=== PATIENT | female | born 1950 | race Caucasian/White ===

== ENCOUNTER 2017-07-26 11:47 | Emergency (ER) | payer MEDICARE ==
[2017-07-26 11:47] VITALS: BMI 21.5
[2017-07-26 12:04] VITALS: BP 161/77; PULSE 87; RESP 18; TEMP 97.9; O2SAT 99
--- NOTE | 2017-07-26 12:18 | ED PDOC ---
Upper Extremity Pain/Injury Time Seen by Provider: 07/26/17 12:09 Chief Complaint (Nursing): Upper Extremity Problem/Injury Chief Complaint (Provider): Right upper arm pain History Per: Patient History/Exam Limitations: no limitations Onset/Duration Of Symptoms: Mins Current Symptoms Are (Timing): Still Present Quality: "Pain" Exacerbating Factor(s): Strenuous Use Of Affected Area Additional History Per: Family Additional Complaint(s): The patient is a 67yo female, past medical history of hypertension, hypercholesterolemia, DM, hyperthyroid, presents to the ED for evaluation of right upper extremity pain s/p sustaining a mechanical fall prior to arrival. Patient reports while attempting to break her fall, she landed on her right arm sustaining the injury. She denies any numbness or tingling of her arm. Patient states she has not taken any medication for pain and at present, offers no additional medical complaints. PCP: Dr. Benson Franco Past Medical History Reviewed: Historical Data, Nursing Documentation, Vital Signs Vital Signs: Last Vital Signs Temp 97.9 F 07/26/17 12:00 Pulse 87 07/26/17 12:00 Resp 18 07/26/17 12:00 BP 161/77 H 07/26/17 12:00 Pulse Ox 99 07/26/17 12:00 - Medical History PMH: Diabetes, HTN, Hypercholesterolemia, Hyperthyroidism, Hypothyroidism - Surgical History Surgical History: No Surg Hx - Family History Family History: States: Unknown Family Hx - Home Medications Home Medications: Ambulatory Orders Medication Instructions Recorded Cholecalciferol (Vitamin D3) 5,000 iu PO DAILY 08/10/14 [Vitamin D3] Fish Oil/[place]-3/Vit C/Vit E 2,000 mg PO DAILY 08/10/14 [Coromega [place]-3] Gabapentin [Gabapentin] 200 mg PO TID 08/10/14 Glimepiride [Glimepiride] 2 mg PO BID 08/10/14 Lisinopril [Lisinopril] 10 mg PO DAILY 08/10/14 Metformin Hydrochloride [Metformin] 1,000 mg PO BID 08/10/14 Simvastatin [Simvastatin] 20 mg PO DAILY 08/10/14 Amoxicillin/Potassium Clav 1 each PO BID #20 tablet 05/27/16 [Augmentin 875-125 Tablet] - Allergies Allergies/Adverse Reactions: Allergies Allergy/AdvReac Type Severity Reaction Status Date / Time ciprofloxacin [From Cipro] Allergy RASH Verified 05/27/16 11:59 ciprofloxacin HCl Allergy RASH Verified 05/27/16 11:59 [From Cipro] clindamycin Allergy RASH Verified 05/27/16 12:00 Review of Systems ROS Statement: Except As Marked, All Systems Reviewed And Found Negative Musculoskeletal: Positive for: Arm Pain (right upper arm) Neurological: Negative for: Weakness, Numbness Physical Exam - Reviewed Nursing Documentation Reviewed: Yes Vital Signs Reviewed: Yes - Physical Exam Appears: Positive for: Well Head Exam: Positive for: ATRAUMATIC, NORMAL INSPECTION, NORMOCEPHALIC Skin: Positive for: Normal Color Eye Exam: Positive for: Normal appearance Neck: Positive for: Normal Cardiovascular/Chest: Positive for: Regular Rate, Rhythm Respiratory: Negative for: Respiratory Distress Pulses-Radial (R): 2+ Extremity: Positive for: Tenderness (diffuse tenderness to right proximal humerus). Negative for: Normal ROM (decreased ROM at right shoulder due to pain ), Deformity, Swelling - ECG O2 Sat by Pulse Oximetry: 99 (RA) Pulse Ox Interpretation: Normal Medical Decision Making Medical Decision Making: Time: 1220 Impression: Right arm pain s/p fall Plan: -- XR Right shoulder -- Tramadol 50mg PO -- Tylenol 650 mg PO Reassess Time: 1252 XR as read by provider indicates irregular impacted fracture of right surgical neck. Call placed to orthopedist litigation counsel. Discussed with Dr Vicente. States to f/u with orthopedics. No surgery needed at this time. Pt with sling. Scribe Attestation: Documented by Mary Ann Brice acting as a scribe for MAGALIE Burks Provider Attestation: All medical record entries made by the Scribe were at my direction and personally dictated by me. I have reviewed the chart and agree that the record accurately reflects my personal performance of the history, physical exam, medical decision making, and the department course for this patient. I have also personally directed, reviewed, and agree with the discharge instructions and disposition. Disposition - Clinical Impression Clinical Impression: Arm pain - Patient ED Disposition Is Patient to be Admitted: No - Disposition Referrals: [facility] [Outside] formerly [facility] [Outside] Disposition: Routine/Home Disposition Time: 14:34 Condition: GOOD Additional Instructions: Please follow-up with orthopedics. Instructions: Arm Fracture in Adults (ED) Forms: [facility] (Hebrew)
--- NOTE | 2017-07-26 13:58 | RAD ---
PROCEDURE: Radiographs of the Right Shoulder HISTORY: fall, right shoulder pain COMPARISON: No prior. FINDINGS: BONES: Comminuted fracture right humeral head and neck. No evidence of dislocation. JOINTS: Degenerative changes right acromioclavicular joint. SOFT TISSUES: Normal. OTHER FINDINGS: None. IMPRESSION: Comminuted fracture right humeral head and neck. No evidence of dislocation. Degenerative changes right acromioclavicular joint
== END 2017-07-26 14:45 | disposition home or self-care (01) ==
LOC: H.ER 11:47
DX: M79.601 Pain in right arm (principal); E03.9 Hypothyroidism, unspecified; E05.90 Thyrotoxicosis, unspecified without thyrotoxic crisis or storm; E11.9 Type 2 diabetes mellitus without complications; I10 Essential (primary) hypertension; Z79.84 Long term (current) use of oral hypoglycemic drugs

== ENCOUNTER 2017-11-08 12:22 | Inpatient (IN) | payer MEDICARE ==
[2017-11-08 12:22] VITALS: BMI 21.5
--- NOTE | 2017-11-08 13:02 | ED PDOC ---
Lower Extremity Pain/Injury Time Seen by Provider: 11/08/17 12:39 Chief Complaint (Nursing): Lower Extremity Problem/Injury Chief Complaint (Provider): Lower Extremity Problem/Injury History Per: Patient History/Exam Limitations: no limitations Current Symptoms Are (Timing): Still Present Additional Complaint(s): 67 y/o female with a past medical history of diabetes who presents to the emergency department with a complaint of redness and swelling to the second digit of the left foot for 5 days. Patient is able to feel sensation to all toes , has been cleaning with betadine, and thinks this is caused by bad circulation to the area. States her glucose was 125 this morning. 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 Denies fever, chill, or body aches. PMD: Dr. Jeri Byrne MD Past Medical History Reviewed: Historical Data, Nursing Documentation, Vital Signs Vital Signs: Last Vital Signs Temp 96.0 F L 11/08/17 12:35 Pulse 100 H 11/08/17 12:35 Resp 17 11/08/17 12:35 BP 136/62 11/08/17 12:35 Pulse Ox 99 11/08/17 12:35 - Medical History PMH: Diabetes, HTN, Hypercholesterolemia, Hyperthyroidism, Hypothyroidism - Family History Family History: States: Unknown Family Hx - Home Medications Home Medications: Ambulatory Orders Medication Instructions Recorded Cholecalciferol (Vitamin D3) 5,000 iu PO DAILY 08/10/14 [Vitamin D3] Fish Oil/[place]-3/Vit C/Vit E 2,000 mg PO DAILY 08/10/14 [Coromega [place]-3] Gabapentin [Gabapentin] 200 mg PO TID 08/10/14 Glimepiride [Glimepiride] 2 mg PO BID 08/10/14 Lisinopril [Lisinopril] 10 mg PO DAILY 08/10/14 Metformin Hydrochloride [Metformin] 1,000 mg PO BID 08/10/14 Simvastatin [Simvastatin] 20 mg PO DAILY 08/10/14 Amoxicillin/Potassium Clav 1 each PO BID #20 tablet 05/27/16 [Augmentin 875-125 Tablet] - Allergies Allergies/Adverse Reactions: Allergies Allergy/AdvReac Type Severity Reaction Status Date / Time ciprofloxacin [From Cipro] Allergy RASH Verified 05/27/16 11:59 ciprofloxacin HCl Allergy RASH Verified 05/27/16 11:59 [From Cipro] clindamycin Allergy RASH Verified 05/27/16 12:00 Review of Systems ROS Statement: Except As Marked, All Systems Reviewed And Found Negative (As per HPI, otherwise negative) Constitutional: Negative for: Fever, Chills, Other (Body aches) Musculoskeletal: Positive for: Foot Pain (Redness and swelling to the second toe of the left foot. Able to feel sensation to toes. ) Physical Exam - Reviewed Nursing Documentation Reviewed: Yes Vital Signs Reviewed: Yes - Physical Exam Appears: Positive for: Non-toxic, No Acute Distress Head Exam: Positive for: ATRAUMATIC, NORMAL INSPECTION, NORMOCEPHALIC Skin: Positive for: Normal Color, Warm, Dry Extremity: Positive for: Normal ROM (Able to range the toes on the left foot. ) , Capillary Refill (Good pulses noted on the left foot. ), Swelling (Left second DIP with skin breakdown and necrosis noted. Swelling, erythema, warmth, and avulsion of the skin noted with nail injury and foul smell. ). Negative for : Other (No active bleeding or drainage noted. ) Neurologic/Psych: Positive for: Alert, Oriented (x3) - Laboratory Results Result Diagrams: 11/08/17 13:32 11/08/17 13:32 - ECG O2 Sat by Pulse Oximetry: 99 (RA) Pulse Ox Interpretation: Normal Medical Decision Making Medical Decision Making: Time: 1246 Initial impression: Cellulitis of the toe Initial plan: --CMP --CBC w/ diff --Erythrocyte Sedimentation Rate --Blood Culture --Foot Left 3 Views --Podiatry consult --Reevaluation Podiatry: pages @1149 Time: 1332 Labs indicate 12.2 (High) range of white blood cells. Time: 1407 --Foot x-ray FINDINGS: BONES: Erosion of the tip of the tuft of the 2nd digit suggest osteomyelitis. There is a probable early chronic fracture of the base of 5th metatarsal bone, potential nonunion. This was not seen in the prior left foot radiograph series 26356 however. Further clinical correlation is advised with the patient. JOINTS: Degenerative changes are seen throughout the joints of the right foot diffusely , seen worst at the inner phalangeal joints, the 1st metatarsophalangeal joint, and the tarsal tarsal tarsal metatarsal articulations. SOFT TISSUES: Deformity of distal soft tissues of the great toe or reflect prior ulceration most likely. Emphysematous changes at the distal soft tissue of the 2nd digit likely reflects ulceration. OTHER FINDINGS: Diffuse osteopenia suggests osteoporosis. IMPRESSION: 1. Likely osteomyelitis of the tip of the tuft of the 2nd digit were soft tissue emphysema is also appreciated reflecting probable ulceration. Clinically correlate further. 2. Likely early chronic fracture base 5th metatarsal bone, potential nonunion here. Time: 1425 --Patient has osteomyelitis. Spoke to podiatry who will be coming soon to evaluate patient. --Will start dose of Vancomycin 1 GM IVPB Time: 1600 --Podiatry evaluated patient. --Patient will be admitted - to Ronny Cotto osteomyelitis. will get Vancomycin and Zoysn IV. Scribe Attestation: Documented by Gely Fernandez, acting as a scribe for Emi Lopez PA-C Provider Scribe Attestation: All medical record entries made by the Scribe were at my direction and personally dictated by me. I have reviewed the chart and agree that the record accurately reflects my personal performance of the history, physical exam, medical decision making, and the department course for this patient. I have also personally directed, reviewed, and agree with the discharge instructions and disposition. Disposition - Clinical Impression Clinical Impression: Osteomyelitis - Patient ED Disposition Is Patient to be Admitted: Yes - Disposition Disposition Time: 16:22 Condition: FAIR - Pt Status Changed To: Hospital Disposition Of: Inpatient - Admit Certification Admit to Inpatient:: After my assessment, the patient will require hospitalization for at least two midnights. This is because of the severity of symptoms shown, intensity of services needed, and/or the medical risk in this patient being treated as an outpatient. - POA Present On Arrival: None
[2017-11-08 13:37] LABS: BASO # 0.1 K/uL (0.0-0.2); BASO % 0.6 % (0.0-2.0); EOS # 0.2 K/uL (0.0-0.7); EOS % 1.7 % (0.0-4.0); HEMATOCRIT 35.7 % (34.0-47.0); LYMPH # 3.3 K/uL (1.0-4.3); LYMPH % 26.9 % (20.0-40.0); MEAN CELL VOLUME 89.8 fl (81.0-99.0); MEAN CORPUSCULAR HEMOGLOBIN 29.9 pg (27.0-31.0); MEAN CORPUSCULAR HGB CONC 33.3 g/dL (33.0-37.0); MEAN PLATELET VOLUME 8.9 fl (7.2-11.7); MONO % 8.3 % (0.0-10.0); NEUT # 7.6 K/uL (1.8-7.0); NEUT % 62.5 % (50.0-75.0); RED CELL DISTRIBUTION WIDTH 13.4 % (11.5-14.5); WHITE BLOOD COUNT 12.2 K/uL (4.8-10.8)
[2017-11-08 13:47] LABS: BILIRUBIN,TOTAL 0.6 mg/dl (0.2-1.3); CALCIUM 9.5 mg/dL (8.4-10.2); POTASSIUM 5.1 MMOL/L (3.6-5.0); TOTAL PROTEIN 8.8 G/DL (6.3-8.2)
[2017-11-08 13:49] LABS: ALB/GLOB RATIO 0.9 (1.0-2.1)
--- NOTE | 2017-11-08 14:09 | RAD ---
PROCEDURE: Left Foot Radiographs. HISTORY: foot pain 2nd toe COMPARISON: None. FINDINGS: BONES: Erosion of the tip of the tuft of the 2nd digit suggest osteomyelitis. There is a probable early chronic fracture of the base of 5th metatarsal bone, potential nonunion. This was not seen in the prior left foot radiograph series 69082 however. Further clinical correlation is advised with the patient. JOINTS: Degenerative changes are seen throughout the joints of the right foot diffusely, seen worst at the inner phalangeal joints, the 1st metatarsophalangeal joint, and the tarsal tarsal tarsal metatarsal articulations. SOFT TISSUES: Deformity of distal soft tissues of the great toe or reflect prior ulceration most likely. Emphysematous changes at the distal soft tissue of the 2nd digit likely reflects ulceration. OTHER FINDINGS: Diffuse osteopenia suggests osteoporosis. IMPRESSION: 1. Likely osteomyelitis of the tip of the tuft of the 2nd digit were soft tissue emphysema is also appreciated reflecting probable ulceration. Clinically correlate further. 2. Likely early chronic fracture base 5th metatarsal bone, potential nonunion here.
--- NOTE | 2017-11-08 15:12 | CP.PCM.CON ---
History of Present Illness - History of Present Illness History of Present Illness: Podiatry Consult Note- Dr. Galvan 67 y.o female with PMH of DM, HTN, hypercholesteremia presents to the ED for left 2nd digit ulceration. Patient reports noticing the toe getting more red and odorous for the past 5 days. She reports that there was no ulceration 5 days prior. She reports she has limited sensation to the LE; denies of any pain. She ambulates today in sneakers and accompanied by her significant other. She denies nausea/vomiting/shortness of breath/chest pain/chills/fever. 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 SH: denies smoking, drinking, ilicit drug use MEDS: see medication list FH: father-none, mother-stomach cancer, sister-breast cancer ALL: cipro and clinda -rash Past Patient History - Infectious Disease Hx of Infectious Diseases: None - Past Social History Smoking Status: Never Smoked - CARDIAC Hx Hypercholesterolemia: Yes Hx Hypertension: Yes - NEUROLOGICAL Other/Comment: neuropathy - HEENT Other/Comment: poor eyesight - ENDOCRINE/METABOLIC Hx Hyperthyroidism: Yes Hx Hypothyroidism: Yes - PSYCHIATRIC Hx Substance Use: No - SURGICAL HISTORY Other/Comment: 3 right foot surgeries- toe amputation - ANESTHESIA Hx Anesthesia: Yes Hx Anesthesia Reactions: No Meds Allergies/Adverse Reactions: Allergies Allergy/AdvReac Type Severity Reaction Status Date / Time ciprofloxacin [From Cipro] Allergy RASH Verified 05/27/16 11:59 ciprofloxacin HCl Allergy RASH Verified 05/27/16 11:59 [From Cipro] clindamycin Allergy RASH Verified 05/27/16 12:00 - Medications Medications: Current Medications Vancomycin HCl 1 gm/ Sodium (Chloride) 250 mls @ 166.667 mls/hr IVPB ONCE ONE PRN Reason: Protocol Stop: 11/08/17 16:29 Physical Exam - Constitutional Appears: Well, Non-toxic, No Acute Distress - Extremities Exam Additional comments: Vasc: DP and PT 1/4 bilaterally, CFT < 3 seconds x 9 digits, temperature gradient WNL, edema noted to the 2nd L digit Ortho: no pain with palpation to the 2nd L digit Neuro: protective and gross sensation diminished Derm: ulceration at the distal tip of L 2nd digit measuring approximately 1.5 x 2 x .4, wound base is mainly fibrotic with some necrotic tissue noted to wound base. Hyperkeratoic rim surrounding ulceration. Malodorous. No active drainage noted from ulceration. Probes to bone. Erythematous to the entire digit. No tunneling. R 2nd hammertoe contracture with redness discoloration noted to distal tip as well as dorsum PIPJ secondary to pressure - Neurological Exam Neurological exam: Alert, Oriented x3 - Psychiatric Exam Psychiatric exam: Normal Affect, Normal Mood Results - Vital Signs Recent Vital Signs: Last Vital Signs Temp 96.0 F L 11/08/17 12:35 Pulse 100 H 11/08/17 12:35 Resp 17 11/08/17 12:35 BP 136/62 11/08/17 12:35 Pulse Ox 99 11/08/17 14:27 - Labs Result Diagrams: 11/08/17 13:32 11/08/17 13:32 Labs: Laboratory Results - last 24 hr 11/08/17 11/08/17 13:32 13:32 WBC 12.2 H RBC 3.98 Hgb 11.9 L Hct 35.7 MCV 89.8 MCH 29.9 MCHC 33.3 RDW 13.4 Plt Count 234 MPV 8.9 Neut % (Auto) 62.5 Lymph % (Auto) 26.9 [place] % (Auto) 8.3 Eos % (Auto) 1.7 Baso % (Auto) 0.6 Neut # 7.6 H Lymph # 3.3 [place] # 1.0 H Eos # 0.2 Baso # 0.1 ESR 99 H Sodium 139 Potassium 5.1 H Chloride 101 Carbon Dioxide 29 Anion Gap 14 BUN 18 H Creatinine 1.3 H Est GFR ( Amer) 49 Est GFR (Non-Af Amer) 41 Random Glucose 183 H Calcium 9.5 Total Bilirubin 0.6 AST 39 H ALT 36 Alkaline Phosphatase 97 Total Protein 8.8 H Albumin 4.2 Globulin 4.6 H Albumin/Globulin Ratio 0.9 L Assessment & Plan - Assessment and Plan (Free Text) Assessment: 67 y.o female with PMH of DM, HTN, hypercholesteremia with left 2nd digit infected ulceration with OM. Plan: Patient seen and examined in the ED Charts, labs, vitals reviewed (afebrile, WBC=12.2) Discussed the plan in detail with attending Dr. Galvan X-ray- Impression: 1. Likely osteomyelitis of the tip of the tuft of the 2nd digit were soft tissue emphysema is also appreciated reflecting probable ulceration. Clinically correlate further. 2. Likely early chronic fracture base 5th metatarsal bone, potential nonunion here. Ulceration excisionally debrided using a 15# blade and a pickup of nonviable, necrotic tissue until fresh bleeding is noted down to the level of subcutaneous tissue. Patient tolerate procedure well. Ulceration is cleansed and dressed with betadine w2d, dsd, and cling. Will monitor right 2nd digit Pt may WB in surgical shoe bilaterally Wound culture taken- pending results Ordered Sunshine and Jayne to start ID consulted- recommendations appreciated Podiatry will continue to follow while in house Thank you for the consult
[2017-11-08] MEDS ORDERED: Piperacillin/Tazobact 3.375 GM in Sodium Chloride 0.9% 100 ML IVPB STA (16:20)
[2017-11-08 21:39] LABS: RBC URINE 5 /hpf (0-3); URINE BILIRUBIN NEGATIVE (NEGATIVE); URINE BLOOD NEGATIVE (NEGATIVE); URINE COLOR STRAW (YELLOW); URINE GLUCOSE (UA) 50 mg/dL (Normal); URINE KETONE NEGATIVE (NEGATIVE); URINE LEUKOCYTE ESTERASE LARGE Leu/uL (Negative); URINE PROTEIN NEGATIVE (NEGATIVE); URINE UROBILINOGEN 0.2-1.0 mg/dL (0.2-1.0); WBC URINE 139 /hpf (0-5)
[2017-11-09 06:22] LABS: HEMATOCRIT 35.5 % (34.0-47.0); MEAN CELL VOLUME 88.9 fl (81.0-99.0); MEAN CORPUSCULAR HEMOGLOBIN 29.5 pg (27.0-31.0); MEAN CORPUSCULAR HGB CONC 33.1 g/dL (33.0-37.0); RED CELL DISTRIBUTION WIDTH 13.5 % (11.5-14.5); WHITE BLOOD COUNT 12.2 K/uL (4.8-10.8)
--- NOTE | 2017-11-09 06:26 | CP.PCM.PN ---
Subjective - Date & Time of Evaluation Date of Evaluation: 11/09/17 Time of Evaluation: 06:26 - Subjective Subjective: Podiatry Progress Note - Dr. Galvan 67 year old female patient PMHx DM, HTN, hypercholesterolemia seen and evaluated at bedside for left 2nd digit ulceration. Patient hemodynamically stable and NAD. Partner present at bedside. Denies any acute events overnight. Denies any pain to left 2nd digit; no pedal complaints this visit. Denies N/V/F/ D/C/SOB/calf pain. Objective - Vital Signs/Intake and Output Vital Signs (last 24 hours): Temp Pulse Resp BP Pulse Ox 98.7 F 98 H 17 145/66 98 11/08/17 20:50 11/08/17 20:50 11/08/17 23:03 11/08/17 20:50 11/08/17 23:03 - Medications Medications: Current Medications Enoxaparin Sodium (Lovenox) 40 mg SC DAILY [facility] PRN Reason: Protocol Home Med (Glimepiride [Glimepiride]) 4 mg PO BID [facility] Piperacillin Sod/Tazobactam (Sod 2.25 gm/ Sodium Chloride) 100 mls @ 100 mls/ hr IVPB Q8 [facility] PRN Reason: Protocol Last Admin: 11/09/17 01:10 Dose: 100 mls/hr Vancomycin HCl 1 gm/ Sodium (Chloride) 250 mls @ 166.667 mls/hr IVPB Q12@0300, 1500 [facility] PRN Reason: Protocol Last Admin: 11/09/17 02:43 Dose: 166.667 mls/hr Insulin Detemir (Levemir) 40 units SC HS [facility] Insulin Human Lispro (Humalog) 0 units SC ACHS [facility] PRN Reason: Protocol Insulin Lispro Protam/Lispro Human (Humalog Mix 75/25) 50 units SC QAM [facility] Insulin Lispro Protam/Lispro Human (Humalog Mix 75/25) 40 units SC QPM [facility] Levothyroxine Sodium (Synthroid) 25 mcg PO DAILY@0630 [facility] Lisinopril (Zestril) 10 mg PO DAILY [facility] Pravastatin Sodium (Pravachol) 40 mg PO DAILY [facility] Sitagliptin Phosphate (Januvia) 100 mg PO DAILY [facility] - Labs Labs: 11/09/17 05:40 12/17/17 13:32 - Constitutional Appears: Well, Non-toxic, No Acute Distress - Extremities Exam Additional comments: VASC: DP pulses palpable 2/4 b/l. PT pulses weakly palpable 1/4 b/l. CFT <3 seconds to all digits. Temperature gradient WNL. Non-pitting edema noted to left 2nd digit. NEURO: Gross sensation absent bilaterally. DERM: Full-thickness ulceration noted to distal tuft of left 2nd digit measuring approximately 1.5 x 2 x 0.4cm - ulcer noted to have a mixed fibronecrotic base with sloughing and hyperkeratotic rim; serosanguinous drainage and malodor present; (+)probe to bone. Erythema and darkened discoloration noted to entire left 2nd digit. Right 2nd digit with discoloration noted to distal tuft and dorsum of PIPJ. ORTHO: No pain on palpation left 2nd digit. Rigid claw toe contracture left 2nd digit. Right 1st ray partial amputation. Right 2nd digit rigid hammertoe contracture. - Neurological Exam Neurological Exam: Alert, Awake, Oriented x3 - Psychiatric Exam Psychiatric exam: Normal Affect, Normal Mood Assessment and Plan - Assessment and Plan (Free Text) Assessment: 67 year old female PMHx of DM, HTN, hypercholesteremia with left 2nd digit infected ulceration + osteomyelitis Plan: Patient seen and evaluated at bedside with attending, Dr. Galvan afebrile, leukocytosis 12.2 L foot XR reviewed: 1. Likely osteomyelitis of the tip of the tuft of the 2nd digit were soft tissue emphysema is also appreciated reflecting probable ulceration. Clinically correlate further. 2. Likely early chronic fracture base 5th metatarsal bone, potential nonunion here. 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 surgical intervention; explained risks, complications, and alternatives to surgical procedure - patient agrees to proceed with surgical intervention To OR Thursday 7:45AM with Dr. Galvan for left 2nd digit amputation Podiatry will continue to follow patient while in house
[2017-11-09 06:31] LABS: ALB/GLOB RATIO 0.9 (1.0-2.1); BILIRUBIN,TOTAL 0.7 mg/dl (0.2-1.3); CALCIUM 9.2 mg/dL (8.4-10.2); POTASSIUM 4.4 MMOL/L (3.6-5.0); TOTAL PROTEIN 8.4 G/DL (6.3-8.2)
[2017-11-09] MEDS: Insulin Lispro (humaLOG) 100 Units/ml Inj SC SCH ×4 (07:30→21:17)
[2017-11-09] MEDS: Levothyroxine 25 MCG TAB PO SCH (08:22)
[2017-11-09] MEDS ORDERED: Insulin Lispro Mix 75/25 100 units/ml (HumaLog) 10ml SC SCH ×3 (09:00→18:00)
[2017-11-09] MEDS ORDERED: GlipiZIDE 10 mg SR Tab PO SCH (09:00)
[2017-11-09] MEDS: Pravastatin Sodium 40 MG TAB PO SCH (09:15)
[2017-11-09] MEDS: Enoxaparin 40 mg Syringe SC SCH (09:15)
--- NOTE | 2017-11-09 11:29 | CP.PCM.CON ---
History of Present Illness - History of Present Illness History of Present Illness: 67 y.o female with PMH of DM, HTN, hypercholesteremia presents to the ED for left 2nd digit ulceration. Patient reports noticing the toe getting more red and odorous for the past 5 days. She reports that there was no ulceration 5 days prior. She reports she has limited sensation to the LE; denies of any pain. She ambulates today in sneakers and accompanied by her significant other. She denies nausea/vomiting/shortness of breath/chest pain/chills/fever. 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 SH: denies smoking, drinking, ilicit drug use MEDS: see medication list FH: father-none, mother-stomach cancer, sister-breast cancer ALL: cipro and clinda -rash Review of Systems - Constitutional Constitutional: As Per HPI - EENT Eyes: absent: As Per HPI, Blind Spots, Blurred Vision, Change in Vision, Decreased Night Vision, Diplopia, Discharge, Dry Eye, Exophthalmos, Floaters, Irritation, Itchy Eyes, Loss of Peripheral Vision, Pain, Photophobia, Requires Corrective Lenses, Sees Flashes, Spots in Vision, Tunnel Vision, Other Visual Disturbances, Loss of Vision, Other Ears: absent: As Per HPI, Decreased Hearing, Ear Discharge, Ear Pain, Tinnitus, Abnormal Hearing, Disequilibrium, Dizziness, Other Nose/Mouth/Throat: absent: As Per HPI, Epistaxis, Nasal Congestion, Nasal Discharge, Nasal Obstruction, Nasal Trauma, Nose Pain, Post Nasal Drip, Sinus Pain, Sinus Pressure, Bleeding Gums, Change in Voice, Dental Pain, Dry Mouth, Dysphagia, Halitosis, Hoarsness, Lip Swelling, Mouth Lesions, Mouth Pain, Odynophagia, Sore Throat, Throat Swelling, Tongue Swelling, Facial Pain, Neck Pain, Neck Mass, Other - Breasts Breasts: absent: As Per HPI, Change in Shape, Mass, Pain, Nipple Discharge, Nipple Inversion, Skin Changes, Swelling, Other - Cardiovascular Cardiovascular: absent: As Per HPI, Acrocyanosis, Chest Pain, Chest Pain at Rest , Chest Pain with Activity, Claudication, Diaphoresis, Dyspnea, Dyspnea on Exertion, Edema, Irregular Heart Rhythm, Pain Radiating to Arm/Neck/Jaw, Leg Edema, Leg Ulcers, Lightheadedness, Orthopnea, Palpitations, Paroxysmal Nocturnal Dyspnea, Pedal Edema, Radiating Pain, Rapid Heart Rate, Slow Heart Rate, Syncope, Other - Respiratory Respiratory: absent: As Per HPI, Cough, Dyspnea, Hemoptysis, Dyspnea on Exertion , Wheezing, Snoring, Stridor, Pain on Inspiration, Chest Congestion, Excessive Mucous Production, Change in Mucous Color, Pain with Coughing, Other - Gastrointestinal Gastrointestinal: absent: As Per HPI, Abdominal Pain, Belching, Bloating, Change in Bowel Habits, Change in Stool Character, Coffee Ground Emesis, Constipation, Cramping, Diarrhea, Dyspepsia, Dysphagia, Early Satiety, Excessive Flatus, Fecal Incontinence, Heartburn, Hematemesis, Hematochezia, Loose Stools, Melena, Nausea, Odynophagia, Temesmus, Vomiting, Other - Genitourinary Genitourinary: absent: As Per HPI, Change in Urinary Stream, Difficulty Urinating, Dysuria, Flank Pain, Hematuria, Pyuria, Nocturia, Urinary Incontinence, Urinary Frequency, Urinary Hesitance, Urinary Urgency, Voiding Freq/Small Amts, Freq UTI, Hx Renal/Bladder Calculi, Hx /Renal Surgery, Bladder Distension, Other - Reproductive: Female Reproductive:Female: absent: As Per HPI, Amenorrhea, Amenorrhea/ Control, Currently Menstual, Cycle <21 Days, Cycle >35 Days, Cycle Variable, Menses 1-7 Days, Menses >/= 8 Days, Menses Variable, Cycle > 4 Weeks Between, No Menses for 6 Months, Heavy Menses, Light Menses, Normal Menses, Spotting Between Cycles , S/P Hysterectomy, Menopausal, Post Menopausal, Premenarche, Abnormal Vaginal Bleeding, Dysmenorrhea, Dyspareunia, Genital Lesions, Genital Pruritis, Pelvic Pain, Prolapse Symptoms, Sexual Dysfunction, Vaginal Discharge, Vaginal Dryness , Vaginal Odor, Vaginal Pruritis, Other - Menstruation Menstruation: absent: As Per HPI, Amenorrhea, Amenorrhea/ Control, Currently Menstual, Cycle <21 Days, Cycle >35 Days, Cycle Variable, Menses 1-7 Days, Menses >/= 8 Days, Menses Variable, Cycle > 4 Weeks Between, No Menses for 6 Months, Heavy Menses, Light Menses, Normal Menses, Spotting Between Cycles , S/P Hysterectomy, Menopausal, Post Menopausal, Premenarche, Abnormal Vaginal Bleeding, Dysmenorrhea, Other - Musculoskeletal Musculoskeletal: As Per HPI - Integumentary Integumentary: As Per HPI - Neurological Neurological: As Per HPI - Psychiatric Psychiatric: absent: As Per HPI, Abnormal Sleep Pattern, Anhedonia, Anxiety, Auditory Hallucinations, Behavioral Changes, Change in Appetite, Change in Libido, Confusion, Depression, Difficulty Concentrating, Hallucinations, Homicidal Ideation, Hopelessness, Irritability, Memory Loss, Mood Swings, Panic Attacks, Paranoia, Suicidal Ideation, Visual Hallucinations, Tactile Hallucinations, Other - Endocrine Endocrine: absent: As Per HPI, Change in Body Appearance, Change in Libido, Cold Intolorance, Deepening of Voice, Excessive Sweating, Fatigue, Flushing, Heat Intolorance, Increase in Ring/Shoe/Hat Size, Palpitations, Polydipsia, Polyphagia, Polyuria, Other - Hematologic/Lymphatic Hematologic: absent: As Per HPI, Easy Bleeding, Easy Bruising, Lymphadenopathy, Other Past Patient History - Infectious Disease Hx of Infectious Diseases: None - Past Medical History & Family History Past Medical History?: Yes - Past Social History Smoking Status: Never Smoked - CARDIAC Hx Cardiac Disorders: Yes Hx Hypercholesterolemia: Yes Hx Hypertension: Yes - PULMONARY Hx Respiratory Disorders: No - NEUROLOGICAL Hx Neurological Disorder: Yes Other/Comment: neuropathy - HEENT Hx HEENT Problems: Yes Other/Comment: poor eyesight - RENAL Hx Chronic Kidney Disease: No - ENDOCRINE/METABOLIC Hx Endocrine Disorders: Yes Hx Diabetes Mellitus Type 2: Yes Hx Hypothyroidism: Yes - HEMATOLOGICAL/ONCOLOGICAL Hx Blood Disorders: No - INTEGUMENTARY Hx Dermatological Problems: No - MUSCULOSKELETAL/RHEUMATOLOGICAL Hx Musculoskeletal Disorders: No Hx Falls: No - GASTROINTESTINAL Hx Gastrointestinal Disorders: No - GENITOURINARY/GYNECOLOGICAL Hx Genitourinary Disorders: No - PSYCHIATRIC Hx Psychophysiologic Disorder: No Hx Substance Use: No - SURGICAL HISTORY Hx Surgeries: Yes Other/Comment: 3 right foot surgeries- toe amputation - ANESTHESIA Hx Anesthesia: Yes Hx Anesthesia Reactions: No Hx Malignant Hyperthermia: No Has any member of the family had a problem w/ anesthesia?: No Meds Allergies/Adverse Reactions: Allergies Allergy/AdvReac Type Severity Reaction Status Date / Time ciprofloxacin [From Cipro] Allergy RASH Verified 05/27/16 11:59 ciprofloxacin HCl Allergy RASH Verified 05/27/16 11:59 [From Cipro] clindamycin Allergy RASH Verified 05/27/16 12:00 - Medications Medications: Current Medications Enoxaparin Sodium (Lovenox) 40 mg SC DAILY [facility] PRN Reason: Protocol Last Admin: 11/09/17 09:15 Dose: 40 mg Glipizide (Glucotrol Xl) 10 mg PO BID [facility] Last Admin: 11/09/17 10:28 Dose: 10 mg Home Med (Glimepiride [Glimepiride]) 4 mg PO BID [facility] Piperacillin Sod/Tazobactam (Sod 2.25 gm/ Sodium Chloride) 100 mls @ 100 mls/ hr IVPB Q8 [facility] PRN Reason: Protocol Last Admin: 11/09/17 10:52 Dose: 100 mls/hr Vancomycin HCl 1 gm/ Sodium (Chloride) 250 mls @ 166.667 mls/hr IVPB Q12@0300, 1500 [facility] PRN Reason: Protocol Last Admin: 11/09/17 02:43 Dose: 166.667 mls/hr Insulin Detemir (Levemir) 40 units SC HS [facility] Insulin Human Lispro (Humalog) 0 units SC ACHS [facility] PRN Reason: Protocol Last Admin: 11/09/17 07:30 Dose: Not Given Insulin Lispro Protam/Lispro Human (Humalog Mix 75/25) 50 units SC QAM [facility] Last Admin: 11/09/17 09:24 Dose: 50 units Insulin Lispro Protam/Lispro Human (Humalog Mix 75/25) 40 units SC QPM [facility] Levothyroxine Sodium (Synthroid) 25 mcg PO DAILY@0630 [facility] Last Admin: 11/09/17 08:22 Dose: 25 mcg Lisinopril (Zestril) 10 mg PO DAILY [facility] Last Admin: 11/09/17 09:14 Dose: 10 mg Pravastatin Sodium (Pravachol) 40 mg PO DAILY [facility] Last Admin: 11/09/17 09:15 Dose: 40 mg Sitagliptin Phosphate (Januvia) 100 mg PO DAILY [facility] Last Admin: 11/09/17 09:32 Dose: Not Given Physical Exam - Constitutional Appears: Non-toxic, Chronically Ill - Head Exam Head Exam: NORMOCEPHALIC - Eye Exam Eye Exam: PERRL. absent: Scleral icterus - ENT Exam ENT Exam: Mucous Membranes Dry, Normal External Ear Exam - Neck Exam Neck exam: Negative for: Lymphadenopathy - Respiratory Exam Respiratory Exam: Decreased Breath Sounds - Cardiovascular Exam Cardiovascular Exam: REGULAR RHYTHM, +S1, +S2 - GI/Abdominal Exam GI & Abdominal Exam: Diminished Bowel Sounds, Soft. absent: Tenderness - Rectal Exam Rectal Exam: Deferred - Exam Exam: NORMAL INSPECTION - Extremities Exam Extremities exam: Positive for: pedal edema, tenderness. Negative for: calf tenderness, pedal pulses present - Back Exam Back exam: absent: CVA tenderness (L), CVA tenderness (R) - Neurological Exam Neurological exam: Alert, CN II-XII Intact, Oriented x3, Reflexes Normal - Psychiatric Exam Psychiatric exam: Normal Mood - Skin Skin Exam: Dry Results - Vital Signs Recent Vital Signs: Last Vital Signs Temp 97.9 F 11/09/17 07:42 Pulse 87 11/09/17 09:14 Resp 20 11/09/17 07:42 BP 132/73 11/09/17 09:14 Pulse Ox 98 11/09/17 07:42 - Labs Result Diagrams: 11/15/17 05:30 11/15/17 05:30 Labs: Laboratory Results - last 24 hr 11/08/17 11/08/17 11/08/17 13:32 13:32 18:13 WBC 12.2 H RBC 3.98 Hgb 11.9 L Hct 35.7 MCV 89.8 MCH 29.9 MCHC 33.3 RDW 13.4 Plt Count 234 MPV 8.9 Neut % (Auto) 62.5 Lymph % (Auto) 26.9 Morgan % (Auto) 8.3 Eos % (Auto) 1.7 Baso % (Auto) 0.6 Neut # 7.6 H Lymph # 3.3 Morgan # 1.0 H Eos # 0.2 Baso # 0.1 ESR 99 H Sodium 139 Potassium 5.1 H Chloride 101 Carbon Dioxide 29 Anion Gap 14 BUN 18 H Creatinine 1.3 H Est GFR ( Amer) 49 Est GFR (Non-Af Amer) 41 POC Glucose (mg/dL) Random Glucose 183 H Calcium 9.5 Total Bilirubin 0.6 AST 39 H ALT 36 Alkaline Phosphatase 97 Total Protein 8.8 H Albumin 4.2 Globulin 4.6 H Albumin/Globulin Ratio 0.9 L Triglycerides Cholesterol LDL Cholesterol Direct HDL Cholesterol Vitamin B12 Total T3 TSH 3rd Generation Urine Color Straw Urine Clarity Slighty-cloudy Urine pH 7.0 Ur Specific [place] 1.010 Urine Protein Negative Urine Glucose (UA) 50 Urine Ketones Negative Urine Blood Negative Urine Nitrate Negative Urine Bilirubin Negative Urine Urobilinogen 0.2-1.0 Ur Leukocyte Esterase Large Urine RBC (Auto) 5 H Urine Microscopic WBC 139 H Ur Squamous Epith Cells 1 Urine Yeast (Budding) Few H 11/08/17 11/08/17 11/09/17 20:41 22:32 05:40 WBC 12.2 H RBC 4.00 Hgb 11.8 L Hct 35.5 MCV 88.9 MCH 29.5 MCHC 33.1 RDW 13.5 Plt Count 239 MPV Neut % (Auto) Lymph % (Auto) [place] % (Auto) Eos % (Auto) Baso % (Auto) Neut # Lymph # Morgan # Eos # Baso # ESR Sodium Potassium Chloride Carbon Dioxide Anion Gap BUN Creatinine Est GFR ( Amer) Est GFR (Non-Af Amer) POC Glucose (mg/dL) 149 H 157 H Random Glucose Calcium Total Bilirubin AST ALT Alkaline Phosphatase Total Protein Albumin Globulin Albumin/Globulin Ratio Triglycerides Cholesterol LDL Cholesterol Direct HDL Cholesterol Vitamin B12 Total T3 TSH 3rd Generation Urine Color Urine Clarity Urine pH Ur Specific [place] Urine Protein Urine Glucose (UA) Urine Ketones Urine Blood Urine Nitrate Urine Bilirubin Urine Urobilinogen Ur Leukocyte Esterase Urine RBC (Auto) Urine Microscopic WBC Ur Squamous Epith Cells Urine Yeast (Budding) 11/09/17 11/09/17 11/09/17 05:40 06:31 07:50 WBC RBC Hgb Hct MCV MCH MCHC RDW Plt Count MPV Neut % (Auto) Lymph % (Auto) [place] % (Auto) Eos % (Auto) Baso % (Auto) Neut # Lymph # Morgan # Eos # Baso # ESR Sodium 140 Potassium 4.4 Chloride 102 Carbon Dioxide 31 H Anion Gap 11 BUN 14 Creatinine 1.2 Est GFR ( Amer) 54 Est GFR (Non-Af Amer) 45 POC Glucose (mg/dL) 74 Random Glucose 76 Calcium 9.2 Total Bilirubin 0.7 AST 35 ALT 44 Alkaline Phosphatase 86 Total Protein 8.4 H Albumin 4.0 Globulin 4.4 H Albumin/Globulin Ratio 0.9 L Triglycerides 157 H Cholesterol 136 LDL Cholesterol Direct 73 HDL Cholesterol 26 L Vitamin B12 675 Total T3 0.929 L TSH 3rd Generation 1.67 Urine Color Urine Clarity Urine pH Ur Specific [place] Urine Protein Urine Glucose (UA) Urine Ketones Urine Blood Urine Nitrate Urine Bilirubin Urine Urobilinogen Ur Leukocyte Esterase Urine RBC (Auto) Urine Microscopic WBC Ur Squamous Epith Cells Urine Yeast (Budding) 11/09/17 11/09/17 09:23 11:03 WBC RBC Hgb Hct MCV MCH MCHC RDW Plt Count MPV Neut % (Auto) Lymph % (Auto) Morgan % (Auto) Eos % (Auto) Baso % (Auto) Neut # Lymph # Morgan # Eos # Baso # ESR Sodium Potassium Chloride Carbon Dioxide Anion Gap BUN Creatinine Est GFR ( Amer) Est GFR (Non-Af Amer) POC Glucose (mg/dL) 197 H 192 H Random Glucose Calcium Total Bilirubin AST ALT Alkaline Phosphatase Total Protein Albumin Globulin Albumin/Globulin Ratio Triglycerides Cholesterol LDL Cholesterol Direct HDL Cholesterol Vitamin B12 Total T3 TSH 3rd Generation Urine Color Urine Clarity Urine pH Ur Specific [place] Urine Protein Urine Glucose (UA) Urine Ketones Urine Blood Urine Nitrate Urine Bilirubin Urine Urobilinogen Ur Leukocyte Esterase Urine RBC (Auto) Urine Microscopic WBC Ur Squamous Epith Cells Urine Yeast (Budding) Assessment & Plan (1) Diabetes mellitus Status: Acute (2) Gangrene due to arterial insufficiency Status: Acute (3) Hypertension Status: Acute (4) Osteomyelitis Status: Acute (5) PVD (peripheral vascular disease) Status: Acute - Assessment and Plan (Free Text) Assessment: cont iv antibiotics and wound care
--- NOTE | 2017-11-09 14:04 | HP ---
CHIEF COMPLAINT: Discoloration and painful left toe. HISTORY OF PRESENT ILLNESS: This is a 67-year-old female, known case of diabetes, hypertension, elevated cholesterol, who was having problem with her left toe for the last few days, which got worsened, started changing color and was painful, so the patient was brought to the emergency room where the patient was found to have osteomyelitis and was admitted for further management. PAST MEDICAL HISTORY: Significant for hypertension, diabetes, elevated cholesterol, hypothyroidism. PAST SURGICAL HISTORY: Unremarkable. PERSONAL HISTORY: The patient is currently nonsmoker, nondrinker. No substance abuse. MEDICATIONS: The patient is on multiple medications including vitamin D3, omega-3 fatty acids, gabapentin, glimepiride, lisinopril, metformin, simvastatin. ALLERGIES: THE PATIENT IS ALLERGIC TO CIPRO AND CLINDAMYCIN. FAMILY HISTORY: Noncontributory. REVIEW OF SYSTEMS: Positive for toe pain. Review of systems otherwise is negative for headache, dizziness,syncope, loss of consciousness, chest pain, shortness of breath, nausea, vomiting, diarrhea, constipation, any other pain. Review of systems of all other organ system is unremarkable. PHYSICAL EXAMINATION: GENERAL: Well-built, well-nourished 67-year-old female, in no acute distress. VITAL SIGNS: Temperature 97.9, pulse 87, respirations 20, blood pressure 132/73, saturation 98%. HEENT: Pupils reacting to light. No JVD. No thyromegaly. No lymphadenopathy. No nystagmus. Normocephalic, atraumatic skull. HEART: S1 and S2. Normal and regular. No significant murmur, gallop or rub is heard. LUNGS: Shows good bilateral air exchange. No rales or rhonchi. ABDOMEN: Soft, nontender. No organomegaly. No fluid. Bowel sounds are present. EXTREMITIES: No edema, no calf swelling, no tenderness, no acute ischemia on the right side. Left third toe is painful, tender, red with black discoloration at the tip, consistent with cellulitis from exam. CENTRAL NERVOUS SYSTEM: Essentially unchanged and there is no sign of any acute gross focal motor or sensory neurological deficit. DIAGNOSTIC DATA: Available diagnostic data reviewed. WBC 12.2, hemoglobin 11.2, hematocrit 35, platelets 239. Sodium 140, potassium 4.4, chloride 102, bicarb 31, BUN 14, creatinine 1.2. SMA-12 is unremarkable. Accu-Cheks are acceptable. TSH level is 1.67. X-ray of the foot is consistent with osteomyelitis. EKG does not reveal acute ST-T changes. ADMITTING IMPRESSION: Osteomyelitis of left toe, diabetes type 2 with uncontrolled sugar, hypertension, elevated cholesterol. PLAN: As ordered. Case and plan discussed with the patient. Rudy Cotto MD
[2017-11-09] MEDS: GlipiZIDE 10 mg SR Tab PO SCH (16:47)
[2017-11-09] MEDS ORDERED: Insulin Detemir 100 Units/ml Inj SC SCH (22:00)
--- NOTE | 2017-11-09 22:57 | CON ---
ENDOCRINOLOGY FOLLOWUP NOTE HISTORY OF PRESENT ILLNESS: This is a 67-year-old female, very well-known to me from outpatient diabetic management, who presents here with a left second digit ulceration with underlying osteomyelitis and cellulitis of the left foot and is now being referred for diabetic evaluation and management. She has been evaluated to have osteomyelitis with ongoing IV antibiotics as ordered today. PAST MEDICAL HISTORY: History of type 2 insulin-requiring diabetes, on a combination of oral hypoglycemic therapy with Amaryl given as 4 mg b.i.d. before meals and Januvia at 100 mg once daily. She is also on a premixed insulin regimen using Humalog 75/25 given as 50 units before breakfast and 40 units before dinner with Lantus given as 40 units subcu at bedtime daily as ordered. She is also on Trulicity given as 1.5 mg subcu once a week as ordered. History of hypertensive cardiovascular disease and dyslipidemia, history of diabetic retinopathy and polyneuropathy as noted. History of early diabetic nephropathy with microalbuminuria, history of peripheral arterial disease and vasculopathy with a previous partial right ray amputation with underlying osteomyelitis about 6 years ago, history of hypertension and dyslipidemia as mentioned. History of hypothyroidism, on the low-dose levothyroxine replacement therapy, on levothyroxine given as 25 mcg once daily as ordered. FAMILY HISTORY: Her mother had succumbed from stomach cancer and also has positive hypertension and heart disease in the family. SOCIAL HISTORY: The patient lives alone with very supportive family and all her sons are very supportive of her care. REVIEW OF SYSTEMS: As mentioned above. Admits to generalized body weakness with easy fatigability and tiredness and suboptimal energy level. Also admits to episodic dizziness and lightheadedness, worse on the day of admission. No chest pains or palpitations or PND. Her oral intake has been variable with nausea, dyspepsia and vague upper abdominal pain. Also admits to lower extremity paresthesias, especially nocturnally. PHYSICAL EXAMINATION: GENERAL: This is an average-built female, in no apparent distress. VITAL SIGNS: Blood pressure of 140/80; pulse of 70 beats per minute, regular; temperature 98; respirations 20; height is 5 feet 4 inches, weight is 188 pounds. HEENT: Head normocephalic. Eyes anicteric with pink conjunctivae. Funduscopy not possible at this time. Ears, nose, and throat otherwise normal. NECK: Supple. Thyroid gland is normal in size. No carotid bruits or cervical adenopathy. CARDIOPULMONARY: Some adynamic precordium. S1, S2 is rapid and regular. LUNGS: Clear to auscultation. ABDOMEN: Flat, soft with positive bowel sounds. EXTREMITIES: No peripheral edema. Pulses are +2 bilaterally. LABORATORY DATA: Her initial hematology showed WBC of 12.2, hemoglobin of 11.9, hematocrit of 36, MCV 89, platelets 234. Her chemistry shows a BUN of 18, sodium 139, potassium 5.1, chloride 101, CO2 of 29, glucose 183 and creatinine 1.3. Her TSH is 1.67. ASSESSMENT: This is a 67-year-old female with uncontrolled and decompensated type 2 insulin-requiring diabetes, presenting here with a left foot cellulitis and specifically a left second digit ulceration with underlying osteomyelitis and is now being referred for diabetic evaluation and management. She also has diabetic microvascular complications of retinopathy, polyneuropathy and early nephropathy with microalbuminuria. Moreover, she has diabetic macrovascular complications of peripheral arterial disease and vasculopathy with a previous partial ray amputation of the right foot as noted. PLAN: Plan of management as discussed with the patient and staff. So at this time, we will optimize metabolic control and start her on her premixed insulin regimen with Humalog 75/25 given as 50 units before breakfast and 40 units before dinner to start today. We will also add basal insulin with Levemir given as 30 units subcu at bedtime daily as ordered. We will titrate incrementally as indicated to optimize metabolic control. The hemoglobin A1c will be done to compare with prior glycemic control and baseline thyroid function studies will be ordered. We will obtain serial chemistry and supplement accordingly as needed. We will follow, Lizzette Potter MD MTDJacqueline
[2017-11-10] MEDS: Levothyroxine 25 MCG TAB PO SCH (05:34)
[2017-11-10 06:08] LABS: HEMATOCRIT 35.6 % (34.0-47.0); MEAN CELL VOLUME 90.4 fl (81.0-99.0); MEAN CORPUSCULAR HEMOGLOBIN 29.2 pg (27.0-31.0); MEAN CORPUSCULAR HGB CONC 32.3 g/dL (33.0-37.0); RED CELL DISTRIBUTION WIDTH 13.9 % (11.5-14.5); WHITE BLOOD COUNT 12.4 K/uL (4.8-10.8)
[2017-11-10 06:18] LABS: BILIRUBIN,TOTAL 0.7 mg/dl (0.2-1.3); CALCIUM 9.1 mg/dL (8.4-10.2); POTASSIUM 4.1 MMOL/L (3.6-5.0); TOTAL PROTEIN 8.3 G/DL (6.3-8.2)
[2017-11-10 06:24] LABS: ALB/GLOB RATIO 0.9 (1.0-2.1)
[2017-11-10 06:35] LABS: T4 10.2 ug/dl (5.5-11.0)
[2017-11-10 06:48] LABS: THYROID STIMULATING HORMONE 2.57 mIU/ML (0.46-4.68)
[2017-11-10] MEDS ORDERED: Insulin Lispro Mix 75/25 100 units/ml (HumaLog) 10ml SC SCH (07:30)
--- NOTE | 2017-11-10 07:40 | CP.PCM.PN ---
Subjective - Date & Time of Evaluation Date of Evaluation: 11/10/17 Time of Evaluation: 07:39 - Subjective Subjective: Podiatry Progress Note - Dr. Galvan 67 year old female patient PMHx DM, HTN, hypercholesterolemia seen and evaluated at bedside for left 2nd digit ulceration. Patient hemodynamically stable and NAD. No acute events overnight. No pedal complaints this visit. Denies N/V/F/D/C/SOB/calf pain. Objective - Vital Signs/Intake and Output Vital Signs (last 24 hours): Temp Pulse Resp BP Pulse Ox 98.3 F 98 H 19 137/64 98 11/10/17 01:23 11/10/17 01:23 11/10/17 01:23 11/10/17 01:23 11/10/17 01:23 - Medications Medications: Current Medications Enoxaparin Sodium (Lovenox) 40 mg SC DAILY [facility] Reason: Protocol Last Admin: 11/09/17 09:15 Dose: 40 mg Glipizide (Glucotrol Xl) 10 mg PO ACBD [facility] Last Admin: 11/09/17 16:47 Dose: 10 mg Home Med (Glimepiride [Glimepiride]) 4 mg PO BID [facility] Vancomycin HCl 1 gm/ Sodium (Chloride) 250 mls @ 166.667 mls/hr IVPB Q12@0400, 1600 [facility] Reason: Protocol Last Admin: 11/10/17 04:01 Dose: 166.667 mls/hr Piperacillin Sod/Tazobactam (Sod 2.25 gm/ Sodium Chloride) 50 mls @ 50 mls/hr IVPB Q8@0300,1100,1900 [facility] Reason: Protocol Insulin Detemir (Levemir) 40 units SC HS [facility] Last Admin: 11/09/17 21:17 Dose: 40 units Insulin Human Lispro (Humalog) 0 units SC ACHS [facility] Reason: Protocol Last Admin: 11/09/17 21:17 Dose: Not Given Insulin Lispro Protam/Lispro Human (Humalog Mix 75/25) 40 units SC ACD [facility] Last Admin: 11/09/17 17:03 Dose: 40 units Insulin Lispro Protam/Lispro Human (Humalog Mix 75/25) 50 units SC ACB [facility] Levothyroxine Sodium (Synthroid) 25 mcg PO DAILY@0630 [facility] Last Admin: 11/10/17 05:34 Dose: 25 mcg Lisinopril (Zestril) 10 mg PO DAILY [facility] Last Admin: 11/09/17 09:14 Dose: 10 mg Pravastatin Sodium (Pravachol) 40 mg PO DAILY [facility] Last Admin: 11/09/17 09:15 Dose: 40 mg Sitagliptin Phosphate (Januvia) 100 mg PO DAILY@2100 [facility] Last Admin: 11/09/17 21:16 Dose: 100 mg - Labs Labs: 11/10/17 05:45 11/10/17 05:45 - Constitutional Appears: Well, Non-toxic, No Acute Distress - Extremities Exam Additional comments: VASC: DP pulses palpable 2/4 b/l. PT pulses weakly palpable 1/4 b/l. CFT <3 seconds to all digits. Temperature gradient WNL. Non-pitting edema noted to left 2nd digit. NEURO: Gross sensation absent bilaterally. DERM: Full-thickness ulceration noted to distal tuft of left 2nd digit measuring approximately 1.5 x 2 x 0.4cm - ulcer noted to have a mixed fibronecrotic base with sloughing and hyperkeratotic rim; serosanguinous drainage and malodor present; (+)probe to bone. Erythema and darkened discoloration noted to entire left 2nd digit. Right 2nd digit with discoloration noted to distal tuft and dorsum of PIPJ. ORTHO: No pain on palpation left 2nd digit. Rigid claw toe contracture left 2nd digit. Right 1st ray partial amputation. Right 2nd digit rigid hammertoe contracture. - Neurological Exam Neurological Exam: Alert, Awake, Oriented x3 - Psychiatric Exam Psychiatric exam: Normal Affect, Normal Mood Assessment and Plan - Assessment and Plan (Free Text) Assessment: 67 year old female PMHx of DM, HTN, hypercholesteremia with left 2nd digit infected ulceration + osteomyelitis Plan: Patient seen and evaluated at bedside with attending, Dr. Galvan afebrile, WBC increasing 12.4 L foot XR reviewed: 1. Likely osteomyelitis of the tip of the tuft of the 2nd digit were soft tissue emphysema is also appreciated reflecting probable ulceration. Clinically correlate further. 2. Likely early chronic fracture base 5th metatarsal bone, potential nonunion here. L foot MRI reviewed: OM middle and distal phalanges of 2nd digit L 2nd digit cleansed with saline and dressed with betadine DSD -Patient may be WBAT surgical shoe b/l L 2nd digit wound culture report reveals growth of beta hemolytic strep group B Continue to monitor right 2nd digit f/u ID recommendations Discussed with patient options for treatment - [place] IV abx vs. surgical intervention; explained risks, complications, and alternatives to surgical procedure - patient agrees to proceed with surgical intervention To OR Thursday 7:45AM with Dr. Galvan for left 2nd digit amputation Podiatry will continue to follow patient while in house
[2017-11-10] MEDS: Pravastatin Sodium 40 MG TAB PO SCH (08:41)
[2017-11-10] MEDS: GlipiZIDE 10 mg SR Tab PO SCH ×2 (08:42→18:01)
[2017-11-10] MEDS: Insulin Lispro (humaLOG) 100 Units/ml Inj SC SCH ×4 (08:43→22:14)
[2017-11-10] MEDS: Enoxaparin 40 mg Syringe SC SCH (08:43)
--- NOTE | 2017-11-10 09:58 | MRI ---
MRI left forefoot History: Left foot 2nd digit infection. Evaluate for osteomyelitis. Comparison: None available. Technique: Multi-echo multiplanar sequences were performed through the left forefoot without the use of intravenous contrast. Findings: Signal abnormality noted within the mid and distal phalanges of the 2nd digit with associated soft tissue erosion consistent with ulceration and osteomyelitis. Signal abnormality seen at the tuft of the 1st distal phalanx with patchy decreased T1 signal and increased STIR signal which may be the sequelae of early acute infectious and or inflammatory changes such as acute osteomyelitis versus posttraumatic changes versus additional etiology. Clinical Correlation. Prominent signal abnormality seen throughout the 5th metatarsal shaft and base with probable ununited fracture deformity of the base of the 5th metatarsal bone. Clinical correlation. Mild fraying of the visualized Lisfranc ligament which may represent a low-grade sprain and or partial tearing. Degenerative changes noted at the talonavicular joint space. Impression: 1. Signal abnormality noted within the mid and distal phalanges of the 2nd digit with associated soft tissue erosion consistent with ulceration and osteomyelitis. 2. Signal abnormality seen at the tuft of the 1st distal phalanx with patchy decreased T1 signal and increased STIR signal which may be the sequelae of early acute infectious and or inflammatory changes such as acute osteomyelitis versus posttraumatic changes versus additional etiology. Clinical Correlation. 3. Prominent signal abnormality seen throughout the 5th metatarsal shaft and base with probable ununited fracture deformity of the base of the 5th metatarsal bone. Clinical correlation. Superimposed acute infectious and or inflammatory changes cannot entirely be excluded on the basis of these images. Clinical correlation. 4. Mild fraying of the visualized Lisfranc ligament which may represent a low-grade sprain and or partial tearing. 5. Degenerative changes noted at the talonavicular joint space. These findings were preliminarily reported at 8:34 p.m. on 11/09/[address] Jovanni Nicole from [facility].
--- NOTE | 2017-11-10 10:28 | CP.PCM.PN ---
<Ami Rosa - Last Filed: 11/10/17 17:09> Subjective - Date & Time of Evaluation Date of Evaluation: 11/10/17 Time of Evaluation: 08:10 - Subjective Subjective: Patient seen and examined with attending bedside. Reports feeling better and patient aware about surgery. Denies fever, foot pain, nausea, vomiting, abd pain. Day of surgery will be this Thursday Objective - Vital Signs/Intake and Output Vital Signs (last 24 hours): Temp Pulse Resp BP Pulse Ox 98.3 F 102 H 18 116/69 98 11/10/17 08:02 11/10/17 08:41 11/10/17 08:02 11/10/17 08:41 11/10/17 08:02 - Medications Medications: Current Medications Enoxaparin Sodium (Lovenox) 40 mg SC DAILY [facility] Reason: Protocol Last Admin: 11/10/17 08:43 Dose: 40 mg Glipizide (Glucotrol Xl) 10 mg PO ACBD [facility] Last Admin: 11/10/17 08:42 Dose: 10 mg Home Med (Glimepiride [Glimepiride]) 4 mg PO BID [facility] Vancomycin HCl 1 gm/ Sodium (Chloride) 250 mls @ 166.667 mls/hr IVPB Q12@0400, 1600 [facility] Reason: Protocol Last Admin: 11/10/17 04:01 Dose: 166.667 mls/hr Piperacillin Sod/Tazobactam (Sod 2.25 gm/ Sodium Chloride) 50 mls @ 50 mls/hr IVPB Q8@0300,1100,1900 [facility] Reason: Protocol Insulin Detemir (Levemir) 40 units SC HS [facility] Last Admin: 11/09/17 21:17 Dose: 40 units Insulin Human Lispro (Humalog) 0 units SC ACHS [facility] Reason: Protocol Last Admin: 11/10/17 08:43 Dose: Not Given Insulin Lispro Protam/Lispro Human (Humalog Mix 75/25) 40 units SC ACD [facility] Last Admin: 11/09/17 17:03 Dose: 40 units Insulin Lispro Protam/Lispro Human (Humalog Mix 75/25) 50 units SC ACB [facility] Last Admin: 11/10/17 09:11 Dose: 50 units Levothyroxine Sodium (Synthroid) 25 mcg PO DAILY@0630 [facility] Last Admin: 11/10/17 05:34 Dose: 25 mcg Lisinopril (Zestril) 10 mg PO DAILY [facility] Last Admin: 11/10/17 08:41 Dose: 10 mg Pravastatin Sodium (Pravachol) 40 mg PO DAILY [facility] Last Admin: 11/10/17 08:41 Dose: 40 mg Sitagliptin Phosphate (Januvia) 100 mg PO DAILY@2100 [facility] Last Admin: 11/09/17 21:16 Dose: 100 mg - Labs Labs: 11/10/17 05:45 11/10/17 05:45 - Constitutional Appears: Well, Non-toxic, No Acute Distress - Head Exam Head Exam: ATRAUMATIC, NORMOCEPHALIC - Eye Exam Eye Exam: Normal appearance - ENT Exam ENT Exam: Mucous Membranes Moist - Respiratory Exam Respiratory Exam: Clear to Ausculation Bilateral. absent: Rales, Rhonchi, Wheezes - Cardiovascular Exam Cardiovascular Exam: REGULAR RHYTHM, +S1, +S2 - GI/Abdominal Exam GI & Abdominal Exam: Soft, Normal Bowel Sounds - Extremities Exam Extremities Exam: Normal Inspection. absent: Calf Tenderness, Pedal Edema Additional comments: Left foot second digit ulceration covered with bandage, no limited ROM of ankle , muscle strength intact, sensation intact Assessment and Plan (1) Osteomyelitis Assessment & Plan: left foot second digit -For surgery on Thursday -Pt will need medical clearance Status: Acute (2) Hypertension Assessment & Plan: Continue medication Status: Acute (3) Diabetes mellitus Assessment & Plan: on levemir, januvia, SSI Status: Acute (4) DVT prophylaxis Assessment & Plan: lovenox 40 mg sc daily Status: Acute <Cotto,Rudy K - Last Filed: 11/20/17 12:15> Objective - Vital Signs/Intake and Output Vital Signs (last 24 hours): Temp Pulse Resp BP Pulse Ox 97.9 F 98 H 20 166/95 H 96 11/19/17 16:08 11/19/17 16:08 11/19/17 16:08 11/19/17 16:08 11/19/17 16:08 - Labs Labs: 11/19/17 16:12 11/19/17 16:12 PT 12.6 Seconds (9.8-13.1) 11/11/17 05:50 INR 1.1 (0.9-1.2) 11/11/17 05:50 APTT 32.9 Seconds (25.6-37.1) 11/11/17 05:50 Assessment and Plan - Assessment and Plan (Free Text) Assessment: Patient was personally seen and examined by me in rounds with residents. Available labs and diagnostic data reviewed. Case, patient's condition and management plan discussed with residents in rounds. Agree with resident's progress note. Plan: As ordered.
[2017-11-10] MEDS: Piperacillin/Tazobact 2.25 GM in Sodium Chloride 0.9% 50 ML IVPB SCH ×2 (10:35→18:02)
--- NOTE | 2017-11-10 16:03 | RAD ---
HISTORY: To clear before foot surgery COMPARISON: Chest radiograph 02/09/2017. TECHNIQUE: Chest PA and lateral FINDINGS: LUNGS: No active pulmonary disease. PLEURA: No significant pleural effusion identified. No pneumothorax apparent. CARDIOVASCULAR: Normal. OSSEOUS STRUCTURES: No significant abnormalities. VISUALIZED UPPER ABDOMEN: Normal. OTHER FINDINGS: None. IMPRESSION: No interval acute cardiopulmonary disease appreciated.
--- NOTE | 2017-11-10 17:34 | PN ---
DATE: ENDOCRINOLOGY FOLLOWUP NOTE LOCATION: Room 662. SUBJECTIVE: This is a 67-year-old female with recent uncontrolled type 2 insulin-requiring diabetes presenting here with left foot cellulitis and ulceration in the second digit of the left foot with underlying osteomyelitis, currently undergoing debridement and IV antibiotic management that is also being followed closely for metabolic management. Her oral intake is quite variable at this time with low normal glycemic profile today as noted. Her hemoglobin A1c is 9.0% which is quite elevated despite a very high dose of insulin therapy and oral hypoglycemic therapy given as outpatient. Her glucose values today have ranged from 100 to 114 and 207 mg/dL. It was 60 fruit stuffer today as noted. The latest chemistry showed a BUN of 15, sodium 142, potassium 4.1, chloride 103, CO2 of 29, glucose 95, and creatinine 1.3. Her thyroid studies showed a T4 of 10.2, with a TSH of 2.57. ASSESSMENT AND PLAN: So at this time, we will continue the same levothyroxine given at a very low dose of 25 mcg daily as ordered. We will also modify, however, her basal and premixed insulin regimen to obviate hypoglycemia, especially with the variability of her oral intake and lower the Levemir to 30 units subcu at bedtime daily to start tonight. We will also lower the premixed insulin with Humalog 75/25 given as 14 units a.c. breakfast and 30 units a.c. dinner to start today. We will continue the low-dose correction scale using Humalog insulin as given. We will obtain serial chemistries and supplement accordingly as needed. We will follow. Lizzette Potter MD
[2017-11-10] MEDS: Insulin Lispro Mix 75/25 100 units/ml (HumaLog) 10ml SC SCH (18:01)
[2017-11-10] MEDS ORDERED: Insulin Detemir 100 Units/ml Inj SC SCH (22:00)
[2017-11-11] MEDS: Piperacillin/Tazobact 2.25 GM in Sodium Chloride 0.9% 50 ML IVPB SCH ×3 (03:32→18:02)
[2017-11-11] MEDS: Levothyroxine 25 MCG TAB PO SCH (06:10)
[2017-11-11 06:40] LABS: PARTIAL THROMBOPLASTIN TIME 32.9 Seconds (25.6-37.1)
--- NOTE | 2017-11-11 07:04 | CP.PCM.PN ---
Subjective - Date & Time of Evaluation Date of Evaluation: 11/11/17 Time of Evaluation: 07:03 - Subjective Subjective: Podiatry Progress Note - Dr. Galvan 67 year old female patient PMHx DM, HTN, hypercholesterolemia seen and evaluated at bedside for left 2nd digit ulceration. Patient hemodynamically stable and NAD. No issues overnight. No pedal complaints this visit. Denies N/V/ F/D/C/SOB/calf pain. Objective - Vital Signs/Intake and Output Vital Signs (last 24 hours): Temp Pulse Resp BP Pulse Ox 98 F 79 19 124/64 97 11/11/17 00:00 11/11/17 00:00 11/11/17 00:00 11/11/17 00:00 11/11/17 00:00 - Medications Medications: Current Medications Enoxaparin Sodium (Lovenox) 40 mg SC DAILY [facility]N Reason: Protocol Last Admin: 11/10/17 08:43 Dose: 40 mg Glipizide (Glucotrol Xl) 10 mg PO ACBD [facility] Last Admin: 11/10/17 18:01 Dose: 10 mg Home Med (Glimepiride [Glimepiride]) 4 mg PO BID [facility] Vancomycin HCl 1 gm/ Sodium (Chloride) 250 mls @ 166.667 mls/hr IVPB Q12@0400, 1600 [facility]N Reason: Protocol Last Admin: 11/11/17 04:57 Dose: 166.667 mls/hr Piperacillin Sod/Tazobactam (Sod 2.25 gm/ Sodium Chloride) 50 mls @ 50 mls/hr IVPB Q8@0300,1100,1900 [facility]N Reason: Protocol Last Admin: 11/11/17 03:32 Dose: 50 mls/hr Insulin Detemir (Levemir) 30 units SC HS [facility] Last Admin: 11/10/17 22:16 Dose: 30 unit Insulin Human Lispro (Humalog) 0 units SC ACHS [facility]N Reason: Protocol Last Admin: 11/10/17 22:14 Dose: Not Given Insulin Lispro Protam/Lispro Human (Humalog Mix 75/25) 40 units SC ACB [facility] Insulin Lispro Protam/Lispro Human (Humalog Mix 75/25) 30 units SC ACD [facility] Last Admin: 11/10/17 18:01 Dose: 30 units Levothyroxine Sodium (Synthroid) 25 mcg PO DAILY@0630 [facility] Last Admin: 11/11/17 06:10 Dose: 25 mcg Lisinopril (Zestril) 10 mg PO DAILY [facility] Last Admin: 11/10/17 08:41 Dose: 10 mg Pravastatin Sodium (Pravachol) 40 mg PO DAILY [facility] Last Admin: 11/10/17 08:41 Dose: 40 mg Sitagliptin Phosphate (Januvia) 100 mg PO DAILY@2100 [facility] Last Admin: 11/10/17 22:15 Dose: 100 mg - Labs Labs: 11/10/17 05:45 11/10/17 05:45 PT 12.6 Seconds (9.8-13.1) 11/11/17 05:50 INR 1.1 (0.9-1.2) 11/11/17 05:50 APTT 32.9 Seconds (25.6-37.1) 11/11/17 05:50 - Constitutional Appears: Well, Non-toxic, No Acute Distress - Extremities Exam Additional comments: VASC: DP pulses palpable 2/4 b/l. PT pulses weakly palpable 1/4 b/l. CFT <3 seconds to all digits. Temperature gradient WNL. Non-pitting edema noted to left 2nd digit. NEURO: Gross sensation absent bilaterally. DERM: Full-thickness ulceration noted to distal tuft of left 2nd digit measuring approximately 1.5 x 2 x 0.4cm - ulcer noted to have a mixed fibronecrotic base with sloughing and hyperkeratotic rim; serosanguinous drainage and malodor present; (+)probe to bone. Erythema and darkened discoloration noted to entire left 2nd digit. Right 2nd digit with discoloration noted to distal tuft and dorsum of PIPJ. ORTHO: No pain on palpation left 2nd digit. Rigid claw toe contracture left 2nd digit. Right 1st ray partial amputation. Right 2nd digit rigid hammertoe contracture. - Neurological Exam Neurological Exam: Alert, Awake, Oriented x3 - Psychiatric Exam Psychiatric exam: Normal Affect, Normal Mood Assessment and Plan - Assessment and Plan (Free Text) Assessment: 67 year old female PMHx of DM, HTN, hypercholesteremia with left 2nd digit infected ulceration + osteomyelitis Plan: Patient seen and evaluated at bedside Discussed with attending, Dr. Galvan afebrile L foot XR reviewed: 1. Likely osteomyelitis of the tip of the tuft of the 2nd digit were soft tissue emphysema is also appreciated reflecting probable ulceration. Clinically correlate further. 2. Likely early chronic fracture base 5th metatarsal bone, potential nonunion here. 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 surgical intervention; explained risks, complications, and alternatives to surgical procedure - patient agrees to proceed with surgical intervention To OR Thursday 7:45AM with Dr. Galvan for left 2nd digit amputation -Patient medically stable per Dr. Cotto Podiatry will continue to follow patient while in house
[2017-11-11] MEDS: Insulin Lispro (humaLOG) 100 Units/ml Inj SC SCH ×4 (08:48→21:57)
[2017-11-11] MEDS: GlipiZIDE 10 mg SR Tab PO SCH ×2 (08:49→16:04)
[2017-11-11] MEDS: Enoxaparin 40 mg Syringe SC SCH (08:49)
[2017-11-11] MEDS: Pravastatin Sodium 40 MG TAB PO SCH (08:49)
[2017-11-11] MEDS: Insulin Lispro Mix 75/25 100 units/ml (HumaLog) 10ml SC SCH ×2 (08:50→18:02)
--- NOTE | 2017-11-11 09:22 | CP.PCM.PN ---
Objective - Vital Signs/Intake and Output Vital Signs (last 24 hours): Temp Pulse Resp BP Pulse Ox 97.9 F 76 18 116/67 98 11/11/17 08:11 11/11/17 08:54 11/11/17 08:11 11/11/17 08:54 11/11/17 08:11 - Medications Medications: Current Medications Enoxaparin Sodium (Lovenox) 40 mg SC DAILY [facility]N Reason: Protocol Last Admin: 11/11/17 08:49 Dose: 40 mg Glipizide (Glucotrol Xl) 10 mg PO ACBD [facility] Last Admin: 11/11/17 08:49 Dose: 10 mg Home Med (Glimepiride [Glimepiride]) 4 mg PO BID [facility] Vancomycin HCl 1 gm/ Sodium (Chloride) 250 mls @ 166.667 mls/hr IVPB Q12@0400, 1600 [facility]N Reason: Protocol Last Admin: 11/11/17 04:57 Dose: 166.667 mls/hr Piperacillin Sod/Tazobactam (Sod 2.25 gm/ Sodium Chloride) 50 mls @ 50 mls/hr IVPB Q8@0300,1100,1900 [facility] PRN Reason: Protocol Last Admin: 11/11/17 03:32 Dose: 50 mls/hr Insulin Detemir (Levemir) 30 units SC HS [facility] Last Admin: 11/10/17 22:16 Dose: 30 unit Insulin Human Lispro (Humalog) 0 units SC ACHS [facility]N Reason: Protocol Last Admin: 11/11/17 08:48 Dose: Not Given Insulin Lispro Protam/Lispro Human (Humalog Mix 75/25) 40 units SC ACB [facility] Last Admin: 11/11/17 08:50 Dose: 40 units Insulin Lispro Protam/Lispro Human (Humalog Mix 75/25) 30 units SC ACD [facility] Last Admin: 11/10/17 18:01 Dose: 30 units Levothyroxine Sodium (Synthroid) 25 mcg PO DAILY@0630 [facility] Last Admin: 11/11/17 06:10 Dose: 25 mcg Lisinopril (Zestril) 10 mg PO DAILY [facility] Last Admin: 11/11/17 08:54 Dose: 10 mg Pravastatin Sodium (Pravachol) 40 mg PO DAILY [facility] Last Admin: 11/11/17 08:49 Dose: 40 mg Sitagliptin Phosphate (Januvia) 100 mg PO DAILY@2100 [facility] Last Admin: 11/10/17 22:15 Dose: 100 mg - Labs Labs: 11/10/17 05:45 11/10/17 05:45 PT 12.6 Seconds (9.8-13.1) 11/11/17 05:50 INR 1.1 (0.9-1.2) 11/11/17 05:50 APTT 32.9 Seconds (25.6-37.1) 11/11/17 05:50 Assessment and Plan (1) Osteomyelitis Status: Acute (2) Hypertension Status: Acute (3) Diabetes mellitus Status: Acute (4) DVT prophylaxis Status: Acute
--- NOTE | 2017-11-11 10:22 | PN ---
DATE: 11/11/2017 SUBJECTIVE: Patient seen and examined. Interim events noted. Consults noted and appreciated. Podiatry followup and intervention noted and appreciated. The patient is tentatively scheduled for surgery on Thursday. Patient feels okay. Denies any specific pain. No chest pain. No shortness of breath. PHYSICAL EXAMINATION: GENERAL: Patient is in no acute distress. VITAL SIGNS: Stable. HEART: S1 and S2, normal and regular. LUNGS: Good bilateral air exchange. ABDOMEN: Soft and nontender. EXTREMITIES: No edema. No calf swelling. No tenderness. No acute ischemia. CENTRAL NERVOUS SYSTEM: Essentially unchanged. DIAGNOSTIC DATA: Available diagnostic data reviewed. ASSESSMENT AND PLAN: Overall, patient is medically stable. Patient's foot has osteomyelitis and he is tentatively scheduled for surgery. Plan as ordered. Case and plan discussed with patient. Rudy Cotto MD
--- NOTE | 2017-11-11 11:59 | CARD ---
APPROVED REPORT EKG Measurement Heart [id number] <Conclusion> Normal sinus rhythm Normal ECG
--- NOTE | 2017-11-11 17:33 | CP.PCM.CON ---
History of Present Illness - History of Present Illness History of Present Illness: PGY2 consult note for cardiology, Dr. Long 67 year old female with past medical history of uncontrolled DM, HTN, HLD presented to hospital for cellulitis of the left foot. Cardiology is consulted for medical clearance for left toe amputation. Patient stated that she noticed redness and a bad odor about 5 days prior to coming to the hospital. MRI of foot done during the hospital admission showed osteomyelitis. Patient currently can bear weight on foot. Denies having any previous caurdiac workup. Denies having any CP, SOB, abd pain, N/V/D/C, F/C. 12 point ROS are negative except for thr above mentioned. 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 SH: denies smoking, drinking, ilicit drug use MEDS: see medication list FH: father-none, mother-stomach cancer, sister-breast cancer ALL: cipro and clinda -rash Review of Systems - Constitutional Constitutional: As Per HPI - EENT Nose/Mouth/Throat: As Per HPI - Cardiovascular Cardiovascular: As Per HPI - Respiratory Respiratory: As Per HPI - Gastrointestinal Gastrointestinal: As Per HPI - Genitourinary Genitourinary: As Per HPI - Integumentary Integumentary: As Per HPI - Neurological Neurological: As Per HPI Past Patient History - Infectious Disease Hx of Infectious Diseases: None - Past Medical History & Family History Past Medical History?: Yes - Past Social History Smoking Status: Never Smoked - CARDIAC Hx Cardiac Disorders: Yes Hx Hypercholesterolemia: Yes Hx Hypertension: Yes - PULMONARY Hx Respiratory Disorders: No - NEUROLOGICAL Hx Neurological Disorder: Yes Other/Comment: neuropathy - HEENT Hx HEENT Problems: Yes Other/Comment: poor eyesight - RENAL Hx Chronic Kidney Disease: No - ENDOCRINE/METABOLIC Hx Endocrine Disorders: Yes Hx Diabetes Mellitus Type 2: Yes Hx Hypothyroidism: Yes - HEMATOLOGICAL/ONCOLOGICAL Hx Blood Disorders: No - INTEGUMENTARY Hx Dermatological Problems: No - MUSCULOSKELETAL/RHEUMATOLOGICAL Hx Musculoskeletal Disorders: No Hx Falls: No - GASTROINTESTINAL Hx Gastrointestinal Disorders: No - GENITOURINARY/GYNECOLOGICAL Hx Genitourinary Disorders: No - PSYCHIATRIC Hx Psychophysiologic Disorder: No Hx Substance Use: No - SURGICAL HISTORY Hx Surgeries: Yes Other/Comment: 3 right foot surgeries- toe amputation - ANESTHESIA Hx Anesthesia: Yes Hx Anesthesia Reactions: No Hx Malignant Hyperthermia: No Has any member of the family had a problem w/ anesthesia?: No Meds Allergies/Adverse Reactions: Allergies Allergy/AdvReac Type Severity Reaction Status Date / Time ciprofloxacin [From Cipro] Allergy RASH Verified 05/27/16 11:59 ciprofloxacin HCl Allergy RASH Verified 05/27/16 11:59 [From Cipro] clindamycin Allergy RASH Verified 05/27/16 12:00 - Medications Medications: Current Medications Enoxaparin Sodium (Lovenox) 40 mg SC DAILY [facility] PRN Reason: Protocol Last Admin: 11/11/17 08:49 Dose: 40 mg Glipizide (Glucotrol Xl) 10 mg PO ACBD [facility] Last Admin: 11/11/17 16:04 Dose: 10 mg Home Med (Glimepiride [Glimepiride]) 4 mg PO BID [facility] Vancomycin HCl 1 gm/ Sodium (Chloride) 250 mls @ 166.667 mls/hr IVPB Q12@0400, 1600 [facility] PRN Reason: Protocol Last Admin: 11/11/17 16:04 Dose: 166.667 mls/hr Piperacillin Sod/Tazobactam (Sod 2.25 gm/ Sodium Chloride) 50 mls @ 50 mls/hr IVPB Q8@0300,1100,1900 [facility] PRN Reason: Protocol Last Admin: 11/11/17 12:07 Dose: 50 mls/hr Insulin Detemir (Levemir) 30 units SC HS [facility] Last Admin: 11/10/17 22:16 Dose: 30 unit Insulin Human Lispro (Humalog) 0 units SC ACHS [facility] PRN Reason: Protocol Last Admin: 11/11/17 16:04 Dose: Not Given Insulin Lispro Protam/Lispro Human (Humalog Mix 75/25) 40 units SC ACB [facility] Last Admin: 11/11/17 08:50 Dose: 40 units Insulin Lispro Protam/Lispro Human (Humalog Mix 75/25) 30 units SC ACD [facility] Last Admin: 11/10/17 18:01 Dose: 30 units Levothyroxine Sodium (Synthroid) 25 mcg PO DAILY@0630 [facility] Last Admin: 11/11/17 06:10 Dose: 25 mcg Lisinopril (Zestril) 10 mg PO DAILY [facility] Last Admin: 11/11/17 08:54 Dose: 10 mg Pravastatin Sodium (Pravachol) 40 mg PO DAILY [facility] Last Admin: 11/11/17 08:49 Dose: 40 mg Sitagliptin Phosphate (Januvia) 100 mg PO DAILY@2100 [facility] Last Admin: 11/10/17 22:15 Dose: 100 mg Results - Vital Signs Recent Vital Signs: Last Vital Signs Temp 97.7 F 11/11/17 15:42 Pulse 80 11/11/17 15:42 Resp 17 11/11/17 15:42 BP 120/66 11/11/17 15:42 Pulse Ox 97 11/11/17 15:42 - Labs Result Diagrams: 11/10/17 05:45 11/10/17 05:45 Labs: Laboratory Results - last 24 hr 11/10/17 11/11/17 11/11/17 21:52 05:50 06:05 PT 12.6 INR 1.1 APTT 32.9 POC Glucose (mg/dL) 139 H 76 11/11/17 11/11/17 11/11/17 07:38 10:57 15:32 PT INR APTT POC Glucose (mg/dL) 109 200 H 146 H Assessment & Plan - Assessment and Plan (Free Text) Assessment: 67 year old female with past medical history of uncontrolled DM, HTN, HLD is being seen for medical clearance for left foot toe amputation. Pre-op cardiac clearance for non-cardiac procedure - Preliminary echo read showed normal EF, Grade 1 diastolic dysfunction - Patient has METs for 4 with good baseline functionality. Patient is low risk for adverse cardiac events for noncardiac intermediate risk procedure. Cleared for surgery Left foot osteomyelitis - Podiatry planning for OR for amputation - Continue Abx per ID recs DM - Hgb A1c noted to be 9.0 - Continue management per endo recs - Continue lisinopril and pravastatin HTN - Blood pressure currently stable. Continue to monitor all orders and recs per attending, Dr. Long - Date & Time Date: 11/11/17 Time: 17:34
[2017-11-11] MEDS ORDERED: Insulin Detemir 100 Units/ml Inj SC SCH (22:00)
--- NOTE | 2017-11-11 22:23 | PN ---
ENDOCRINOLOGY FOLLOWUP NOTE LOCATION: In the room 662. SUBJECTIVE: This is a 67-year-old female with recent uncontrolled type 2 insulin-requiring diabetes, presenting here with left foot neuropathic ulceration and underlying cellulitis specific to the left second digit and is now being followed closely for metabolic management. Her glycemic levels are fluctuating but much improved at this time and the latest glucose levels have ranged from 146 to 200 mg/dL. It was 109 pre-breakfast this morning as noted. The latest chemistries showed a BUN of 15, sodium 142, potassium 4.1, chloride of 103, CO2 of 29, glucose 95, and creatinine 1.3. Her A1c is 9.0%. Her thyroid studies showed a T4 of 10.2 with a TSH of 2.57. So, at this time, we will continue the low-dose levothyroxine replacement therapy at 25 mcg daily as ordered. We will also lower the basal insulin once again with Levemir to be given as 20 units subcu at bedtime daily to start tonight. We will titrate incrementally as indicated to optimize metabolic control. We will also continue the low-dose correction scale using Humalog insulin as given to obviate hypoglycemia. Moreover, we will continue the same premixed insulin regimen to allow for dose equilibration and keep her on the Humalog 75/25 given as 40 units a.c. breakfast and 30 units a.c. dinner as ordered. We will also continue the Januvia given as 100 mg at bedtime daily as ordered. We will titrate incrementally as indicated to optimize metabolic control. We will obtain serial chemistries and supplement accordingly as needed. We will follow this. Lizzette Potter MD
[2017-11-12] MEDS: Piperacillin/Tazobact 2.25 GM in Sodium Chloride 0.9% 50 ML IVPB SCH ×3 (03:40→18:08)
[2017-11-12] MEDS: Levothyroxine 25 MCG TAB PO SCH (06:04)
[2017-11-12 06:34] LABS: HEMATOCRIT 32.9 % (34.0-47.0); MEAN CELL VOLUME 89.7 fl (81.0-99.0); MEAN CORPUSCULAR HEMOGLOBIN 29.7 pg (27.0-31.0); MEAN CORPUSCULAR HGB CONC 33.1 g/dL (33.0-37.0); RED CELL DISTRIBUTION WIDTH 13.9 % (11.5-14.5); WHITE BLOOD COUNT 9.4 K/uL (4.8-10.8)
[2017-11-12 06:43] LABS: CALCIUM 9.3 mg/dL (8.4-10.2)
[2017-11-12 06:45] LABS: POTASSIUM 4.4 MMOL/L (3.6-5.0)
--- NOTE | 2017-11-12 07:50 | CP.PCM.PN ---
Subjective - Date & Time of Evaluation Date of Evaluation: 11/12/17 Time of Evaluation: 07:47 - Subjective Subjective: Podiatry Progress Note - Dr. Galvan 67 year old female patient PMHx DM, HTN, hypercholesterolemia seen and evaluated at bedside for left 2nd digit ulceration. Patient hemodynamically stable and NAD. No issues overnight. No pedal complaints this visit. Patient aware she is scheduled to go to the the OR tomorrow morning for left 2nd digit amputation. Denies N/V/F/D/C/SOB/calf pain. Objective - Vital Signs/Intake and Output Vital Signs (last 24 hours): Temp Pulse Resp BP Pulse Ox 98.6 F 85 19 133/65 96 11/12/17 00:43 11/12/17 00:43 11/12/17 00:43 11/12/17 00:43 11/12/17 00:43 - Medications Medications: Current Medications Enoxaparin Sodium (Lovenox) 40 mg SC DAILY [facility] PRN Reason: Protocol Last Admin: 11/11/17 08:49 Dose: 40 mg Glipizide (Glucotrol Xl) 10 mg PO ACBD [facility] Last Admin: 11/11/17 16:04 Dose: 10 mg Home Med (Glimepiride [Glimepiride]) 4 mg PO BID [facility] Vancomycin HCl 1 gm/ Sodium (Chloride) 250 mls @ 166.667 mls/hr IVPB Q12@0400, 1600 [facility] PRN Reason: Protocol Last Admin: 11/12/17 04:46 Dose: 166.667 mls/hr Piperacillin Sod/Tazobactam (Sod 2.25 gm/ Sodium Chloride) 50 mls @ 50 mls/hr IVPB Q8@0300,1100,1900 [facility] PRN Reason: Protocol Last Admin: 11/12/17 03:40 Dose: 50 mls/hr Insulin Detemir (Levemir) 20 units SC HS [facility] Last Admin: 11/11/17 21:59 Dose: 20 unit Insulin Human Lispro (Humalog) 0 units SC ACHS [facility] PRN Reason: Protocol Last Admin: 11/11/17 21:57 Dose: Not Given Insulin Lispro Protam/Lispro Human (Humalog Mix 75/25) 40 units SC ACB [facility] Last Admin: 11/11/17 08:50 Dose: 40 units Insulin Lispro Protam/Lispro Human (Humalog Mix 75/25) 30 units SC ACD [facility] Last Admin: 11/11/17 18:02 Dose: 30 units Levothyroxine Sodium (Synthroid) 25 mcg PO DAILY@0630 [facility] Last Admin: 11/12/17 06:04 Dose: 25 mcg Lisinopril (Zestril) 10 mg PO DAILY [facility] Last Admin: 11/11/17 08:54 Dose: 10 mg Pravastatin Sodium (Pravachol) 40 mg PO DAILY [facility] Last Admin: 11/11/17 08:49 Dose: 40 mg Sitagliptin Phosphate (Januvia) 100 mg PO DAILY@2100 [facility] Last Admin: 11/11/17 21:57 Dose: 100 mg - Labs Labs: 11/12/17 05:50 11/12/17 05:50 PT 12.6 Seconds (9.8-13.1) 11/11/17 05:50 INR 1.1 (0.9-1.2) 11/11/17 05:50 APTT 32.9 Seconds (25.6-37.1) 11/11/17 05:50 - Constitutional Appears: Well, Non-toxic, No Acute Distress - Extremities Exam Additional comments: VASC: DP pulses palpable 2/4 b/l. PT pulses weakly palpable 1/4 b/l. CFT <3 seconds to all digits. Temperature gradient WNL. Non-pitting edema noted to left 2nd digit. NEURO: Gross sensation absent bilaterally. DERM: Full-thickness ulceration noted to distal tuft of left 2nd digit measuring approximately 1.5 x 2 x 0.4cm - ulcer noted to have a mixed fibronecrotic base with sloughing and hyperkeratotic rim; serosanguinous drainage and malodor present; (+)probe to bone. Erythema and darkened discoloration noted to entire left 2nd digit. Right 2nd digit with discoloration noted to distal tuft and dorsum of PIPJ. ORTHO: No pain on palpation left 2nd digit. Rigid claw toe contracture left 2nd digit. Right 1st ray partial amputation. Right 2nd digit rigid hammertoe contracture. - Neurological Exam Neurological Exam: Alert, Awake, Oriented x3 - Psychiatric Exam Psychiatric exam: Normal Affect, Normal Mood Assessment and Plan - Assessment and Plan (Free Text) Assessment: 67 year old female PMHx of DM, HTN, hypercholesteremia with left 2nd digit infected ulceration + osteomyelitis Plan: Patient seen and evaluated at bedside Discussed with attending, Dr. Galvan afebrile, WBC 9.4, ESR 99 L foot XR reviewed: 1. Likely osteomyelitis of the tip of the tuft of the 2nd digit were soft tissue emphysema is also appreciated reflecting probable ulceration. Clinically correlate further. 2. Likely early chronic fracture base 5th metatarsal bone, potential nonunion here. L foot MRI reviewed: OM middle and distal phalanges of 2nd digit L 2nd digit cleansed with saline and dressed with betadine DSD -Patient may be WBAT surgical shoe b/l L 2nd digit wound culture report reveals growth of beta hemolytic strep group B Continue to monitor right 2nd digit Continue abx per ID - Vancomycin, Zosyn; ID recs appreciated Discussed with patient options for treatment - terminal operations manager IV abx vs. surgical intervention; explained risks, complications, and alternatives to surgical procedure - patient agrees to proceed with surgical intervention -Discussed in length postoperative course To OR tomorrow, Thursday 7:45AM with Dr. Galvan for left 2nd digit partial amputation -Patient medically stable per Dr. Cotto -Per cardiology, patient is low risk for adverse cardiac events for noncardiac intermediate risk procedure; cleared for surgery -Patient to be NPO past midnight for surgery tomorrow Podiatry will continue to follow patient while in house
[2017-11-12] MEDS: Insulin Lispro (humaLOG) 100 Units/ml Inj SC SCH ×4 (07:56→22:37)
[2017-11-12] MEDS: Insulin Lispro Mix 75/25 100 units/ml (HumaLog) 10ml SC SCH ×2 (08:50→18:08)
[2017-11-12] MEDS: GlipiZIDE 10 mg SR Tab PO SCH ×2 (08:50→18:08)
[2017-11-12] MEDS: Pravastatin Sodium 40 MG TAB PO SCH (08:51)
--- NOTE | 2017-11-12 09:43 | CP.PCM.PN ---
Subjective - Date & Time of Evaluation Date of Evaluation: 11/12/17 Time of Evaluation: 07:45 - Subjective Subjective: Patient seen and examined bedside with Dr Cotto. Patient waiting for surgery tomorrow. Patient cleared for catholic priest. Patient denies foot pain, fever, n,v ,abd pain. Objective - Vital Signs/Intake and Output Vital Signs (last 24 hours): Temp Pulse Resp BP Pulse Ox 97.1 F L 75 20 133/71 100 11/12/17 08:58 11/12/17 08:58 11/12/17 08:58 11/12/17 08:58 11/12/17 08:58 - Medications Medications: Current Medications Enoxaparin Sodium (Lovenox) 40 mg SC DAILY [facility] PRN Reason: Protocol Last Admin: 11/11/17 08:49 Dose: 40 mg Glipizide (Glucotrol Xl) 10 mg PO ACBD [facility] Last Admin: 11/12/17 08:50 Dose: 10 mg Home Med (Glimepiride [Glimepiride]) 4 mg PO BID [facility] Vancomycin HCl 1 gm/ Sodium (Chloride) 250 mls @ 166.667 mls/hr IVPB Q12@0400, 1600 [facility] PRN Reason: Protocol Last Admin: 11/12/17 04:46 Dose: 166.667 mls/hr Piperacillin Sod/Tazobactam (Sod 2.25 gm/ Sodium Chloride) 50 mls @ 50 mls/hr IVPB Q8@0300,1100,1900 [facility] PRN Reason: Protocol Last Admin: 11/12/17 03:40 Dose: 50 mls/hr Insulin Detemir (Levemir) 20 units SC HS [facility] Last Admin: 11/11/17 21:59 Dose: 20 unit Insulin Human Lispro (Humalog) 0 units SC ACHS [facility] PRN Reason: Protocol Last Admin: 11/12/17 07:56 Dose: Not Given Insulin Lispro Protam/Lispro Human (Humalog Mix 75/25) 40 units SC ACB [facility] Last Admin: 11/12/17 08:50 Dose: 40 units Insulin Lispro Protam/Lispro Human (Humalog Mix 75/25) 30 units SC ACD [facility] Last Admin: 11/11/17 18:02 Dose: 30 units Levothyroxine Sodium (Synthroid) 25 mcg PO DAILY@0630 [facility] Last Admin: 11/12/17 06:04 Dose: 25 mcg Lisinopril (Zestril) 10 mg PO DAILY [facility] Last Admin: 11/12/17 08:51 Dose: 10 mg Pravastatin Sodium (Pravachol) 40 mg PO DAILY [facility] Last Admin: 11/12/17 08:51 Dose: 40 mg Sitagliptin Phosphate (Januvia) 100 mg PO DAILY@2100 [facility] Last Admin: 11/11/17 21:57 Dose: 100 mg - Labs Labs: 11/12/17 05:50 11/12/17 05:50 PT 12.6 Seconds (9.8-13.1) 11/11/17 05:50 INR 1.1 (0.9-1.2) 11/11/17 05:50 APTT 32.9 Seconds (25.6-37.1) 11/11/17 05:50 - Constitutional Appears: Non-toxic, No Acute Distress - Head Exam Head Exam: ATRAUMATIC, NORMOCEPHALIC - Eye Exam Eye Exam: Normal appearance - ENT Exam ENT Exam: Normal Exam - Respiratory Exam Respiratory Exam: Clear to Ausculation Bilateral. absent: Rales, Rhonchi, Wheezes - Cardiovascular Exam Cardiovascular Exam: REGULAR RHYTHM, +S1, +S2 - GI/Abdominal Exam GI & Abdominal Exam: Soft, Normal Bowel Sounds. absent: Tenderness - Extremities Exam Extremities Exam: absent: Pedal Edema Additional comments: Left foot second digit ulceration covered with bandage, no limited ROM of ankle , muscle strength intact, sensation intact - Neurological Exam Neurological Exam: Alert, Awake, Normal Gait, Oriented x3 - Psychiatric Exam Psychiatric exam: Normal Affect, Normal Mood - Skin Skin Exam: Intact Assessment and Plan - Assessment and Plan (Free Text) Plan: Assessment and Plan (1) Osteomyelitis Assessment & Plan: left foot second digit -For surgery tomorrow -c/w zosyn and vanco -Pt cleared by catholic priest. Patient is low risk for adverse cardiac events for noncardiac intermediate risk procedure. Status: Acute (2) Hypertension Assessment & Plan: Continue medication Status: Acute (3) Diabetes mellitus Assessment & Plan: on levemir, januvia, SSI Status: Acute (4) DVT prophylaxis Assessment & Plan: lovenox hold for surgery tomorrow Status: Acute
--- NOTE | 2017-11-12 11:05 | CP.PCM.PN ---
<Amy Schroeder - Last Filed: 11/13/17 06:39> Subjective - Date & Time of Evaluation Date of Evaluation: 11/12/17 Time of Evaluation: 11:03 - Subjective Subjective: PGY 2 progress ntoe for cardiology, Dr. Long Pt is seen and examined at bedside. No acute events overnight. Patient denies having any CP, SOB, LE pain or swelling, abd pain, N/V/D. Patient is ambulating without difficulty. Plan for OR tomorrow for left toe amputation. Objective - Vital Signs/Intake and Output Vital Signs (last 24 hours): Temp Pulse Resp BP Pulse Ox 97.1 F L 75 20 133/71 100 11/12/17 08:58 11/12/17 08:58 11/12/17 08:58 11/12/17 08:58 11/12/17 08:58 - Medications Medications: Current Medications Enoxaparin Sodium (Lovenox) 40 mg SC DAILY [facility] PRN Reason: Protocol Last Admin: 11/11/17 08:49 Dose: 40 mg Glipizide (Glucotrol Xl) 10 mg PO ACBD [facility] Last Admin: 11/12/17 08:50 Dose: 10 mg Home Med (Glimepiride [Glimepiride]) 4 mg PO BID [facility] Vancomycin HCl 1 gm/ Sodium (Chloride) 250 mls @ 166.667 mls/hr IVPB Q12@0400, 1600 [facility] PRN Reason: Protocol Last Admin: 11/12/17 04:46 Dose: 166.667 mls/hr Piperacillin Sod/Tazobactam (Sod 2.25 gm/ Sodium Chloride) 50 mls @ 50 mls/hr IVPB Q8@0300,1100,1900 [facility] PRN Reason: Protocol Last Admin: 11/12/17 03:40 Dose: 50 mls/hr Insulin Detemir (Levemir) 20 units SC HS [facility] Last Admin: 11/11/17 21:59 Dose: 20 unit Insulin Human Lispro (Humalog) 0 units SC ACHS [facility] PRN Reason: Protocol Last Admin: 11/12/17 07:56 Dose: Not Given Insulin Lispro Protam/Lispro Human (Humalog Mix 75/25) 40 units SC ACB [facility] Last Admin: 11/12/17 08:50 Dose: 40 units Insulin Lispro Protam/Lispro Human (Humalog Mix 75/25) 30 units SC ACD [facility] Last Admin: 11/11/17 18:02 Dose: 30 units Levothyroxine Sodium (Synthroid) 25 mcg PO DAILY@0630 [facility] Last Admin: 11/12/17 06:04 Dose: 25 mcg Lisinopril (Zestril) 10 mg PO DAILY [facility] Last Admin: 11/12/17 08:51 Dose: 10 mg Pravastatin Sodium (Pravachol) 40 mg PO DAILY [facility] Last Admin: 11/12/17 08:51 Dose: 40 mg Sitagliptin Phosphate (Januvia) 100 mg PO DAILY@2100 [facility] Last Admin: 11/11/17 21:57 Dose: 100 mg - Labs Labs: 11/12/17 05:50 11/12/17 05:50 PT 12.6 Seconds (9.8-13.1) 11/11/17 05:50 INR 1.1 (0.9-1.2) 11/11/17 05:50 APTT 32.9 Seconds (25.6-37.1) 11/11/17 05:50 - Constitutional Appears: Non-toxic, No Acute Distress - Head Exam Head Exam: ATRAUMATIC - ENT Exam ENT Exam: Mucous Membranes Moist - Respiratory Exam Respiratory Exam: Clear to Ausculation Bilateral. absent: Accessory Muscle Use , Rales, Rhonchi, Wheezes, Respiratory Distress - Cardiovascular Exam Cardiovascular Exam: REGULAR RHYTHM, +S1, +S2. absent: Gallop, Rubs, Murmur - GI/Abdominal Exam GI & Abdominal Exam: Soft, Normal Bowel Sounds. absent: Distended, Firm, Guarding, Rigid, Tenderness, Organomegaly - Extremities Exam Extremities Exam: absent: Pedal Edema, Tenderness - Neurological Exam Neurological Exam: Alert, Awake, Oriented x3 - Psychiatric Exam Psychiatric exam: Normal Affect, Normal Mood - Skin Skin Exam: Dry, Intact, Normal Color, Warm Assessment and Plan - Assessment and Plan (Free Text) Assessment: 67 year old female with past medical history of uncontrolled DM, HTN, HLD is being seen for medical clearance for left foot toe amputation. Pre-op cardiac clearance for non-cardiac procedure - Patient is low risk for adverse cardiac events for noncardiac intermediate risk procedure. Cleared for surgery Left foot osteomyelitis - Plan for OR tomorrow - Continue Abx per ID recs DM - Management per endo HTN - Blood pressure currently stable. Continue to monitor all orders and recs per attending, Dr. Long <Benito Long - Last Filed: 11/15/17 07:04> Objective - Vital Signs/Intake and Output Vital Signs (last 24 hours): Temp Pulse Resp BP Pulse Ox 98.1 F 78 19 120/63 99 11/15/17 00:47 11/15/17 00:47 11/15/17 00:47 11/15/17 00:47 11/15/17 00:47 - Medications Medications: Current Medications Acetaminophen (Tylenol 325mg Tab) 650 mg PO Q6 PRN PRN Reason: Pain, Mild (1-3) Dextrose (Dextrose 50% Inj) 0 ml IV STAT PRN; Protocol PRN Reason: Hypoglycemia Protocol Dextrose (Glutose 15) 0 gm PO ONCE PRN; Protocol PRN Reason: Hypoglycemia Protocol Enoxaparin Sodium (Lovenox) 40 mg SC DAILY [facility] PRN Reason: Protocol Last Admin: 11/14/17 09:53 Dose: 40 mg Glipizide (Glucotrol Xl) 10 mg PO ACBD [facility] Last Admin: 11/14/17 17:14 Dose: 10 mg Glucagon (Glucagen Diagnostic Kit) 0 mg IM STAT PRN; Protocol PRN Reason: Hypoglycemia Protocol Home Med (Glimepiride [Glimepiride]) 4 mg PO BID [facility] Vancomycin HCl 1 gm/ Sodium (Chloride) 250 mls @ 166.667 mls/hr IVPB Q12@0400, 1600 [facility] PRN Reason: Protocol Last Admin: 11/15/17 03:38 Dose: 166.667 mls/hr Lactated Ringer's (Lactated Ringer's) 1,000 mls @ 100 mls/hr IV .Q10H [facility] Last Admin: 11/15/17 01:50 Dose: 100 mls/hr Piperacillin Sod/Tazobactam (Sod 2.25 gm/ Sodium Chloride) 100 mls @ 100 mls/ hr IVPB Q8@0300,1100,1900 [facility] PRN Reason: Protocol Last Admin: 11/15/17 03:34 Dose: 100 mls/hr Insulin Human Lispro (Humalog) 0 units SC ACHS [facility] PRN Reason: Protocol Last Admin: 11/14/17 22:42 Dose: Not Given Insulin Lispro Protam/Lispro Human (Humalog Mix 75/25) 30 units SC ACB [facility] Insulin Lispro Protam/Lispro Human (Humalog Mix 75/25) 20 units SC ACD [facility] Last Admin: 11/14/17 17:15 Dose: 20 units Levothyroxine Sodium (Synthroid) 25 mcg PO DAILY@0630 [facility] Last Admin: 11/15/17 06:40 Dose: 25 mcg Lisinopril (Zestril) 10 mg PO DAILY [facility] Last Admin: 11/14/17 08:42 Dose: 10 mg Oxycodone/Acetaminophen (Percocet 5/325 Mg Tab) 1 tab PO Q6 PRN PRN Reason: Pain, moderate (4-7) Stop: 11/16/17 08:52 Oxycodone/Acetaminophen (Percocet 5/325 Mg Tab) 2 tab PO Q6 PRN PRN Reason: Pain, severe (8-10) Stop: 11/16/17 08:52 Pravastatin Sodium (Pravachol) 40 mg PO DAILY [facility] Last Admin: 11/14/17 08:39 Dose: 40 mg Sitagliptin Phosphate (Januvia) 100 mg PO DAILY@2100 [facility] Last Admin: 11/14/17 22:00 Dose: Not Given - Labs Labs: 11/13/17 05:40 11/13/17 05:40 PT 12.6 Seconds (9.8-13.1) 11/11/17 05:50 INR 1.1 (0.9-1.2) 11/11/17 05:50 APTT 32.9 Seconds (25.6-37.1) 11/11/17 05:50 Attending/Attestation - Attestation I have personally seen and examined this patient.: Yes I have fully participated in the care of the patient.: Yes I have reviewed all pertinent clinical information, including history, physical exam and plan: Yes
--- NOTE | 2017-11-12 11:30 | CARD ---
APPROVED REPORT EXAM: Two-dimensional and M-mode echocardiogram with Doppler and color Doppler. Other Information Quality : GoodRhythm : NSR INDICATION Pre-Op 2D DIMENSIONS IVSd0.98 (0.7-1.1cm)LVDd4.41 (3.9-5.9cm) LVOT Diameter1.75 (1.8-2.4cm)PWd0.78 (0.7-1.1cm) IVSs0.93 (0.8-1.2cm)LVDs3.71 (2.5-4.0cm) FS (%) 15.7 %PWs0.89 (0.8-1.2cm) M-Mode DIMENSIONS Left Atrium (MM)4.35 (2.5-4.0cm)IVSd0.91 (0.7-1.1cm) Aortic Root2.76 (2.2-3.7cm)LVDd5.03 (4.0-5.6cm) Aortic Cusp Exc.1.62 (1.5-2.0cm)PWd0.91 (0.7-1.1cm) IVSs0.76 cmFS (%) 31 % LVDs3.47 (2.0-3.8cm)PWs1.21 cm Mitral Valve MV E Mgapgzxq44.8cm/sMV DECEL [id number] A Bbpyaxmd52.4cm/s MV [id number]/A ratio0.7MVA (PHT)5.02cm2 TDI Lateral E' Peak V6.19cm/sMedial E' Peak V12.06cm/sE/Lateral E'9.7 E/Medial E'5.0 Pulmonary Valve PV Peak Rdzoflvm25.9cm/s LEFT VENTRICLE The left ventricle is normal size. There is normal left ventricular wall thickness. The left ventricular function is normal. The left ventricular ejection fraction is 60% There is normal LV segmental wall motion. Transmitral Doppler flow pattern is Grade I-abnormal relaxation pattern. No left ventricle thrombus noted on this study. There is no ventricular septal defect visualized. There is no left ventricular aneurysm. There is no mass noted in the left ventricle. RIGHT VENTRICLE The right ventricle is normal size. There is normal right ventricular wall thickness. The right ventricular systolic function is normal. ATRIA The left atrium size is normal. The right atrium size is normal. The interatrial septum is intact with no evidence for an atrial septal defect. AORTIC VALVE The aortic valve is normal in structure. No aortic regurgitation is present. There is no aortic valvular stenosis. There is no aortic valvular vegetation. MITRAL VALVE The mitral valve is normal in structure. There is no evidence of mitral valve prolapse. There is no mitral valve stenosis. There is no mitral valve regurgitation noted. TRICUSPID VALVE The tricuspid valve is normal in structure. There is no tricuspid valve regurgitation noted. There is no tricuspid valve prolapse or vegetation. There is no tricuspid valve stenosis. PULMONIC VALVE The pulmonary valve is normal in structure. There is no pulmonic valvular regurgitation. There is no pulmonic valvular stenosis. GREAT VESSELS The aortic root is normal in size. The ascending aorta is normal in size. The IVC is normal in size and collapses >50% with inspiration. PERICARDIAL EFFUSION The pericardium appears normal. There is no pleural effusion. <Conclusion> Essentially Normal Echocardiogram
--- NOTE | 2017-11-12 16:29 | PN ---
ENDOCRINOLOGY FOLLOWUP NOTE LOCATION: Room 662. SUBJECTIVE: This is a 67-year-old female with recent uncontrolled type 2 insulin-requiring diabetes, now being followed closely for metabolic management. She once again had bottle capper hypoglycemia with the glucose levels down to 51 mg/dL and the repeat level of 137 at breakfast time. The latest glucose values today are 120 mg/dL. Her latest chemistry showed a BUN of 13, sodium 139, potassium 4.4, chloride 102, CO2 of 29, glucose 146 and creatinine 1.3. So at this time we will modify once again her basal insulin and lower the Levemir to 14 units subcu at bedtime daily to start tonight. We will titrate incrementally as indicated to optimize metabolic control. We will also lower the premixed insulin regimen with Humalog 75/25 to be given as 34 units before breakfast and 24 units before dinner to start today. We will continue the low-dose correction scale using Humalog insulin as given to obviate hypoglycemia as noted. We will obtain serial chemistries and supplement accordingly as needed. We will continue also the low-dose correction scale to obviate hypoglycemia and detailed orders have been given. We will follow and advise accordingly. We will continue also the oral hypoglycemic therapy with Januvia given as 100 mg once daily at bedtime as ordered. We will obtain serial chemistries and supplement accordingly as needed. We will follow. Lizzette Potter MD
[2017-11-12] MEDS ORDERED: Insulin Detemir 100 Units/ml Inj SC SCH (22:00)
[2017-11-12] MEDS ORDERED: Glucagon Recombinant 1 mg Inj IM PRN (22:49)
[2017-11-12] MEDS ORDERED: Dextrose 50% SYRINGE Inj (50 ml) IV PRN (22:49)
[2017-11-12] MEDS ORDERED: Sodium Chloride 0.45% 1,000 ML IV SCH (23:30)
[2017-11-13] MEDS: Piperacillin/Tazobact 2.25 GM in Sodium Chloride 0.9% 50 ML IVPB SCH ×3 (03:00→19:06)
[2017-11-13 05:52] LABS: HEMATOCRIT 33.5 % (34.0-47.0); MEAN CELL VOLUME 90.4 fl (81.0-99.0); MEAN CORPUSCULAR HEMOGLOBIN 29.7 pg (27.0-31.0); MEAN CORPUSCULAR HGB CONC 32.8 g/dL (33.0-37.0); RED CELL DISTRIBUTION WIDTH 13.4 % (11.5-14.5)
--- NOTE | 2017-11-13 06:18 | CP.PCM.PN ---
Subjective - Date & Time of Evaluation Date of Evaluation: 11/13/17 Time of Evaluation: 06:18 - Subjective Subjective: Podiatry Progress Note - Dr. Galvan 67 year old female patient PMHx DM, HTN, hypercholesterolemia seen and evaluated at bedside for pre-operative evaluation for left 2nd digit partial amputation by Dr. Galvan today. Patient anxious, hemodynamically stable and NAD. Denies any issues overnight. Patient has exhausted conservative treatment and now opts for surgical intervention. NPO status confirmed. Denies N/V/F/D/C/ SOB/calf pain. Objective - Vital Signs/Intake and Output Vital Signs (last 24 hours): Temp Pulse Resp BP Pulse Ox 97.9 F 84 19 135/67 96 11/13/17 00:11 11/13/17 00:11 11/13/17 00:11 11/13/17 00:11 11/13/17 00:11 - Medications Medications: Current Medications Dextrose (Dextrose 50% Inj) 0 ml IV STAT PRN; Protocol PRN Reason: Hypoglycemia Protocol Dextrose (Glutose 15) 0 gm PO ONCE PRN; Protocol PRN Reason: Hypoglycemia Protocol Enoxaparin Sodium (Lovenox) 40 mg SC DAILY [facility] PRN Reason: Protocol Last Admin: 11/11/17 08:49 Dose: 40 mg Glipizide (Glucotrol Xl) 10 mg PO ACBD [facility] Last Admin: 11/12/17 18:08 Dose: 10 mg Glucagon (Glucagen Diagnostic Kit) 0 mg IM STAT PRN; Protocol PRN Reason: Hypoglycemia Protocol Home Med (Glimepiride [Glimepiride]) 4 mg PO BID [facility] Vancomycin HCl 1 gm/ Sodium (Chloride) 250 mls @ 166.667 mls/hr IVPB Q12@0400, 1600 [facility] PRN Reason: Protocol Last Admin: 11/13/17 04:09 Dose: 166.667 mls/hr Piperacillin Sod/Tazobactam (Sod 2.25 gm/ Sodium Chloride) 50 mls @ 50 mls/hr IVPB Q8@0300,1100,1900 [facility] PRN Reason: Protocol Last Admin: 11/13/17 03:00 Dose: 50 mls/hr Sodium Chloride (Sodium Chloride 0.45%) 1,000 mls @ 40 mls/hr IV .Q24H [facility] Stop: 11/13/17 23:00 Last Admin: 11/13/17 00:14 Dose: 40 mls/hr Insulin Detemir (Levemir) 14 units SC HS [facility] Last Admin: 11/12/17 23:00 Dose: Not Given Insulin Human Lispro (Humalog) 0 units SC ACHS [facility] PRN Reason: Protocol Last Admin: 11/12/17 22:37 Dose: Not Given Insulin Lispro Protam/Lispro Human (Humalog Mix 75/25) 34 units SC ACB [facility] Insulin Lispro Protam/Lispro Human (Humalog Mix 75/25) 24 units SC ACD [facility] Last Admin: 11/12/17 18:08 Dose: 24 units Levothyroxine Sodium (Synthroid) 25 mcg PO DAILY@0630 [facility] Last Admin: 11/12/17 06:04 Dose: 25 mcg Lisinopril (Zestril) 10 mg PO DAILY [facility] Last Admin: 11/12/17 08:51 Dose: 10 mg Pravastatin Sodium (Pravachol) 40 mg PO DAILY [facility] Last Admin: 11/12/17 08:51 Dose: 40 mg Sitagliptin Phosphate (Januvia) 100 mg PO DAILY@2100 [facility] Last Admin: 11/12/17 22:58 Dose: Not Given - Labs Labs: 11/13/17 05:40 11/12/17 05:50 PT 12.6 Seconds (9.8-13.1) 11/11/17 05:50 INR 1.1 (0.9-1.2) 11/11/17 05:50 APTT 32.9 Seconds (25.6-37.1) 11/11/17 05:50 - Constitutional Appears: Well, Non-toxic, No Acute Distress - Extremities Exam Additional comments: Dressing to left foot appears clean/dry/intact with no strikethrough noted. - Neurological Exam Neurological Exam: Alert, Awake, Oriented x3 - Psychiatric Exam Psychiatric exam: Normal Affect, Normal Mood Assessment and Plan - Assessment and Plan (Free Text) Assessment: 67 year old female PMHx of DM, HTN, hypercholesteremia with left 2nd digit infected ulceration + osteomyelitis Plan: Pt was seen and examined at bedside Pt NPO status was confirmed All Pre-op testing and clearance was in the chart Pt has exhausted all conservative treatment at this time and is opting for surgical intervention Pt was explained procedure and post-operative course All pt's questions were answered to satisfaction No guarantees were made Pt understands all risks, benefits and complications of procedure Podiatry will continue to follow patient in house Pt will follow-up with Dr. Galvan in the podiatry clinic within 1 week of discharge
[2017-11-13] MEDS: Insulin Lispro (humaLOG) 100 Units/ml Inj SC SCH ×4 (06:41→21:24)
[2017-11-13] MEDS: Levothyroxine 25 MCG TAB PO SCH (06:42)
[2017-11-13] MEDS: GlipiZIDE 10 mg SR Tab PO SCH ×2 (06:42→16:23)
[2017-11-13 06:57] LABS: ALB/GLOB RATIO 0.8 (1.0-2.1); BILIRUBIN,TOTAL 0.3 mg/dl (0.2-1.3); POTASSIUM 4.1 MMOL/L (3.6-5.0); TOTAL PROTEIN 8.1 G/DL (6.3-8.2)
[2017-11-13] MEDS ORDERED: Bupivacaine 0.5% Inj(30mL) IJ ONE (07:05)
[2017-11-13] MEDS ORDERED: Bupivacaine 0.5% Inj(30mL) ONE (07:28)
[2017-11-13] MEDS ORDERED: ceFAZolin IV 1 gm in Dextrose 0 GM/0 ML BAG IVPB ONE (07:29)
[2017-11-13] MEDS: Insulin Lispro Mix 75/25 100 units/ml (HumaLog) 10ml SC SCH ×2 (07:30→16:24)
[2017-11-13] MEDS: Pravastatin Sodium 40 MG TAB PO SCH (07:30)
[2017-11-13] MEDS ORDERED: Propofol 10 mg/ml Inj (20 ML) ONE (07:37)
[2017-11-13] MEDS ORDERED: Lidocaine 1% 5ml Abboject IV ONE (07:40)
[2017-11-13] MEDS ORDERED: Midazolam 2 MG/2 ML VIAL ONE (07:40)
[2017-11-13 07:48] LABS: CALCIUM 9.2 mg/dL (8.4-10.2)
[2017-11-13] MEDS ORDERED: Lidocaine 2% Inj (20ml) ONE (08:09)
[2017-11-13] MEDS ORDERED: Lactated Ringer's 1,000 ML IV ONE (08:30)
--- NOTE | 2017-11-13 08:45 | PCM.SURG1 ---
Surgeon's Initial Post Op Note - Surgeon's Notes Surgeon: Dr. Galvan Photographic Laboratory Technician: Elver Pavon, PGY1 Type of Anesthesia: General Endo Anesthesia Administered By: Dr. Augustine Pre-Operative Diagnosis: Left foot 2nd digit infected ulceration and osteomyelitis Operative Findings: See operative report. Materials: 3-0 vicryl, 4-0 nylon. Injectables: 6cc 0.5% marcaine plain Post-Operative Diagnosis: Left foot 2nd digit infected ulceration and osteomyelitis Operation Performed: Left foot 2nd digit partial amputation Specimen/Specimens Removed: 1) Left foot 2nd digit distal phalanx 2) Left foot 2nd digit middle phalanx articular cartilage 3) Left foot 2nd digit wound culture Estimated Blood Loss: EBL {In ML}: 1 Blood Products Given: N/A Drains Used: No Drains Post-Op Condition: Good Date of Surgery/Procedure: 11/13/17 Time of Surgery/Procedure: 08:46
[2017-11-13] MEDS ORDERED: Oxycodone/Acetaminophen 5/325 mg Tab PO PRN ×2 (08:51)
--- NOTE | 2017-11-13 09:07 | CP.PCM.PN ---
<Ami Rosa - Last Filed: 11/13/17 16:52> Subjective - Date & Time of Evaluation Date of Evaluation: 11/13/17 Time of Evaluation: 07:40 - Subjective Subjective: Patient seen and examined bedside with attending DR Yadiel loza. Patient scheduled for surgery today. Patient denies fever, pain, dysuria. no overnight events Objective - Vital Signs/Intake and Output Vital Signs (last 24 hours): Temp Pulse Resp BP Pulse Ox 97.6 F 86 17 136/64 99 11/13/17 08:07 11/13/17 08:07 11/13/17 08:07 11/13/17 08:07 11/13/17 08:07 Intake and Output: 11/13/17 11/13/17 06:59 18:59 Intake Total 700 Balance 700 - Medications Medications: Current Medications Acetaminophen (Tylenol 325mg Tab) 650 mg PO Q6 PRN PRN Reason: Pain, Mild (1-3) Dextrose (Dextrose 50% Inj) 0 ml IV STAT PRN; Protocol PRN Reason: Hypoglycemia Protocol Dextrose (Glutose 15) 0 gm PO ONCE PRN; Protocol PRN Reason: Hypoglycemia Protocol Enoxaparin Sodium (Lovenox) 40 mg SC DAILY [facility] PRN Reason: Protocol Last Admin: 11/11/17 08:49 Dose: 40 mg Glipizide (Glucotrol Xl) 10 mg PO ACBD [facility] Last Admin: 11/13/17 06:42 Dose: Not Given Glucagon (Glucagen Diagnostic Kit) 0 mg IM STAT PRN; Protocol PRN Reason: Hypoglycemia Protocol Home Med (Glimepiride [Glimepiride]) 4 mg PO BID [facility] Vancomycin HCl 1 gm/ Sodium (Chloride) 250 mls @ 166.667 mls/hr IVPB Q12@0400, 1600 [facility] PRN Reason: Protocol Last Admin: 11/13/17 04:09 Dose: 166.667 mls/hr Piperacillin Sod/Tazobactam (Sod 2.25 gm/ Sodium Chloride) 50 mls @ 50 mls/hr IVPB Q8@0300,1100,1900 [facility] PRN Reason: Protocol Last Admin: 11/13/17 03:00 Dose: 50 mls/hr Sodium Chloride (Sodium Chloride 0.45%) 1,000 mls @ 40 mls/hr IV .Q24H [facility] Stop: 11/13/17 23:00 Last Admin: 11/13/17 00:14 Dose: 40 mls/hr Dextrose (Dextrose 5% In Water) 500 mls @ 0 mls/hr IV .Q0M [facility] PRN Reason: Per Protocol Stop: 11/14/17 07:05 Insulin Detemir (Levemir) 14 units SC HS [facility] Last Admin: 11/12/17 23:00 Dose: Not Given Insulin Human Lispro (Humalog) 0 units SC ACHS [facility] PRN Reason: Protocol Last Admin: 11/13/17 06:41 Dose: Not Given Insulin Lispro Protam/Lispro Human (Humalog Mix 75/25) 34 units SC ACB [facility] Insulin Lispro Protam/Lispro Human (Humalog Mix 75/25) 24 units SC ACD [facility] Last Admin: 11/12/17 18:08 Dose: 24 units Levothyroxine Sodium (Synthroid) 25 mcg PO DAILY@0630 [facility] Last Admin: 11/13/17 06:42 Dose: Not Given Lisinopril (Zestril) 10 mg PO DAILY [facility] Last Admin: 11/12/17 08:51 Dose: 10 mg Oxycodone/Acetaminophen (Percocet 5/325 Mg Tab) 1 tab PO Q6 PRN PRN Reason: Pain, moderate (4-7) Stop: 11/16/17 08:52 Oxycodone/Acetaminophen (Percocet 5/325 Mg Tab) 2 tab PO Q6 PRN PRN Reason: Pain, severe (8-10) Stop: 11/16/17 08:52 Pravastatin Sodium (Pravachol) 40 mg PO DAILY [facility] Last Admin: 11/12/17 08:51 Dose: 40 mg Sitagliptin Phosphate (Januvia) 100 mg PO DAILY@2100 [facility] Last Admin: 11/12/17 22:58 Dose: Not Given - Labs Labs: 11/13/17 05:40 11/13/17 05:40 PT 12.6 Seconds (9.8-13.1) 11/11/17 05:50 INR 1.1 (0.9-1.2) 11/11/17 05:50 APTT 32.9 Seconds (25.6-37.1) 11/11/17 05:50 - Constitutional Appears: Non-toxic, No Acute Distress - Head Exam Head Exam: ATRAUMATIC, NORMOCEPHALIC - Eye Exam Eye Exam: Normal appearance - ENT Exam ENT Exam: Mucous Membranes Moist - Respiratory Exam Respiratory Exam: Clear to Ausculation Bilateral. absent: Rales, Rhonchi, Wheezes - Cardiovascular Exam Cardiovascular Exam: REGULAR RHYTHM, +S1, +S2 - GI/Abdominal Exam GI & Abdominal Exam: Soft, Normal Bowel Sounds. absent: Tenderness - Extremities Exam Extremities Exam: Full ROM, Normal Inspection Additional comments: Left foot second digit ulceration covered with bandage, no limited ROM of ankle , muscle strength intact, sensation intact - Neurological Exam Neurological Exam: Alert, Awake, Oriented x3 - Psychiatric Exam Psychiatric exam: Normal Affect, Normal Mood - Skin Skin Exam: Intact Assessment and Plan - Assessment and Plan (Free Text) Plan: Assessment and Plan (1) Osteomyelitis Assessment & Plan: left foot second digit -For surgery today -c/w zosyn and vanco -Pt cleared by [facility]man. Patient is low risk for adverse cardiac events for noncardiac intermediate risk procedure. Status: Acute (2) Hypertension Assessment & Plan: Continue medication Status: Acute (3) Diabetes mellitus Assessment & Plan: on levemir, januvia, SSI Status: Acute (4) DVT prophylaxis Assessment & Plan: lovenox hold for surgery today Status: Acute <Cotto,Rudy K - Last Filed: 11/20/17 12:35> Objective - Vital Signs/Intake and Output Vital Signs (last 24 hours): Temp Pulse Resp BP Pulse Ox 97.9 F 98 H 20 166/95 H 96 11/19/17 16:08 11/19/17 16:08 11/19/17 16:08 11/19/17 16:08 11/19/17 16:08 - Labs Labs: 11/19/17 16:12 11/19/17 16:12 PT 12.6 Seconds (9.8-13.1) 11/11/17 05:50 INR 1.1 (0.9-1.2) 11/11/17 05:50 APTT 32.9 Seconds (25.6-37.1) 11/11/17 05:50 Assessment and Plan - Assessment and Plan (Free Text) Assessment: Patient was personally seen and examined by me in rounds with residents. Available labs and diagnostic data reviewed. Case, patient's condition and management plan discussed with residents in rounds. Agree with resident's progress note. Plan: As ordered.
[2017-11-13] MEDS ORDERED: Sodium Chloride 0.9% 500 ML IV ONE (10:15)
--- NOTE | 2017-11-13 15:03 | PN ---
ENDOCRINOLOGY FOLLOWUP NOTE LOCATION: In the room #662. This is a 67-year-old female with recent uncontrolled type 2 insulin-requiring diabetes, who continues to have low normal fasting glucose values related to the variability of her oral intake with suboptimal meal portions as noted thereof. She is undergoing IV antibiotic management for lower extremity osteomyelitis, specifically to the left second digit with an underlying neuropathic ulceration as noted thereof. Her glucose values today have ranged from 69-76 and 108 mg/dL. Her latest chemistry showed a BUN of 13, sodium 138, potassium 4.1, chloride 99, CO2 of 31, glucose 115 and creatinine 1.3. So at this time, we will lower once again her basal insulin to 8 units subcu at bedtime daily as ordered. We will titrate incrementally as indicated to optimize metabolic control. We will also continue the low-dose correction scale using Humalog insulin as given. Moreover, we will continue the premixed insulin regimen as given with Humalog 75/25 given as 34 units a.c. breakfast and 24 units a.c. dinner as ordered. We will continue her Januvia given as 100 mg once daily as ordered. We will titrate incrementally as indicated to optimize metabolic control. We will obtain serial chemistries and supplement accordingly as needed. We will follow. Lizzette Potter MD
--- NOTE | 2017-11-13 16:05 | RAD ---
PROCEDURE: Left Foot Radiographs. HISTORY: s/p left foot 2nd digit partial amputation COMPARISON: Left foot radiographs 11/08/2017. FINDINGS: BONES: Patient status post partial amputation of the distal segment of the middle phalanx incomplete amputation of the residual segment distal phalanx of the 2nd digit. The deformity great toes again appreciate including the tuft of the distal phalanx left great toe. JOINTS: Degenerative changes seen throughout the interphalangeal joints diffusely with malunited or nonunion at a base 5th metatarsal fracture again evident. Soft tissue calcifications are seen which are vascular with no acute fracture appreciated throughout the exam or dislocation. SOFT TISSUES: As above. OTHER FINDINGS: None. IMPRESSION: Status post partial amputation left 2nd digit as discussed above with deformity of the distal segment great toe again evident and malunion or nonunion of a fracture of the base of the 5th metatarsal bone.
[2017-11-13] MEDS: Lactated Ringer's 1,000 ML IV SCH (20:23)
[2017-11-13] MEDS ORDERED: Insulin Detemir 100 Units/ml Inj SC SCH (22:00)
[2017-11-14] MEDS: Piperacillin/Tazobact 2.25 GM in Sodium Chloride 0.9% 50 ML IVPB SCH ×2 (02:46→10:56)
[2017-11-14] MEDS: Levothyroxine 25 MCG TAB PO SCH (06:06)
[2017-11-14] MEDS: Lactated Ringer's 1,000 ML IV SCH ×2 (06:08→16:08)
[2017-11-14] MEDS: Insulin Lispro (humaLOG) 100 Units/ml Inj SC SCH ×4 (07:00→22:42)
[2017-11-14] MEDS: Pravastatin Sodium 40 MG TAB PO SCH (08:39)
[2017-11-14] MEDS: GlipiZIDE 10 mg SR Tab PO SCH ×2 (08:40→17:14)
[2017-11-14] MEDS: Insulin Lispro Mix 75/25 100 units/ml (HumaLog) 10ml SC SCH ×2 (08:43→17:15)
[2017-11-14] MEDS: Enoxaparin 40 mg Syringe SC SCH (09:53)
--- NOTE | 2017-11-14 12:11 | PN ---
DATE: 11/14/2017 SUBJECTIVE: The patient is seen and examined. Interim events noted. Consults noted and appreciated. Podiatry followup and intervention noted and appreciated. Patient is status post partial amputation. Patient feels okay. Slept very good. Pain is adequately controlled. PHYSICAL EXAMINATION: GENERAL: Patient is in no acute distress. VITAL SIGNS: Stable. HEART: S1 and S2 normal and regular. LUNGS: Good bilateral air entry. ABDOMEN: Soft, nontender. EXTREMITIES: No edema. No calf swelling. No tenderness. No acute ischemia. Surgical site is *------* complication. CENTRAL NERVOUS SYSTEM: Essentially unchanged. DIAGNOSTIC DATA: Available diagnostic data reviewed. ASSESSMENT AND PLAN: Overall, the patient's general medical condition is stable. Plan as ordered. Rudy Cotto MD
--- NOTE | 2017-11-14 13:39 | PN ---
DATE: ENDOCRINOLOGY FOLLOWUP NOTE LOCATION: Room 662. SUBJECTIVE: This is a 67-year-old female with recent uncontrolled type 2 insulin-requiring diabetes, presenting here with left foot cellulitis and osteomyelitis with an underlying neuropathic ulceration and is currently undergoing local debridement and IV antibiotic management and is also being followed closely for diabetic management. Surprisingly, her insulin requirements in the hospital are so much lower than the outpatient insulin dose regimen as given and there is a big factor here of her nutritional and dietary choices at home compared to the inpatient hospital meal trays as given. Her glucose values have been in the low side of normal once again and today's glucose readings showed a value of 65 early this morning and a repeat level of 84-115 and 169 mg/dL. Her latest chemistry showed a BUN of 13, sodium 138, potassium 4.1, chloride 99, CO2 of 31, glucose 115, and creatinine 1.3. So, at this time, we will modify once again her current insulin regimen and actually discontinue the overnight basal insulin given as Levemir at the low dose of 8 units subcu at bedtime daily as given. We will lower the premixed insulin regimen with Humalog 75/25 given as 30 units a.c. breakfast and 20 units a.c. dinner as ordered. We will titrate incrementally as indicated to optimize metabolic control. We will also obtain serial chemistries and supplement accordingly as needed. We will follow and advise accordingly. Lizzette Potter MD
--- NOTE | 2017-11-14 13:49 | US ---
PROCEDURE: HISTORY: gangrene of toes COMPARISON: None available. TECHNIQUE: Grayscale and duplex Doppler evaluation of the bilateral common femoral, femoral, profunda femoral, popliteal, posterior tibial, anterior tibial and dorsalis pedis arteries was performed. FINDINGS: RIGHT LOWER EXTREMITY: * Common Femoral Artery: Peak Systolic Velocity - 111.6: Doppler Waveform: Biphasic * Femoral Artery o Proximal Segment: Peak Systolic Velocity - 93.7: Doppler Waveform: Biphasic o Middle Segment: Peak Systolic Velocity - 93.7: Doppler Waveform: Biphasic o Distal Segment: Peak Systolic Velocity - 88.8: Doppler Waveform: Biphasic * Popliteal Artery: Peak Systolic Velocity - 63.7: Doppler Waveform: Biphasic * Posterior Tibial Artery: Peak Systolic Velocity - 85.4: Doppler Waveform: Monophasic * Anterior Tibial Artery: Peak Systolic Velocity - 41.6: Doppler Waveform: Monophasic * Dorsalis Pedis Artery: Peak Systolic Velocity - 60.0: Doppler Waveform: Monophasic LEFT LOWER EXTREMITY: * Common Femoral Artery: Peak Systolic Velocity - 108.9: Doppler Waveform: Biphasic * Femoral Artery o Proximal Segment: Peak Systolic Velocity - 73.3: Doppler Waveform: Biphasic o Middle Segment: Peak Systolic Velocity - 76.6: Doppler Waveform: Biphasic o Distal Segment: Peak Systolic Velocity - 80.9: Doppler Waveform: Monophasic * Popliteal Artery: Peak Systolic Velocity - 77.3: Doppler Waveform: Monophasic * Posterior Tibial Artery: Peak Systolic Velocity - 57.5: Doppler Waveform: Monophasic * Anterior Tibial Artery: Peak Systolic Velocity - 59.3: Doppler Waveform: Monophasic * Dorsalis Pedis Artery: Not assessed, covered with bandage OTHER FINDINGS: None. IMPRESSION: Loss of triphasic waveform throughout the bilateral lower extremities with areas of elevated peak systolic velocities compatible with moderate to severe stenoses.
--- NOTE | 2017-11-14 16:10 | CP.PCM.PN ---
Subjective - Date & Time of Evaluation Date of Evaluation: 11/14/17 Time of Evaluation: 11:40 - Subjective Subjective: Podiatry Progress Note - Dr. Galvan 67 year old female with PMHx of DM, HTN, hypercholesterolemia seen and evaluated at bedside 1 day s/p left 2nd digit partial amputation by Dr. Galvan. Denies any issues overnight. Denies of any pain to her feet today. Denies N/V/F/D/C/SOB/calf pain. Objective - Vital Signs/Intake and Output Vital Signs (last 24 hours): Temp Pulse Resp BP Pulse Ox 98.1 F 86 17 109/70 99 11/14/17 15:42 11/14/17 15:42 11/14/17 15:42 11/14/17 15:42 11/14/17 15:42 - Medications Medications: Current Medications Acetaminophen (Tylenol 325mg Tab) 650 mg PO Q6 PRN PRN Reason: Pain, Mild (1-3) Dextrose (Dextrose 50% Inj) 0 ml IV STAT PRN; Protocol PRN Reason: Hypoglycemia Protocol Dextrose (Glutose 15) 0 gm PO ONCE PRN; Protocol PRN Reason: Hypoglycemia Protocol Enoxaparin Sodium (Lovenox) 40 mg SC DAILY [facility] PRN Reason: Protocol Last Admin: 11/14/17 09:53 Dose: 40 mg Glipizide (Glucotrol Xl) 10 mg PO ACBD [facility] Last Admin: 11/14/17 08:40 Dose: 10 mg Glucagon (Glucagen Diagnostic Kit) 0 mg IM STAT PRN; Protocol PRN Reason: Hypoglycemia Protocol Home Med (Glimepiride [Glimepiride]) 4 mg PO BID [facility] Vancomycin HCl 1 gm/ Sodium (Chloride) 250 mls @ 166.667 mls/hr IVPB Q12@0400, 1600 [facility] PRN Reason: Protocol Last Admin: 11/14/17 04:01 Dose: 166.667 mls/hr Piperacillin Sod/Tazobactam (Sod 2.25 gm/ Sodium Chloride) 50 mls @ 50 mls/hr IVPB Q8@0300,1100,1900 [facility] PRN Reason: Protocol Last Admin: 11/14/17 10:56 Dose: 50 mls/hr Lactated Ringer's (Lactated Ringer's) 1,000 mls @ 100 mls/hr IV .Q10H [facility] Last Admin: 11/14/17 06:08 Dose: Not Given Insulin Human Lispro (Humalog) 0 units SC ACHS [facility] PRN Reason: Protocol Last Admin: 11/14/17 11:48 Dose: Not Given Insulin Lispro Protam/Lispro Human (Humalog Mix 75/25) 30 units SC ACB [facility] Insulin Lispro Protam/Lispro Human (Humalog Mix 75/25) 20 units SC ACD [facility] Levothyroxine Sodium (Synthroid) 25 mcg PO DAILY@0630 [facility] Last Admin: 11/14/17 06:06 Dose: 25 mcg Lisinopril (Zestril) 10 mg PO DAILY [facility] Last Admin: 11/14/17 08:42 Dose: 10 mg Oxycodone/Acetaminophen (Percocet 5/325 Mg Tab) 1 tab PO Q6 PRN PRN Reason: Pain, moderate (4-7) Stop: 11/16/17 08:52 Oxycodone/Acetaminophen (Percocet 5/325 Mg Tab) 2 tab PO Q6 PRN PRN Reason: Pain, severe (8-10) Stop: 11/16/17 08:52 Pravastatin Sodium (Pravachol) 40 mg PO DAILY [facility] Last Admin: 11/14/17 08:39 Dose: 40 mg Sitagliptin Phosphate (Januvia) 100 mg PO DAILY@2100 [facility] Last Admin: 11/13/17 21:23 Dose: 100 mg - Labs Labs: 11/13/17 05:40 11/13/17 05:40 PT 12.6 Seconds (9.8-13.1) 11/11/17 05:50 INR 1.1 (0.9-1.2) 11/11/17 05:50 APTT 32.9 Seconds (25.6-37.1) 11/11/17 05:50 - Constitutional Appears: Well, Non-toxic, No Acute Distress - Extremities Exam Additional comments: VASC: DP pulses palpable 2/4 b/l. PT pulses weakly palpable 1/4 b/l. CFT <3 seconds to all digits. Temperature gradient WNL. Non-pitting edema noted to left 2nd digit. DERM: Surgical sutures appear well coapted with no dehiscence at the distal tip of the left 2nd digit, no active drainage, no erythema, no foul odor, no open lesions, no clinical suspicion of active infection at this time NEURO: Gross sensation absent bilaterally. ORTHO: No pain on palpation left 2nd digit. Right 1st ray partial amputation. Right 2nd digit rigid hammertoe contracture. - Neurological Exam Neurological Exam: Alert, Awake, Oriented x3 - Psychiatric Exam Psychiatric exam: Normal Affect, Normal Mood Assessment and Plan - Assessment and Plan (Free Text) Assessment: 67 year old female with PMHx of DM, HTN, hypercholesteremia seen 1 day s/p left distal 2nd digit amputation Plan: Pt was seen and examined at bedside Discussed in details with attending Dr. Galvan Patient is afebrile and WBC @ 10.0 (yesterday) Pre-op L foot XR reviewed: 1. Likely osteomyelitis of the tip of the tuft of the 2nd digit were soft tissue emphysema is also appreciated reflecting probable ulceration. Clinically correlate further. 2. Likely early chronic fracture base 5th metatarsal bone, potential nonunion here. Pre-op L foot MRI reviewed: OM middle and distal phalanges of 2nd digit L 2nd digit cleansed with saline and dressed with betadine DSD -Patient may be WBAT surgical shoe b/l Intra-op cultures - no growth after 24 hours Continue to monitor right 2nd digit - dressing applied using betadine DSD, ROD Continue abx per ID - Vancomycin, Zosyn; ID recs appreciated Patient is stable from podiatry standpoint Podiatry will continue to follow patient while in house Pt will follow-up with Dr. Galvan in the podiatry clinic within 1 week of discharge
--- NOTE | 2017-11-15 00:43 | OP ---
PROCEDURE DATE: 11/13/2017 SURGEON: Jefry Galvan DPM MANAGER SHAREPOINT: Elver Pavon DPM, PGY-1 ANESTHESIA ADMINISTERED BY: Urbano Augustine MD TYPE OF ANESTHESIA: General. PREOPERATIVE DIAGNOSES: Left foot second digit infected ulceration and osteomyelitis. POSTOPERATIVE DIAGNOSES: Left foot second digit infected ulceration and osteomyelitis. NAME OF PROCEDURE: Left foot second digit partial amputation. INDICATION: The patient is a 67-year-old female with the above diagnoses. The patient has exhausted all conservative treatments at this time and now requests surgical intervention. The patient signed the consent after careful explanation of risks, benefits, alternatives, complications to procedure, and wishes to proceed. No guarantees were given nor implied. PREPARATION: The patient was brought into the operating room and placed on the operating room table in the supine position. Timeout was performed for identification of the correct patient and procedure. After the induction of IV sedation, the left foot was prepped and draped in normal sterile manner. At this time, the patient was found to be coughing. Once the coughing had ceased, the patient was injected with approximately 6 mL of 0.5% Marcaine plain in a digital block-type fashion to the left foot second digit; soon after, the patient began to cough again, so Dr. Augsutine proceeded with general ET tube anesthesia. PROCEDURE: Attention was directed to the left second digit where a fish mouth type incision was made extending from the dorsal aspect of the second DIPJ dorsally and plantarly around the second digit using a #15 blade. The incision was extended down through subcutaneous layers, down to the level of bone. Using a bone clamp to stabilize the distal tuft, the second digit distal phalanx was then disarticulated from the middle phalanx at the level of the DIPJ. At this time, the distal phalanx was passed off the field to be sent to pathology. Next, utilizing a double action bone cutter, the middle phalanx was transected at the level of the surgical neck. This distal aspect of the middle phalanx was then passed off the field to be sent to pathology. At this time, a left foot second digit deep wound culture was taken and sent to pathology. Using a fresh #15 blade, skin margins were debulked to create a suitable flap for closure. Next, the second digit was irrigated with copious amounts of sterile saline. The surgical site was then closed at the subcutaneous layer with 3-0 Vicryl. Next, utilizing 4-0 Nylon, the distal and plantar aspects were reapproximated in a simple interrupted suture technique. The left second digit was then dressed with Betadine soaked Xeroform, sterile gauze, Kerlix and a loosely wrapped Ollie bandage. POSTOPERATIVE CONDITION: The patient tolerated the procedure and anesthesia well, and was escorted to the recovery room with vital signs stable and neurovascular status intact to the left foot. The patient is to remain weightbearing to the left heel in a surgical shoe, and tomorrow will be weightbearing as tolerated to the left foot in a surgical shoe. The patient has been advised to avoid using the left MPJ for propulsion. The patient will remain in-house and Podiatry will continue to follow. Upon discharge, the patient is to follow up in the Podiatry Clinic within 1 week. Elver Pavon DPM Jefry Galvan DPM MTDJacqueline
[2017-11-15] MEDS: Lactated Ringer's 1,000 ML IV SCH (01:50)
[2017-11-15] MEDS: Levothyroxine 25 MCG TAB PO SCH (06:40)
--- NOTE | 2017-11-15 07:08 | CP.PCM.PN ---
Subjective - Date & Time of Evaluation Date of Evaluation: 11/14/17 Time of Evaluation: 11:00 - Subjective Subjective: tolerated amputation of gangrenous toes well arterial duplex ordered Objective - Vital Signs/Intake and Output Vital Signs (last 24 hours): Temp Pulse Resp BP Pulse Ox 98.1 F 78 19 120/63 99 11/15/17 00:47 11/15/17 00:47 11/15/17 00:47 11/15/17 00:47 11/15/17 00:47 - Medications Medications: Current Medications Acetaminophen (Tylenol 325mg Tab) 650 mg PO Q6 PRN PRN Reason: Pain, Mild (1-3) Dextrose (Dextrose 50% Inj) 0 ml IV STAT PRN; Protocol PRN Reason: Hypoglycemia Protocol Dextrose (Glutose 15) 0 gm PO ONCE PRN; Protocol PRN Reason: Hypoglycemia Protocol Enoxaparin Sodium (Lovenox) 40 mg SC DAILY [facility] PRN Reason: Protocol Last Admin: 11/14/17 09:53 Dose: 40 mg Glipizide (Glucotrol Xl) 10 mg PO ACBD [facility] Last Admin: 11/14/17 17:14 Dose: 10 mg Glucagon (Glucagen Diagnostic Kit) 0 mg IM STAT PRN; Protocol PRN Reason: Hypoglycemia Protocol Home Med (Glimepiride [Glimepiride]) 4 mg PO BID [facility] Vancomycin HCl 1 gm/ Sodium (Chloride) 250 mls @ 166.667 mls/hr IVPB Q12@0400, 1600 [facility] PRN Reason: Protocol Last Admin: 11/15/17 03:38 Dose: 166.667 mls/hr Lactated Ringer's (Lactated Ringer's) 1,000 mls @ 100 mls/hr IV .Q10H [facility] Last Admin: 11/15/17 01:50 Dose: 100 mls/hr Piperacillin Sod/Tazobactam (Sod 2.25 gm/ Sodium Chloride) 100 mls @ 100 mls/ hr IVPB Q8@0300,1100,1900 [facility] PRN Reason: Protocol Last Admin: 11/15/17 03:34 Dose: 100 mls/hr Insulin Human Lispro (Humalog) 0 units SC ACHS [facility] PRN Reason: Protocol Last Admin: 11/14/17 22:42 Dose: Not Given Insulin Lispro Protam/Lispro Human (Humalog Mix 75/25) 30 units SC ACB [facility] Insulin Lispro Protam/Lispro Human (Humalog Mix 75/25) 20 units SC ACD [facility] Last Admin: 11/14/17 17:15 Dose: 20 units Levothyroxine Sodium (Synthroid) 25 mcg PO DAILY@0630 [facility] Last Admin: 11/15/17 06:40 Dose: 25 mcg Lisinopril (Zestril) 10 mg PO DAILY [facility] Last Admin: 11/14/17 08:42 Dose: 10 mg Oxycodone/Acetaminophen (Percocet 5/325 Mg Tab) 1 tab PO Q6 PRN PRN Reason: Pain, moderate (4-7) Stop: 11/16/17 08:52 Oxycodone/Acetaminophen (Percocet 5/325 Mg Tab) 2 tab PO Q6 PRN PRN Reason: Pain, severe (8-10) Stop: 11/16/17 08:52 Pravastatin Sodium (Pravachol) 40 mg PO DAILY [facility] Last Admin: 11/14/17 08:39 Dose: 40 mg Sitagliptin Phosphate (Januvia) 100 mg PO DAILY@2100 [facility] Last Admin: 11/14/17 22:00 Dose: Not Given - Labs Labs: 11/13/17 05:40 11/13/17 05:40 PT 12.6 Seconds (9.8-13.1) 11/11/17 05:50 INR 1.1 (0.9-1.2) 11/11/17 05:50 APTT 32.9 Seconds (25.6-37.1) 11/11/17 05:50 - Constitutional Appears: Well - Head Exam Head Exam: ATRAUMATIC, NORMAL INSPECTION, NORMOCEPHALIC - Eye Exam Eye Exam: EOMI, Normal appearance, PERRL Pupil Exam: NORMAL ACCOMODATION, PERRL - ENT Exam ENT Exam: Mucous Membranes Moist, Normal Exam - Neck Exam Neck Exam: Full ROM, Normal Inspection. absent: Lymphadenopathy - Respiratory Exam Respiratory Exam: Clear to Ausculation Bilateral, NORMAL BREATHING PATTERN - Cardiovascular Exam Cardiovascular Exam: REGULAR RHYTHM, +S1, +S2, Murmur - GI/Abdominal Exam GI & Abdominal Exam: Soft, Normal Bowel Sounds. absent: Tenderness - Extremities Exam Extremities Exam: Full ROM, Normal Capillary Refill. 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
[2017-11-15 07:53] LABS: BASO % 0.4 % (0.0-2.0); EOS # 0.4 K/uL (0.0-0.7); EOS % 3.8 % (0.0-4.0); HEMATOCRIT 35.5 % (34.0-47.0); LYMPH # 3.5 K/uL (1.0-4.3); LYMPH % 32.5 % (20.0-40.0); MEAN CELL VOLUME 90.8 fl (81.0-99.0); MEAN CORPUSCULAR HEMOGLOBIN 29.3 pg (27.0-31.0); MEAN CORPUSCULAR HGB CONC 32.3 g/dL (33.0-37.0); MEAN PLATELET VOLUME 8.8 fl (7.2-11.7); MONO # 1.1 K/uL (0.0-0.8); MONO % 9.8 % (0.0-10.0); NEUT # 5.8 K/uL (1.8-7.0); NEUT % 53.5 % (50.0-75.0); NRBC % 0.2 % (0.0-0.0); RED CELL DISTRIBUTION WIDTH 13.8 % (11.5-14.5); WHITE BLOOD COUNT 10.8 K/uL (4.8-10.8)
[2017-11-15 08:22] LABS: ALB/GLOB RATIO 0.8 (1.0-2.1); BILIRUBIN,TOTAL 0.5 mg/dl (0.2-1.3); CALCIUM 9.2 mg/dL (8.4-10.2); POTASSIUM 4.3 MMOL/L (3.6-5.0); TOTAL PROTEIN 8.4 G/DL (6.3-8.2)
[2017-11-15] MEDS: GlipiZIDE 10 mg SR Tab PO SCH ×2 (08:44→16:40)
[2017-11-15] MEDS: Insulin Lispro (humaLOG) 100 Units/ml Inj SC SCH ×4 (08:44→21:58)
[2017-11-15] MEDS: Insulin Lispro Mix 75/25 100 units/ml (HumaLog) 10ml SC SCH ×2 (08:44→16:42)
[2017-11-15] MEDS: Enoxaparin 40 mg Syringe SC SCH (08:45)
[2017-11-15] MEDS: Pravastatin Sodium 40 MG TAB PO SCH (08:45)
--- NOTE | 2017-11-15 12:09 | CP.PCM.PN ---
Subjective - Date & Time of Evaluation Date of Evaluation: 11/15/17 Time of Evaluation: 09:00 - Subjective Subjective: 67 year old female with PMHx of DM, HTN, hypercholesterolemia seen and evaluated at bedside 1 day s/p left 2nd digit partial amputation Objective - Vital Signs/Intake and Output Vital Signs (last 24 hours): Temp Pulse Resp BP Pulse Ox 97.8 F 80 20 120/61 99 11/15/17 07:18 11/15/17 08:48 11/15/17 07:18 11/15/17 08:48 11/15/17 07:18 - Medications Medications: Current Medications Acetaminophen (Tylenol 325mg Tab) 650 mg PO Q6 PRN PRN Reason: Pain, Mild (1-3) Dextrose (Dextrose 50% Inj) 0 ml IV STAT PRN; Protocol PRN Reason: Hypoglycemia Protocol Dextrose (Glutose 15) 0 gm PO ONCE PRN; Protocol PRN Reason: Hypoglycemia Protocol Enoxaparin Sodium (Lovenox) 40 mg SC DAILY [facility] PRN Reason: Protocol Last Admin: 11/15/17 08:45 Dose: 40 mg Glipizide (Glucotrol Xl) 10 mg PO ACBD [facility] Last Admin: 11/15/17 08:44 Dose: 10 mg Glucagon (Glucagen Diagnostic Kit) 0 mg IM STAT PRN; Protocol PRN Reason: Hypoglycemia Protocol Home Med (Glimepiride [Glimepiride]) 4 mg PO BID [facility] Vancomycin HCl 1 gm/ Sodium (Chloride) 250 mls @ 166.667 mls/hr IVPB Q12@0400, 1600 [facility] PRN Reason: Protocol Last Admin: 11/15/17 03:38 Dose: 166.667 mls/hr Piperacillin Sod/Tazobactam (Sod 2.25 gm/ Sodium Chlor[facility]) 100 mls @ 100 mls/ hr IVPB Q8@0300,1100,1900 [facility] PRN Reason: Protocol Last Admin: 11/15/17 10:22 Dose: 100 mls/hr Insulin Human Lispro (Humalog) 0 units SC [facility] PRN Reason: Protocol Last Admin: 11/15/17 11:44 Dose: Not Given Insulin Lispro Protam/Lispro Human (Humalog Mix 75/25) 30 units SC ACB [facility] Last Admin: 11/15/17 08:44 Dose: 30 units Insulin Lispro Protam/Lispro Human (Humalog Mix 75/25) 20 units SC ACD [facility] Last Admin: 11/14/17 17:15 Dose: 20 units Levothyroxine Sodium (Synthroid) 25 mcg PO DAILY@0630 [facility] Last Admin: 11/15/17 06:40 Dose: 25 mcg Lisinopril (Zestril) 10 mg PO DAILY [facility] Last Admin: 11/15/17 08:48 Dose: 10 mg Oxycodone/Acetaminophen (Percocet 5/325 Mg Tab) 1 tab PO Q6 PRN PRN Reason: Pain, moderate (4-7) Stop: 11/16/17 08:52 Oxycodone/Acetaminophen (Percocet 5/325 Mg Tab) 2 tab PO Q6 PRN PRN Reason: Pain, severe (8-10) Stop: 11/16/17 08:52 Pravastatin Sodium (Pravachol) 40 mg PO DAILY [facility] Last Admin: 11/15/17 08:45 Dose: 40 mg Sitagliptin Phosphate (Januvia) 100 mg PO DAILY@2100 [facility] - Labs Labs: 11/15/17 05:30 11/15/17 05:30 PT 12.6 Seconds (9.8-13.1) 11/11/17 05:50 INR 1.1 (0.9-1.2) 11/11/17 05:50 APTT 32.9 Seconds (25.6-37.1) 11/11/17 05:50 - Constitutional Appears: Non-toxic, Chronically Ill - Head Exam Head Exam: NORMOCEPHALIC - Eye Exam Eye Exam: PERRL - ENT Exam ENT Exam: Mucous Membranes Dry - Neck Exam Neck Exam: absent: Lymphadenopathy - Respiratory Exam Respiratory Exam: Decreased Breath Sounds - Cardiovascular Exam Cardiovascular Exam: REGULAR RHYTHM - GI/Abdominal Exam GI & Abdominal Exam: Distended, Soft - Rectal Exam Rectal Exam: Deferred - Exam Exam: NORMAL INSPECTION - Extremities Exam Extremities Exam: Pedal Edema, Tenderness - Back Exam Back Exam: absent: CVA tenderness (L), CVA tenderness (R) Assessment and Plan (1) Diabetes mellitus Status: Acute (2) Gangrene due to arterial insufficiency Status: Acute (3) Hypertension Status: Acute (4) Osteomyelitis Status: Acute (5) PVD (peripheral vascular disease) Status: Acute - Assessment and Plan (Free Text) Assessment: 67 year old female with PMHx of DM, HTN, hypercholesterolemia seen and evaluated at bedside 1 day s/p left 2nd digit partial amputation
--- NOTE | 2017-11-15 13:09 | PN ---
DATE: 11/15/2017 SUBJECTIVE: The patient seen and examined. Interim events noted. Consults noted and appreciated. Podiatry followup and intervention noted and appreciated. Physical therapy evaluation is . The patient remains in regular medical floor. The patient feels okay. Denies any specific complaint. No chest pain or shortness of breath. Foot pain is adequately controlled. PHYSICAL EXAMINATION: GENERAL: The patient is in no acute distress. VITAL SIGNS: Stable. HEART: S1 and S2, normal and regular. LUNGS: Good bilateral air exchange. ABDOMEN: Soft, nontender. EXTREMITIES: The patient is status post partial toe amputation. No sign of acute complication. No edema. No calf swelling. No tenderness. No acute ischemia. CENTRAL NERVOUS SYSTEM: Essentially unchanged. DIAGNOSTIC DATA: Available diagnostic data reviewed. Overall, the patient's general medical condition is stable. Plan as ordered. Rudy Cotto MD
--- NOTE | 2017-11-15 14:57 | CP.PCM.PN ---
Subjective - Date & Time of Evaluation Date of Evaluation: 11/15/17 Time of Evaluation: 13:00 - Subjective Subjective: Podiatry Progress Note - Dr. Galvan 67 year old female with PMHx of DM, HTN, hypercholesterolemia seen and evaluated at bedside 2 days s/p left 2nd digit partial amputation by Dr. Galvan. Patient is AAOx3 and is in NAD. Denies any issues overnight. Denies of any pain to her feet today. Reports that she is anxious to go home. Denies N/ V/F/D/C/SOB/calf pain. Objective - Vital Signs/Intake and Output Vital Signs (last 24 hours): Temp Pulse Resp BP Pulse Ox 97.8 F 80 20 120/61 99 11/15/17 07:18 11/15/17 08:48 11/15/17 07:18 11/15/17 08:48 11/15/17 07:18 - Medications Medications: Current Medications Acetaminophen (Tylenol 325mg Tab) 650 mg PO Q6 PRN PRN Reason: Pain, Mild (1-3) Dextrose (Dextrose 50% Inj) 0 ml IV STAT PRN; Protocol PRN Reason: Hypoglycemia Protocol Dextrose (Glutose 15) 0 gm PO ONCE PRN; Protocol PRN Reason: Hypoglycemia Protocol Enoxaparin Sodium (Lovenox) 40 mg SC DAILY [facility] PRN Reason: Protocol Last Admin: 11/15/17 08:45 Dose: 40 mg Glipizide (Glucotrol Xl) 10 mg PO ACBD [facility] Last Admin: 11/15/17 08:44 Dose: 10 mg Glucagon (Glucagen Diagnostic Kit) 0 mg IM STAT PRN; Protocol PRN Reason: Hypoglycemia Protocol Home Med (Glimepiride [Glimepiride]) 4 mg PO BID [facility] Piperacillin Sod/Tazobactam (Sod 2.25 gm/ Sodium Chloride) 100 mls @ 100 mls/ hr IVPB Q8@0300,1100,1900 [facility] PRN Reason: Protocol Last Admin: 11/15/17 10:22 Dose: 100 mls/hr Vancomycin HCl 1,000 mg/ (Sodium Chloride) 250 mls @ 250 mls/hr IVPB DAILY@ 1200 [facility] PRN Reason: Protocol Last Admin: 11/15/17 13:51 Dose: 250 mls/hr Insulin Human Lispro (Humalog) 0 units SC ACHS [facility] PRN Reason: Protocol Last Admin: 11/15/17 11:44 Dose: Not Given Insulin Lispro Protam/Lispro Human (Humalog Mix 75/25) 30 units SC ACB [facility] Last Admin: 11/15/17 08:44 Dose: 30 units Insulin Lispro Protam/Lispro Human (Humalog Mix 75/25) 20 units SC ACD [facility] Last Admin: 11/14/17 17:15 Dose: 20 units Levothyroxine Sodium (Synthroid) 25 mcg PO DAILY@0630 [facility] Last Admin: 11/15/17 06:40 Dose: 25 mcg Lisinopril (Zestril) 10 mg PO DAILY [facility] Last Admin: 11/15/17 08:48 Dose: 10 mg Oxycodone/Acetaminophen (Percocet 5/325 Mg Tab) 1 tab PO Q6 PRN PRN Reason: Pain, moderate (4-7) Stop: 11/16/17 08:52 Oxycodone/Acetaminophen (Percocet 5/325 Mg Tab) 2 tab PO Q6 PRN PRN Reason: Pain, severe (8-10) Stop: 11/16/17 08:52 Pravastatin Sodium (Pravachol) 40 mg PO DAILY [facility] Last Admin: 11/15/17 08:45 Dose: 40 mg Sitagliptin Phosphate (Januvia) 100 mg PO DAILY@2100 [facility] - Labs Labs: 11/15/17 05:30 11/15/17 05:30 PT 12.6 Seconds (9.8-13.1) 11/11/17 05:50 INR 1.1 (0.9-1.2) 11/11/17 05:50 APTT 32.9 Seconds (25.6-37.1) 11/11/17 05:50 - Constitutional Appears: Well, Non-toxic, No Acute Distress - Extremities Exam Additional comments: VASC: DP pulses palpable 2/4 b/l. PT pulses weakly palpable 1/4 b/l. CFT <3 seconds to all digits. Temperature gradient WNL. Non-pitting edema noted to left 2nd digit. DERM: Surgical sutures appear well coapted with no dehiscence at the distal tip of the left 2nd digit, no active drainage, no erythema, no foul odor, no open lesions, no clinical suspicion of active infection at this time NEURO: Gross sensation absent bilaterally. ORTHO: No pain on palpation left 2nd digit. Right 1st ray partial amputation. Right 2nd digit rigid hammertoe contracture. - Neurological Exam Neurological Exam: Alert, Awake, Oriented x3 - Psychiatric Exam Psychiatric exam: Normal Affect, Normal Mood Assessment and Plan - Assessment and Plan (Free Text) Assessment: 67 year old female with PMHx of DM, HTN, hypercholesteremia seen 2 days s/p left distal 2nd digit amputation Plan: Pt was seen and examined at bedside Discussed in details with attending Dr. Galvan Patient is afebrile and WBC @ 10.8 (yesterday) Pre-op L foot XR reviewed: 1. Likely osteomyelitis of the tip of the tuft of the 2nd digit were soft tissue emphysema is also appreciated reflecting probable ulceration. Clinically correlate further. 2. Likely early chronic fracture base 5th metatarsal bone, potential nonunion here. Pre-op L foot MRI reviewed: OM middle and distal phalanges of 2nd digit L 2nd digit cleansed with saline and dressed with betadine DSD -Patient may be WBAT surgical shoe b/l Intra-op cultures - no growth after 24 hours Continue to monitor right 2nd digit - dressing applied using betadine DSD, ROD Continue abx per ID - Vancomycin, Zosyn; ID recs appreciated Patient is stable from podiatry standpoint Podiatry will continue to follow patient while in house Pt will follow-up with Dr. Galvan in the podiatry clinic within 1 week of discharge
--- NOTE | 2017-11-15 15:25 | PN ---
DATE: ENDOCRINOLOGY FOLLOWUP NOTE LOCATION: 662. SUBJECTIVE: This is a 67-year-old female with recent uncontrolled type 2 insulin-requiring diabetes, now with extremes of glycemic fluctuations related to the variability of her oral intake as noted thereof. Her glucose levels overnight were on the low side of normal, ranging from 77-88 mg/dL. The latest glucose today is 246 mg/dL. The latest chemistries showed a BUN of 16, sodium 137, potassium 4.3, chloride 98, CO2 of 30, glucose 74, and creatinine 1.4. So, at this time, we will continue the same premixed insulin regimen, which was actually modified down to Humalog 75/25 given as 30 units a.c. breakfast and 20 units a.c. dinner to start today. We will also continue the Januvia given as 100 mg once daily at bedtime and glipizide given as 10 mg p.o. b.i.d. before meals as ordered. We will hold off any basal insulin overnight as her glycemic levels have remained near optimal, especially in the early mornings. We will obtain serial chemistries and supplement accordingly as needed. We will follow. Lizzette Potter MD
[2017-11-16] MEDS: Levothyroxine 25 MCG TAB PO SCH (05:53)
[2017-11-16] MEDS: Insulin Lispro (humaLOG) 100 Units/ml Inj SC SCH ×4 (06:30→22:07)
[2017-11-16] MEDS: GlipiZIDE 10 mg SR Tab PO SCH ×2 (08:45→16:32)
[2017-11-16] MEDS: Insulin Lispro Mix 75/25 100 units/ml (HumaLog) 10ml SC SCH ×2 (08:46→17:09)
[2017-11-16] MEDS: Pravastatin Sodium 40 MG TAB PO SCH (08:47)
[2017-11-16] MEDS: Enoxaparin 40 mg Syringe SC SCH (08:47)
--- NOTE | 2017-11-16 12:23 | PN ---
DATE: 11/16/2017 SUBJECTIVE: The patient is seen and examined. Interim events noted. The patient remains in regular medical floor. The patient feels okay. Pain is adequately controlled. No chest pain. No shortness of breath. The patient is able to ambulate. PHYSICAL EXAMINATION GENERAL: The patient is in no acute distress. VITAL SIGNS: Stable. HEART: S1 and S2 normal, regular. LUNGS: Good bilateral air exchange. ABDOMEN: Soft and nontender. EXTREMITIES: No edema. No calf swelling. No tenderness. No acute ischemia. The patient is status post amputation. No sign of acute . CENTRAL NERVOUS SYSTEM: Essentially unchanged. DIAGNOSTIC DATA: Available diagnostic data reviewed. ASSESSMENT AND PLAN: Overall, the patient's general medical condition is stable and improving. Plan as ordered. Rudy Cotto MD
--- NOTE | 2017-11-16 15:28 | CP.PCM.PN ---
Subjective - Date & Time of Evaluation Date of Evaluation: 11/16/17 Time of Evaluation: 13:30 - Subjective Subjective: Podiatry Progress Note - Dr. Galvan 67 year old female with PMHx of DM, HTN, hypercholesterolemia seen and evaluated at bedside 3 days s/p left 2nd digit partial amputation by Dr. Galvan. Patient is AAOx3 and is in NAD. Denies any issues overnight. Denies of any pain to her feet today. Reports that she is anxious to go home and wants to spend time with the family. Denies N/V/F/D/C/SOB/calf pain. Objective - Vital Signs/Intake and Output Vital Signs (last 24 hours): Temp Pulse Resp BP Pulse Ox 97.7 F 77 20 124/77 97 11/16/17 08:10 11/16/17 08:48 11/16/17 08:10 11/16/17 08:48 11/16/17 08:10 - Medications Medications: Current Medications Acetaminophen (Tylenol 325mg Tab) 650 mg PO Q6 PRN PRN Reason: Pain, Mild (1-3) Dextrose (Dextrose 50% Inj) 0 ml IV STAT PRN; Protocol PRN Reason: Hypoglycemia Protocol Dextrose (Glutose 15) 0 gm PO ONCE PRN; Protocol PRN Reason: Hypoglycemia Protocol Enoxaparin Sodium (Lovenox) 40 mg SC DAILY [facility] PRN Reason: Protocol Last Admin: 11/16/17 08:47 Dose: 40 mg Glipizide (Glucotrol Xl) 10 mg PO ACBD [facility] Last Admin: 11/16/17 08:45 Dose: 10 mg Glucagon (Glucagen Diagnostic Kit) 0 mg IM STAT PRN; Protocol PRN Reason: Hypoglycemia Protocol Home Med (Glimepiride [Glimepiride]) 4 mg PO BID [facility] Piperacillin Sod/Tazobactam (Sod 2.25 gm/ Sodium Chloride) 100 mls @ 100 mls/ hr IVPB Q8@0300,1100,1900 [facility] PRN Reason: Protocol Last Admin: 11/16/17 10:49 Dose: 100 mls/hr Insulin Human Lispro (Humalog) 0 units SC ACHS [facility] PRN Reason: Protocol Last Admin: 11/16/17 12:25 Dose: Not Given Insulin Lispro Protam/Lispro Human (Humalog Mix 75/25) 16 units SC ACD [facility] Insulin Lispro Protam/Lispro Human (Humalog Mix 75/25) 26 units SC ACB [facility] Levothyroxine Sodium (Synthroid) 25 mcg PO DAILY@0630 [facility] Last Admin: 11/16/17 05:53 Dose: 25 mcg Lisinopril (Zestril) 10 mg PO DAILY [facility] Last Admin: 11/16/17 08:48 Dose: 10 mg Pravastatin Sodium (Pravachol) 40 mg PO DAILY [facility] [place] Last Admin: 11/16/17 08:47 Dose: 40 mg Sitagliptin Phosphate (Januvia) 100 mg PO DAILY@2100 [facility] [place] Last Admin: 11/15/17 21:59 Dose: Not Given - Labs Labs: 11/15/17 05:30 11/15/17 05:30 PT 12.6 Seconds (9.8-13.1) 11/11/17 05:50 INR 1.1 (0.9-1.2) 11/11/17 05:50 APTT 32.9 Seconds (25.6-37.1) 11/11/17 05:50 - Constitutional Appears: Well, Non-toxic, No Acute Distress - Extremities Exam Extremities Exam: absent: Calf Tenderness Additional comments: VASC: DP pulses palpable 2/4 b/l. PT pulses weakly palpable 1/4 b/l. CFT <3 seconds to all digits. Temperature gradient WNL. Non-pitting edema noted to left 2nd digit. DERM: Surgical sutures appear well coapted with no dehiscence at the distal tip of the left 2nd digit, no active drainage, no erythema, no foul odor, no open lesions, no clinical suspicion of active infection at this time NEURO: Gross sensation absent bilaterally. ORTHO: No pain on palpation left 2nd digit. Right 1st ray partial amputation. Right 2nd digit rigid hammertoe contracture. - Neurological Exam Neurological Exam: Alert, Awake, Oriented x3 - Psychiatric Exam Psychiatric exam: Normal Affect, Normal Mood Assessment and Plan - Assessment and Plan (Free Text) Assessment: 67 year old female with PMHx of DM, HTN, hypercholesteremia seen 3 days s/p left distal 2nd digit amputation Plan: Pt was seen and examined at bedside Discussed in details with attending Dr. Galvan Patient is afebrile and WBC @ 10.8 (yesterday) Pre-op L foot XR reviewed: 1. Likely osteomyelitis of the tip of the tuft of the 2nd digit were soft tissue emphysema is also appreciated reflecting probable ulceration. Clinically correlate further. 2. Likely early chronic fracture base 5th metatarsal bone, potential nonunion here. Pre-op L foot MRI reviewed: OM middle and distal phalanges of 2nd digit L 2nd digit cleansed with saline and dressed with betadine DSD -Patient may be WBAT surgical shoe b/l Intra-op cultures (Final) - Corynebacterium Species Continue to monitor right 2nd digit - dressing applied using betadine DSD, ROD Continue abx per ID - Vancomycin, Zosyn; ID recs appreciated Patient is stable from podiatry standpoint Podiatry will continue to follow patient while in house Pt will follow-up with Dr. Galvan in the podiatry clinic within 1 week of discharge
[2017-11-17] MEDS: Levothyroxine 25 MCG TAB PO SCH (05:57)
[2017-11-17] MEDS: Insulin Lispro (humaLOG) 100 Units/ml Inj SC SCH ×4 (06:33→21:25)
[2017-11-17] MEDS ORDERED: Insulin Lispro Mix 75/25 100 units/ml (HumaLog) 10ml SC SCH (07:30)
--- NOTE | 2017-11-17 07:54 | CP.PCM.PN ---
Subjective - Date & Time of Evaluation Date of Evaluation: 11/17/17 Time of Evaluation: 07:53 - Subjective Subjective: Podiatry Progress Note - Dr. Galvan 67 year old female with PMHx of DM, HTN, hypercholesterolemia seen and evaluated at bedside 4 days s/p left 2nd digit partial amputation. Patient hemodynamically stable and NAD. Denies any issues overnight. Dressing clean/dry/ intact with surgical shoe present on L foot. Patient able to ambulate without any issues. No pedal complaints this visit. Denies N/V/F/D/C/SOB/calf pain. Objective - Vital Signs/Intake and Output Vital Signs (last 24 hours): Temp Pulse Resp BP Pulse Ox 97.8 F 78 19 125/73 97 11/17/17 00:00 11/17/17 00:00 11/17/17 00:00 11/17/17 00:00 11/17/17 00:00 - Medications Medications: Current Medications Acetaminophen (Tylenol 325mg Tab) 650 mg PO Q6 PRN PRN Reason: Pain, Mild (1-3) Dextrose (Dextrose 50% Inj) 0 ml IV STAT PRN; Protocol PRN Reason: Hypoglycemia Protocol Dextrose (Glutose 15) 0 gm PO ONCE PRN; Protocol PRN Reason: Hypoglycemia Protocol Enoxaparin Sodium (Lovenox) 40 mg SC DAILY [facility] PRN Reason: Protocol Last Admin: 11/16/17 08:47 Dose: 40 mg Glipizide (Glucotrol Xl) 10 mg PO ACBD [facility] Last Admin: 11/16/17 16:32 Dose: 10 mg Glucagon (Glucagen Diagnostic Kit) 0 mg IM STAT PRN; Protocol PRN Reason: Hypoglycemia Protocol Home Med (Glimepiride [Glimepiride]) 4 mg PO BID [facility] Piperacillin Sod/Tazobactam (Sod 2.25 gm/ Sodium Chloride) 100 mls @ 100 mls/ hr IVPB Q8@0300,1100,1900 [facility] PRN Reason: Protocol Last Admin: 11/17/17 03:16 Dose: 100 mls/hr Insulin Human Lispro (Humalog) 0 units SC ACHS [facility] PRN Reason: Protocol Last Admin: 11/17/17 06:33 Dose: Not Given Insulin Lispro Protam/Lispro Human (Humalog Mix 75/25) 16 units SC ACD [facility] Last Admin: 11/16/17 17:09 Dose: 16 units Insulin Lispro Protam/Lispro Human (Humalog Mix 75/25) 26 units SC ACB [facility] Levothyroxine Sodium (Synthroid) 25 mcg PO DAILY@0630 [facility] Last Admin: 11/17/17 05:57 Dose: 25 mcg Lisinopril (Zestril) 10 mg PO DAILY [facility] Last Admin: 11/16/17 08:48 Dose: 10 mg Pravastatin Sodium (Pravachol) 40 mg PO DAILY [facility] Last Admin: 11/16/17 08:47 Dose: 40 mg Sitagliptin Phosphate (Januvia) 100 mg PO DAILY@2100 [facility] Last Admin: 11/16/17 22:08 Dose: Not Given - Labs Labs: 11/15/17 05:30 11/15/17 05:30 PT 12.6 Seconds (9.8-13.1) 11/11/17 05:50 INR 1.1 (0.9-1.2) 11/11/17 05:50 APTT 32.9 Seconds (25.6-37.1) 11/11/17 05:50 - Constitutional Appears: Well, Non-toxic, No Acute Distress - Extremities Exam Additional comments: VASC: DP pulses palpable 2/4 b/l. PT pulses weakly palpable 1/4 b/l. CFT <3 seconds to all digits. Temperature gradient WNL. Non-pitting edema noted to left 2nd digit. DERM: Surgical incision noted to distal aspect of left 2nd digit appears well- coapted with sutures intact and no wound dehiscence noted; no active drainage, no erythema, no malodor, no purulence. Right 2nd digit with discoloration noted to distal tuft and dorsum of PIPJ. NEURO: Gross sensation absent bilaterally. ORTHO: No pain on palpation left 2nd digit. Right 1st ray partial amputation. Right 2nd digit rigid hammertoe contracture. - Neurological Exam Neurological Exam: Alert, Awake, Oriented x3 - Psychiatric Exam Psychiatric exam: Normal Affect, Normal Mood Assessment and Plan - Assessment and Plan (Free Text) Assessment: 67 year old female with PMHx of DM, HTN, hypercholesteremia seen 4 days s/p left distal 2nd digit amputation Plan: Pt was seen and examined at bedside Discussed in detail with attending Dr. Galvan Afebrile Pre-op L foot XR reviewed: 1. Likely osteomyelitis of the tip of the tuft of the 2nd digit were soft tissue emphysema is also appreciated reflecting probable ulceration. Clinically correlate further. 2. Likely early chronic fracture base 5th metatarsal bone, potential nonunion here. Pre-op L foot MRI reviewed: OM middle and distal phalanges of 2nd digit L 2nd digit cleansed with saline and dressed with betadine DSD -Patient may be WBAT surgical shoe b/l Intra-op cultures (Final) - Corynebacterium Species -Awaiting intra-op pathology report Continue to monitor right 2nd digit Continue abx per ID - pt currently on Zosyn, Vancomycin d/c on 11/15; ID recs appreciated Patient is stable for discharge podiatry standpoint Podiatry will continue to follow patient while in house Pt will follow-up with Dr. Galvan in the podiatry clinic within 1 week of discharge
--- NOTE | 2017-11-17 08:24 | PN ---
DATE: ENDOCRINOLOGY FOLLOWUP NOTE LOCATION: Room 662. SUBJECTIVE: This is a 67-year-old female with recent uncontrolled type 2 insulin-requiring diabetes, currently being managed for underlying left toe osteomyelitis and adjacent cellulitis and is being followed closely also for metabolic management. Her glycemic levels are still fluctuating with low normal glycemic levels in the morning and today's glucose was 52 mg/dL with a repeat value of 149 and 205 mg/dL. Her latest chemistry showed a BUN of 16, sodium 137, potassium 4.3, chloride 98, CO2 of 30, glucose 74, and creatinine 1.4. So, at this time, we will modify once again and lower the premixed insulin regimen with Humalog 75/25 given as 26 units a.c. breakfast and 16 units a.c. dinner as ordered. We will titrate incrementally as indicated to optimize metabolic control. We will continue the oral hypoglycemic drug therapy given as Januvia at 100 mg daily and glipizide given as 10 mg b.i.d. before meals as ordered. We will titrate incremental as indicated to optimize metabolic control. We will also obtain serial chemistries and supplement accordingly as needed. We will follow. Lizzette Potter MD
[2017-11-17] MEDS: Enoxaparin 40 mg Syringe SC SCH (08:34)
[2017-11-17] MEDS: GlipiZIDE 10 mg SR Tab PO SCH ×2 (08:35→17:51)
[2017-11-17] MEDS: Pravastatin Sodium 40 MG TAB PO SCH (08:35)
[2017-11-17 11:10] LABS: HEMATOCRIT 36.2 % (34.0-47.0); MEAN CELL VOLUME 90.6 fl (81.0-99.0); MEAN CORPUSCULAR HEMOGLOBIN 29.6 pg (27.0-31.0); MEAN CORPUSCULAR HGB CONC 32.6 g/dL (33.0-37.0); RED CELL DISTRIBUTION WIDTH 13.8 % (11.5-14.5); WHITE BLOOD COUNT 13.6 K/uL (4.8-10.8)
[2017-11-17] MEDS ORDERED: Diphenhydramine 1% CREAM TOP PRN (11:23)
[2017-11-17 11:28] LABS: CALCIUM 9.1 mg/dL (8.4-10.2); POTASSIUM 5.1 MMOL/L (3.6-5.0)
--- NOTE | 2017-11-17 11:41 | CP.PCM.PCO ---
Physician Communication Note - Physician Communication Note Physician Communication Note: pt. for angiogram in with in am; NPO past mn
[2017-11-17] MEDS: cefTRIAXone 2 GM in Sodium Chloride 0.9% 100 ML IVPB SCH ×2 (12:48→17:56)
[2017-11-17] MEDS ORDERED: methylPREDNISolone 125 MG in Sodium Chloride 0.9% 50 ML IVPB ONE (13:14)
[2017-11-17] MEDS: Insulin Lispro Mix 75/25 100 units/ml (HumaLog) 10ml SC SCH (17:53)
--- NOTE | 2017-11-17 18:10 | CP.PCM.PN ---
Subjective - Date & Time of Evaluation Date of Evaluation: 11/16/17 Time of Evaluation: 18:08 - Subjective Subjective: s/p arterial duplex with multiple stenosis s/p amputation Objective - Vital Signs/Intake and Output Vital Signs (last 24 hours): Temp Pulse Resp BP Pulse Ox 98.0 F 94 H 18 115/68 98 11/17/17 15:40 11/17/17 15:40 11/17/17 15:40 11/17/17 15:40 11/17/17 15:40 - Medications Medications: Current Medications Acetaminophen (Tylenol 325mg Tab) 650 mg PO Q6 PRN PRN Reason: Pain, Mild (1-3) Aspirin (Ecotrin) 81 mg PO DAILY [facility] Clopidogrel Bisulfate (Plavix) 75 mg PO DAILY [facility] Dextrose (Dextrose 50% Inj) 0 ml IV STAT PRN; Protocol PRN Reason: Hypoglycemia Protocol Dextrose (Glutose 15) 0 gm PO ONCE PRN; Protocol PRN Reason: Hypoglycemia Protocol Diphenhydramine HCl (Benadryl) 25 mg PO Q6 PRN PRN Reason: Itching / Pruritus Last Admin: 11/17/17 17:54 Dose: 25 mg Glipizide (Glucotrol Xl) 10 mg PO ACBD [facility] Last Admin: 11/17/17 17:51 Dose: 10 mg Glucagon (Glucagen Diagnostic Kit) 0 mg IM STAT PRN; Protocol PRN Reason: Hypoglycemia Protocol Home Med (Glimepiride [Glimepiride]) 4 mg PO BID [facility] Ceftriaxone Sodium 2 gm/ (Sodium Chloride) 100 mls @ 100 mls/hr IVPB DAILY [facility] PRN Reason: Protocol Last Admin: 11/17/17 17:56 Dose: 100 mls/hr Insulin Detemir (Levemir) 6 units SC HS [facility] Insulin Human Lispro (Humalog) 0 units SC ACHS [facility] PRN Reason: Protocol Last Admin: 11/17/17 17:52 Dose: Not Given Insulin Lispro Protam/Lispro Human (Humalog Mix 75/25) 16 units SC ACD [facility] Last Admin: 11/17/17 17:53 Dose: 16 units Insulin Lispro Protam/Lispro Human (Humalog Mix 75/25) 26 units SC ACB [facility] Last Admin: 11/17/17 07:44 Dose: Not Given Levothyroxine Sodium (Synthroid) 25 mcg PO DAILY@0630 [facility] Last Admin: 11/17/17 05:57 Dose: 25 mcg Lisinopril (Zestril) 10 mg PO DAILY [facility] Last Admin: 11/17/17 08:43 Dose: 10 mg Pravastatin Sodium (Pravachol) 40 mg PO DAILY [facility] Last Admin: 11/17/17 08:35 Dose: 40 mg Sitagliptin Phosphate (Januvia) 100 mg PO DAILY@2100 [facility] Last Admin: 11/16/17 22:08 Dose: Not Given Zinc Acetate/Diphenhydramine (Benadryl 1% Zinc Acetate -0.1%) 1 applic TOP Q8 PRN PRN Reason: Itching / Pruritus Last Admin: 11/17/17 12:48 Dose: 1 applic - Labs Labs: 11/17/17 10:51 11/17/17 10:51 PT 12.6 Seconds (9.8-13.1) 11/11/17 05:50 INR 1.1 (0.9-1.2) 11/11/17 05:50 APTT 32.9 Seconds (25.6-37.1) 11/11/17 05:50 - Constitutional Appears: Well - Head Exam Head Exam: ATRAUMATIC, NORMAL INSPECTION, NORMOCEPHALIC - Eye Exam Eye Exam: EOMI, Normal appearance, PERRL Pupil Exam: NORMAL ACCOMODATION, PERRL - ENT Exam ENT Exam: Mucous Membranes Moist, Normal Exam - Neck Exam Neck Exam: Full ROM, Normal Inspection. absent: Lymphadenopathy - Respiratory Exam Respiratory Exam: Clear to Ausculation Bilateral, NORMAL BREATHING PATTERN - Cardiovascular Exam Cardiovascular Exam: REGULAR RHYTHM, +S1, +S2, Murmur - GI/Abdominal Exam GI & Abdominal Exam: Soft, Normal Bowel Sounds. absent: Tenderness - Extremities Exam Extremities Exam: Full ROM, Normal Capillary Refill. 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
--- NOTE | 2017-11-17 18:13 | CP.PCM.PN ---
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 angio to be delayed until rash resolves Objective - Vital Signs/Intake and Output Vital Signs (last 24 hours): Temp Pulse Resp BP Pulse Ox 98.0 F 94 H 18 115/68 98 11/17/17 15:40 11/17/17 15:40 11/17/17 15:40 11/17/17 15:40 11/17/17 15:40 - Medications Medications: Current Medications Acetaminophen (Tylenol 325mg Tab) 650 mg PO Q6 PRN PRN Reason: Pain, Mild (1-3) Aspirin (Ecotrin) 81 mg PO DAILY [facility] Clopidogrel Bisulfate (Plavix) 75 mg PO DAILY [facility] Dextrose (Dextrose 50% Inj) 0 ml IV STAT PRN; Protocol PRN Reason: Hypoglycemia Protocol Dextrose (Glutose 15) 0 gm PO ONCE PRN; Protocol PRN Reason: Hypoglycemia Protocol Diphenhydramine HCl (Benadryl) 25 mg PO Q6 PRN PRN Reason: Itching / Pruritus Last Admin: 11/17/17 17:54 Dose: 25 mg Glipizide (Glucotrol Xl) 10 mg PO ACBD [facility] Last Admin: 11/17/17 17:51 Dose: 10 mg Glucagon (Glucagen Diagnostic Kit) 0 mg IM STAT PRN; Protocol PRN Reason: Hypoglycemia Protocol Home Med (Glimepiride [Glimepiride]) 4 mg PO BID [facility] Ceftriaxone Sodium 2 gm/ (Sodium Chloride) 100 mls @ 100 mls/hr IVPB DAILY [facility] PRN Reason: Protocol Last Admin: 11/17/17 17:56 Dose: 100 mls/hr Insulin Detemir (Levemir) 6 units SC HS [facility] Insulin Human Lispro (Humalog) 0 units SC ACHS [facility] PRN Reason: Protocol Last Admin: 11/17/17 17:52 Dose: Not Given Insulin Lispro Protam/Lispro Human (Humalog Mix 75/25) 16 units SC ACD [facility] Last Admin: 11/17/17 17:53 Dose: 16 units Insulin Lispro Protam/Lispro Human (Humalog Mix 75/25) 26 units SC ACB [facility] Last Admin: 11/17/17 07:44 Dose: Not Given Levothyroxine Sodium (Synthroid) 25 mcg PO DAILY@0630 [facility] Last Admin: 11/17/17 05:57 Dose: 25 mcg Lisinopril (Zestril) 10 mg PO DAILY [facility] Last Admin: 11/17/17 08:43 Dose: 10 mg Pravastatin Sodium (Pravachol) 40 mg PO DAILY [facility] Last Admin: 11/17/17 08:35 Dose: 40 mg Sitagliptin Phosphate (Januvia) 100 mg PO DAILY@2100 [facility] Last Admin: 11/16/17 22:08 Dose: Not Given Zinc Acetate/Diphenhydramine (Benadryl 1% Zinc Acetate -0.1%) 1 applic TOP Q8 PRN PRN Reason: Itching / Pruritus Last Admin: 11/17/17 12:48 Dose: 1 applic - Labs Labs: 11/17/17 10:51 11/17/17 10:51 PT 12.6 Seconds (9.8-13.1) 11/11/17 05:50 INR 1.1 (0.9-1.2) 11/11/17 05:50 APTT 32.9 Seconds (25.6-37.1) 11/11/17 05:50 - Constitutional Appears: Well - Head Exam Head Exam: ATRAUMATIC, NORMAL INSPECTION, NORMOCEPHALIC - Eye Exam Eye Exam: EOMI, Normal appearance, PERRL Pupil Exam: NORMAL ACCOMODATION, PERRL - ENT Exam ENT Exam: Mucous Membranes Moist, Normal Exam - Neck Exam Neck Exam: Full ROM, Normal Inspection. absent: Lymphadenopathy - Respiratory Exam Respiratory Exam: Clear to Ausculation Bilateral, NORMAL BREATHING PATTERN - Cardiovascular Exam Cardiovascular Exam: REGULAR RHYTHM, +S1, +S2, Murmur - GI/Abdominal Exam GI & Abdominal Exam: Soft, Normal Bowel Sounds. absent: Tenderness - Exam Bimanual exam: NORMAL BIMANUAL EXAM - Extremities Exam Extremities Exam: Full ROM, Normal Capillary Refill, Normal Inspection. 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 sulfa vs. pcn allergy Status: Acute (3) Diabetes mellitus Status: Acute (4) Hypertension Status: Acute (5) Osteomyelitis Status: Acute
--- NOTE | 2017-11-17 18:18 | PN ---
ENDOCRINOLOGY FOLLOWUP NOTE LOCATION: Room #662. SUMMARY: This is a 67-year-old female with recent uncontrolled type 2 insulin-requiring diabetes, now with supervening hyperglycemic accelerations as note thereof. Her glucose levels have ranged from 107 to 270 mg/dL. The latest chemistries showed a BUN of 18, sodium 136, potassium 5.1, chloride 95, CO2 33, glucose 253, and creatinine 1.4. So at this time, we will actually add Levemir given as basal insulin at 6 units subcutaneous at bedtime daily as ordered. We will also increase the NovoLog with Prandin, insulin Humalog 75/25 given as 26 units subcutaneous before breakfast daily with NovoLog given as 12 units subcutaneous at bedtime as ordered. So, we will continue the low-dose sliding scale using Humalog insulin as ordered. We will titrate incrementally as indicated to optimize metabolic control. We will also obtain serial chemistries and supplement accordingly as needed. We will follow and advise accordingly. Lizzette Potter MD
--- NOTE | 2017-11-17 21:33 | CP.PCM.PN ---
Subjective - Date & Time of Evaluation Date of Evaluation: 11/17/17 Time of Evaluation: 07:50 - Subjective Subjective: Patient seen and examine bedside with Dr Cotto. Patient reports itching b/l hands. She denies fever, nausea, vomiting, chest pain, SOB. NO overnight events. Objective - Vital Signs/Intake and Output Vital Signs (last 24 hours): Temp Pulse Resp BP Pulse Ox 98.0 F 94 H 18 115/68 98 11/17/17 15:40 11/17/17 15:40 11/17/17 15:40 11/17/17 15:40 11/17/17 15:40 - Medications Medications: Current Medications Acetaminophen (Tylenol 325mg Tab) 650 mg PO Q6 PRN PRN Reason: Pain, Mild (1-3) Aspirin (Ecotrin) 81 mg PO DAILY [facility] Last Admin: 11/17/17 18:40 Dose: 81 mg Clopidogrel Bisulfate (Plavix) 75 mg PO DAILY [facility] Last Admin: 11/17/17 18:39 Dose: 75 mg Dextrose (Dextrose 50% Inj) 0 ml IV STAT PRN; Protocol PRN Reason: Hypoglycemia Protocol Dextrose (Glutose 15) 0 gm PO ONCE PRN; Protocol PRN Reason: Hypoglycemia Protocol Diphenhydramine HCl (Benadryl) 25 mg PO Q6 PRN PRN Reason: Itching / Pruritus Last Admin: 11/17/17 17:54 Dose: 25 mg Glipizide (Glucotrol Xl) 10 mg PO ACBD [facility] Last Admin: 11/17/17 17:51 Dose: 10 mg Glucagon (Glucagen Diagnostic Kit) 0 mg IM STAT PRN; Protocol PRN Reason: Hypoglycemia Protocol Home Med (Glimepiride [Glimepiride]) 4 mg PO BID [facility] Ceftriaxone Sodium 2 gm/ (Sodium Chloride) 100 mls @ 100 mls/hr IVPB DAILY [facility] PRN Reason: Protocol Last Admin: 11/17/17 17:56 Dose: 100 mls/hr Insulin Detemir (Levemir) 6 units SC HS [facility] Last Admin: 11/17/17 21:28 Dose: 6 unit Insulin Human Lispro (Humalog) 0 units SC ACHS [facility] PRN Reason: Protocol Last Admin: 11/17/17 21:25 Dose: 3 unit Insulin Lispro Protam/Lispro Human (Humalog Mix 75/25) 30 units SC ACB [facility] Insulin Lispro Protam/Lispro Human (Humalog Mix 75/25) 20 units SC ACD [facility] Levothyroxine Sodium (Synthroid) 25 mcg PO DAILY@0630 [facility] Last Admin: 11/17/17 05:57 Dose: 25 mcg Lisinopril (Zestril) 10 mg PO DAILY [facility] Last Admin: 11/17/17 08:43 Dose: 10 mg Pravastatin Sodium (Pravachol) 40 mg PO DAILY [facility] Last Admin: 11/17/17 08:35 Dose: 40 mg Sitagliptin Phosphate (Januvia) 100 mg PO DAILY@2100 [facility] Last Admin: 11/17/17 21:27 Dose: 100 mg Zinc Acetate/Diphenhydramine (Benadryl 1% Zinc Acetate -0.1%) 1 applic TOP Q8 PRN PRN Reason: Itching / Pruritus Last Admin: 11/17/17 12:48 Dose: 1 applic - Labs Labs: 11/17/17 10:51 11/17/17 10:51 PT 12.6 Seconds (9.8-13.1) 11/11/17 05:50 INR 1.1 (0.9-1.2) 11/11/17 05:50 APTT 32.9 Seconds (25.6-37.1) 11/11/17 05:50 - Constitutional Appears: Non-toxic, No Acute Distress - Head Exam Head Exam: ATRAUMATIC, NORMOCEPHALIC - Eye Exam Eye Exam: Normal appearance - ENT Exam ENT Exam: Mucous Membranes Moist - Respiratory Exam Respiratory Exam: absent: Rales, Rhonchi, Wheezes - Cardiovascular Exam Cardiovascular Exam: REGULAR RHYTHM, +S1, +S2 - GI/Abdominal Exam GI & Abdominal Exam: Soft, Normal Bowel Sounds. absent: Tenderness - Extremities Exam Additional comments: Left foot second digit amputation. foot covered with bandage C/D/I, no limited ROM of ankle, muscle strength intact, sensation intact - Back Exam Back Exam: absent: CVA tenderness (L) - Neurological Exam Neurological Exam: Alert, Awake, Oriented x3 - Psychiatric Exam Psychiatric exam: Normal Affect - Skin Skin Exam: Rash (b/L hand and forearm) Assessment and Plan - Assessment and Plan (Free Text) Plan: (1) Osteomyelitis - s/p left distal 2nd digit amputation 4 days ago -Podiatry consult appreciated -ceftriaxone 2) Rash -Benadryl 25 mg PO Q6 h -sulfa vs pcl allergy? (3) Hypertension Assessment & Plan: Continue medication Status: Acute (4) Diabetes mellitus Assessment & Plan: on levemir januvia, SSI Status: Acute (5) DVT prophylaxis Assessment & Plan: Lovenox
[2017-11-17] MEDS ORDERED: Insulin Detemir 100 Units/ml Inj SC ONE (21:43)
[2017-11-17] MEDS ORDERED: Insulin Detemir 100 Units/ml Inj SC SCH (22:00)
[2017-11-18] MEDS ORDERED: Insulin Lispro (humaLOG) 100 Units/ml Inj SC ONE (02:09)
[2017-11-18 06:05] LABS: MEAN CELL VOLUME 90.7 fl (81.0-99.0); MEAN CORPUSCULAR HEMOGLOBIN 29.1 pg (27.0-31.0); MEAN CORPUSCULAR HGB CONC 32.1 g/dL (33.0-37.0); RED CELL DISTRIBUTION WIDTH 13.7 % (11.5-14.5); WHITE BLOOD COUNT 14.6 K/uL (4.8-10.8)
[2017-11-18 06:25] LABS: CALCIUM 9.3 mg/dL (8.4-10.2); POTASSIUM 5.2 MMOL/L (3.6-5.0)
[2017-11-18] MEDS: Levothyroxine 25 MCG TAB PO SCH (06:37)
[2017-11-18] MEDS: Insulin Lispro (humaLOG) 100 Units/ml Inj SC SCH ×4 (06:38→22:13)
[2017-11-18] MEDS ORDERED: Insulin Lispro Mix 75/25 100 units/ml (HumaLog) 10ml SC SCH ×2 (07:30→16:30)
--- NOTE | 2017-11-18 07:59 | CP.PCM.PN ---
Subjective - Date & Time of Evaluation Date of Evaluation: 11/18/17 Time of Evaluation: 07:53 - Subjective Subjective: PGY 2 progress note for cardiology, Dr. Long Pt seen and examined at bedside. No acute events overnight. Rash on upper back and abdomen is improving. Pt denies having any pruritis in the area. Denies having any CP, SOB, abd pain, N/v/D/C, LE pain. Ambulating without difficulty. 12 point ROS negative except for the above mentioned. Objective - Vital Signs/Intake and Output Vital Signs (last 24 hours): Temp Pulse Resp BP Pulse Ox 97.8 F 75 20 127/68 98 11/18/17 07:51 11/18/17 07:51 11/18/17 07:51 11/18/17 07:51 11/18/17 07:51 - Medications Medications: Current Medications Acetaminophen (Tylenol 325mg Tab) 650 mg PO Q6 PRN PRN Reason: Pain, Mild (1-3) Aspirin (Ecotrin) 81 mg PO DAILY [facility] Last Admin: 11/17/17 18:40 Dose: 81 mg Clopidogrel Bisulfate (Plavix) 75 mg PO DAILY [facility] Last Admin: 11/17/17 18:39 Dose: 75 mg Dextrose (Dextrose 50% Inj) 0 ml IV STAT PRN; Protocol PRN Reason: Hypoglycemia Protocol Dextrose (Glutose 15) 0 gm PO ONCE PRN; Protocol PRN Reason: Hypoglycemia Protocol Diphenhydramine HCl (Benadryl) 25 mg PO Q6 PRN PRN Reason: Itching / Pruritus Last Admin: 11/18/17 06:37 Dose: 25 mg Glipizide (Glucotrol Xl) 10 mg PO ACBD [facility] Last Admin: 11/17/17 17:51 Dose: 10 mg Glucagon (Glucagen Diagnostic Kit) 0 mg IM STAT PRN; Protocol PRN Reason: Hypoglycemia Protocol Home Med (Glimepiride [Glimepiride]) 4 mg PO BID [facility] Ceftriaxone Sodium 2 gm/ (Sodium Chloride) 100 mls @ 100 mls/hr IVPB DAILY [facility] PRN Reason: Protocol Last Admin: 11/17/17 17:56 Dose: 100 mls/hr Insulin Detemir (Levemir) 6 units SC HS [facility] Last Admin: 11/17/17 21:28 Dose: 6 unit Insulin Human Lispro (Humalog) 0 units SC ACHS [facility] PRN Reason: Protocol Last Admin: 11/18/17 06:38 Dose: 4 unit Insulin Lispro Protam/Lispro Human (Humalog Mix 75/25) 30 units SC ACB [facility] Insulin Lispro Protam/Lispro Human (Humalog Mix 75/25) 20 units SC ACD [facility] Levothyroxine Sodium (Synthroid) 25 mcg PO DAILY@0630 [facility] Last Admin: 11/18/17 06:37 Dose: 25 mcg Lisinopril (Zestril) 10 mg PO DAILY [facility] Last Admin: 11/17/17 08:43 Dose: 10 mg Pravastatin Sodium (Pravachol) 40 mg PO DAILY [facility] Last Admin: 11/17/17 08:35 Dose: 40 mg Sitagliptin Phosphate (Januvia) 100 mg PO DAILY@2100 [facility] Last Admin: 11/17/17 21:27 Dose: 100 mg Zinc Acetate/Diphenhydramine (Benadryl 1% Zinc Acetate -0.1%) 1 applic TOP Q8 PRN PRN Reason: Itching / Pruritus Last Admin: 11/17/17 12:48 Dose: 1 applic - Labs Labs: 11/18/17 05:55 11/18/17 05:55 PT 12.6 Seconds (9.8-13.1) 11/11/17 05:50 INR 1.1 (0.9-1.2) 11/11/17 05:50 APTT 32.9 Seconds (25.6-37.1) 11/11/17 05:50 - Constitutional Appears: Non-toxic, No Acute Distress - Head Exam Head Exam: ATRAUMATIC - ENT Exam ENT Exam: Mucous Membranes Moist - Respiratory Exam Respiratory Exam: Clear to Ausculation Bilateral. absent: Rales, Rhonchi, Wheezes - Cardiovascular Exam Cardiovascular Exam: REGULAR RHYTHM, +S1, +S2 - GI/Abdominal Exam GI & Abdominal Exam: Soft, Normal Bowel Sounds. absent: Distended, Firm, Guarding, Rigid, Tenderness - Extremities Exam Extremities Exam: absent: Pedal Edema, Tenderness - Neurological Exam Neurological Exam: Alert, Awake, Oriented x3 - Psychiatric Exam Psychiatric exam: Normal Affect, Normal Mood - Skin Skin Exam: Dry, Intact, Normal Color, Warm
--- NOTE | 2017-11-18 08:18 | CP.PCM.PN ---
Subjective - Date & Time of Evaluation Date of Evaluation: 11/18/17 Time of Evaluation: 08:18 - Subjective Subjective: Podiatry Progress Note - Dr. Galvan 67 year old female with PMHx of DM, HTN, hypercholesterolemia seen and evaluated at bedside 5 days s/p left 2nd digit partial amputation. Patient hemodynamically stable and NAD. Son present at bedside. Denies any issues overnight, admits to generalized rash, including top of left foot, however no complaints currently. Patient states she has been putting topical Benadryl as needed. Dressing clean/dry/intact with surgical shoe present on L foot. Patient able to ambulate without any issues. No other pedal complaints this visit. Denies N/V/F/D/C/SOB/calf pain. Objective - Vital Signs/Intake and Output Vital Signs (last 24 hours): Temp Pulse Resp BP Pulse Ox 97.8 F 75 20 127/68 98 11/18/17 07:51 11/18/17 07:51 11/18/17 07:51 11/18/17 07:51 11/18/17 07:51 - Medications Medications: Current Medications Acetaminophen (Tylenol 325mg Tab) 650 mg PO Q6 PRN PRN Reason: Pain, Mild (1-3) Aspirin (Ecotrin) 81 mg PO DAILY [facility] Last Admin: 11/17/17 18:40 Dose: 81 mg Clopidogrel Bisulfate (Plavix) 75 mg PO DAILY [facility] Last Admin: 11/17/17 18:39 Dose: 75 mg Dextrose (Dextrose 50% Inj) 0 ml IV STAT PRN; Protocol PRN Reason: Hypoglycemia Protocol Dextrose (Glutose 15) 0 gm PO ONCE PRN; Protocol PRN Reason: Hypoglycemia Protocol Diphenhydramine HCl (Benadryl) 25 mg PO Q6 PRN PRN Reason: Itching / Pruritus Last Admin: 11/18/17 06:37 Dose: 25 mg Glipizide (Glucotrol Xl) 10 mg PO ACBD [facility] Last Admin: 11/17/17 17:51 Dose: 10 mg Glucagon (Glucagen Diagnostic Kit) 0 mg IM STAT PRN; Protocol PRN Reason: Hypoglycemia Protocol Home Med (Glimepiride [Glimepiride]) 4 mg PO BID [facility] Ceftriaxone Sodium 2 gm/ (Sodium Chloride) 100 mls @ 100 mls/hr IVPB DAILY [facility] PRN Reason: Protocol Last Admin: 11/17/17 17:56 Dose: 100 mls/hr Insulin Detemir (Levemir) 6 units SC HS [facility] Last Admin: 11/17/17 21:28 Dose: 6 unit Insulin Human Lispro (Humalog) 0 units SC ACHS [facility] PRN Reason: Protocol Last Admin: 11/18/17 06:38 Dose: 4 unit Insulin Lispro Protam/Lispro Human (Humalog Mix 75/25) 30 units SC ACB [facility] Insulin Lispro Protam/Lispro Human (Humalog Mix 75/25) 20 units SC ACD [facility] Levothyroxine Sodium (Synthroid) 25 mcg PO DAILY@0630 [facility] Last Admin: 11/18/17 06:37 Dose: 25 mcg Lisinopril (Zestril) 10 mg PO DAILY [facility] Last Admin: 11/17/17 08:43 Dose: 10 mg Pravastatin Sodium (Pravachol) 40 mg PO DAILY [facility] Last Admin: 11/17/17 08:35 Dose: 40 mg Sitagliptin Phosphate (Januvia) 100 mg PO DAILY@2100 [facility] Last Admin: 11/17/17 21:27 Dose: 100 mg Zinc Acetate/Diphenhydramine (Benadryl 1% Zinc Acetate -0.1%) 1 applic TOP Q8 PRN PRN Reason: Itching / Pruritus Last Admin: 11/17/17 12:48 Dose: 1 applic - Labs Labs: 11/18/17 05:55 11/18/17 05:55 PT 12.6 Seconds (9.8-13.1) 11/11/17 05:50 INR 1.1 (0.9-1.2) 11/11/17 05:50 APTT 32.9 Seconds (25.6-37.1) 11/11/17 05:50 - Constitutional Appears: Well, Non-toxic, No Acute Distress - Extremities Exam Additional comments: VASC: DP pulses palpable 2/4 b/l. PT pulses weakly palpable 1/4 b/l. CFT <3 seconds to all digits. Temperature gradient WNL. Non-pitting edema noted to left 2nd digit. DERM: Surgical incision noted to distal aspect of left 2nd digit appears well- coapted with sutures intact and no wound dehiscence noted; no active drainage, no erythema, no malodor, no purulence. Right 2nd digit with discoloration noted to distal tuft and dorsum of PIPJ. NEURO: Gross sensation absent bilaterally. ORTHO: No pain on palpation left 2nd digit. Right 1st ray partial amputation. Right 2nd digit rigid hammertoe contracture. - Neurological Exam Neurological Exam: Alert, Awake, Oriented x3 - Psychiatric Exam Psychiatric exam: Normal Affect, Normal Mood Assessment and Plan - Assessment and Plan (Free Text) Assessment: 67 year old female with PMHx of DM, HTN, hypercholesteremia seen 5 days s/p left distal 2nd digit amputation Plan: Pt was seen and examined at bedside Discussed in detail with attending Dr. Galvan Afebrile, WBC increasing 14.6 (yesterday 13.6) Pre-op L foot XR reviewed: 1. Likely osteomyelitis of the tip of the tuft of the 2nd digit were soft tissue emphysema is also appreciated reflecting probable ulceration. Clinically correlate further. 2. Likely early chronic fracture base 5th metatarsal bone, potential nonunion here. Pre-op L foot MRI reviewed: OM middle and distal phalanges of 2nd digit L 2nd digit cleansed with saline and dressed with betadine DSD -Patient may be WBAT surgical shoe b/l Intra-op cultures (Final) - Corynebacterium Species Intra-op pathology report reveals acute OM of distal phalanx, no acute OM middle phalanx Continue to monitor right 2nd digit Continue abx per ID - patient currently on Ceftriaxone -Per vascular angio delayed until rash resolves -Patient may be sent home on PO keflex x10 days Patient is stable for discharge podiatry standpoint Podiatry will continue to follow patient while in house Pt will follow-up with Dr. Galvan in the podiatry clinic within 1 week of discharge
[2017-11-18] MEDS: GlipiZIDE 10 mg SR Tab PO SCH ×2 (08:40→17:18)
--- NOTE | 2017-11-18 09:00 | CP.PCM.PN ---
Subjective - Date & Time of Evaluation Date of Evaluation: 11/18/17 Time of Evaluation: 07:20 - Subjective Subjective: Patient seen and examine bedside with Dr Cotto. Patient reports itching over body has improved and wants to be discharged. no urticarial lesions noted during round and some scratching sgns over abdomen. She denies fever, nausea, vomiting, chest pain, SOB. NO overnight events. Patient reports PT has not seen her yet. PT ordered placed. Objective - Vital Signs/Intake and Output Vital Signs (last 24 hours): Temp Pulse Resp BP Pulse Ox 97.8 F 75 20 127/68 98 11/18/17 07:51 11/18/17 07:51 11/18/17 07:51 11/18/17 07:51 11/18/17 07:51 - Medications Medications: Current Medications Acetaminophen (Tylenol 325mg Tab) 650 mg PO Q6 PRN PRN Reason: Pain, Mild (1-3) Aspirin (Ecotrin) 81 mg PO DAILY [facility] Last Admin: 11/17/17 18:40 Dose: 81 mg Clopidogrel Bisulfate (Plavix) 75 mg PO DAILY [facility] Last Admin: 11/17/17 18:39 Dose: 75 mg Dextrose (Dextrose 50% Inj) 0 ml IV STAT PRN; Protocol PRN Reason: Hypoglycemia Protocol Dextrose (Glutose 15) 0 gm PO ONCE PRN; Protocol PRN Reason: Hypoglycemia Protocol Diphenhydramine HCl (Benadryl) 25 mg PO Q6 PRN PRN Reason: Itching / Pruritus Last Admin: 11/18/17 06:37 Dose: 25 mg Glipizide (Glucotrol Xl) 10 mg PO ACBD [facility] Last Admin: 11/17/17 17:51 Dose: 10 mg Glucagon (Glucagen Diagnostic Kit) 0 mg IM STAT PRN; Protocol PRN Reason: Hypoglycemia Protocol Home Med (Glimepiride [Glimepiride]) 4 mg PO BID [facility] Ceftriaxone Sodium 2 gm/ (Sodium Chloride) 100 mls @ 100 mls/hr IVPB DAILY [facility] PRN Reason: Protocol Last Admin: 11/17/17 17:56 Dose: 100 mls/hr Insulin Detemir (Levemir) 6 units SC HS [facility] Last Admin: 11/17/17 21:28 Dose: 6 unit Insulin Human Lispro (Humalog) 0 units SC ACHS [facility] PRN Reason: Protocol Last Admin: 11/18/17 06:38 Dose: 4 unit Insulin Lispro Protam/Lispro Human (Humalog Mix 75/25) 30 units SC ACB [facility] Insulin Lispro Protam/Lispro Human (Humalog Mix 75/25) 20 units SC ACD [facility] Levothyroxine Sodium (Synthroid) 25 mcg PO DAILY@0630 [facility] Last Admin: 11/18/17 06:37 Dose: 25 mcg Lisinopril (Zestril) 10 mg PO DAILY [facility] Last Admin: 11/17/17 08:43 Dose: 10 mg Pravastatin Sodium (Pravachol) 40 mg PO DAILY [facility] Last Admin: 11/17/17 08:35 Dose: 40 mg Sitagliptin Phosphate (Januvia) 100 mg PO DAILY@2100 [facility] Last Admin: 11/17/17 21:27 Dose: 100 mg Zinc Acetate/Diphenhydramine (Benadryl 1% Zinc Acetate -0.1%) 1 applic TOP Q8 PRN PRN Reason: Itching / Pruritus Last Admin: 11/17/17 12:48 Dose: 1 applic - Labs Labs: 11/18/17 05:55 11/18/17 05:55 PT 12.6 Seconds (9.8-13.1) 11/11/17 05:50 INR 1.1 (0.9-1.2) 11/11/17 05:50 APTT 32.9 Seconds (25.6-37.1) 11/11/17 05:50 - Constitutional Appears: Non-toxic, No Acute Distress - Head Exam Head Exam: ATRAUMATIC, NORMOCEPHALIC - Eye Exam Eye Exam: Normal appearance - ENT Exam ENT Exam: Mucous Membranes Moist - Neck Exam Neck Exam: Normal Inspection - Respiratory Exam Respiratory Exam: Clear to Ausculation Bilateral. absent: Rales, Rhonchi, Wheezes, Stridor - Cardiovascular Exam Cardiovascular Exam: REGULAR RHYTHM, +S1, +S2 - GI/Abdominal Exam GI & Abdominal Exam: Soft, Normal Bowel Sounds. absent: Tenderness - Extremities Exam Extremities Exam: absent: Calf Tenderness, Pedal Edema Additional comments: Left foot second digit amputation. foot covered with bandage C/D/I, no limited ROM of ankle, muscle strength intact, sensation intact - Neurological Exam Neurological Exam: Alert, Awake, Oriented x3 - Psychiatric Exam Psychiatric exam: Normal Affect, Normal Mood - Skin Skin Exam: Rash Additional comments: mild rash noted over abdomen with scratching signs, no urticarial rash Assessment and Plan - Assessment and Plan (Free Text) Plan: Assessment/Plan (1) Osteomyelitis - s/p left distal 2nd digit amputation 4 days ago -Podiatry consult appreciated -ceftriaxone -PT ordered 2) Rash -resolved -Benadryl 25 mg PO Q6 h -sulfa vs pcl allergy? (3) Hypertension Assessment & Plan: Continue medication Status: Acute (4) Diabetes mellitus Assessment & Plan: on levemir, januvia, SSI Status: Acute (5) DVT prophylaxis Assessment & Plan: Lovenox
[2017-11-18] MEDS: Pravastatin Sodium 40 MG TAB PO SCH (09:41)
[2017-11-18] MEDS: cefTRIAXone 2 GM in Sodium Chloride 0.9% 100 ML IVPB SCH (09:53)
--- NOTE | 2017-11-18 12:33 | CP.PCM.PN ---
<Amy Schroeder - Last Filed: 11/18/17 14:14> Subjective - Date & Time of Evaluation Date of Evaluation: 11/18/17 Time of Evaluation: 12:31 - Subjective Subjective: PGY2 progress note for cardiology, Dr. Long Pt seen and examined at bedside. No acute events overnight. Rash has improved slightly. Pt denies having any pruritis. Pt denies having any CP, SOB, abd pain, N/V/D/C, LE pain or swelling. 12 point ROS are negative except for the above mentioned. Objective - Vital Signs/Intake and Output Vital Signs (last 24 hours): Temp Pulse Resp BP Pulse Ox 97.8 F 75 20 127/68 98 11/18/17 07:51 11/18/17 09:39 11/18/17 07:51 11/18/17 09:39 11/18/17 07:51 - Medications Medications: Current Medications Acetaminophen (Tylenol 325mg Tab) 650 mg PO Q6 PRN PRN Reason: Pain, Mild (1-3) Aspirin (Ecotrin) 81 mg PO DAILY [facility] Last Admin: 11/18/17 09:40 Dose: 81 mg Clopidogrel Bisulfate (Plavix) 75 mg PO DAILY [facility] Last Admin: 11/18/17 09:39 Dose: 75 mg Dextrose (Dextrose 50% Inj) 0 ml IV STAT PRN; Protocol PRN Reason: Hypoglycemia Protocol Dextrose (Glutose 15) 0 gm PO ONCE PRN; Protocol PRN Reason: Hypoglycemia Protocol Diphenhydramine HCl (Benadryl) 25 mg PO Q6 PRN PRN Reason: Itching / Pruritus Last Admin: 11/18/17 06:37 Dose: 25 mg Glipizide (Glucotrol Xl) 10 mg PO ACBD [facility] Last Admin: 11/18/17 08:40 Dose: 10 mg Glucagon (Glucagen Diagnostic Kit) 0 mg IM STAT PRN; Protocol PRN Reason: Hypoglycemia Protocol Home Med (Glimepiride [Glimepiride]) 4 mg PO BID [facility] Ceftriaxone Sodium 2 gm/ (Sodium Chloride) 100 mls @ 100 mls/hr IVPB DAILY [facility] PRN Reason: Protocol Last Admin: 11/18/17 09:53 Dose: 100 mls/hr Insulin Detemir (Levemir) 6 units SC HS [facility] Last Admin: 11/17/17 21:28 Dose: 6 unit Insulin Human Lispro (Humalog) 0 units SC ACHS [facility] PRN Reason: Protocol Last Admin: 11/18/17 06:38 Dose: 4 unit Insulin Lispro Protam/Lispro Human (Humalog Mix 75/25) 30 units SC ACB [facility] Last Admin: 11/18/17 09:41 Dose: 30 units Insulin Lispro Protam/Lispro Human (Humalog Mix 75/25) 20 units SC ACD [facility] Levothyroxine Sodium (Synthroid) 25 mcg PO DAILY@0630 [facility] Last Admin: 11/18/17 06:37 Dose: 25 mcg Lisinopril (Zestril) 10 mg PO DAILY [facility] Last Admin: 11/18/17 09:39 Dose: 10 mg Pravastatin Sodium (Pravachol) 40 mg PO DAILY [facility] Last Admin: 11/18/17 09:41 Dose: 40 mg Sitagliptin Phosphate (Januvia) 100 mg PO DAILY@2100 [facility] Last Admin: 11/17/17 21:27 Dose: 100 mg Zinc Acetate/Diphenhydramine (Benadryl 1% Zinc Acetate -0.1%) 1 applic TOP Q8 PRN PRN Reason: Itching / Pruritus Last Admin: 11/17/17 12:48 Dose: 1 applic - Labs Labs: 11/18/17 05:55 11/18/17 05:55 PT 12.6 Seconds (9.8-13.1) 11/11/17 05:50 INR 1.1 (0.9-1.2) 11/11/17 05:50 APTT 32.9 Seconds (25.6-37.1) 11/11/17 05:50 - Constitutional Appears: Non-toxic, No Acute Distress - Head Exam Head Exam: ATRAUMATIC - ENT Exam ENT Exam: Mucous Membranes Moist - Respiratory Exam Respiratory Exam: Clear to Ausculation Bilateral. absent: Accessory Muscle Use , Rales, Rhonchi, Wheezes, Respiratory Distress - Cardiovascular Exam Cardiovascular Exam: REGULAR RHYTHM, +S1, +S2. absent: Gallop, Rubs, Murmur - GI/Abdominal Exam GI & Abdominal Exam: Soft, Normal Bowel Sounds. absent: Distended, Firm, Guarding, Rigid, Tenderness, Organomegaly - Extremities Exam Extremities Exam: absent: Pedal Edema, Tenderness - Neurological Exam Neurological Exam: Alert, Awake, Oriented x3 - Psychiatric Exam Psychiatric exam: Normal Affect, Normal Mood - Skin Skin Exam: Dry, Intact, Warm Additional comments: diffuse rash located on upper back, abdomen, thighs B/L. Blanching. and slightly erythematuous. 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 sulfa vs. pcn allergy (3) Diffuse rash might be 2/2 drug reaction Pt received methylprednisone and benadryl for rash (3) Diabetes mellitus Hgb A1c 9.0 (4) Hypertension Continue to monitor VS Case will be discussed with attending, Dr. Long <Benito Long - Last Filed: 11/18/17 15:36> Objective - Vital Signs/Intake and Output Vital Signs (last 24 hours): Temp Pulse Resp BP Pulse Ox 97.8 F 75 20 127/68 98 11/18/17 07:51 11/18/17 09:39 11/18/17 07:51 11/18/17 09:39 11/18/17 07:51 - Medications Medications: Current Medications Acetaminophen (Tylenol 325mg Tab) 650 mg PO Q6 PRN PRN Reason: Pain, Mild (1-3) Aspirin (Ecotrin) 81 mg PO DAILY [facility] Last Admin: 11/18/17 09:40 Dose: 81 mg Clopidogrel Bisulfate (Plavix) 75 mg PO DAILY [facility] Last Admin: 11/18/17 09:39 Dose: 75 mg Dextrose (Dextrose 50% Inj) 0 ml IV STAT PRN; Protocol PRN Reason: Hypoglycemia Protocol Dextrose (Glutose 15) 0 gm PO ONCE PRN; Protocol PRN Reason: Hypoglycemia Protocol Diphenhydramine HCl (Benadryl) 25 mg PO Q6 PRN PRN Reason: Itching / Pruritus Last Admin: 11/18/17 06:37 Dose: 25 mg Glipizide (Glucotrol Xl) 10 mg PO ACBD [facility] Last Admin: 11/18/17 08:40 Dose: 10 mg Glucagon (Glucagen Diagnostic Kit) 0 mg IM STAT PRN; Protocol PRN Reason: Hypoglycemia Protocol Home Med (Glimepiride [Glimepiride]) 4 mg PO BID [facility] Ceftriaxone Sodium 2 gm/ (Sodium Chloride) 100 mls @ 100 mls/hr IVPB DAILY [facility] PRN Reason: Protocol Last Admin: 11/18/17 09:53 Dose: 100 mls/hr Sodium Chloride (Sodium Chloride 0.9%) 1,000 mls @ 75 mls/hr IV .[id number] [facility] Stop: 11/19/17 14:12 Insulin Detemir (Levemir) 6 units SC HS [facility] Last Admin: 11/17/17 21:28 Dose: 6 unit Insulin Human Lispro (Humalog) 0 units SC ACHS [facility] PRN Reason: Protocol Last Admin: 11/18/17 12:15 Dose: 6 unit Insulin Lispro Protam/Lispro Human (Humalog Mix 75/25) 30 units SC ACB [facility] Last Admin: 11/18/17 09:41 Dose: 30 units Insulin Lispro Protam/Lispro Human (Humalog Mix 75/25) 20 units SC ACD [facility] Levothyroxine Sodium (Synthroid) 25 mcg PO DAILY@0630 [facility] Last Admin: 11/18/17 06:37 Dose: 25 mcg Lisinopril (Zestril) 10 mg PO DAILY [facility] Last Admin: 11/18/17 09:39 Dose: 10 mg Pravastatin Sodium (Pravachol) 40 mg PO DAILY [facility] Last Admin: 11/18/17 09:41 Dose: 40 mg Sitagliptin Phosphate (Januvia) 100 mg PO DAILY@2100 [facility] Last Admin: 11/17/17 21:27 Dose: 100 mg Zinc Acetate/Diphenhydramine (Benadryl 1% Zinc Acetate -0.1%) 1 applic TOP Q8 PRN PRN Reason: Itching / Pruritus Last Admin: 11/17/17 12:48 Dose: 1 applic - Labs Labs: 11/18/17 05:55 11/18/17 05:55 PT 12.6 Seconds (9.8-13.1) 11/11/17 05:50 INR 1.1 (0.9-1.2) 11/11/17 05:50 APTT 32.9 Seconds (25.6-37.1) 11/11/17 05:50 Assessment and Plan (1) PVD (peripheral vascular disease) Status: Acute (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
[2017-11-18] MEDS ORDERED: Insulin Detemir 100 Units/ml Inj SC SCH (22:00)
[2017-11-18] MEDS: Sodium Chloride 0.9% 1,000 ML IV SCH ×2 (22:15→23:55)
[2017-11-19] MEDS: Levothyroxine 25 MCG TAB PO SCH (06:29)
[2017-11-19] MEDS ORDERED: Insulin Lispro Mix 75/25 100 units/ml (HumaLog) 10ml SC SCH ×2 (07:30→16:30)
--- NOTE | 2017-11-19 07:42 | CP.PCM.PN ---
Objective - Vital Signs/Intake and Output Vital Signs (last 24 hours): Temp Pulse Resp BP Pulse Ox 98.8 F 88 20 145/80 98 11/19/17 06:00 11/19/17 06:00 11/19/17 06:00 11/19/17 06:00 11/19/17 06:00 - Medications Medications: Current Medications Acetaminophen (Tylenol 325mg Tab) 650 mg PO Q6 PRN PRN Reason: Pain, Mild (1-3) Aspirin (Ecotrin) 81 mg PO DAILY [facility] Last Admin: 11/18/17 09:40 Dose: 81 mg Clopidogrel Bisulfate (Plavix) 75 mg PO DAILY [facility] Last Admin: 11/18/17 09:39 Dose: 75 mg Dextrose (Dextrose 50% Inj) 0 ml IV STAT PRN; Protocol PRN Reason: Hypoglycemia Protocol Dextrose (Glutose 15) 0 gm PO ONCE PRN; Protocol PRN Reason: Hypoglycemia Protocol Diphenhydramine HCl (Benadryl) 25 mg PO Q6 PRN PRN Reason: Itching / Pruritus Last Admin: 11/18/17 19:56 Dose: 25 mg Glipizide (Glucotrol Xl) 10 mg PO ACBD [facility] Last Admin: 11/18/17 17:18 Dose: 10 mg Glucagon (Glucagen Diagnostic Kit) 0 mg IM STAT PRN; Protocol PRN Reason: Hypoglycemia Protocol Home Med (Glimepiride [Glimepiride]) 4 mg PO BID [facility] Ceftriaxone Sodium 2 gm/ (Sodium Chloride) 100 mls @ 100 mls/hr IVPB DAILY [facility] PRN Reason: Protocol Last Admin: 11/18/17 09:53 Dose: 100 mls/hr Sodium Chloride (Sodium Chloride 0.9%) 1,000 mls @ 75 mls/hr IV .[id number] [facility] Stop: 11/19/17 14:12 Last Admin: 11/18/17 23:55 Dose: 75 mls/hr Insulin Detemir (Levemir) 16 units SC HS [facility] Last Admin: 11/18/17 22:27 Dose: 16 units Insulin Human Lispro (Humalog) 0 units SC ACHS [facility] PRN Reason: Protocol Last Admin: 11/18/17 22:13 Dose: Not Given Insulin Lispro Protam/Lispro Human (Humalog Mix 75/25) 44 units SC ACB [facility] Insulin Lispro Protam/Lispro Human (Humalog Mix 75/25) 34 units SC ACD [facility] Levothyroxine Sodium (Synthroid) 25 mcg PO DAILY@0630 [facility] Last Admin: 11/19/17 06:29 Dose: Not Given Lisinopril (Zestril) 10 mg PO DAILY [facility] Last Admin: 11/18/17 09:39 Dose: 10 mg Pravastatin Sodium (Pravachol) 40 mg PO DAILY [facility] Last Admin: 11/18/17 09:41 Dose: 40 mg Sitagliptin Phosphate (Januvia) 100 mg PO DAILY@2100 [facility] Last Admin: 11/18/17 21:07 Dose: 100 mg Zinc Acetate/Diphenhydramine (Benadryl 1% Zinc Acetate -0.1%) 1 applic TOP Q8 PRN PRN Reason: Itching / Pruritus Last Admin: 11/17/17 12:48 Dose: 1 applic - Labs Labs: 11/18/17 05:55 11/18/17 05:55 PT 12.6 Seconds (9.8-13.1) 11/11/17 05:50 INR 1.1 (0.9-1.2) 11/11/17 05:50 APTT 32.9 Seconds (25.6-37.1) 11/11/17 05:50
[2017-11-19] MEDS: GlipiZIDE 10 mg SR Tab PO SCH ×2 (08:14→17:29)
[2017-11-19] MEDS: Insulin Lispro (humaLOG) 100 Units/ml Inj SC SCH ×3 (08:14→17:10)
[2017-11-19] MEDS: cefTRIAXone 2 GM in Sodium Chloride 0.9% 100 ML IVPB SCH (08:16)
[2017-11-19] MEDS: Pravastatin Sodium 40 MG TAB PO SCH ×2 (08:16→16:03)
--- NOTE | 2017-11-19 09:06 | CP.PCM.PN ---
<BaljinderkalebAmy - Last Filed: 11/19/17 09:05> Subjective - Date & Time of Evaluation Date of Evaluation: 11/19/17 Time of Evaluation: 09:05 - Subjective Subjective: PGY2 progress note for cardiology, Dr. Long Objective - Vital Signs/Intake and Output Vital Signs (last 24 hours): Temp Pulse Resp BP Pulse Ox 98.8 F 88 20 145/80 98 11/19/17 06:00 11/19/17 06:00 11/19/17 06:00 11/19/17 06:00 11/19/17 06:00 - Medications Medications: Current Medications Acetaminophen (Tylenol 325mg Tab) 650 mg PO Q6 PRN PRN Reason: Pain, Mild (1-3) Aspirin (Ecotrin) 81 mg PO DAILY [facility] Last Admin: 11/19/17 08:15 Dose: Not Given Clopidogrel Bisulfate (Plavix) 75 mg PO DAILY [facility] Last Admin: 11/19/17 08:15 Dose: Not Given Dextrose (Dextrose 50% Inj) 0 ml IV STAT PRN; Protocol PRN Reason: Hypoglycemia Protocol Dextrose (Glutose 15) 0 gm PO ONCE PRN; Protocol PRN Reason: Hypoglycemia Protocol Diphenhydramine HCl (Benadryl) 25 mg PO Q6 PRN PRN Reason: Itching / Pruritus Last Admin: 11/18/17 19:56 Dose: 25 mg Glipizide (Glucotrol Xl) 10 mg PO ACBD [facility] Last Admin: 11/19/17 08:14 Dose: Not Given Glucagon (Glucagen Diagnostic Kit) 0 mg IM STAT PRN; Protocol PRN Reason: Hypoglycemia Protocol Home Med (Glimepiride [Glimepiride]) 4 mg PO BID [facility] Ceftriaxone Sodium 2 gm/ (Sodium Chloride) 100 mls @ 100 mls/hr IVPB DAILY [facility] PRN Reason: Protocol Last Admin: 11/19/17 08:16 Dose: Not Given Sodium Chloride (Sodium Chloride 0.9%) 1,000 mls @ 75 mls/hr IV .[id number] [facility] Stop: 11/19/17 14:12 Last Admin: 11/18/17 23:55 Dose: 75 mls/hr Insulin Detemir (Levemir) 16 units SC [facility] Last Admin: 11/18/17 22:27 Dose: 16 units Insulin Human Lispro (Humalog) 0 units SC ACHS [facility] PRN Reason: Protocol Last Admin: 11/19/17 08:14 Dose: Not Given Insulin Lispro Protam/Lispro Human (Humalog Mix 75/25) 44 units SC ACB [facility] Last Admin: 11/19/17 08:15 Dose: Not Given Insulin Lispro Protam/Lispro Human (Humalog Mix 75/25) 34 units SC ACD [facility] Levothyroxine Sodium (Synthroid) 25 mcg PO DAILY@0630 [facility] Last Admin: 11/19/17 06:29 Dose: Not Given Lisinopril (Zestril) 10 mg PO DAILY [facility] Last Admin: 11/19/17 08:16 Dose: Not Given Pravastatin Sodium (Pravachol) 40 mg PO DAILY [facility] Last Admin: 11/19/17 08:16 Dose: Not Given Sitagliptin Phosphate (Januvia) 100 mg PO DAILY@2100 [facility] Last Admin: 11/18/17 21:07 Dose: 100 mg Zinc Acetate/Diphenhydramine (Benadryl 1% Zinc Acetate -0.1%) 1 applic TOP Q8 PRN PRN Reason: Itching / Pruritus Last Admin: 11/17/17 12:48 Dose: 1 applic - Labs Labs: 11/18/17 05:55 11/18/17 05:55 PT 12.6 Seconds (9.8-13.1) 11/11/17 05:50 INR 1.1 (0.9-1.2) 11/11/17 05:50 APTT 32.9 Seconds (25.6-37.1) 11/11/17 05:50 Assessment and Plan - Assessment and Plan (Free Text) Assessment: (1) PVD (peripheral vascular disease) Pt is scheduled for angio this morning Continue aspirin and plavix Continue statins and acei (2) Gangrene due to arterial insufficiency cont abx per ID recs (3) Diffuse rash might be 2/2 drug reaction (3) Diabetes mellitus Hgb A1c 9.0 (4) Hypertension Continue to monitor VS Case will be discussed with attending, Dr. Long <Benito Long - Last Filed: 11/19/17 11:22> Objective - Vital Signs/Intake and Output Vital Signs (last 24 hours): Temp Pulse Resp BP Pulse Ox 98.8 F 88 20 145/80 98 11/19/17 06:00 11/19/17 06:00 11/19/17 06:00 11/19/17 06:00 11/19/17 06:00 - Medications Medications: Current Medications Acetaminophen (Tylenol 325mg Tab) 650 mg PO Q6 PRN PRN Reason: Pain, Mild (1-3) Aspirin (Ecotrin) 81 mg PO DAILY [facility] Last Admin: 11/19/17 08:15 Dose: Not Given Clopidogrel Bisulfate (Plavix) 75 mg PO DAILY [facility] Last Admin: 11/19/17 08:15 Dose: Not Given Dextrose (Dextrose 50% Inj) 0 ml IV STAT PRN; Protocol PRN Reason: Hypoglycemia Protocol Dextrose (Glutose 15) 0 gm PO ONCE PRN; Protocol PRN Reason: Hypoglycemia Protocol Diphenhydramine HCl (Benadryl) 25 mg PO Q6 PRN PRN Reason: Itching / Pruritus Last Admin: 11/18/17 19:56 Dose: 25 mg Glipizide (Glucotrol Xl) 10 mg PO ACBD [facility] Last Admin: 11/19/17 08:14 Dose: Not Given Glucagon (Glucagen Diagnostic Kit) 0 mg IM STAT PRN; Protocol PRN Reason: Hypoglycemia Protocol Home Med (Glimepiride [Glimepiride]) 4 mg PO BID [facility] Ceftriaxone Sodium 2 gm/ (Sodium Chloride) 100 mls @ 100 mls/hr IVPB DAILY [facility] PRN Reason: Protocol Last Admin: 11/19/17 08:16 Dose: Not Given Sodium Chloride (Sodium Chloride 0.9%) 1,000 mls @ 75 mls/hr IV .[id number] [facility] Stop: 11/19/17 14:12 Last Admin: 11/18/17 23:55 Dose: 75 mls/hr Insulin Detemir (Levemir) 16 units SC HS [facility] Last Admin: 11/18/17 22:27 Dose: 16 units Insulin Human Lispro (Humalog) 0 units SC ACHS [facility] PRN Reason: Protocol Last Admin: 11/19/17 08:14 Dose: Not Given Insulin Lispro Protam/Lispro Human (Humalog Mix 75/25) 44 units SC ACB [facility] Last Admin: 11/19/17 08:15 Dose: Not Given Insulin Lispro Protam/Lispro Human (Humalog Mix 75/25) 34 units SC ACD [facility] Levothyroxine Sodium (Synthroid) 25 mcg PO DAILY@0630 [facility] Last Admin: 11/19/17 06:29 Dose: Not Given Lisinopril (Zestril) 10 mg PO DAILY [facility] Last Admin: 11/19/17 08:16 Dose: Not Given Pravastatin Sodium (Pravachol) 40 mg PO DAILY [facility] Last Admin: 11/19/17 08:16 Dose: Not Given Sitagliptin Phosphate (Januvia) 100 mg PO DAILY@2100 [facility] Last Admin: 11/18/17 21:07 Dose: 100 mg Zinc Acetate/Diphenhydramine (Benadryl 1% Zinc Acetate -0.1%) 1 applic TOP Q8 PRN PRN Reason: Itching / Pruritus Last Admin: 11/17/17 12:48 Dose: 1 applic - Labs Labs: 11/18/17 05:55 11/18/17 05:55 PT 12.6 Seconds (9.8-13.1) 11/11/17 05:50 INR 1.1 (0.9-1.2) 11/11/17 05:50 APTT 32.9 Seconds (25.6-37.1) 11/11/17 05:50 Assessment and Plan (1) PVD (peripheral vascular disease) Status: Acute (2) Gangrene due to arterial insufficiency Status: Acute (3) Diabetes mellitus Status: Acute (4) Hypertension Status: Acute (5) Osteomyelitis Status: Acute Attending/Attestation - Attestation I have personally seen and examined this patient.: Yes I have fully participated in the care of the patient.: Yes I have reviewed all pertinent clinical information, including history, physical exam and plan: Yes Notes (Text): 11/19/17 11:21 severe bilateral infragenicular disease 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
[2017-11-19 16:01] VITALS: BP 166/95
[2017-11-19 16:09] VITALS: PULSE 98; RESP 20; TEMP 97.9; O2SAT 96
[2017-11-19 16:15] LABS: HEMATOCRIT 36.5 % (34.0-47.0); MEAN CELL VOLUME 90.5 fl (81.0-99.0); MEAN CORPUSCULAR HEMOGLOBIN 29.3 pg (27.0-31.0); MEAN CORPUSCULAR HGB CONC 32.4 g/dL (33.0-37.0); RED CELL DISTRIBUTION WIDTH 13.8 % (11.5-14.5); WHITE BLOOD COUNT 13.4 K/uL (4.8-10.8)
[2017-11-19 16:34] LABS: CALCIUM 9.2 mg/dL (8.4-10.2); POTASSIUM 4.6 MMOL/L (3.6-5.0)
--- NOTE | 2017-11-19 16:51 | CP.PCM.PN ---
Subjective - Date & Time of Evaluation Date of Evaluation: 11/19/17 Time of Evaluation: 14:00 - Subjective Subjective: Podiatry Progress Note - Dr. Galvan 67 year old female with PMHx of DM, HTN, hypercholesterolemia seen and evaluated at bedside 6 days s/p left 2nd digit partial amputation. Patient hemodynamically stable and NAD. Son and partner present at bedside. No issues overnight, no longer experiencing itching from generalized rash. Denies any pain to surgical site left foot. Patient aware she is to follow up in the podiatry clinic within 1 week of discharge. Denies N/V/F/D/C/SOB/calf pain. Objective - Vital Signs/Intake and Output Vital Signs (last 24 hours): Temp Pulse Resp BP Pulse Ox 97.9 F 98 H 20 166/95 H 96 11/19/17 16:08 11/19/17 16:08 11/19/17 16:08 11/19/17 16:08 11/19/17 16:08 - Medications Medications: Current Medications Acetaminophen (Tylenol 325mg Tab) 650 mg PO Q6 PRN PRN Reason: Pain, Mild (1-3) Aspirin (Ecotrin) 81 mg PO DAILY [facility] Last Admin: 11/19/17 16:03 Dose: 81 mg Clopidogrel Bisulfate (Plavix) 75 mg PO DAILY [facility] Last Admin: 11/19/17 16:03 Dose: 75 mg Dextrose (Dextrose 50% Inj) 0 ml IV STAT PRN; Protocol PRN Reason: Hypoglycemia Protocol Dextrose (Glutose 15) 0 gm PO ONCE PRN; Protocol PRN Reason: Hypoglycemia Protocol Diphenhydramine HCl (Benadryl) 25 mg PO Q6 PRN PRN Reason: Itching / Pruritus Last Admin: 11/18/17 19:56 Dose: 25 mg Glipizide (Glucotrol Xl) 10 mg PO ACBD [facility] Last Admin: 11/19/17 08:14 Dose: Not Given Glucagon (Glucagen Diagnostic Kit) 0 mg IM STAT PRN; Protocol PRN Reason: Hypoglycemia Protocol Home Med (Glimepiride [Glimepiride]) 4 mg PO BID [facility] Ceftriaxone Sodium 2 gm/ (Sodium Chloride) 100 mls @ 100 mls/hr IVPB DAILY [facility] PRN Reason: Protocol Last Admin: 11/19/17 08:16 Dose: Not Given Insulin Detemir (Levemir) 20 units SC HS [facility] Insulin Human Lispro (Humalog) 0 units SC ACHS [facility] PRN Reason: Protocol Last Admin: 11/19/17 15:25 Dose: Not Given Insulin Lispro Protam/Lispro Human (Humalog Mix 75/25) 44 units SC ACB [facility] Last Admin: 11/19/17 08:15 Dose: Not Given Insulin Lispro Protam/Lispro Human (Humalog Mix 75/25) 34 units SC ACD [facility] Levothyroxine Sodium (Synthroid) 25 mcg PO DAILY@0630 [facility] Last Admin: 11/19/17 06:29 Dose: Not Given Lisinopril (Zestril) 10 mg PO DAILY [facility] Last Admin: 11/19/17 16:01 Dose: 10 mg Pravastatin Sodium (Pravachol) 40 mg PO DAILY [facility] Last Admin: 11/19/17 16:03 Dose: 40 mg Sitagliptin Phosphate (Januvia) 100 mg PO DAILY@2100 [facility] Last Admin: 11/18/17 21:07 Dose: 100 mg Zinc Acetate/Diphenhydramine (Benadryl 1% Zinc Acetate -0.1%) 1 applic TOP Q8 PRN PRN Reason: Itching / Pruritus Last Admin: 11/17/17 12:48 Dose: 1 applic - Labs Labs: 11/19/17 16:12 11/19/17 16:12 PT 12.6 Seconds (9.8-13.1) 11/11/17 05:50 INR 1.1 (0.9-1.2) 11/11/17 05:50 APTT 32.9 Seconds (25.6-37.1) 11/11/17 05:50 - Constitutional Appears: Well, Non-toxic, No Acute Distress - Extremities Exam Additional comments: VASC: DP pulses palpable 2/4 b/l. PT pulses weakly palpable 1/4 b/l. CFT <3 seconds to all digits. Temperature gradient WNL. Non-pitting edema noted to left 2nd digit. DERM: Surgical incision noted to distal aspect of left 2nd digit appears well- coapted with sutures intact and no wound dehiscence noted; no active drainage, no erythema, no malodor, no purulence. Right 2nd digit with discoloration noted to distal tuft and dorsum of PIPJ. NEURO: Gross sensation absent bilaterally. ORTHO: No pain on palpation left 2nd digit. Right 1st ray partial amputation. Right 2nd digit rigid hammertoe contracture. - Neurological Exam Neurological Exam: Alert, Awake, Oriented x3 - Psychiatric Exam Psychiatric exam: Normal Affect, Normal Mood Assessment and Plan - Assessment and Plan (Free Text) Assessment: 67 year old female with PMHx of DM, HTN, hypercholesteremia seen 6 days s/p left distal 2nd digit amputation Plan: Pt was seen and examined at bedside Discussed in detail with attending Dr. Galvan Afebrile, WBC increasing 13.4 Pre-op L foot XR reviewed: 1. Likely osteomyelitis of the tip of the tuft of the 2nd digit were soft tissue emphysema is also appreciated reflecting probable ulceration. Clinically correlate further. 2. Likely early chronic fracture base 5th metatarsal bone, potential nonunion here. Pre-op L foot MRI reviewed: OM middle and distal phalanges of 2nd digit L 2nd digit cleansed with saline and dressed with betadine DSD -Patient may be WBAT surgical shoe b/l Intra-op cultures (Final) - Corynebacterium Species Intra-op pathology report reveals acute OM of distal phalanx, no acute OM middle phalanx Continue to monitor right 2nd digit Continue abx per ID - patient currently on Ceftriaxone -Per vascular angio delayed until rash resolves -Patient may be sent home on PO keflex x10 days Patient is stable for discharge podiatry standpoint Pt will follow-up with Dr. Galvan in the podiatry clinic within 1 week of discharge -Advised patient to keep dressing clean/dry/intact until first post op visit
--- NOTE | 2017-11-19 16:56 | CP.PCM.DIS ---
Provider - Provider Date of Admission: 11/08/17 16:26 Attending physician: Rudy Cotto MD Time Spent in preparation of Discharge (in minutes): 30 Hospital Course - Lab Results Lab Results: Micro Results 11/13/17 11:00 Foot - Left Gram Stain - Final 11/13/17 11:00 Foot - Left Wound Culture - Final Corynebacterium Species 11/08/17 14:51 Blood Blood Culture - Final NO GROWTH AFTER 5 DAYS 11/08/17 14:51 Blood Gram Stain - Final TEST NOT PERFORMED 11/08/17 13:32 Blood Blood Culture - Final NO GROWTH AFTER 5 DAYS 11/08/17 13:32 Blood Gram Stain - Final TEST NOT PERFORMED 11/08/17 16:57 Abscess - Foot-Left Gram Stain - Final 11/08/17 16:57 Abscess - Foot-Left Wound Culture - Final Beta Hemolytic Strep Group B 11/08/17 18:13 Urine,Clean Catch Urine Culture - Final Escherichia Coli Most Recent Lab Values WBC 13.4 K/uL (4.8-10.8) H 11/19/17 16:12 RBC 4.03 Mil/uL (3.80-5.20) 11/19/17 16:12 Hgb 11.8 g/dL (12.0-16.0) L 11/19/17 16:12 Hct 36.5 % (34.0-47.0) 11/19/17 16:12 MCV 90.5 fl (81.0-99.0) 11/19/17 16:12 MCH 29.3 pg (27.0-31.0) 11/19/17 16:12 MCHC 32.4 g/dL (33.0-37.0) L 11/19/17 16:12 RDW 13.8 % (11.5-14.5) 11/19/17 16:12 Plt Count 246 K/uL (130-400) 11/19/17 16:12 MPV 8.8 fl (7.2-11.7) 11/15/17 05:30 Neut % (Auto) 53.5 % (50.0-75.0) 11/15/17 05:30 Lymph % (Auto) 32.5 % (20.0-40.0) 11/15/17 05:30 [place] % (Auto) 9.8 % (0.0-10.0) 11/15/17 05:30 Eos % (Auto) 3.8 % (0.0-4.0) 11/15/17 05:30 Baso % (Auto) 0.4 % (0.0-2.0) 11/15/17 05:30 Neut # 5.8 K/uL (1.8-7.0) 11/15/17 05:30 Lymph # 3.5 K/uL (1.0-4.3) 11/15/17 05:30 Pitt # 1.1 K/uL (0.0-0.8) H 11/15/17 05:30 Eos # 0.4 K/uL (0.0-0.7) 11/15/17 05:30 Baso # 0.0 K/uL (0.0-0.2) 11/15/17 05:30 ESR 99 mm/hr (0-30) H 11/08/17 13:32 PT 12.6 Seconds (9.8-13.1) 11/11/17 05:50 INR 1.1 (0.9-1.2) 11/11/17 05:50 APTT 32.9 Seconds (25.6-37.1) 11/11/17 05:50 Sodium 138 mmol/l (132-148) 11/19/17 16:12 Potassium 4.6 MMOL/L (3.6-5.0) 11/19/17 16:12 Chloride 98 mmol/L (98-107) 11/19/17 16:12 Carbon Dioxide 31 mmol/L (22-30) H 11/19/17 16:12 Anion Gap 14 (10-20) 11/19/17 16:12 BUN 25 mg/dl (7-17) H 11/19/17 16:12 Creatinine 1.3 mg/dl (0.7-1.2) H 11/19/17 16:12 Est GFR ( Amer) 49 11/19/17 16:12 Est GFR (Non-Af Amer) 41 11/19/17 16:12 POC Glucose (mg/dL) 234 mg/dL (65-110) H 11/19/17 05:13 Random Glucose 172 mg/dL (65-105) H 11/19/17 16:12 Hemoglobin A1c 9.0 % (4.2-6.5) H 11/10/17 05:45 Calcium 9.2 mg/dL (8.4-10.2) 11/19/17 16:12 Total Bilirubin 0.5 mg/dl (0.2-1.3) 11/15/17 05:30 AST 35 U/L (14-36) 11/15/17 05:30 ALT 44 U/L (9-52) 11/15/17 05:30 Alkaline Phosphatase 74 U/L (38-126) 11/15/17 05:30 Total Protein 8.4 G/DL (6.3-8.2) H 11/15/17 05:30 Albumin 3.8 g/dL (3.5-5.0) 11/15/17 05:30 Globulin 4.6 gm/dL (2.2-3.9) H 11/15/17 05:30 Albumin/Globulin Ratio 0.8 (1.0-2.1) L 11/15/17 05:30 Triglycerides 157 mg/DL (0-149) H 11/09/17 05:40 Cholesterol 136 mg/dL (0-199) 11/09/17 05:40 LDL Cholesterol Direct 73 mg/dL (0-129) 11/09/17 05:40 HDL Cholesterol 26 MG/DL (30-70) L 11/09/17 05:40 Vitamin B12 675 pg/mL (239-931) 11/09/17 05:40 Thyroxine (T4) 10.2 ug/dl (5.5-11.0) 11/10/17 05:45 Total T3 0.929 nmol/L (1.49-2.60) L 11/09/17 05:40 TSH 3rd Generation 2.57 mIU/ML (0.46-4.68) 11/10/17 05:45 Urine Color Straw (YELLOW) 11/08/17 18:13 Urine Clarity Slighty-cloudy (Clear) 11/08/17 18:13 Urine pH 7.0 (5.0-8.0) 11/08/17 18:13 Ur Specific [place] 1.010 (1.003-1.030) 11/08/17 18:13 Urine Protein Negative mg/dL (NEGATIVE) 11/08/17 18:13 Urine Glucose (UA) 50 mg/dL (Normal) 11/08/17 18:13 Urine Ketones Negative mg/dL (NEGATIVE) 11/08/17 18:13 Urine Blood Negative (NEGATIVE) 11/08/17 18:13 Urine Nitrate Negative (NEGATIVE) 11/08/17 18:13 Urine Bilirubin Negative (NEGATIVE) 11/08/17 18:13 Urine Urobilinogen 0.2-1.0 mg/dL (0.2-1.0) 11/08/17 18:13 Ur Leukocyte Esterase Large Brenda/uL (Negative) 11/08/17 18:13 Urine RBC (Auto) 5 /hpf (0-3) H 11/08/17 18:13 Urine Microscopic WBC 139 /hpf (0-5) H 11/08/17 18:13 Ur Squamous Epith Cells 1 /hpf (0-5) 11/08/17 18:13 Urine Yeast (Budding) Few /hpf (NEGATIVE) H 11/08/17 18:13 Vancomycin Trough 33.7 ug/mL (5.0-10.0) H 11/15/17 19:00 - Hospital Course Hospital Course: 67 y/o female with a past medical history of diabetes who presents to the emergency department with a complaint of redness and swelling to the second digit of the left foot for 5 days. Patient is able to feel sensation to all toes , has been cleaning with betadine, and thinks this is caused by bad circulation to the area. States her glucose was 125 this morning. 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 Denies fever, chill, or body aches. Patient during admission Ct left foot showed osteomyelitislet foot second digit. patient evaluated by podiatry and went to OR for left distal 2nd digit amputation POD # 5 today. Patient received Abx Vanco/zosyn. No post op complications. Patient cleared by podiatry and discharged with Keflex and f/u by podiatry in 7 days.Patient also evaluated by cardiolgist during hospitalization. 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 patient reports feeling well , hemodynamically stable w/o pain and requesting to be discharged. Patient requesting to have follow up with Dr Cotto as primary Dr. Diagnosis (1) Osteomyelitis - s/p left distal 2nd digit amputation POD # 5 -f/u podiaty (2) PVD -Angiography:SIGHT EFFECTS SPECIALIST/peroneal 100% occluded 1 vessel runoff BTK of YOVANI distal YOVANI 65% stenosis 3) Rash -resolved -Benadryl 25 mg PO Q6 h (4) Hypertension Assessment & Plan: Continue medication Status: Acute (5) Diabetes mellitus Assessment & Plan: on anitra mota, AMOR Status: Acute Discharge Exam - Head Exam Head Exam: ATRAUMATIC - Eye Exam Eye Exam: Normal appearance - ENT Exam ENT Exam: Normal Exam - Respiratory Exam Respiratory Exam: Clear to PA & Lateral. absent: Rhonchi, Wheezes - Cardiovascular Exam Cardiovascular Exam: REGULAR RHYTHM, +S1 - GI/Abdominal Exam GI & Abdominal Exam: Normal Bowel Sounds, Soft. absent: Guarding, Rebound - Extremities Exam Additional comments: Left foot second digit amputation. foot covered with bandage C/D/I, no limited ROM of ankle, muscle strength intact, sensation intact - Neurological Exam Neurological exam: Alert - Psychiatric Exam Psychiatric exam: Normal Affect, Normal Mood - Skin Skin Exam: Normal Color Discharge Plan - Discharge Medications Prescriptions: Aspirin [Ecotrin] 81 mg PO DAILY #30 tabec Cephalexin [cephalexin] 500 mg PO Q8 #30 cap Clopidogrel [Plavix] 75 mg PO DAILY #30 tab Diphenhydramine 1% [BENADRYL 1% Zinc Acetate -0.1%] 1 applic TOP Q8 PRN #1 tube PRN Reason: Itching / Pruritus Lactobacillus Acidophilus [Bacid Acidophilus] 1 cap PO BID #20 cap - Follow Up Plan Condition: FAIR Disposition: HOME/ ROUTINE Instructions: Osteomyelitis (DC), Toe Amputation (DC), Angiogram (DC) Additional Instructions: Medicamentos: Levemir 20 unidades en la noche a las 9pm Insulina Lispro 75/25 44unidades en la manana Insulina Lispro 34 unidades con la acupuncture physician- a las 4:30pm LLamar a la . Tariq en la banner Referrals: Rudy Cotto MD [Staff Provider] - Lizzette Potter MD [Medical Doctor] - Jefry Galvan DPM [Staff Provider] -
[2017-11-19] MEDS ORDERED: Insulin Detemir 100 Units/ml Inj SC SCH (22:00)
--- NOTE | 2017-11-20 01:05 | PN ---
DATE: LOCATION: Room 662 SUBJECTIVE: This is a 67-year-old female with recent uncontrolled type 2 insulin-requiring diabetes, now being followed closely for metabolic management. Her glycemic levels are fluctuating, but much improved at this time, and the latest glucose levels have ranged from 234-350 mg/dL. Her latest chemistry showed a BUN of 25, [id number], potassium 5.2, chloride 97, CO2 of 26, glucose 398 and creatinine 1.4. So at this time we will modify once again her basal and premixed insulin regimen and increase the Levemir to 20 units subcu at bedtime daily to start tonight. We will continue the modified premixed insulin regimen with Humalog 75/25 given as 44 units a.c. breakfast and 34 units a.c. dinner as ordered. We will continue also the Januvia given 100 mg once daily at bedtime and resume her outpatient Amaryl given as 4 mg b.i.d. before meals as ordered. We will titrate incrementally as indicated to optimize metabolic control. We will follow and advise accordingly. Lizzette Potter MD
--- NOTE | 2017-11-20 10:55 | PN ---
DATE: ENDOCRINOLOGY FOLLOWUP NOTE LOCATION: 662. SUBJECTIVE: This is a 67-year-old female with recent uncontrolled type 2 insulin-requiring diabetes, now being followed closely for metabolic management. Her glycemic levels are fluctuating today with supervening hyperglycemic accelerations as noted thereof. Her glucose levels have ranged from 412 to 434 mg/dL. The latest chemistries showed a BUN of 25, sodium 133, potassium 5.2, chloride 97, CO2 of 26, glucose 398, and creatinine 1.4. So, at this time, we will modify once again her basal and bolus insulin regimen and increase the Humalog 75/25 to 44 units subcu a.c. breakfast to start tomorrow morning as ordered. We will also increase the evening dose to Humalog 75/25 to 34 units a.c. dinner as ordered. We will titrate incrementally as indicated to optimize metabolic control. We will also increase the basal insulin to 16 units subcu at bedtime daily to start tonight. We will titrate incrementally as indicated to optimize metabolic control. We will obtain serial chemistries and supplement accordingly as needed. We will follow. Lizzette Potter MD
== END 2017-11-19 18:25 | disposition home health service (06) | DRG 256 ==
LOC: H.ER 12:22 → H.ERHOLD 16:26 → H.MEDSURG1 20:59
PROVIDERS: ADMIT Internal Medicine; ATTEND Internal Medicine
PROC: 0Y6S0Z3 Detachment at Left 2nd Toe, Low, Open Approach (ICD-10-PCS; principal; 2017-11-13 07:45)
PROC: B41DZZZ Fluoroscopy of Aorta and Bilateral Lower Extremity Arteries (ICD-10-PCS; 2017-11-19)
PROC: B410ZZZ Fluoroscopy of Abdominal Aorta (ICD-10-PCS; 2017-11-19)
DX: E11.52 Type 2 diabetes mellitus with diabetic peripheral angiopathy with gangrene (principal); M86.172 Other acute osteomyelitis, left ankle and foot; E11.21 Type 2 diabetes mellitus with diabetic nephropathy; E11.42 Type 2 diabetes mellitus with diabetic polyneuropathy; L03.116 Cellulitis of left lower limb; E11.319 Type 2 diabetes mellitus with unspecified diabetic retinopathy without macular edema; E11.621 Type 2 diabetes mellitus with foot ulcer; B95.1 Streptococcus, group B, as the cause of diseases classified elsewhere; L97.529 Non-pressure chronic ulcer of other part of left foot with unspecified severity; E11.65 Type 2 diabetes mellitus with hyperglycemia; E03.9 Hypothyroidism, unspecified; E11.69 Type 2 diabetes mellitus with other specified complication; E78.5 Hyperlipidemia, unspecified; I11.9 Hypertensive heart disease without heart failure; I77.1 Stricture of artery; L27.0 Generalized skin eruption due to drugs and medicaments taken internally; Z79.4 Long term (current) use of insulin; Z88.1 Allergy status to other antibiotic agents; Z79.02 Long term (current) use of antithrombotics/antiplatelets; Z79.82 Long term (current) use of aspirin

== ENCOUNTER 2018-05-08 19:12 | Inpatient (IN) | payer MEDICARE ==
[2018-05-08 19:12] VITALS: BMI 21.5
--- NOTE | 2018-05-08 20:03 | ED PDOC ---
Lower Extremity Pain/Injury History Per: Patient, Family History/Exam Limitations: no limitations Additional History Per: Patient Additional Complaint(s): 67 year old female presents to ED with complaint of left foot ulceration that began 3 weeks ago. They were planning on flying out to [place] in the morning, felt she should be evaluated here before flying out. There was initially a blister, now ulceration with worsening erythema and swelling. She has diminished sensation of bilateral lower extremities that is chronic. No complaint of pain. She denies any fevers or chills. 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 She has no other complaints. 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 She is insulin dependent diabetic. She is accompanied by her . He verbalizes he has insisted on her seeking medical attention. PMD: Dr. Byrne Medications: Lisinopril/Levothyroxine/Januvia/Trulicity Basalglar/humalog mix 75 /25/ Plavix/ Aspirin Allergies reviewed. <Bc Mccartney - Last Filed: 05/08/18 22:09> <Selwyn Rodas - Last Filed: 05/09/18 04:03> Chief Complaint (Nursing): Lower Extremity Problem/Injury Supervising Attending Note - Attestation: I have personally seen and examined this patient.: Yes I have fully participated in the care of the patient.: Yes I have reviewed all pertinent clinical information, including history, physical exam and plan: Yes <Selwyn Rodas - Last Filed: 05/09/18 04:03> Past Medical History Vital Signs: Last Vital Signs Temp 98.9 F 05/08/18 19:18 Pulse Resp 18 05/08/18 19:18 BP 147/63 05/08/18 19:18 Pulse Ox 98 05/08/18 19:18 - Medical History PMH: Diabetes, HTN, Hypercholesterolemia, Hyperthyroidism, Hypothyroidism Denies: Chronic Kidney Disease - Family History Family History: States: Unknown Family Hx <Bc Mccartney - Last Filed: 05/08/18 22:09> Vital Signs: Last Vital Signs Temp 985 F H 05/09/18 00:35 Pulse 94 H 05/09/18 00:35 Resp 20 05/09/18 00:35 BP 144/70 05/09/18 00:35 Pulse Ox 96 05/09/18 00:35 <Selwyn Rodas - Last Filed: 05/09/18 04:03> - Home Medications Home Medications: Ambulatory Orders Medication Instructions Recorded Glimepiride 4 mg PO BID 08/10/14 Lisinopril 10 mg PO DAILY 08/10/14 Dulaglutide [Trulicity] 1.5 mg SQ Q7D 11/08/17 Levothyroxine [Synthroid] 25 mcg PO DAILY 11/08/17 SITagliptin [Januvia] 100 mg PO DAILY 11/08/17 Insulin Lispro Mix 75/25 [HumaLog 40 units SC BID 11/09/17 MIX 75/25] Aspirin [Ecotrin] 81 mg PO DAILY #30 tabec 11/19/17 Clopidogrel [Plavix] 75 mg PO DAILY #30 tab 11/19/17 Insulin Glargine, Recombina 44 unit SC HS 05/08/18 [Lantus] - Allergies Allergies/Adverse Reactions: Allergies Allergy/AdvReac Type Severity Reaction Status Date / Time ciprofloxacin [From Cipro] Allergy RASH Verified 05/27/16 11:59 ciprofloxacin HCl Allergy RASH Verified 05/27/16 11:59 [From Cipro] clindamycin Allergy RASH Verified 05/27/16 12:00 Wells Criteria for PE - Wells Criteria for Pulmonary Embolism Clinical Signs and Symptoms of DVT: No Total Score: 0 <Bc Mccartney - Last Filed: 05/08/18 22:09> Review of Systems Constitutional: Negative for: Fever, Chills Cardiovascular: Negative for: Chest Pain, Palpitations Respiratory: Negative for: Cough Gastrointestinal: Negative for: Nausea, Vomiting, Abdominal Pain Genitourinary Female: Negative for: Dysuria Neurological: Negative for: Weakness <Bc Mccartney - Last Filed: 05/08/18 22:09> Physical Exam - Physical Exam Appears: Positive for: Well, Non-toxic, No Acute Distress Head Exam: Positive for: ATRAUMATIC, NORMAL INSPECTION, NORMOCEPHALIC Eye Exam: Positive for: Normal appearance Cardiovascular/Chest: Positive for: Regular Rate, Rhythm. Negative for: JVD Respiratory: Negative for: Respiratory Distress (normal breathing pattern) Pulses-Dorsalis Pedis (L): 1+ Pulses-Dorsalis Pedis (R): 1+ Pulses-Post. Tibialis (L): 1+ Pulses-Post. Tibialis (R): 1+ Gastrointestinal/Abdominal: Positive for: Soft. Negative for: Tenderness, Distended Extremity: Positive for: Normal ROM, Swelling, Other (pallor of fifth digit, with open ulceration on medial aspect of fifth toe, erythema on dorsum of foot proximal to 3-5 toes) Neurologic/Psych: Positive for: Alert, quality manager II-XII, Oriented <Bc Mccartney - Last Filed: 05/08/18 22:09> - Laboratory Results Result Diagrams: 05/08/18 20:23 05/08/18 20:23 - ECG O2 Sat by Pulse Oximetry: 98 - Progress ED Course And Treament: 67 year old female with ulceration and likely necrosis of fifth digit, cellulitis, possible osteomyelitis. Initial Plan: --CBC --BMP --Coags --ESR --CRP --Blood culture --Type and Screen --XR --Podiatry Consult- pt seen with resident Patient seen and examined with Dr. Rodas, who agrees with assessment and plan delineated above. IV ZOSYN/VANCO ordered. Cultures from previous admission reviewed: +pseudomonas , +MRSA TIME: 21:45 Labs: Leukcytosis 12.1, Anemia: 11 Elevated BUN/Cr: 35/1.5 ESR: 100 Patient to be admitted for continued IV antibiotics for likely osteomyelitis, patient informed of possible toe amputation. <Bc Mccartney - Last Filed: 05/08/18 22:09> - Laboratory Results Result Diagrams: 05/08/18 20:23 05/08/18 20:23 <Selwyn Rodas - Last Filed: 05/09/18 04:03> Disposition - Disposition Disposition Time: 21:57 <Bc Mccartney - Last Filed: 05/08/18 22:09> <Selwyn Rodas - Last Filed: 05/09/18 04:03> - Clinical Impression Clinical Impression: Osteomyelitis, Diabetic foot infection - Disposition Condition: FAIR
[2018-05-08 20:31] LABS: BASO # 0.1 K/uL (0.0-0.2); BASO % 0.7 % (0.0-2.0); EOS # 0.2 K/uL (0.0-0.7); LYMPH # 2.4 K/uL (1.0-4.3); LYMPH % 19.8 % (20.0-40.0); MEAN CELL VOLUME 90.3 fl (81.0-99.0); MEAN CORPUSCULAR HEMOGLOBIN 29.8 pg (27.0-31.0); MEAN PLATELET VOLUME 9.1 fl (7.2-11.7); MONO % 8.5 % (0.0-10.0); NEUT # 8.4 K/uL (1.8-7.0); RBC 3.7 Mil/uL (3.80-5.20); RED CELL DISTRIBUTION WIDTH 13.6 % (11.5-14.5); WHITE BLOOD COUNT 12.1 K/uL (4.8-10.8)
[2018-05-08 20:37] LABS: INR 1.1 (0.9-1.2); PARTIAL THROMBOPLASTIN TIME 28.7 Seconds (25.6-37.1); PROTHROMBIN TIME 11.9 Seconds (9.8-13.1)
[2018-05-08] MEDS ORDERED: Vancomycin 500 mg Inj IVPB STA (20:37)
[2018-05-08] MEDS ORDERED: Piperacillin/Tazobact 3.375 GM in Sodium Chloride 0.9% 100 ML IVPB STA (20:37)
[2018-05-08 20:38] LABS: CALCIUM 9.4 mg/dL (8.4-10.2)
[2018-05-08] MEDS ORDERED: Piperacillin/Tazobact 3.375 gm Inj IVPB ONE (21:51)
--- NOTE | 2018-05-08 22:18 | CP.PCM.CON ---
History of Present Illness - History of Present Illness History of Present Illness: Podiatry Consult note: Dr. Cheung 67 year old female patient with PMHx of DM, HTN, hypercholestrolemia was seen and evaluated at bedside in ED for left 5th digit ulceration. Patient reports that she follows up with Dr. Cheung in his office. Patient reports that she had a little blister on the 5th toe few days ago. Reports that she did not think anything of it and decided to ignore it. Reports that it progressively got worst overtime. Reports that she was planning on flying to [place] tomorrow and her insisted it to be seen before leaving the country. Denies of having any pain today. Denies of having any recent F/N/V/C/SOB/CP/ headache. Denies of any other pedal complains today. 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 Allergies: cipro and clinda -rash Meds: In chart Review of Systems - Constitutional Constitutional: As Per HPI Past Patient History - Infectious Disease Hx of Infectious Diseases: None - Past Medical History & Family History Past Medical History?: Yes - Past Social History Smoking Status: Never Smoked - CARDIAC Hx Hypercholesterolemia: Yes Hx Hypertension: Yes - PULMONARY Hx Respiratory Disorders: No - NEUROLOGICAL Hx Neurological Disorder: Yes Other/Comment: neuropathy - HEENT Hx HEENT Problems: Yes Other/Comment: poor eyesight - RENAL Hx Chronic Kidney Disease: No - ENDOCRINE/METABOLIC Hx Hyperthyroidism: Yes Hx Hypothyroidism: Yes - HEMATOLOGICAL/ONCOLOGICAL Hx Blood Disorders: No - INTEGUMENTARY Hx Dermatological Problems: No - MUSCULOSKELETAL/RHEUMATOLOGICAL Hx Musculoskeletal Disorders: No Hx Falls: No - GASTROINTESTINAL Hx Gastrointestinal Disorders: No - GENITOURINARY/GYNECOLOGICAL Hx Genitourinary Disorders: No - PSYCHIATRIC Hx Psychophysiologic Disorder: No Hx Substance Use: No - SURGICAL HISTORY Hx Surgeries: Yes Other/Comment: 3 right foot surgeries- toe amputation - ANESTHESIA Hx Anesthesia: Yes Hx Anesthesia Reactions: No Hx Malignant Hyperthermia: No Meds Allergies/Adverse Reactions: Allergies Allergy/AdvReac Type Severity Reaction Status Date / Time ciprofloxacin [From Cipro] Allergy RASH Verified 05/27/16 11:59 ciprofloxacin HCl Allergy RASH Verified 05/27/16 11:59 [From Cipro] clindamycin Allergy RASH Verified 05/27/16 12:00 - Medications Medications: Current Medications Vancomycin HCl 1,250 mg/ (Sodium Chloride) 500 mls @ 333.333 mls/hr IVPB ONCE ONE Stop: 05/08/18 22:29 Physical Exam - Constitutional Appears: Well, Non-toxic, No Acute Distress - Head Exam Head Exam: ATRAUMATIC - Extremities Exam Additional comments: Bilateral LE focused exam: VASC: DP pulses palpable 1/4 b/l. PT pulses weakly palpable 1/4 b/l. Cap refill time: approx. 3 seconds to all digits. Temperature gradient warm to cool from proximal to distal b/l. Non-pitting edema noted to the lateral aspect of the left foot DERM: Superficial ulceration with epidermal shedding noted on the medial aspect of the entire left 5th digit, small amount of active bleeding noted, erythema on the digit which extends to the dorso-lateral aspect of the foot, dusky appearance with island of hyperpigmented skin changes noted on the 5th digit, no malodor, no purulence, no probe to bone NEURO: Gross sensation absent b/l ORTHO: No pain on palpation left 5th digit. Right 1st ray partial amputation. Right 2nd digit rigid hammertoe contracture. - Neurological Exam Neurological exam: Alert, Oriented x3 - Psychiatric Exam Psychiatric exam: Normal Affect, Normal Mood Results - Vital Signs Recent Vital Signs: Last Vital Signs Temp 98.9 F 05/08/18 19:18 Pulse 93 H 05/08/18 21:32 Resp 18 05/08/18 19:18 BP 147/63 05/08/18 19:18 Pulse Ox 98 05/08/18 21:58 - Labs Result Diagrams: 05/08/18 20:23 05/08/18 20:23 Labs: Laboratory Results - last 24 hr 05/08/18 05/08/18 05/08/18 20:13 20:23 20:23 WBC 12.1 H D RBC 3.70 L Hgb 11.0 L Hct 33.5 L MCV 90.3 MCH 29.8 MCHC 33.0 RDW 13.6 Plt Count 252 MPV 9.1 Neut % (Auto) 69.0 Lymph % (Auto) 19.8 L [place] % (Auto) 8.5 Eos % (Auto) 2.0 Baso % (Auto) 0.7 Neut # (Auto) 8.4 H Lymph # (Auto) 2.4 [place] # (Auto) 1.0 H Eos # (Auto) 0.2 Baso # (Auto) 0.1 ESR 100 H PT INR APTT Sodium 137 Potassium 5.8 H Chloride 99 Carbon Dioxide 25 Anion Gap 19 BUN 39 H Creatinine 1.5 H Est GFR ( Amer) 42 Est GFR (Non-Af Amer) 35 POC Glucose (mg/dL) 187 H Random Glucose 189 H Calcium 9.4 Blood Type Antibody Screen BBK History Checked 05/08/18 05/08/18 20:23 20:23 WBC RBC Hgb Hct MCV MCH MCHC RDW Plt Count MPV Neut % (Auto) Lymph % (Auto) [place] % (Auto) Eos % (Auto) Baso % (Auto) Neut # (Auto) Lymph # (Auto) [place] # (Auto) Eos # (Auto) Baso # (Auto) ESR PT 11.9 INR 1.1 APTT 28.7 Sodium Potassium Chloride Carbon Dioxide Anion Gap BUN Creatinine Est GFR ( Amer) Est GFR (Non-Af Amer) POC Glucose (mg/dL) Random Glucose Calcium Blood Type O POSITIVE Antibody Screen Negative BBK History Checked No verified bt Assessment & Plan - Assessment and Plan (Free Text) Assessment: 67 year old female with PMHx of DM, HTN, hypercholestrolemia was evaluated for left 5th digit gangrene with cellulitic changes Plan: Patient seen and evaluated at bedside Discussed plan with attending Dr. Cheung Labs, vitals and charts reviewed - afebrile, WBC @ 12.1, ESR: 100, CRP: pending X-rays of the left foot ordered/reviewed - diffuse periosteal erosion with cortical break noted by radiolucency at the distal proximal phalanx as well as on the middle and distal phalanx of the left 5th digit - concerning for OM Wound cleaned with saline and dressing applied using betadine, DSD Wound cultures: pending ID consult - f/u recs Vascular consult - will follow recs Patient educated of possible amputation of the left 5th digit Patient and the demonstrated verbal understanding of the plan - in agreement with the plan Patient will be admitted to the floor for further care Thank you for the podiatry consult and allowing to take part in patient care - Date & Time Date: 05/08/18 Time: 20:00
[2018-05-08] MEDS ORDERED: Povidone Iodine Topical 10% Sol TOP ONE (22:40)
[2018-05-09] MEDS: Insulin Regular 100 units/ml SC SCH ×4 (08:20→22:05)
[2018-05-09 08:40] LABS: BASO # 0.1 K/uL (0.0-0.2); BASO % 0.5 % (0.0-2.0); EOS # 0.4 K/uL (0.0-0.7); EOS % 3.3 % (0.0-4.0); HEMOGLOBIN 11.1 g/dL (12.0-16.0); LYMPH # 1.7 K/uL (1.0-4.3); LYMPH % 15.2 % (20.0-40.0); MEAN CELL VOLUME 90.2 fl (81.0-99.0); MEAN CORPUSCULAR HEMOGLOBIN 29.8 pg (27.0-31.0); MEAN PLATELET VOLUME 8.6 fl (7.2-11.7); MONO # 1.1 K/uL (0.0-0.8); MONO % 9.6 % (0.0-10.0); NEUT % 71.4 % (50.0-75.0); RBC 3.74 Mil/uL (3.80-5.20); RED CELL DISTRIBUTION WIDTH 13.6 % (11.5-14.5); WHITE BLOOD COUNT 11.2 K/uL (4.8-10.8)
[2018-05-09 09:00] LABS: ALB/GLOB RATIO 0.8 (1.0-2.1); ALBUMIN 3.9 g/dL (3.5-5.0); CALCIUM 9.1 mg/dL (8.4-10.2)
--- NOTE | 2018-05-09 09:21 | RAD ---
PROCEDURE: Left foot radiographs HISTORY: DM, hx of osteo, L 5th toe erythema/swelling COMPARISON: Left foot radiographs 11/13/2017. TECHNIQUE: Three views of the left foot of been submitted for interpretation. FINDINGS: Loss of the distal phalanx and a portion of distal segment of the middle phalanx of the left 2nd digit are identified once again. Bandages obscures evaluation of the 5th digit with osteomyelitis not excluded particularly at the middle phalanx level of the small digit left foot. Repeat radiography advised without bandage. Edema is seen at the left foot small digit. Yes Deformity from prior proximal 5th metatarsal fracture is identified with interval healing likely. Diffuse osteopenia suggests osteoporosis. degenerative changes are diffusely seen once again throughout the forefoot, midfoot and hindfoot joints. Vascular calcifications are identified in the soft tissues of the foot. IMPRESSION: Soft tissue edema at the small digit left foot is identified with bandage obscuring fine bony detail of the middle phalanx. Osteomyelitis is difficult to evaluate as result to be radiography following removal of bandage is advised. Apparent healing fracture left 5th metatarsal base. Diffuse degenerative changes appreciate as well as diffuse osteopenia suggests osteoporosis.
--- NOTE | 2018-05-09 13:14 | CP.PCM.CON ---
History of Present Illness - History of Present Illness History of Present Illness: 67 year old female patient with PMHx of DM and previous digit amputations was seen and evaluated at bedside ifor left 5th digit ulceration. ID consulted fro antibiotic management . Patient reports that she had a little blister on the 5th toe few days ago and it progressively got worst over time. 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 Allergies: cipro and clinda -rash Meds: In chart Review of Systems - Review of Systems All systems: reviewed and no additional remarkable complaints except - Constitutional Constitutional: As Per HPI - EENT Eyes: absent: As Per HPI, Blind Spots, Blurred Vision, Change in Vision, Decreased Night Vision, Diplopia, Discharge, Dry Eye, Exophthalmos, Floaters, Irritation, Itchy Eyes, Loss of Peripheral Vision, Pain, Photophobia, Requires Corrective Lenses, Sees Flashes, Spots in Vision, Tunnel Vision, Other Visual Disturbances, Loss of Vision, Other Ears: absent: As Per HPI, Decreased Hearing, Ear Discharge, Ear Pain, Tinnitus, Abnormal Hearing, Disequilibrium, Dizziness, Other Nose/Mouth/Throat: absent: As Per HPI, Epistaxis, Nasal Congestion, Nasal Discharge, Nasal Obstruction, Nasal Trauma, Nose Pain, Post Nasal Drip, Sinus Pain, Sinus Pressure, Bleeding Gums, Change in Voice, Dental Pain, Dry Mouth, Dysphagia, Halitosis, Hoarsness, Lip Swelling, Mouth Lesions, Mouth Pain, Odynophagia, Sore Throat, Throat Swelling, Tongue Swelling, Facial Pain, Neck Pain, Neck Mass, Other - Breasts Breasts: absent: As Per HPI, Change in Shape, Mass, Pain, Nipple Discharge, Nipple Inversion, Skin Changes, Swelling, Other - Cardiovascular Cardiovascular: absent: As Per HPI, Acrocyanosis, Chest Pain, Chest Pain at Rest , Chest Pain with Activity, Claudication, Diaphoresis, Dyspnea, Dyspnea on Exertion, Edema, Irregular Heart Rhythm, Pain Radiating to Arm/Neck/Jaw, Leg Edema, Leg Ulcers, Lightheadedness, Orthopnea, Palpitations, Paroxysmal Nocturnal Dyspnea, Pedal Edema, Radiating Pain, Rapid Heart Rate, Slow Heart Rate, Syncope, Other - Respiratory Respiratory: absent: As Per HPI, Cough, Dyspnea, Hemoptysis, Dyspnea on Exertion , Wheezing, Snoring, Stridor, Pain on Inspiration, Chest Congestion, Excessive Mucous Production, Change in Mucous Color, Pain with Coughing, Other - Gastrointestinal Gastrointestinal: absent: As Per HPI, Abdominal Pain, Belching, Bloating, Change in Bowel Habits, Change in Stool Character, Coffee Ground Emesis, Constipation, Cramping, Diarrhea, Dyspepsia, Dysphagia, Early Satiety, Excessive Flatus, Fecal Incontinence, Heartburn, Hematemesis, Hematochezia, Loose Stools, Melena, Nausea, Odynophagia, Temesmus, Vomiting, Other - Genitourinary Genitourinary: absent: As Per HPI, Change in Urinary Stream, Difficulty Urinating, Dysuria, Flank Pain, Hematuria, Pyuria, Nocturia, Urinary Incontinence, Urinary Frequency, Urinary Hesitance, Urinary Urgency, Voiding Freq/Small Amts, Freq UTI, Hx Renal/Bladder Calculi, Hx /Renal Surgery, Bladder Distension, Other - Reproductive: Female Reproductive:Female: absent: As Per HPI, Amenorrhea, Amenorrhea/ Control, Currently Menstual, Cycle <21 Days, Cycle >35 Days, Cycle Variable, Menses 1-7 Days, Menses >/= 8 Days, Menses Variable, Cycle > 4 Weeks Between, No Menses for 6 Months, Heavy Menses, Light Menses, Normal Menses, Spotting Between Cycles , S/P Hysterectomy, Menopausal, Post Menopausal, Premenarche, Abnormal Vaginal Bleeding, Dysmenorrhea, Dyspareunia, Genital Lesions, Genital Pruritis, Pelvic Pain, Prolapse Symptoms, Sexual Dysfunction, Vaginal Discharge, Vaginal Dryness , Vaginal Odor, Vaginal Pruritis, Other - Menstruation Menstruation: absent: As Per HPI, Amenorrhea, Amenorrhea/ Control, Currently Menstual, Cycle <21 Days, Cycle >35 Days, Cycle Variable, Menses 1-7 Days, Menses >/= 8 Days, Menses Variable, Cycle > 4 Weeks Between, No Menses for 6 Months, Heavy Menses, Light Menses, Normal Menses, Spotting Between Cycles , S/P Hysterectomy, Menopausal, Post Menopausal, Premenarche, Abnormal Vaginal Bleeding, Dysmenorrhea, Other - Musculoskeletal Musculoskeletal: As Per HPI - Integumentary Integumentary: As Per HPI, Skin Pain, Wounds - Neurological Neurological: absent: As Per HPI, Abnormal Gait, Abnormal Hearing, Abnormal Movements, Abnormal Speech, Behavioral Changes, Burning Sensations, Confusion, Convulsions, Disequilibrium, Dizziness, Numbness, Focal Weakness, Frequent Falls , Headaches, Lack of Coordination, Loss of Vision, Memory Loss, Paresthesias, Radicular Pain, Restless Legs, Sensory Deficit, Syncope, Tingling, Tremor, Vertigo, Weakness, Other Visual Disturbances, Other - Psychiatric Psychiatric: absent: As Per HPI, Abnormal Sleep Pattern, Anhedonia, Anxiety, Auditory Hallucinations, Behavioral Changes, Change in Appetite, Change in Libido, Confusion, Depression, Difficulty Concentrating, Hallucinations, Homicidal Ideation, Hopelessness, Irritability, Memory Loss, Mood Swings, Panic Attacks, Paranoia, Suicidal Ideation, Visual Hallucinations, Tactile Hallucinations, Other - Endocrine Endocrine: absent: As Per HPI, Change in Body Appearance, Change in Libido, Cold Intolorance, Deepening of Voice, Excessive Sweating, Fatigue, Flushing, Heat Intolorance, Increase in Ring/Shoe/Hat Size, Palpitations, Polydipsia, Polyphagia, Polyuria, Other - Hematologic/Lymphatic Hematologic: absent: As Per HPI, Easy Bleeding, Easy Bruising, Lymphadenopathy, Other Past Patient History - Infectious Disease Hx of Infectious Diseases: None - Past Medical History & Family History Past Medical History?: Yes - Past Social History Smoking Status: Never Smoked - CARDIAC Hx Cardiac Disorders: Yes Hx Hypercholesterolemia: Yes Hx Hypertension: Yes - PULMONARY Hx Respiratory Disorders: No - NEUROLOGICAL Hx Neurological Disorder: No - HEENT Hx HEENT Problems: No - RENAL Hx Chronic Kidney Disease: No - ENDOCRINE/METABOLIC Hx Endocrine Disorders: Yes Hx Hyperthyroidism: Yes Hx Hypothyroidism: Yes - HEMATOLOGICAL/ONCOLOGICAL Hx Blood Disorders: No - INTEGUMENTARY Hx Dermatological Problems: No - MUSCULOSKELETAL/RHEUMATOLOGICAL Hx Musculoskeletal Disorders: No Hx Falls: Yes - GASTROINTESTINAL Hx Gastrointestinal Disorders: No - GENITOURINARY/GYNECOLOGICAL Hx Genitourinary Disorders: No - PSYCHIATRIC Hx Psychophysiologic Disorder: No - SURGICAL HISTORY Hx Surgeries: Yes Other/Comment: 3 right foot surgeries- toe amputation - ANESTHESIA Hx Anesthesia: Yes Hx Anesthesia Reactions: No Hx Malignant Hyperthermia: No Meds Allergies/Adverse Reactions: Allergies Allergy/AdvReac Type Severity Reaction Status Date / Time ciprofloxacin [From Cipro] Allergy RASH Verified 05/27/16 11:59 ciprofloxacin HCl Allergy RASH Verified 07/05/16 11:59 [From Cipro] clindamycin Allergy RASH Verified 05/27/16 12:00 - Medications Medications: Current Medications Insulin Human Regular (Humulin R) 0 units SC ACHS [facility]MAN PRN Reason: Protocol Last Admin: 05/09/18 08:20 Dose: Not Given Physical Exam - Constitutional Appears: Chronically Ill - Head Exam Head Exam: ATRAUMATIC, NORMOCEPHALIC - Eye Exam Eye Exam: PERRL. absent: Scleral icterus - ENT Exam ENT Exam: Mucous Membranes Dry - Neck Exam Neck exam: Negative for: Lymphadenopathy - Respiratory Exam Respiratory Exam: Decreased Breath Sounds, Clear to Auscultation Bilateral - Cardiovascular Exam Cardiovascular Exam: REGULAR RHYTHM, +S1, +S2 - GI/Abdominal Exam GI & Abdominal Exam: Diminished Bowel Sounds, Soft. absent: Tenderness - Rectal Exam Rectal Exam: Deferred - Exam Exam: NORMAL INSPECTION - Extremities Exam Extremities exam: Negative for: calf tenderness, pedal edema, tenderness, pedal pulses present Additional comments: Bilateral LE focused exam: VASC: DP pulses palpable 1/4 b/l. PT pulses weakly palpable 1/4 b/l. Cap refill time: approx. 3 seconds to all digits. Temperature gradient warm to cool from proximal to distal b/l. Non-pitting edema noted to the lateral aspect of the left foot DERM: Superficial ulceration with epidermal shedding noted on the medial aspect of the entire left 5th digit, small amount of active bleeding noted, erythema on the digit which extends to the dorso-lateral aspect of the foot, dusky appearance with island of hyperpigmented skin changes noted on the 5th digit, no malodor, no purulence, no probe to bone NEURO: Gross sensation absent b/l ORTHO: No pain on palpation left 5th digit. Right 1st ray partial amputation. Right 2nd digit rigid hammertoe contracture. - Back Exam Back exam: absent: CVA tenderness (L), CVA tenderness (R), paraspinal tenderness - Neurological Exam Neurological exam: Alert, CN II-XII Intact, Oriented x3, Reflexes Normal - Psychiatric Exam Psychiatric exam: Normal Mood - Skin Skin Exam: Dry Results - Vital Signs Recent Vital Signs: Last Vital Signs Temp 98.7 F 05/09/18 09:01 Pulse 94 H 05/09/18 09:01 Resp 20 05/09/18 09:01 BP 160/77 H 05/09/18 09:01 Pulse Ox 98 05/09/18 09:01 - Labs Result Diagrams: 05/09/18 08:10 05/09/18 08:10 Labs: Laboratory Results - last 24 hr 05/08/18 05/08/18 05/08/18 20:13 20:23 20:23 WBC 12.1 H D RBC 3.70 L Hgb 11.0 L Hct 33.5 L MCV 90.3 MCH 29.8 MCHC 33.0 RDW 13.6 Plt Count 252 MPV 9.1 Neut % (Auto) 69.0 Lymph % (Auto) 19.8 L [place] % (Auto) 8.5 Eos % (Auto) 2.0 Baso % (Auto) 0.7 Neut # (Auto) 8.4 H Lymph # (Auto) 2.4 [place] # (Auto) 1.0 H Eos # (Auto) 0.2 Baso # (Auto) 0.1 ESR 100 H PT INR APTT Sodium 137 Potassium 5.8 H Chloride 99 Carbon Dioxide 25 Anion Gap 19 BUN 39 H Creatinine 1.5 H Est GFR ( Amer) 42 Est GFR (Non-Af Amer) 35 POC Glucose (mg/dL) 187 H Random Glucose 189 H Calcium 9.4 Total Bilirubin AST ALT Alkaline Phosphatase C-Reactive Protein 58.80 H Total Protein Albumin Globulin Albumin/Globulin Ratio Blood Type Antibody Screen BBK History Checked 05/08/18 05/08/18 05/09/18 20:23 20:23 05:25 WBC RBC Hgb Hct MCV MCH MCHC RDW Plt Count MPV Neut % (Auto) Lymph % (Auto) [place] % (Auto) Eos % (Auto) Baso % (Auto) Neut # (Auto) Lymph # (Auto) [place] # (Auto) Eos # (Auto) Baso # (Auto) ESR PT 11.9 INR 1.1 APTT 28.7 Sodium Potassium Chloride Carbon Dioxide Anion Gap BUN Creatinine Est GFR ( Amer) Est GFR (Non-Af Amer) POC Glucose (mg/dL) 156 H Random Glucose Calcium Total Bilirubin AST ALT Alkaline Phosphatase C-Reactive Protein Total Protein Albumin Globulin Albumin/Globulin Ratio Blood Type O POSITIVE Antibody Screen Negative BBK History Checked No verified bt 05/09/18 05/09/18 05/09/18 08:10 08:10 11:30 WBC 11.2 H RBC 3.74 L Hgb 11.1 L Hct 33.7 L MCV 90.2 MCH 29.8 MCHC 33.0 RDW 13.6 Plt Count 253 MPV 8.6 Neut % (Auto) 71.4 Lymph % (Auto) 15.2 L [place] % (Auto) 9.6 Eos % (Auto) 3.3 Baso % (Auto) 0.5 Neut # (Auto) 8.0 H Lymph # (Auto) 1.7 [place] # (Auto) 1.1 H Eos # (Auto) 0.4 Baso # (Auto) 0.1 ESR PT INR APTT Sodium 139 Potassium 5.6 H Chloride 99 Carbon Dioxide 27 Anion Gap 19 BUN 27 H Creatinine 1.3 H Est GFR ( Amer) 49 Est GFR (Non-Af Amer) 41 POC Glucose (mg/dL) 268 H Random Glucose 144 H Calcium 9.1 Total Bilirubin 1.0 AST 54 H D ALT 45 Alkaline Phosphatase 97 C-Reactive Protein Total Protein 8.7 H Albumin 3.9 Globulin 4.8 H Albumin/Globulin Ratio 0.8 L Blood Type Antibody Screen BBK History Checked Assessment & Plan (1) Diabetic foot infection Status: Acute (2) Osteomyelitis Status: Acute - Assessment and Plan (Free Text) Assessment: X-rays of the left foot show diffuse periosteal erosion with cortical break noted by radiolucency at the distal proximal phalanx as well as on the middle and distal phalanx of the left 5th digit - concerning for OM In view of this will need termination clerk IV antibiotics, vascular evaluation and possible 5th ray resection
--- NOTE | 2018-05-09 13:37 | CP.PCM.PN ---
Subjective - Date & Time of Evaluation Date of Evaluation: 05/09/18 Time of Evaluation: 13:34 - Subjective Subjective: Podiatry Progress note: Dr. Cheung 67 year old female patient patient was seen and evaluated at bedside for left 5th digit ulceration. Patient is AAOx3 and appears in NAD. Denies of any acute events overnight. Denies having F/N/V/C/SOB/CP/headache/diarrhea. No other pedal complains at this time. Objective - Vital Signs/Intake and Output Vital Signs (last 24 hours): Temp Pulse Resp BP Pulse Ox 98.7 F 94 H 20 160/77 H 98 05/09/18 09:01 05/09/18 09:01 05/09/18 09:01 05/09/18 09:01 05/09/18 09:01 - Medications Medications: Current Medications Vancomycin HCl 1,000 mg/ (Sodium Chloride) 250 mls @ 250 mls/hr IVPB Q24H [facility] PRN Reason: Protocol Piperacillin Sod/Tazobactam (Sod 3.375 gm/ Sodium Chloride) 100 mls @ 100 mls/ hr IVPB Q8 [facility] PRN Reason: Protocol Insulin Human Regular (Humulin R) 0 units SC ACHS [facility]MAN PRN Reason: Protocol Last Admin: 05/09/18 08:20 Dose: Not Given - Labs Labs: 05/09/18 08:10 05/09/18 08:10 PT 11.9 Seconds (9.8-13.1) 05/08/18 20:23 INR 1.1 (0.9-1.2) 05/08/18 20:23 APTT 28.7 Seconds (25.6-37.1) 05/08/18 20:23 - Constitutional Appears: Well, Non-toxic, No Acute Distress - Extremities Exam Additional comments: Bilateral LE focused exam: VASC: DP pulses palpable 1/4 b/l. PT pulses weakly palpable 1/4 b/l. Cap refill time: approx. 3 seconds to all digits. Temperature gradient warm to cool from proximal to distal b/l. Non-pitting edema noted to the lateral aspect of the left foot DERM: Superficial ulceration with epidermal shedding noted on the medial aspect of the entire left 5th digit, erythema on the digit which extends to the dorso- lateral aspect of the foot, dusky appearance with island of hyperpigmented tissue noted on the 5th digit, faint malodor, no purulence, no probe to bone NEURO: Gross sensation absent b/l ORTHO: No pain on palpation left 5th digit. Right 1st ray partial amputation. Right 2nd digit rigid hammertoe contracture. - Neurological Exam Neurological Exam: Alert, Awake, Oriented x3 - Psychiatric Exam Psychiatric exam: Normal Affect, Normal Mood Assessment and Plan - Assessment and Plan (Free Text) Assessment: 67 year old female with PMHx of DM, HTN, hypercholestrolemia was evaluated for left 5th digit gangrene with cellulitic changes Plan: Patient seen and evaluated at bedside Discussed plan with attending Dr. Cheung Labs, vitals and charts reviewed - afebrile, WBC @ 11.2, ESR: 100, CRP: 58.80 X-rays of the left foot ordered/reviewed - diffuse periosteal erosion with cortical break noted by radiolucency at the distal proximal phalanx as well as on the middle and distal phalanx of the left 5th digit - concerning for OM Wound cleaned with saline and dressing applied using betadine, DSD Wound cultures: pending Continue IV abx as per ID - Vancomycin, Zosyn JAMIA/PVR ordered - pending Vascular consult - will follow recs Patient educated of possible amputation of the left 5th digit - agrees with the plan Will continue to monitor patient closely
[2018-05-09] MEDS: Piperacillin/Tazobact 3.375 GM in Sodium Chloride 0.9% 100 ML IVPB SCH (19:30)
--- NOTE | 2018-05-09 23:25 | CP.PCM.CON ---
History of Present Illness - History of Present Illness History of Present Illness: consutation for gangrene of toes HPI: 67-year-old female with past medical history significant for hypertension diabetes mellitus hypothyroidism severe peripheral vascular occlusive disease who had undergone a peripheral angiogram by me in October which showed infragenicular disease at that time she had good inflow and it was decided to treat her medically she was planning to fly to [place] when she started noticing left foot ulceration about 3 weeks ago which initially started as a blister and subsequently got worse with erythema and swelling she is poorly controlled diabetes has severe neuropathy with diminished sensation of bilateral lower extremities. Insulin-dependent diabetic. Review of Systems - Review of Systems Systems not reviewed;Unavailable: Acuity of Condition - Constitutional Constitutional: As Per HPI - EENT Eyes: As Per HPI Ears: As Per HPI Nose/Mouth/Throat: As Per HPI - Breasts Breasts: As Per HPI - Cardiovascular Cardiovascular: As Per HPI - Respiratory Respiratory: As Per HPI - Gastrointestinal Gastrointestinal: As Per HPI - Genitourinary Genitourinary: As Per HPI - Reproductive: Female Reproductive:Female: As Per HPI - Menstruation Menstruation: As Per HPI - Musculoskeletal Musculoskeletal: As Per HPI - Integumentary Integumentary: As Per HPI - Neurological Neurological: As Per HPI - Psychiatric Psychiatric: As Per HPI - Endocrine Endocrine: As Per HPI - Hematologic/Lymphatic Hematologic: As Per HPI Past Patient History - Infectious Disease Hx of Infectious Diseases: None - Past Medical History & Family History Past Medical History?: Yes - Past Social History Smoking Status: Never Smoked - CARDIAC Hx Cardiac Disorders: Yes Hx Hypercholesterolemia: Yes Hx Hypertension: Yes - PULMONARY Hx Respiratory Disorders: No - NEUROLOGICAL Hx Neurological Disorder: No - HEENT Hx HEENT Problems: No - RENAL Hx Chronic Kidney Disease: No - ENDOCRINE/METABOLIC Hx Endocrine Disorders: Yes Hx Hyperthyroidism: Yes Hx Hypothyroidism: Yes - HEMATOLOGICAL/ONCOLOGICAL Hx Blood Disorders: No - INTEGUMENTARY Hx Dermatological Problems: No - MUSCULOSKELETAL/RHEUMATOLOGICAL Hx Musculoskeletal Disorders: No Hx Falls: Yes - GASTROINTESTINAL Hx Gastrointestinal Disorders: No - GENITOURINARY/GYNECOLOGICAL Hx Genitourinary Disorders: No - PSYCHIATRIC Hx Psychophysiologic Disorder: No - SURGICAL HISTORY Hx Surgeries: Yes Other/Comment: 3 right foot surgeries- toe amputation - ANESTHESIA Hx Anesthesia: Yes Hx Anesthesia Reactions: No Hx Malignant Hyperthermia: No Meds Allergies/Adverse Reactions: Allergies Allergy/AdvReac Type Severity Reaction Status Date / Time ciprofloxacin [From Cipro] Allergy RASH Verified 05/27/16 11:59 ciprofloxacin HCl Allergy RASH Verified 05/27/16 11:59 [From Cipro] clindamycin Allergy RASH Verified 05/27/16 12:00 - Medications Medications: Current Medications Vancomycin HCl 1,000 mg/ (Sodium Chloride) 250 mls @ 250 mls/hr IVPB Q24H [facility] PRN Reason: Protocol Last Admin: 05/09/18 16:49 Dose: 250 mls/hr Piperacillin Sod/Tazobactam (Sod 3.375 gm/ Sodium Chloride) 100 mls @ 100 mls/ hr IVPB Q8 [facility] PRN Reason: Protocol Last Admin: 05/09/18 19:30 Dose: 100 mls/hr Insulin Human Regular (Humulin R) 0 units SC ACHS [facility] PRN Reason: Protocol Last Admin: 05/09/18 22:05 Dose: Not Given Physical Exam - Constitutional Appears: Well - Head Exam Head Exam: ATRAUMATIC, NORMAL INSPECTION, NORMOCEPHALIC - Eye Exam Eye Exam: EOMI, Normal appearance, PERRL Pupil Exam: NORMAL ACCOMODATION, PERRL - ENT Exam ENT Exam: Mucous Membranes Moist, Normal Exam - Neck Exam Neck exam: Positive for: Normal Inspection - Respiratory Exam Respiratory Exam: Clear to Auscultation Bilateral, NORMAL BREATHING PATTERN - Cardiovascular Exam Cardiovascular Exam: REGULAR RHYTHM, +S1, +S2, Systolic Murmur - GI/Abdominal Exam GI & Abdominal Exam: Normal Bowel Sounds, Soft. absent: Tenderness - Extremities Exam Additional comments: gangrenous toes - Back Exam Back exam: NORMAL INSPECTION - Neurological Exam Neurological exam: Alert, CN II-XII Intact, Oriented x3, Reflexes Normal - Psychiatric Exam Psychiatric exam: Normal Affect, Normal Mood - Skin Skin Exam: Dry, Intact, Normal Color, Warm Results - Vital Signs Recent Vital Signs: Last Vital Signs Temp 98.7 F 05/09/18 16:38 Pulse 84 05/09/18 16:38 Resp 20 05/09/18 16:38 BP 122/74 05/09/18 16:38 Pulse Ox 98 05/09/18 16:38 - Labs Result Diagrams: 05/09/18 08:10 05/09/18 08:10 Labs: Laboratory Results - last 24 hr 05/08/18 05/09/18 05/09/18 20:23 05:25 08:10 WBC 11.2 H RBC 3.74 L Hgb 11.1 L Hct 33.7 L MCV 90.2 MCH 29.8 MCHC 33.0 RDW 13.6 Plt Count 253 MPV 8.6 Neut % (Auto) 71.4 Lymph % (Auto) 15.2 L [place] % (Auto) 9.6 Eos % (Auto) 3.3 Baso % (Auto) 0.5 Neut # (Auto) 8.0 H Lymph # (Auto) 1.7 [place] # (Auto) 1.1 H Eos # (Auto) 0.4 Baso # (Auto) 0.1 Sodium Potassium Chloride Carbon Dioxide Anion Gap BUN Creatinine Est GFR ( Amer) Est GFR (Non-Af Amer) POC Glucose (mg/dL) 156 H Random Glucose Calcium Total Bilirubin AST ALT Alkaline Phosphatase C-Reactive Protein 58.80 H Total Protein Albumin Globulin Albumin/Globulin Ratio 05/09/18 05/09/18 05/09/18 08:10 11:30 16:16 WBC RBC Hgb Hct MCV MCH MCHC RDW Plt Count MPV Neut % (Auto) Lymph % (Auto) [place] % (Auto) Eos % (Auto) Baso % (Auto) Neut # (Auto) Lymph # (Auto) [place] # (Auto) Eos # (Auto) Baso # (Auto) Sodium 139 Potassium 5.6 H Chloride 99 Carbon Dioxide 27 Anion Gap 19 BUN 27 H Creatinine 1.3 H Est GFR ( Amer) 49 Est GFR (Non-Af Amer) 41 POC Glucose (mg/dL) 268 H 331 H Random Glucose 144 H Calcium 9.1 Total Bilirubin 1.0 AST 54 H D ALT 45 Alkaline Phosphatase 97 C-Reactive Protein Total Protein 8.7 H Albumin 3.9 Globulin 4.8 H Albumin/Globulin Ratio 0.8 L 05/09/18 21:57 WBC RBC Hgb Hct MCV MCH MCHC RDW Plt Count MPV Neut % (Auto) Lymph % (Auto) [place] % (Auto) Eos % (Auto) Baso % (Auto) Neut # (Auto) Lymph # (Auto) [place] # (Auto) Eos # (Auto) Baso # (Auto) Sodium Potassium Chloride Carbon Dioxide Anion Gap BUN Creatinine Est GFR ( Amer) Est GFR (Non-Af Amer) POC Glucose (mg/dL) 200 H Random Glucose Calcium Total Bilirubin AST ALT Alkaline Phosphatase C-Reactive Protein Total Protein Albumin Globulin Albumin/Globulin Ratio Assessment & Plan (1) Gangrene due to arterial insufficiency Status: Acute (2) Diabetic foot infection Status: Acute (3) Hypertension Status: Acute (4) PVD (peripheral vascular disease) Status: Acute (5) Toe gangrene Status: Acute
[2018-05-10] MEDS: Piperacillin/Tazobact 3.375 GM in Sodium Chloride 0.9% 100 ML IVPB SCH ×4 (01:42→17:41)
--- NOTE | 2018-05-10 08:14 | CP.PCM.PN ---
Subjective - Date & Time of Evaluation Date of Evaluation: 05/10/18 Time of Evaluation: 08:09 - Subjective Subjective: Podiatry Progress Note: Dr. Cheung 67yo female patient was seen and evaluated at bedside for left 5th digit ulceration with gangrenous changes and surrounding cellulitis. Patient is AAOx3 and appears in NAD. Denies of any acute events overnight. Dressing C/D/I. Denies having F/N/V/C/SOB/CP/headache/diarrhea. No other pedal complains at this time. Objective - Vital Signs/Intake and Output Vital Signs (last 24 hours): Temp Pulse Resp BP Pulse Ox 97.8 F 92 H 19 105/61 98 05/10/18 07:57 05/10/18 07:57 05/10/18 07:57 05/10/18 07:57 05/10/18 07:57 - Medications Medications: Current Medications Clopidogrel Bisulfate (Plavix) 75 mg PO DAILY [facility] Vancomycin HCl 1,000 mg/ (Sodium Chloride) 250 mls @ 250 mls/hr IVPB Q24H [facility] PRN Reason: Protocol Last Admin: 05/09/18 16:49 Dose: 250 mls/hr Piperacillin Sod/Tazobactam (Sod 3.375 gm/ Sodium Chloride) 100 mls @ 100 mls/ hr IVPB Q8 [facility] PRN Reason: Protocol Last Admin: 05/10/18 01:42 Dose: 100 mls/hr Insulin Human Regular (Humulin R) 0 units SC ACHS [facility] PRN Reason: Protocol Last Admin: 05/09/18 22:05 Dose: Not Given - Labs Labs: 05/09/18 08:10 05/09/18 08:10 PT 11.9 Seconds (9.8-13.1) 05/08/18 20:23 INR 1.1 (0.9-1.2) 05/08/18 20:23 APTT 28.7 Seconds (25.6-37.1) 05/08/18 20:23 - Constitutional Appears: Well, Non-toxic, No Acute Distress - Head Exam Head Exam: ATRAUMATIC, NORMOCEPHALIC - Extremities Exam Additional comments: Bilateral LE focused exam: VASC: DP pulses weakly palpable 1/4 b/l. PT pulses palpable 1/4 b/l. Cap refill time approximately 3 seconds to all digits. Temperature gradient warm to cool from proximal to distal b/l. Moderate edema noted to periwound area DERM: Superficial ulceration noted on the medial aspect of left 5th digit, erythema on the lateral aspect of the digit which extends to the dorso-lateral aspect of the foot, dusky appearance with island of hyperpigmented tissue noted on the 5th digit, malodor, no purulence, no probe to bone NEURO: Epicritic and protective sensation grossly intact b/l ORTHO: No pain on palpation left 5th digit. Left 2nd digit partial amputation. Right 1st ray partial amputation. - Neurological Exam Neurological Exam: Alert, Awake, Oriented x3 - Psychiatric Exam Psychiatric exam: Normal Affect, Normal Mood Assessment and Plan - Assessment and Plan (Free Text) Assessment: 67 yo female with PMHx of DM, HTN, hypercholestrolemia was evaluated for left 5th digit gangrene with cellulitic changes Plan: Patient seen and evaluated at bedside with Dr. Cheung Labs, vitals and charts reviewed X-rays of the left foot reviewed - diffuse periosteal erosion with cortical break noted by radiolucency at the distal proximal phalanx as well as on the middle and distal phalanx of the left 5th digit - concerning for OM Wound dressed with betadine, DSD Wound cultures: pending Continue IV abx as per ID - Vancomycin, Zosyn JAMIA/PVR ordered - pending Vascular consult - will follow recs Patient seen with attending Dr. Cheung, will plan for surgical intervention with amputation of digit pending vascular studies/recommendations; will f/u Will continue to monitor patient closely while in house
[2018-05-10] MEDS: Insulin Regular 100 units/ml SC SCH ×4 (08:37→23:42)
--- NOTE | 2018-05-10 08:56 | CP.PCM.HP ---
History of Present Illness - History of Present Illness History of Present Illness: This is a 67 y/o female with hx of uncontrolled DM 2 on insulin was admitted for worsening of nonhealing left 5th digit ulcer which started few weeks ago, Claims that she follows up with the wound care center but for the past few days noted to have swelling and redness of the left 5th digit hence sought ER Eval. Claims that she had a recent arterial doppler and was told to be normal. Med Hx DM 2 on insulin HTn Hyperlipidemia Present on Admission - Present on Admission Any Indicators Present on Admission: No History of DVT/PE: No History of Uncontrolled Diabetes: Yes Urinary Catheter: No Decubitus Ulcer Present: No Review of Systems - Integumentary Integumentary: Dry Skin, Swelling Past Patient History - Infectious Disease Hx of Infectious Diseases: None - Past Medical History & Family History Past Medical History?: Yes - Past Social History Smoking Status: Never Smoked - CARDIAC Hx Cardiac Disorders: Yes Hx Hypercholesterolemia: Yes Hx Hypertension: Yes - PULMONARY Hx Respiratory Disorders: No - NEUROLOGICAL Hx Neurological Disorder: No - HEENT Hx HEENT Problems: No - RENAL Hx Chronic Kidney Disease: No - ENDOCRINE/METABOLIC Hx Endocrine Disorders: Yes Hx Hyperthyroidism: Yes Hx Hypothyroidism: Yes - HEMATOLOGICAL/ONCOLOGICAL Hx Blood Disorders: No - INTEGUMENTARY Hx Dermatological Problems: No - MUSCULOSKELETAL/RHEUMATOLOGICAL Hx Musculoskeletal Disorders: No Hx Falls: Yes - GASTROINTESTINAL Hx Gastrointestinal Disorders: No - GENITOURINARY/GYNECOLOGICAL Hx Genitourinary Disorders: No - PSYCHIATRIC Hx Psychophysiologic Disorder: No - SURGICAL HISTORY Hx Surgeries: Yes Other/Comment: 3 right foot surgeries- toe amputation - ANESTHESIA Hx Anesthesia: Yes Hx Anesthesia Reactions: No Hx Malignant Hyperthermia: No Meds Allergies/Adverse Reactions: Allergies Allergy/AdvReac Type Severity Reaction Status Date / Time ciprofloxacin [From Cipro] Allergy RASH Verified 05/27/16 11:59 ciprofloxacin HCl Allergy RASH Verified 05/27/16 11:59 [From Cipro] clindamycin Allergy RASH Verified 05/27/16 12:00 Physical Exam - Head Exam Head Exam: NORMAL INSPECTION - Eye Exam Eye Exam: Normal appearance - ENT Exam ENT Exam: Mucous Membranes Moist - Respiratory Exam Respiratory Exam: Clear to Auscultation Bilateral - Cardiovascular Exam Cardiovascular Exam: REGULAR RHYTHM - GI/Abdominal Exam GI & Abdominal Exam: Normal Bowel Sounds - Neurological Exam Neurological exam: CN II-XII Intact, Oriented x3 - Psychiatric Exam Psychiatric exam: Normal Mood - Skin Additional comments: ulcer 5th digit left Results - Vital Signs Recent Vital Signs: Last Vital Signs Temp 97.8 F 05/10/18 07:57 Pulse 92 H 05/10/18 07:57 Resp 19 05/10/18 07:57 BP 105/61 05/10/18 07:57 Pulse Ox 98 05/10/18 07:57 - Labs Result Diagrams: 05/09/18 08:10 05/09/18 08:10 Labs: Laboratory Results - last 24 hr 05/08/18 05/09/18 05/09/18 20:23 08:10 11:30 Sodium 139 Potassium 5.6 H Chloride 99 Carbon Dioxide 27 Anion Gap 19 BUN 27 H Creatinine 1.3 H Est GFR ( Amer) 49 Est GFR (Non-Af Amer) 41 POC Glucose (mg/dL) 268 H Random Glucose 144 H Calcium 9.1 Total Bilirubin 1.0 AST 54 H D ALT 45 Alkaline Phosphatase 97 C-Reactive Protein 58.80 H Total Protein 8.7 H Albumin 3.9 Globulin 4.8 H Albumin/Globulin Ratio 0.8 L 05/09/18 05/09/18 05/10/18 16:16 21:57 05:11 Sodium Potassium Chloride Carbon Dioxide Anion Gap BUN Creatinine Est GFR ( Amer) Est GFR (Non-Af Amer) POC Glucose (mg/dL) 331 H 200 H 118 H Random Glucose Calcium Total Bilirubin AST ALT Alkaline Phosphatase C-Reactive Protein Total Protein Albumin Globulin Albumin/Globulin Ratio Assessment & Plan (1) Diabetic foot infection Status: Acute (2) Toe gangrene Status: Acute (3) Diabetes mellitus Status: Acute (4) Hypertension Status: Acute - Assessment and Plan (Free Text) Plan: ID evalIV antibiotics send for MRI o fthe left 5th cont meds wound care podiatry
--- NOTE | 2018-05-10 09:02 | CP.PCM.PN ---
Subjective - Date & Time of Evaluation Date of Evaluation: 05/10/18 Time of Evaluation: 09:01 - Subjective Subjective: Patient remains stable Has no chest pain or SOB On iv antibiotics Has no fever. Objective - Vital Signs/Intake and Output Vital Signs (last 24 hours): Temp Pulse Resp BP Pulse Ox 97.8 F 92 H 19 105/61 98 05/10/18 07:57 05/10/18 07:57 05/10/18 07:57 05/10/18 07:57 05/10/18 07:57 - Medications Medications: Current Medications Clopidogrel Bisulfate (Plavix) 75 mg PO DAILY [facility] Piperacillin Sod/Tazobactam (Sod 3.375 gm/ Sodium Chloride) 100 mls @ 100 mls/ hr IVPB Q8 [facility] PRN Reason: Protocol Last Admin: 05/10/18 08:39 Dose: 100 mls/hr Vancomycin HCl 1 gm/ Sodium (Chloride) 250 mls @ 250 mls/hr IVPB Q24H [facility] PRN Reason: Protocol Insulin Human Regular (Humulin R) 0 units SC ACHS [facility] PRN Reason: Protocol Last Admin: 05/10/18 08:37 Dose: Not Given - Labs Labs: 05/09/18 08:10 05/09/18 08:10 PT 11.9 Seconds (9.8-13.1) 05/08/18 20:23 INR 1.1 (0.9-1.2) 05/08/18 20:23 APTT 28.7 Seconds (25.6-37.1) 05/08/18 20:23 - Head Exam Head Exam: NORMAL INSPECTION - Eye Exam Eye Exam: Normal appearance - ENT Exam ENT Exam: Mucous Membranes Moist - Respiratory Exam Respiratory Exam: Clear to Ausculation Bilateral - Cardiovascular Exam Cardiovascular Exam: REGULAR RHYTHM - GI/Abdominal Exam GI & Abdominal Exam: Normal Bowel Sounds - Neurological Exam Neurological Exam: Awake, Oriented x3 Assessment and Plan (1) Diabetic foot infection Status: Acute (2) Toe gangrene Status: Acute (3) Diabetes mellitus Status: Acute (4) Hypertension Status: Acute - Assessment and Plan (Free Text) Plan: Cont meds send for MRI follow up arterial doppler cont meds
[2018-05-10] MEDS: Levothyroxine 25 MCG TAB PO SCH (10:14)
--- NOTE | 2018-05-10 10:14 | CP.PCM.PN ---
Subjective - Date & Time of Evaluation Date of Evaluation: 05/10/18 Time of Evaluation: 08:00 - Subjective Subjective: going for MRI iv rx in progress denies pain Objective - Vital Signs/Intake and Output Vital Signs (last 24 hours): Temp Pulse Resp BP Pulse Ox 97.8 F 92 H 19 105/61 98 05/10/18 07:57 05/10/18 07:57 05/10/18 07:57 05/10/18 07:57 05/10/18 07:57 - Medications Medications: Current Medications Clopidogrel Bisulfate (Plavix) 75 mg PO DAILY [facility] Piperacillin Sod/Tazobactam (Sod 3.375 gm/ Sodium Chloride) 100 mls @ 100 mls/ hr IVPB Q8 [facility] PRN Reason: Protocol Last Admin: 05/10/18 08:39 Dose: 100 mls/hr Vancomycin HCl 1 gm/ Sodium (Chloride) 250 mls @ 250 mls/hr IVPB Q24H [facility] PRN Reason: Protocol Insulin Human Regular (Humulin R) 0 units SC ACHS [facility] PRN Reason: Protocol Last Admin: 05/10/18 08:37 Dose: Not Given Levothyroxine Sodium (Synthroid) 25 mcg PO DAILY@0630 [facility] Lisinopril (Zestril) 10 mg PO DAILY [facility] Sitagliptin Phosphate (Januvia) 100 mg PO DAILY [facility] - Labs Labs: 05/09/18 08:10 05/09/18 08:10 PT 11.9 Seconds (9.8-13.1) 05/08/18 20:23 INR 1.1 (0.9-1.2) 05/08/18 20:23 APTT 28.7 Seconds (25.6-37.1) 05/08/18 20:23 - Constitutional Appears: Non-toxic, Chronically Ill - Head Exam Head Exam: NORMOCEPHALIC - Eye Exam Eye Exam: PERRL - ENT Exam ENT Exam: Mucous Membranes Dry - Neck Exam Neck Exam: absent: Lymphadenopathy - Respiratory Exam Respiratory Exam: Decreased Breath Sounds - Cardiovascular Exam Cardiovascular Exam: REGULAR RHYTHM - GI/Abdominal Exam GI & Abdominal Exam: Distended - Rectal Exam Rectal Exam: Deferred Assessment and Plan (1) Diabetic foot infection Status: Acute (2) Osteomyelitis Status: Acute
[2018-05-10 11:52] LABS: BASO % 0.5 % (0.0-2.0); EOS # 0.4 K/uL (0.0-0.7); EOS % 3.9 % (0.0-4.0); HEMOGLOBIN 11.2 g/dL (12.0-16.0); LYMPH # 2.1 K/uL (1.0-4.3); LYMPH % 21.3 % (20.0-40.0); MEAN CELL VOLUME 89.1 fl (81.0-99.0); MEAN CORPUSCULAR HEMOGLOBIN 29.9 pg (27.0-31.0); MEAN CORPUSCULAR HGB CONC 33.6 g/dL (33.0-37.0); MEAN PLATELET VOLUME 8.9 fl (7.2-11.7); MONO # 0.8 K/uL (0.0-0.8); MONO % 8.4 % (0.0-10.0); NEUT # 6.5 K/uL (1.8-7.0); NEUT % 65.9 % (50.0-75.0); NRBC % 0.1 % (0.0-0.0); RBC 3.74 Mil/uL (3.80-5.20); RED CELL DISTRIBUTION WIDTH 13.5 % (11.5-14.5); WHITE BLOOD COUNT 9.8 K/uL (4.8-10.8)
[2018-05-10 12:23] LABS: ALB/GLOB RATIO 0.8 (1.0-2.1); ALBUMIN 3.8 g/dL (3.5-5.0)
--- NOTE | 2018-05-10 15:52 | MRI ---
MRI left foot History: Osteomyelitis. Left 5th digit. Comparison: MRI dated 11/09/2017 Findings: Soft tissue ulceration noted at the level of the 5th proximal and middle phalanges. Prominent signal abnormality noted within the proximal mid and distal phalanges of the 5th digit with decreased T1 signal and increased STIR signal suggestive for an acute osteomyelitis. Some foci of decreased T1 signal adjacent to the 5th distal phalanx may represent subcutaneous air. Persistent deformity at the base of the 5th metatarsal bone suggestive for a chronic ununited fracture deformity with some adjacent reactive edema and subchondral cyst formation at the metatarsal base. Minimal nonspecific reactive bone marrow edema seen within the 1st and 3rd distal phalanx, nonspecific. Clinical correlation. Resection of the 2nd distal and a portion of the middle phalanx. Mild hallux valgus deformity. Mild increased signal noted at the level of Lisfranc ligament which may represent a low-grade sprain and or minimal partial tearing. Degenerative changes noted at the dorsal aspect of the talonavicular joint space. Impression: 1. Soft tissue ulceration noted at the level of the 5th proximal and middle phalanges. Prominent signal abnormality noted within the proximal mid and distal phalanges of the 5th digit with decreased T1 signal and increased STIR signal suggestive for an acute osteomyelitis. Some foci of decreased T1 signal adjacent to the 5th distal phalanx may represent subcutaneous air and or gas gangrene. Clinical correlation. 2. Persistent deformity at the base of the 5th metatarsal bone suggestive for a chronic ununited fracture deformity with some adjacent reactive edema and subchondral cyst formation at the metatarsal base. 3. Minimal nonspecific reactive bone marrow edema seen within the 1st and 3rd distal phalanges, nonspecific. Clinical correlation. 4. Mild hallux valgus deformity. 5. Mild increased signal noted at the level of Lisfranc ligament which may represent a low-grade sprain and or minimal partial tearing. 6. Degenerative changes noted at the dorsal aspect of the talonavicular joint space.
[2018-05-11] MEDS: Piperacillin/Tazobact 3.375 GM in Sodium Chloride 0.9% 100 ML IVPB SCH ×3 (00:04→17:30)
[2018-05-11] MEDS: Levothyroxine 25 MCG TAB PO SCH (05:35)
[2018-05-11] MEDS: Insulin Regular 100 units/ml SC SCH ×3 (08:20→17:27)
--- NOTE | 2018-05-11 12:19 | CP.PCM.PN ---
Subjective - Date & Time of Evaluation Date of Evaluation: 05/11/18 Time of Evaluation: 12:15 - Subjective Subjective: Podiatry Progress note for Dr. Cheung 67F seen and evaluated at bedside for infected, gangrenous left fifth digit with underlying OM of the middle and distal phalanx. Patient is AAO x 3 and NAD , resting comfortably in bed. Denies any pain, acute overnight events or new pedal complaints. Denies any recent N/V/F/C/CP/SOB/D/posterior calf pain when squeezed Objective - Vital Signs/Intake and Output Vital Signs (last 24 hours): Temp Pulse Resp BP Pulse Ox 97.9 F 90 18 106/68 96 05/11/18 09:00 05/11/18 09:00 05/11/18 09:00 05/11/18 09:00 05/11/18 09:00 - Medications Medications: Current Medications Acetaminophen (Tylenol 325mg Tab) 650 mg PO Q4 PRN PRN Reason: Pain, Mild (1-3) Last Admin: 05/10/18 21:35 Dose: 650 mg Clopidogrel Bisulfate (Plavix) 75 mg PO DAILY [facility] Last Admin: 05/11/18 08:21 Dose: 75 mg Piperacillin Sod/Tazobactam (Sod 3.375 gm/ Sodium Chloride) 100 mls @ 100 mls/ hr IVPB Q8 [facility] PRN Reason: Protocol Last Admin: 05/11/18 00:04 Dose: 100 mls/hr Vancomycin HCl 1 gm/ Sodium (Chloride) 250 mls @ 250 mls/hr IVPB Q24H [facility] PRN Reason: Protocol Last Admin: 05/11/18 08:21 Dose: 250 mls/hr Insulin Human Regular (Humulin R) 0 units SC ACHS [facility] PRN Reason: Protocol Last Admin: 05/11/18 08:20 Dose: 2 unit Levothyroxine Sodium (Synthroid) 25 mcg PO DAILY@0630 [facility] Last Admin: 05/11/18 05:35 Dose: 25 mcg Lisinopril (Zestril) 10 mg PO DAILY [facility] Last Admin: 05/11/18 11:32 Dose: 10 mg Sitagliptin Phosphate (Januvia) 100 mg PO DAILY [facility] Last Admin: 05/11/18 08:21 Dose: 100 mg - Labs Labs: 05/10/18 11:34 05/10/18 11:34 PT 11.9 Seconds (9.8-13.1) 05/08/18 20:23 INR 1.1 (0.9-1.2) 05/08/18 20:23 APTT 28.7 Seconds (25.6-37.1) 05/08/18 20:23 - Constitutional Appears: Well, Non-toxic, No Acute Distress - Head Exam Head Exam: ATRAUMATIC, NORMOCEPHALIC - Extremities Exam Additional comments: LLE focused exam Dressings dry and intact to left foot with red/larry drainage VASC: DP pulses weakly palpable 1/4 b/l. PT pulses palpable 1/4 b/l. Cap refill time approximately 3 seconds to all digits except left fifth digit. Temperature gradient warm to cool from proximal to distal b/l WNL. Moderate edema noted to periwound area DERM: Superficial ulceration noted on the medial aspect of left 5th digit, erythema on the lateral aspect of the digit which extends to the dorso-lateral aspect of the foot, necrotic, gangrenous changes noted to entirety of fifth digit. Malodor with serous drainage noted, no purulence, no probe to bone NEURO: Epicritic and protective sensation grossly intact b/l ORTHO: No pain on palpation left 5th digit. Left 2nd digit partial amputation. Right 1st ray partial amputation. No other gross deformities noted - Neurological Exam Neurological Exam: Alert, Awake, Oriented x3 - Psychiatric Exam Psychiatric exam: Normal Affect, Normal Mood Assessment and Plan - Assessment and Plan (Free Text) Assessment: 67F seen and evaluated at bedside for infected, gangrenous left fifth digit with underlying OM of the middle and distal phalanx Plan: Patient seen and evaluated Plan discussed with attending Dr. Cheung Afebrile, absent leukocytosis Continue IV abx per ID Wound cx toe - GP Cocci R foot MRI - OM of middle and distal phalanx R fifth digit Spoke with Dr. Long - He recommends that patient undergo angiogram prior to amputation. Will perform angiogram tomorrow AM Dr. Cheung to schedule amputation of left fifth digit most likely on Thursday pending results of angiogram Wound dressed with betadine, telfa, ABD, DSD Podiatry will continue to follow while patient in house
[2018-05-11] MEDS: Insulin Detemir 100 Units/ml Inj SC SCH (22:00)
--- NOTE | 2018-05-11 22:01 | CP.PCM.PN ---
Subjective - Date & Time of Evaluation Date of Evaluation: 05/11/18 Time of Evaluation: 11:00 - Subjective Subjective: Patient remains stable Noted elevated accucheck MRI showed OM of the prox mid and distal phalanges of the 5th toe Objective - Vital Signs/Intake and Output Vital Signs (last 24 hours): Temp Pulse Resp BP Pulse Ox 97.7 F 83 20 120/63 99 05/11/18 17:00 05/11/18 17:00 05/11/18 17:00 05/11/18 17:00 05/11/18 17:00 - Medications Medications: Current Medications Acetaminophen (Tylenol 325mg Tab) 650 mg PO Q4 PRN PRN Reason: Pain, Mild (1-3) Last Admin: 05/11/18 20:15 Dose: 650 mg Clopidogrel Bisulfate (Plavix) 75 mg PO DAILY [facility] Last Admin: 05/11/18 08:21 Dose: 75 mg Heparin Sodium (Porcine) (Heparin) 5,000 units SC Q12 [facility] PRN Reason: Protocol Last Admin: 05/11/18 15:32 Dose: 5,000 units Piperacillin Sod/Tazobactam (Sod 3.375 gm/ Sodium Chloride) 100 mls @ 100 mls/ hr IVPB Q8 [facility] PRN Reason: Protocol Last Admin: 05/11/18 17:30 Dose: 100 mls/hr Vancomycin HCl 1 gm/ Sodium (Chloride) 250 mls @ 250 mls/hr IVPB Q24H [facility] PRN Reason: Protocol Last Admin: 05/11/18 08:21 Dose: 250 mls/hr Dextrose/Lactated Ringer's (Dextrose 5%/Lactated Ringer's) 1,000 mls @ 80 mls/ hr IV .[id number] [facility] Stop: 05/12/18 20:51 Insulin Detemir (Levemir) 20 units SC HS [facility] Insulin Human Regular (Humulin R) 0 units SC ACHS [facility] PRN Reason: Protocol Last Admin: 05/11/18 17:27 Dose: 8 unit Levothyroxine Sodium (Synthroid) 25 mcg PO DAILY@0630 [facility] Last Admin: 05/11/18 05:35 Dose: 25 mcg Lisinopril (Zestril) 10 mg PO DAILY [facility] Last Admin: 05/11/18 11:32 Dose: 10 mg Sitagliptin Phosphate (Januvia) 100 mg PO DAILY [facility] Last Admin: 05/11/18 08:21 Dose: 100 mg - Labs Labs: 05/10/18 11:34 05/10/18 11:34 PT 11.9 Seconds (9.8-13.1) 05/08/18 20:23 INR 1.1 (0.9-1.2) 05/08/18 20:23 APTT 28.7 Seconds (25.6-37.1) 05/08/18 20:23 - Head Exam Head Exam: NORMAL INSPECTION - Eye Exam Eye Exam: Normal appearance - ENT Exam ENT Exam: Mucous Membranes Moist - Respiratory Exam Respiratory Exam: Clear to Ausculation Bilateral - Cardiovascular Exam Cardiovascular Exam: REGULAR RHYTHM - GI/Abdominal Exam GI & Abdominal Exam: Normal Bowel Sounds - Neurological Exam Neurological Exam: Awake, Oriented x3 Assessment and Plan (1) Diabetic foot infection Status: Acute (2) Toe gangrene Status: Acute (3) Diabetes mellitus Status: Acute (4) Hypertension Status: Acute - Assessment and Plan (Free Text) Plan: Cont IV antibiotics follow up with podiatry for angiogram cont meds pain meds start Levemir
[2018-05-12] MEDS: Insulin Regular 100 units/ml SC SCH ×3 (00:41→22:42)
[2018-05-12] MEDS: Piperacillin/Tazobact 3.375 GM in Sodium Chloride 0.9% 100 ML IVPB SCH ×2 (00:42→09:22)
[2018-05-12] MEDS: Levothyroxine 25 MCG TAB PO SCH (05:48)
[2018-05-12] MEDS ORDERED: Dextrose 5%/Lactated Ringer's 1,000 ML IV SCH (06:00)
[2018-05-12 06:17] LABS: HEMOGLOBIN 10.8 g/dL (12.0-16.0); MEAN CELL VOLUME 90.5 fl (81.0-99.0); MEAN CORPUSCULAR HEMOGLOBIN 30.3 pg (27.0-31.0); MEAN CORPUSCULAR HGB CONC 33.5 g/dL (33.0-37.0); RBC 3.58 Mil/uL (3.80-5.20); RED CELL DISTRIBUTION WIDTH 13.6 % (11.5-14.5); WHITE BLOOD COUNT 8.2 K/uL (4.8-10.8)
[2018-05-12 09:35] LABS: CALCIUM 9.1 mg/dL (8.4-10.2)
--- NOTE | 2018-05-12 11:15 | CP.PCM.PN ---
Subjective - Date & Time of Evaluation Date of Evaluation: 05/12/18 Time of Evaluation: 11:11 - Subjective Subjective: Podiatry Progress note for Dr. Cheung 67F seen and evaluated at bedside for infected, gangrenous left fifth digit with underlying OM of the middle and distal phalanx. Patient is AAO x 3 and NAD , resting comfortably in bed. Denies any pain, acute overnight events or new pedal complaints. Denies any recent N/V/F/C/CP/SOB/D. Patient states she will be going to [facility] at 10 am for CTA, ordered by Dr. Long. Objective - Vital Signs/Intake and Output Vital Signs (last 24 hours): Temp Pulse Resp BP Pulse Ox 97.6 F 97 H 20 121/72 97 05/12/18 08:05 05/12/18 09:21 05/12/18 08:05 05/12/18 09:21 05/12/18 08:05 - Medications Medications: Current Medications Acetaminophen (Tylenol 325mg Tab) 650 mg PO Q4 PRN PRN Reason: Pain, Mild (1-3) Last Admin: 05/11/18 20:15 Dose: 650 mg Clopidogrel Bisulfate (Plavix) 75 mg PO DAILY [facility]S [facility] Last Admin: 05/12/18 09:25 Dose: 75 mg Heparin Sodium (Porcine) (Heparin) 5,000 units SC Q12 [facility] PRN Reason: Protocol Last Admin: 05/11/18 15:32 Dose: 5,000 units Piperacillin Sod/Tazobactam (Sod 3.375 gm/ Sodium Chloride) 100 mls @ 100 mls/ hr IVPB Q8 [facility] PRN Reason: Protocol Last Admin: 05/12/18 09:22 Dose: 100 mls/hr Vancomycin HCl 1 gm/ Sodium (Chloride) 250 mls @ 250 mls/hr IVPB Q24H [facility] PRN Reason: Protocol Last Admin: 05/11/18 08:21 Dose: 250 mls/hr Dextrose/Lactated Ringer's (Dextrose 5%/Lactated Ringer's) 1,000 mls @ 80 mls/ hr IV .[id number] COUNTS INCLUDE 234 BEDS AT [facility] Stop: 05/12/18 20:51 Last Admin: 05/12/18 05:48 Dose: 80 mls/hr Insulin Detemir (Levemir) 20 units SC HS [facility] 234 [facility]S [facility] Last Admin: 05/11/18 22:00 Dose: 20 units Insulin Human Regular (Humulin R) 0 units SC ACHS [facility]S [facility] PRN Reason: Protocol Last Admin: 05/12/18 00:41 Dose: Not Given Levothyroxine Sodium (Synthroid) 25 mcg PO DAILY@0630 [facility]S [facility] Last Admin: 05/12/18 05:48 Dose: 25 mcg Lisinopril (Zestril) 10 mg PO DAILY [facility]S [facility] Last Admin: 05/12/18 09:21 Dose: 10 mg Sitagliptin Phosphate (Januvia) 100 mg PO DAILY [facility] 234 B[facility]S [facility] Last Admin: 05/11/18 08:21 Dose: 100 mg - Labs Labs: 05/12/18 05:40 05/12/18 05:40 PT 11.9 Seconds (9.8-13.1) 05/08/18 20:23 INR 1.1 (0.9-1.2) 05/08/18 20:23 APTT 31.4 Seconds (25.6-37.1) 05/12/18 05:40 - Constitutional Appears: Well, Non-toxic, No Acute Distress - Head Exam Head Exam: ATRAUMATIC, NORMOCEPHALIC - Extremities Exam Additional comments: LLE focused exam Dressings dry and intact to left foot with minimal serous drainage VASC: DP pulses weakly palpable 1/4, PT pulses palpable 1/4, Cap refill time approximately 3 seconds to all digits except left fifth digit, Temperature gradient cool to warm proximal to distal, Minimal edema noted to periwound area DERM: Superficial ulceration noted on the medial aspect of left 5th digit, erythema on lateral aspect of the digit which extends to the dorso-lateral aspect of the foot, necrotic, gangrenous changes noted to entirety of fifth digit. no drainage, no malodor, no fluctuance, no probe to bone NEURO: Epicritic and protective sensation grossly intact b/l ORTHO: No pain on palpation left 5th digit. Left 2nd digit partial amputation. Right 1st ray partial amputation. No other gross deformities noted - Neurological Exam Neurological Exam: Alert, Awake, Oriented x3 - Psychiatric Exam Psychiatric exam: Normal Affect, Normal Mood Assessment and Plan - Assessment and Plan (Free Text) Assessment: 67F seen and evaluated at bedside for infected, gangrenous left fifth digit with underlying OM of the middle and distal phalanx Plan: Patient seen and evaluated Plan discussed with attending Dr. Cheung Afebrile, absent leukocytosis Continue IV abx per ID Wound cx toe - Gram (+) Cocci R foot MRI - OM of middle and distal phalanx R fifth digit Patient to undergo CTA today (05/12/18) at [facility] with Dr. Long; will f /u results Dr. Cheung to schedule amputation of left fifth digit likely on Thursday pending results of angiogram and vascular recs Wound dressed with betadine and DSD Podiatry will continue to follow while patient in house
--- NOTE | 2018-05-12 12:46 | CP.PCM.PN ---
Subjective - Date & Time of Evaluation Date of Evaluation: 05/12/18 Time of Evaluation: 09:00 - Subjective Subjective: infected, gangrenous left fifth digit with underlying OM of the middle and distal phalanx await CTA Objective - Vital Signs/Intake and Output Vital Signs (last 24 hours): Temp Pulse Resp BP Pulse Ox 97.6 F 97 H 20 121/72 97 05/12/18 08:05 05/12/18 09:21 05/12/18 08:05 05/12/18 09:21 05/12/18 08:05 - Medications Medications: Current Medications Acetaminophen (Tylenol 325mg Tab) 650 mg PO Q4 PRN PRN Reason: Pain, Mild (1-3) Last Admin: 05/11/18 20:15 Dose: 650 mg Clopidogrel Bisulfate (Plavix) 75 mg PO DAILY [facility] Last Admin: 05/12/18 09:25 Dose: 75 mg Heparin Sodium (Porcine) (Heparin) 5,000 units SC Q12 [facility] PRN Reason: Protocol Last Admin: 05/11/18 15:32 Dose: 5,000 units Piperacillin Sod/Tazobactam (Sod 3.375 gm/ Sodium Chloride) 100 mls @ 100 mls/ hr IVPB Q8 [facility] PRN Reason: Protocol Last Admin: 05/12/18 09:22 Dose: 100 mls/hr Vancomycin HCl 1 gm/ Sodium (Chloride) 250 mls @ 250 mls/hr IVPB Q24H [facility] PRN Reason: Protocol Last Admin: 05/11/18 08:21 Dose: 250 mls/hr Dextrose/Lactated Ringer's (Dextrose 5%/Lactated Ringer's) 1,000 mls @ 80 mls/ hr IV .[id number] [facility] Stop: 05/12/18 20:51 Last Admin: 05/12/18 05:48 Dose: 80 mls/hr Insulin Detemir (Levemir) 20 units SC HS [facility] Last Admin: 05/11/18 22:00 Dose: 20 units Insulin Human Regular (Humulin R) 0 units SC ACHS [facility] PRN Reason: Protocol Last Admin: 05/12/18 11:28 Dose: Not Given Levothyroxine Sodium (Synthroid) 25 mcg PO DAILY@0630 [facility] Last Admin: 05/12/18 05:48 Dose: 25 mcg Lisinopril (Zestril) 10 mg PO DAILY [facility] Last Admin: 05/12/18 09:21 Dose: 10 mg Sitagliptin Phosphate (Januvia) 100 mg PO DAILY [facility] Last Admin: 05/12/18 11:28 Dose: Not Given - Labs Labs: 05/12/18 05:40 05/12/18 05:40 PT 11.9 Seconds (9.8-13.1) 05/08/18 20:23 INR 1.1 (0.9-1.2) 05/08/18 20:23 APTT 31.4 Seconds (25.6-37.1) 05/12/18 05:40 - Constitutional Appears: Non-toxic - Head Exam Head Exam: NORMOCEPHALIC - Eye Exam Eye Exam: PERRL - ENT Exam ENT Exam: Mucous Membranes Dry - Neck Exam Neck Exam: absent: Thyromegaly - Respiratory Exam Respiratory Exam: Decreased Breath Sounds - Cardiovascular Exam Cardiovascular Exam: REGULAR RHYTHM - GI/Abdominal Exam GI & Abdominal Exam: Distended - Rectal Exam Rectal Exam: Deferred - Exam Exam: NORMAL INSPECTION - Extremities Exam Extremities Exam: Pedal Edema - Back Exam Back Exam: absent: CVA tenderness (L), CVA tenderness (R) Assessment and Plan (1) Diabetic foot infection Status: Acute (2) Osteomyelitis Status: Acute - Assessment and Plan (Free Text) Assessment: infected, gangrenous left fifth digit with underlying OM of the middle and distal phalanx for CTA possible vascular intervention before surgery cont iv antibiotics
[2018-05-12] MEDS: Insulin Detemir 100 Units/ml Inj SC SCH (23:17)
[2018-05-13] MEDS: Piperacillin/Tazobact 3.375 GM in Sodium Chloride 0.9% 100 ML IVPB SCH ×3 (00:39→16:20)
[2018-05-13] MEDS: Levothyroxine 25 MCG TAB PO SCH (06:23)
[2018-05-13 07:02] LABS: CALCIUM 8.8 mg/dL (8.4-10.2)
[2018-05-13] MEDS: Insulin Regular 100 units/ml SC SCH ×4 (08:18→23:04)
--- NOTE | 2018-05-13 08:55 | CP.PCM.PN ---
Subjective - Date & Time of Evaluation Date of Evaluation: 05/13/18 Time of Evaluation: 08:52 - Subjective Subjective: Podiatry progress note for Dr. Cheung 67YO female seen and evaluated at bedside for infected, gangrenous left fifth digit with underlying OM of the middle and distal phalanx. Patient is resting comfortably in bed and is not in any acute distress. AAO x3. Patient went to [facility] yesterday for CTA. Dressing is dry, clean and intact. Denies any acute pain, and denies any acute overnight events. Denies any N/V/F/C/SOB. Objective - Vital Signs/Intake and Output Vital Signs (last 24 hours): Temp Pulse Resp BP Pulse Ox 98.0 F 81 20 127/70 98 05/13/18 07:47 05/13/18 08:12 05/13/18 07:47 05/13/18 08:12 05/13/18 07:47 - Medications Medications: Current Medications Acetaminophen (Tylenol 325mg Tab) 650 mg PO Q4 PRN PRN Reason: Pain, Mild (1-3) Last Admin: 05/11/18 20:15 Dose: 650 mg Clopidogrel Bisulfate (Plavix) 75 mg PO DAILY [facility] Last Admin: 05/13/18 08:13 Dose: 75 mg Heparin Sodium (Porcine) (Heparin) 5,000 units SC Q12 [facility] PRN Reason: Protocol Last Admin: 05/13/18 08:19 Dose: 5,000 units Piperacillin Sod/Tazobactam (Sod 3.375 gm/ Sodium Chloride) 100 mls @ 100 mls/ hr IVPB Q8 [facility] PRN Reason: Protocol Last Admin: 05/13/18 08:20 Dose: 100 mls/hr Vancomycin HCl 1 gm/ Sodium (Chloride) 250 mls @ 250 mls/hr IVPB Q24H [facility] PRN Reason: Protocol Last Admin: 05/13/18 08:11 Dose: 250 mls/hr Insulin Detemir (Levemir) 20 units SC HS [facility] Last Admin: 05/12/18 23:17 Dose: 20 units Insulin Human Regular (Humulin R) 0 units SC ACHS [facility] PRN Reason: Protocol Last Admin: 05/13/18 08:18 Dose: 2 unit Levothyroxine Sodium (Synthroid) 25 mcg PO DAILY@0630 [facility] Last Admin: 05/13/18 06:23 Dose: 25 mcg Lisinopril (Zestril) 10 mg PO DAILY [facility] Last Admin: 05/13/18 08:12 Dose: 10 mg Sitagliptin Phosphate (Januvia) 100 mg PO DAILY [facility] Last Admin: 05/13/18 08:12 Dose: 100 mg - Labs Labs: 05/12/18 05:40 05/13/18 06:10 PT 11.9 Seconds (9.8-13.1) 05/08/18 20:23 INR 1.1 (0.9-1.2) 05/08/18 20:23 APTT 31.4 Seconds (25.6-37.1) 05/12/18 05:40 - Constitutional Appears: Well, Non-toxic, No Acute Distress - Head Exam Head Exam: ATRAUMATIC - Extremities Exam Additional comments: Left lower extremity focused: Vascular: DP 1/4 and PT pulses palpable. CFT <3 secs x4, TG warm to cool, minimal edema noted to dorsal aspect of the foot and ankle Derm:Superficial ulceration noted on the medial aspect of left 5th digit, erythema on lateral aspect of the digit which extends to the dorso-lateral aspect of the foot, necrotic, gangrenous changes noted to entirety of fifth digit. no drainage, no malodor, no fluctuance, no probe to bone Neuro: Protective sensation grossly intact Ortho: No pain on palpation to fifth digit, left 2nd digit partial amputation, right 1st ray partial amputation, no other deformities noted. - Neurological Exam Neurological Exam: Alert, Awake, Oriented x3 - Psychiatric Exam Psychiatric exam: Normal Affect, Normal Mood Assessment and Plan - Assessment and Plan (Free Text) Assessment: 67YO female seen and evaluated at bedside for infected, gangrenous left fifth digit with underlying OM of the middle and distal phalanx. Plan: Patient seen and evaluated Plan discussed with the attending, Dr. Cheung Chart, lab and vitals reviewed. Afebrile, absent leukocytosis Continue IV abx per ID Wound cx toe - Gram (+) Cocci R foot MRI - OM of middle and distal phalanx R fifth digit Per Dr. Long patient is stable for amputation of left fifth digit by Dr. Cheung Surgery scheduled for 05/14 at around 1 pm NPO except meds past midnight Heparin held for AM Foot dressed with betadine and DSD Podiatry will continue to follow while patient in house
--- NOTE | 2018-05-13 11:12 | CP.PCM.PN ---
Subjective - Date & Time of Evaluation Date of Evaluation: 05/12/18 Time of Evaluation: 10:50 - Subjective Subjective: Patient is doing well Accuchecks are better. Has no fever No chest pain or SOB. Objective - Vital Signs/Intake and Output Vital Signs (last 24 hours): Temp Pulse Resp BP Pulse Ox 98.0 F 81 20 127/70 98 05/13/18 07:47 05/13/18 08:12 05/13/18 07:47 05/13/18 08:12 05/13/18 07:47 - Medications Medications: Current Medications Acetaminophen (Tylenol 325mg Tab) 650 mg PO Q4 PRN PRN Reason: Pain, Mild (1-3) Last Admin: 05/11/18 20:15 Dose: 650 mg Clopidogrel Bisulfate (Plavix) 75 mg PO DAILY [facility] Last Admin: 05/13/18 08:13 Dose: 75 mg Heparin Sodium (Porcine) (Heparin) 5,000 units SC Q12 [facility] PRN Reason: Protocol Last Admin: 05/13/18 08:19 Dose: 5,000 units Piperacillin Sod/Tazobactam (Sod 3.375 gm/ Sodium Chloride) 100 mls @ 100 mls/ hr IVPB Q8 [facility] PRN Reason: Protocol Last Admin: 05/13/18 08:20 Dose: 100 mls/hr Vancomycin HCl 1 gm/ Sodium (Chloride) 250 mls @ 250 mls/hr IVPB Q24H [facility] PRN Reason: Protocol Last Admin: 05/13/18 08:11 Dose: 250 mls/hr Insulin Detemir (Levemir) 20 units SC HS [facility] Last Admin: 05/12/18 23:17 Dose: 20 units Insulin Human Regular (Humulin R) 0 units SC ACHS [facility] PRN Reason: Protocol Last Admin: 05/13/18 08:18 Dose: 2 unit Levothyroxine Sodium (Synthroid) 25 mcg PO DAILY@0630 [facility] Last Admin: 05/13/18 06:23 Dose: 25 mcg Lisinopril (Zestril) 10 mg PO DAILY [facility] Last Admin: 05/13/18 08:12 Dose: 10 mg Sitagliptin Phosphate (Januvia) 100 mg PO DAILY [facility] Last Admin: 05/13/18 08:12 Dose: 100 mg - Labs Labs: 05/12/18 05:40 05/13/18 06:10 PT 11.9 Seconds (9.8-13.1) 05/08/18 20:23 INR 1.1 (0.9-1.2) 05/08/18 20:23 APTT 31.4 Seconds (25.6-37.1) 05/12/18 05:40 - Head Exam Head Exam: NORMAL INSPECTION - Eye Exam Eye Exam: Normal appearance - ENT Exam ENT Exam: Mucous Membranes Moist - Respiratory Exam Respiratory Exam: Clear to Ausculation Bilateral - Cardiovascular Exam Cardiovascular Exam: REGULAR RHYTHM - GI/Abdominal Exam GI & Abdominal Exam: Normal Bowel Sounds - Neurological Exam Neurological Exam: Awake, Oriented x3 Assessment and Plan (1) Diabetic foot infection Status: Acute (2) Toe gangrene Status: Acute (3) Diabetes mellitus Status: Acute (4) Hypertension Status: Acute - Assessment and Plan (Free Text) Plan: Cont meds Con ttx Cont PT Iv antibiotics
--- NOTE | 2018-05-13 11:14 | CP.PCM.PN ---
Subjective - Date & Time of Evaluation Date of Evaluation: 05/13/18 Time of Evaluation: 11:12 - Subjective Subjective: Patient remains well. Noted FBS to be less than 200 On Januvia and Levemir Has no chest pain or SOB. Objective - Vital Signs/Intake and Output Vital Signs (last 24 hours): Temp Pulse Resp BP Pulse Ox 98.0 F 81 20 127/70 98 05/13/18 07:47 05/13/18 08:12 05/13/18 07:47 05/13/18 08:12 05/13/18 07:47 - Medications Medications: Current Medications Acetaminophen (Tylenol 325mg Tab) 650 mg PO Q4 PRN PRN Reason: Pain, Mild (1-3) Last Admin: 05/11/18 20:15 Dose: 650 mg Clopidogrel Bisulfate (Plavix) 75 mg PO DAILY [facility] Last Admin: 05/13/18 08:13 Dose: 75 mg Heparin Sodium (Porcine) (Heparin) 5,000 units SC Q12 [facility] PRN Reason: Protocol Last Admin: 05/13/18 08:19 Dose: 5,000 units Piperacillin Sod/Tazobactam (Sod 3.375 gm/ Sodium Chloride) 100 mls @ 100 mls/ hr IVPB Q8 [facility] PRN Reason: Protocol Last Admin: 05/13/18 08:20 Dose: 100 mls/hr Vancomycin HCl 1 gm/ Sodium (Chloride) 250 mls @ 250 mls/hr IVPB Q24H [facility] PRN Reason: Protocol Last Admin: 05/13/18 08:11 Dose: 250 mls/hr Insulin Detemir (Levemir) 20 units SC HS [facility] Last Admin: 05/12/18 23:17 Dose: 20 units Insulin Human Regular (Humulin R) 0 units SC ACHS [facility] PRN Reason: Protocol Last Admin: 05/13/18 08:18 Dose: 2 unit Levothyroxine Sodium (Synthroid) 25 mcg PO DAILY@0630 [facility] Last Admin: 05/13/18 06:23 Dose: 25 mcg Lisinopril (Zestril) 10 mg PO DAILY [facility] Last Admin: 05/13/18 08:12 Dose: 10 mg Sitagliptin Phosphate (Januvia) 100 mg PO DAILY [facility] Last Admin: 05/13/18 08:12 Dose: 100 mg - Labs Labs: 05/12/18 05:40 05/13/18 06:10 PT 11.9 Seconds (9.8-13.1) 05/08/18 20:23 INR 1.1 (0.9-1.2) 05/08/18 20:23 APTT 31.4 Seconds (25.6-37.1) 05/12/18 05:40 - Head Exam Head Exam: NORMAL INSPECTION - Eye Exam Eye Exam: Normal appearance - ENT Exam ENT Exam: Mucous Membranes Moist - Respiratory Exam Respiratory Exam: Clear to Ausculation Bilateral - Cardiovascular Exam Cardiovascular Exam: REGULAR RHYTHM - GI/Abdominal Exam GI & Abdominal Exam: Normal Bowel Sounds - Neurological Exam Neurological Exam: Awake Assessment and Plan (1) Diabetic foot infection Status: Acute (2) Toe gangrene Status: Acute (3) Diabetes mellitus Status: Acute (4) Hypertension Status: Acute (5) PAD (peripheral artery disease) Status: Acute - Assessment and Plan (Free Text) Plan: Cont meds cont tx follow up US arterial lower ext add metformin medically stable for surgery
[2018-05-13] MEDS: Insulin Detemir 100 Units/ml Inj SC SCH (22:59)
[2018-05-14] MEDS: Piperacillin/Tazobact 3.375 GM in Sodium Chloride 0.9% 100 ML IVPB SCH ×3 (01:43→16:20)
[2018-05-14] MEDS: Levothyroxine 25 MCG TAB PO SCH (05:59)
[2018-05-14 07:00] LABS: HEMOGLOBIN 10.3 g/dL (12.0-16.0); MEAN CELL VOLUME 89.4 fl (81.0-99.0); MEAN CORPUSCULAR HEMOGLOBIN 30.3 pg (27.0-31.0); MEAN CORPUSCULAR HGB CONC 33.9 g/dL (33.0-37.0); RBC 3.41 Mil/uL (3.80-5.20); RED CELL DISTRIBUTION WIDTH 13.5 % (11.5-14.5); WHITE BLOOD COUNT 8.9 K/uL (4.8-10.8)
[2018-05-14] MEDS: Insulin Regular 100 units/ml SC SCH ×4 (08:14→21:39)
--- NOTE | 2018-05-14 08:55 | CP.PCM.PN ---
Subjective - Date & Time of Evaluation Date of Evaluation: 05/13/18 Time of Evaluation: 17:00 - Subjective Subjective: pt seen and evaluated plan for amputation in am Objective - Vital Signs/Intake and Output Vital Signs (last 24 hours): Temp Pulse Resp BP Pulse Ox 98.3 F 76 18 151/75 H 97 05/14/18 07:49 05/14/18 08:31 05/14/18 07:49 05/14/18 08:31 05/14/18 07:49 - Medications Medications: Current Medications Acetaminophen (Tylenol 325mg Tab) 650 mg PO Q4 PRN PRN Reason: Pain, Mild (1-3) Last Admin: 05/11/18 20:15 Dose: 650 mg Clopidogrel Bisulfate (Plavix) 75 mg PO DAILY [facility] Last Admin: 05/13/18 08:13 Dose: 75 mg Heparin Sodium (Porcine) (Heparin) 5,000 units SC Q12 [facility] PRN Reason: Protocol Last Admin: 05/13/18 20:16 Dose: Not Given Piperacillin Sod/Tazobactam (Sod 3.375 gm/ Sodium Chloride) 100 mls @ 100 mls/ hr IVPB Q8 [facility] PRN Reason: Protocol Last Admin: 05/14/18 01:43 Dose: 100 mls/hr Vancomycin HCl 1 gm/ Sodium (Chloride) 250 mls @ 250 mls/hr IVPB Q24H [facility] PRN Reason: Protocol Last Admin: 05/14/18 08:10 Dose: 250 mls/hr Insulin Detemir (Levemir) 20 units SC HS [facility] Last Admin: 05/13/18 22:59 Dose: 20 units Insulin Human Regular (Humulin R) 0 units SC ACHS [facility] PRN Reason: Protocol Last Admin: 05/14/18 08:14 Dose: Not Given Levothyroxine Sodium (Synthroid) 25 mcg PO DAILY@0630 [facility] Last Admin: 05/14/18 05:59 Dose: 25 mcg Lisinopril (Zestril) 10 mg PO DAILY [facility] Last Admin: 05/14/18 08:31 Dose: 10 mg Metformin HCl (Glucophage) 500 mg PO BIDWM [facility] Last Admin: 05/14/18 08:15 Dose: Not Given Sitagliptin Phosphate (Januvia) 100 mg PO DAILY [facility] Last Admin: 05/13/18 08:12 Dose: 100 mg - Labs Labs: 05/14/18 06:42 05/14/18 06:42 PT 11.9 Seconds (9.8-13.1) 05/08/18 20:23 INR 1.1 (0.9-1.2) 05/08/18 20:23 APTT 31.4 Seconds (25.6-37.1) 05/12/18 05:40 - Constitutional Appears: Well - Head Exam Head Exam: ATRAUMATIC, NORMAL INSPECTION, NORMOCEPHALIC - Eye Exam Eye Exam: EOMI, Normal appearance, PERRL Pupil Exam: NORMAL ACCOMODATION, PERRL - ENT Exam ENT Exam: Mucous Membranes Moist, Normal Exam - Neck Exam Neck Exam: Full ROM, Normal Inspection. absent: Lymphadenopathy - Respiratory Exam Respiratory Exam: Clear to Ausculation Bilateral, NORMAL BREATHING PATTERN - Cardiovascular Exam Cardiovascular Exam: REGULAR RHYTHM, +S1, +S2, Murmur - GI/Abdominal Exam GI & Abdominal Exam: Soft, Normal Bowel Sounds. 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
[2018-05-14] MEDS ORDERED: Midazolam 2 MG/2 ML VIAL ONE (11:20)
[2018-05-14] MEDS ORDERED: Bupivacaine HCl 0.25% PF (30 ml) Inj ONE (11:20)
[2018-05-14] MEDS ORDERED: Propofol 10 mg/ml Inj (20 ML) ONE (11:20)
[2018-05-14] MEDS ORDERED: Sodium Chloride 0.9% 1,000 ML IV SCH (11:30)
[2018-05-14] MEDS: Lactated Ringer's 500 ML IV ONE ×2 (11:35→12:44)
[2018-05-14] MEDS ORDERED: Succinylcholine 200 mg/10 ml Inj IV ONE (11:57)
--- NOTE | 2018-05-14 12:16 | CP.PCM.PN ---
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 of sfa/politeal with resolution of gradients stable to proceed with amputation remains afeb nad Objective - Vital Signs/Intake and Output Vital Signs (last 24 hours): Temp Pulse Resp BP Pulse Ox 98.3 F 76 18 151/75 H 97 05/14/18 09:00 05/14/18 09:00 05/14/18 09:00 05/14/18 09:00 05/14/18 09:00 - Medications Medications: Current Medications Acetaminophen (Tylenol 325mg Tab) 650 mg PO Q4 PRN PRN Reason: Pain, Mild (1-3) Last Admin: 05/11/18 20:15 Dose: 650 mg Clopidogrel Bisulfate (Plavix) 75 mg PO DAILY [facility] Last Admin: 05/14/18 09:17 Dose: Not Given Heparin Sodium (Porcine) (Heparin) 5,000 units SC Q12 [facility] PRN Reason: Protocol Last Admin: 05/13/18 20:16 Dose: Not Given Piperacillin Sod/Tazobactam (Sod 3.375 gm/ Sodium Chloride) 100 mls @ 100 mls/ hr IVPB Q8 [facility] PRN Reason: Protocol Last Admin: 05/14/18 09:19 Dose: 100 mls/hr Vancomycin HCl 1 gm/ Sodium (Chloride) 250 mls @ 250 mls/hr IVPB Q24H [facility] PRN Reason: Protocol Last Admin: 05/14/18 08:10 Dose: 250 mls/hr Sodium Chloride (Sodium Chloride 0.9%) 1,000 mls @ 200 mls/hr IV .Q5H [facility] Stop: 05/15/18 11:21 Insulin Detemir (Levemir) 20 units SC HS [facility] Last Admin: 05/13/18 22:59 Dose: 20 units Insulin Human Regular (Humulin R) 0 units SC ACHS [facility] PRN Reason: Protocol Last Admin: 05/14/18 11:53 Dose: Not Given Levothyroxine Sodium (Synthroid) 25 mcg PO DAILY@0630 [facility] Last Admin: 05/14/18 05:59 Dose: 25 mcg Lisinopril (Zestril) 10 mg PO DAILY [facility] Last Admin: 05/14/18 08:31 Dose: 10 mg Metformin HCl (Glucophage) 500 mg PO BIDWM [facility] Last Admin: 05/14/18 08:15 Dose: Not Given Sitagliptin Phosphate (Januvia) 100 mg PO DAILY [facility] Last Admin: 05/14/18 09:17 Dose: Not Given - Labs Labs: 05/14/18 06:42 05/14/18 06:42 PT 11.9 Seconds (9.8-13.1) 05/08/18 20:23 INR 1.1 (0.9-1.2) 05/08/18 20:23 APTT 31.4 Seconds (25.6-37.1) 05/12/18 05:40 - Constitutional Appears: Non-toxic, Chronically Ill - Head Exam Head Exam: NORMOCEPHALIC - Eye Exam Eye Exam: Normal appearance - ENT Exam ENT Exam: Mucous Membranes Dry - Neck Exam Neck Exam: absent: Lymphadenopathy - Respiratory Exam Respiratory Exam: Decreased Breath Sounds - Cardiovascular Exam Cardiovascular Exam: REGULAR RHYTHM - GI/Abdominal Exam GI & Abdominal Exam: Soft - Rectal Exam Rectal Exam: Deferred - Exam Exam: NORMAL INSPECTION Assessment and Plan (1) Diabetic foot infection Status: Acute (2) Osteomyelitis Status: Acute - Assessment and Plan (Free Text) Assessment: s/p atherectomy/GRAIN OPERATOR of sfa/politeal with resolution of gradients stable to proceed with amputation cont rx OM for 6 weeks await OR cultures
[2018-05-14] MEDS ORDERED: ePHEDrine 50 mg/ml Inj ONE (12:23)
--- NOTE | 2018-05-14 15:02 | RAD ---
PROCEDURE: Left Foot Radiographs. HISTORY: s/p left fifth digit amputation COMPARISON: Foot radiographs dated 05/08/2018. FINDINGS: BONES: Interval 5th digit transmetatarsal amputation. JOINTS: Normal. SOFT TISSUES: Postsurgical changes. OTHER FINDINGS: Small inferior plantar calcaneal spur. IMPRESSION: Interval 5th digit transmetatarsal amputation with adjacent postsurgical changes.
--- NOTE | 2018-05-14 15:58 | VASCLAB ---
STUDY DESCRIPTION: HISTORY: ischemic left 5th digit PRIORS: None. TECHNIQUE: Pulse volume recording waveforms and segmental pressures of bilateral lower extremities at multiple levels were obtained. Ankle Brachial Indices (ABIs) were calculated. Report prepared by Roman Kulkarni RDMS,DARIEN,DEBBIE APPLE RIGHT LOWER EXTREMITY: * Brachial artery: Pressure - 150 mmHg. * High thigh: Pressure - 209 mmHg: Ratio - 1.99: PVR waveform - Pulsatile * Low thigh: Pressure - mmHg: Ratio - PVR waveform: Pulsatile * Calf: Pressure - >240 mmHg: Ratio - PVR waveform: Pulsatile * Posterior tibial Artery: Pressure - 236 mmHg: Ratio - 2.25 PVR waveform: Pulsatile * Dorsalis pedis Artery: Pressure - 145 mmHg: Ratio - 1.38 PVR waveform: Pulsatile * Great toe: Pressure - mmHg: Ratio - PVR waveform: Pulsatile Ankle brachial index (JAMIA): 2.25 LEFT LOWER EXTREMITY: * Brachial artery: Pressure - 150 mmHg. * High thigh: Pressure - 217 mmHg: Ratio - 2.07: PVR waveform - Pulsatile * Low thigh: Pressure - mmHg: Ratio - PVR waveform: Pulsatile * Calf: Pressure - 160 mmHg: Ratio - 1.52 PVR waveform: Pulsatile * Posterior tibial Artery: Pressure - 136 mmHg: Ratio - 1.30 PVR waveform: Pulsatile * Dorsalis pedis Artery: Pressure - 171 mmHg: Ratio - 1.63 PVR waveform: Pulsatile * Great toe: Pressure - mmHg: Ratio - PVR waveform: Pulsatile Ankle brachial index (JAMIA): 1.63 OTHER FINDINGS: IMPRESSION: Right: Elevated pressures render ankle-brachial index unreliable. Left: Elevated pressures render ankle-brachial index unreliable.
[2018-05-14] MEDS: Insulin Detemir 100 Units/ml Inj SC SCH (21:38)
--- NOTE | 2018-05-15 00:50 | CP.PCM.PN ---
<Martina Ponce - Last Filed: 05/15/18 00:39> Subjective - Date & Time of Evaluation Date of Evaluation: 05/14/18 Time of Evaluation: 10:00 - Subjective Subjective: Patient seen and examined at bedside with Dr. Lama. Denies chest pain, fevers , chills, nausea or vomiting. Patient is NPO for OR today. BP controlled. Glucose control improving. Objective - Vital Signs/Intake and Output Vital Signs (last 24 hours): Temp Pulse Resp BP Pulse Ox 98.0 F 100 H 19 147/61 99 05/15/18 00:00 05/15/18 00:00 05/15/18 00:00 05/15/18 00:00 05/15/18 00:00 Intake and Output: 05/14/18 05/15/18 18:59 06:59 Intake Total 400 Balance 400 - Medications Medications: Current Medications Acetaminophen (Tylenol 325mg Tab) 650 mg PO Q4 PRN PRN Reason: Pain, Mild (1-3) Last Admin: 05/11/18 20:15 Dose: 650 mg Clopidogrel Bisulfate (Plavix) 75 mg PO DAILY [facility] Last Admin: 05/14/18 16:21 Dose: 75 mg Heparin Sodium (Porcine) (Heparin) 5,000 units SC Q12 [facility] PRN Reason: Protocol Last Admin: 05/13/18 20:16 Dose: Not Given Piperacillin Sod/Tazobactam (Sod 3.375 gm/ Sodium Chloride) 100 mls @ 100 mls/ hr IVPB Q8 [facility] PRN Reason: Protocol Last Admin: 05/14/18 16:20 Dose: 100 mls/hr Vancomycin HCl 1 gm/ Sodium (Chloride) 250 mls @ 250 mls/hr IVPB Q24H [facility] PRN Reason: Protocol Last Admin: 05/14/18 08:10 Dose: 250 mls/hr Sodium Chloride (Sodium Chloride 0.9%) 1,000 mls @ 200 mls/hr IV .Q5H [facility] Stop: 05/15/18 11:21 Last Admin: 05/14/18 12:45 Dose: Not Given Insulin Detemir (Levemir) 20 units SC HS [facility] Last Admin: 05/14/18 21:38 Dose: 20 units Insulin Human Regular (Humulin R) 0 units SC ACHS [facility] PRN Reason: Protocol Last Admin: 05/14/18 21:39 Dose: Not Given Levothyroxine Sodium (Synthroid) 25 mcg PO DAILY@0630 [facility] Last Admin: 05/14/18 05:59 Dose: 25 mcg Lisinopril (Zestril) 10 mg PO DAILY [facility] Last Admin: 05/14/18 08:31 Dose: 10 mg Metformin HCl (Glucophage) 500 mg PO BIDWM [facility] Last Admin: 05/14/18 16:21 Dose: 500 mg Sitagliptin Phosphate (Januvia) 100 mg PO DAILY [facility] Last Admin: 05/14/18 16:21 Dose: 100 mg - Labs Labs: 05/14/18 06:42 05/14/18 06:42 PT 11.9 Seconds (9.8-13.1) 05/08/18 20:23 INR 1.1 (0.9-1.2) 05/08/18 20:23 APTT 31.4 Seconds (25.6-37.1) 05/12/18 05:40 - Constitutional Appears: No Acute Distress - Eye Exam Eye Exam: Normal appearance - ENT Exam ENT Exam: Mucous Membranes Moist - Respiratory Exam Respiratory Exam: NORMAL BREATHING PATTERN - Cardiovascular Exam Cardiovascular Exam: REGULAR RHYTHM - GI/Abdominal Exam GI & Abdominal Exam: Normal Bowel Sounds - Neurological Exam Neurological Exam: Alert, Awake - Psychiatric Exam Psychiatric exam: Normal Affect, Normal Mood - Skin Skin Exam: Dry, Warm Assessment and Plan - Assessment and Plan (Free Text) Assessment: -continue medications -continue current management -podiatry on consult -vascular on consult -medically stable for surgery -infectious disease on consult <Rodrigo Lama - Last Filed: 05/16/18 22:13> Objective - Vital Signs/Intake and Output Vital Signs (last 24 hours): Temp Pulse Resp BP Pulse Ox 97.4 F L 77 18 147/65 100 05/16/18 16:30 05/16/18 16:30 05/16/18 16:30 05/16/18 16:30 05/16/18 16:30 - Medications Medications: Current Medications Acetaminophen (Tylenol 325mg Tab) 650 mg PO Q4 PRN PRN Reason: Pain, Mild (1-3) Last Admin: 05/16/18 08:52 Dose: 650 mg Benzocaine/Menthol (Cepacol Sore Throat) 1 celso PO Q3 PRN PRN Reason: Sore Throat Last Admin: 05/16/18 05:51 Dose: 1 celso Clopidogrel Bisulfate (Plavix) 75 mg PO DAILY [facility] Last Admin: 05/16/18 08:14 Dose: 75 mg Heparin Sodium (Porcine) (Heparin) 5,000 units SC Q12 [facility] PRN Reason: Protocol Last Admin: 05/16/18 21:17 Dose: 5,000 units Piperacillin Sod/Tazobactam (Sod 3.375 gm/ Sodium Chloride) 100 mls @ 100 mls/ hr IVPB Q8 [facility] PRN Reason: Protocol Last Admin: 05/16/18 17:01 Dose: 100 mls/hr Vancomycin HCl 1 gm/ Sodium (Chloride) 250 mls @ 250 mls/hr IVPB Q24H [facility] PRN Reason: Protocol Last Admin: 05/16/18 08:15 Dose: 250 mls/hr Insulin Detemir (Levemir) 20 units SC HS [facility] Last Admin: 05/16/18 21:18 Dose: 20 units Insulin Human Regular (Humulin R) 0 units SC ACHS [facility] PRN Reason: Protocol Last Admin: 05/16/18 21:20 Dose: Not Given Levothyroxine Sodium (Synthroid) 25 mcg PO DAILY@0630 [facility] Last Admin: 05/16/18 05:46 Dose: 25 mcg Lisinopril (Zestril) 10 mg PO DAILY [facility] Last Admin: 05/16/18 08:16 Dose: 10 mg Metformin HCl (Glucophage) 500 mg PO BIDWM [facility] Last Admin: 05/16/18 17:01 Dose: 500 mg Sitagliptin Phosphate (Januvia) 100 mg PO DAILY [facility] Last Admin: 05/16/18 08:14 Dose: 100 mg - Labs Labs: 05/14/18 06:42 05/14/18 06:42 PT 11.9 Seconds (9.8-13.1) 05/08/18 20:23 INR 1.1 (0.9-1.2) 05/08/18 20:23 APTT 31.4 Seconds (25.6-37.1) 05/12/18 05:40 Assessment and Plan (1) Diabetic foot infection Status: Acute (2) Toe gangrene Status: Acute (3) Diabetes mellitus Status: Acute (4) Hypertension Status: Acute (5) PAD (peripheral artery disease) Status: Acute - Assessment and Plan (Free Text) Plan: I was present during evaluation and discussed with Dr Ponce re plans of care and mgt. Rodrigo Lama M.D.
[2018-05-15] MEDS: Piperacillin/Tazobact 3.375 GM in Sodium Chloride 0.9% 100 ML IVPB SCH ×3 (00:51→16:18)
[2018-05-15] MEDS: Levothyroxine 25 MCG TAB PO SCH (05:36)
[2018-05-15] MEDS: Insulin Regular 100 units/ml SC SCH ×5 (08:11→21:31)
--- NOTE | 2018-05-15 10:04 | PCM.SURG1 ---
Surgeon's Initial Post Op Note - Surgeon's Notes Surgeon: Dr. Cheung Wheel Setter: Dr. Ligia Cazares PGY-1 Type of Anesthesia: General LMA, Local Anesthesia Administered By: Dr. Dorsey Pre-Operative Diagnosis: left foot 5th digit diabetic ulcer with osteomyelitis Operative Findings: see operative report. I: 12 cc 1:1 mix 2% Lidocaine plain and 0.25% Marcaine plain. M: 3-0 prolene, 1/4" plain packing Post-Operative Diagnosis: same Operation Performed: left foot 5th digit amputation with 5th metatarsal head resection Specimen/Specimens Removed: left foot 5th digit bone and soft tissue Estimated Blood Loss: EBL {In ML}: 20 Blood Products Given: N/A Drains Used: No Drains Post-Op Condition: Good Date of Surgery/Procedure: 05/14/18 Time of Surgery/Procedure: 12:30
--- NOTE | 2018-05-15 11:01 | CP.PCM.PN ---
Subjective - Date & Time of Evaluation Date of Evaluation: 05/15/18 Time of Evaluation: 10:58 - Subjective Subjective: 67 YO female seen at bedside 1 day s/p amputation of left 5th digit and partial 5th metatarsal. Patient is seen resting comfortably in bed and not in any acute distress. AAO x3. Patients dressing is dry, clean and intact. Patient denies any acute overnight events. Patient admits to mild throbbing pain in the area of the surgery. Denies any N/V/F/SOB/Chills. Objective - Vital Signs/Intake and Output Vital Signs (last 24 hours): Temp Pulse Resp BP Pulse Ox 97.9 F 89 19 146/74 98 05/15/18 08:54 05/15/18 08:54 05/15/18 08:54 05/15/18 08:54 05/15/18 08:54 - Medications Medications: Current Medications Acetaminophen (Tylenol 325mg Tab) 650 mg PO Q4 PRN PRN Reason: Pain, Mild (1-3) Last Admin: 05/15/18 05:37 Dose: 650 mg Clopidogrel Bisulfate (Plavix) 75 mg PO DAILY [facility] Last Admin: 05/15/18 08:10 Dose: 75 mg Heparin Sodium (Porcine) (Heparin) 5,000 units SC Q12 [facility] PRN Reason: Protocol Last Admin: 05/15/18 09:44 Dose: 5,000 units Piperacillin Sod/Tazobactam (Sod 3.375 gm/ Sodium Chloride) 100 mls @ 100 mls/ hr IVPB Q8 [facility] PRN Reason: Protocol Last Admin: 05/15/18 08:19 Dose: 100 mls/hr Vancomycin HCl 1 gm/ Sodium (Chloride) 250 mls @ 250 mls/hr IVPB Q24H [facility] PRN Reason: Protocol Last Admin: 05/15/18 07:37 Dose: 250 mls/hr Insulin Detemir (Levemir) 20 units SC HS [facility] Last Admin: 05/14/18 21:38 Dose: 20 units Insulin Human Regular (Humulin R) 0 units SC ACHS [facility] PRN Reason: Protocol Last Admin: 05/15/18 08:11 Dose: 2 unit Levothyroxine Sodium (Synthroid) 25 mcg PO DAILY@0630 [facility] Last Admin: 05/15/18 05:36 Dose: 25 mcg Lisinopril (Zestril) 10 mg PO DAILY [facility] Last Admin: 05/15/18 08:13 Dose: 10 mg Metformin HCl (Glucophage) 500 mg PO BIDWM [facility] Last Admin: 05/15/18 08:10 Dose: 500 mg Sitagliptin Phosphate (Januvia) 100 mg PO DAILY [facility] Last Admin: 05/15/18 08:10 Dose: 100 mg - Labs Labs: 05/14/18 06:42 05/14/18 06:42 PT 11.9 Seconds (9.8-13.1) 05/08/18 20:23 INR 1.1 (0.9-1.2) 05/08/18 20:23 APTT 31.4 Seconds (25.6-37.1) 05/12/18 05:40 - Constitutional Appears: Well, Non-toxic - Head Exam Head Exam: ATRAUMATIC, NORMOCEPHALIC - Extremities Exam Additional comments: Left lower extremity focused: Vascular: DP/PT pulses palpable. CFT<3 secs x4, TG warm to cool, minimal edema noted surround the surgery site. Derm: Steri-strips noted overlying the amputation site, packing noted towards the proximal aspect of the incision site, mild erythema anastacia incision site WNL given post op status, mild swelling, no malodor, no purulence, no drainage noted. Neuro: Protective sensation grossly intact Ortho: Mild pain on palpation to the site of amputation. - Neurological Exam Neurological Exam: Alert, Awake, Oriented x3 - Psychiatric Exam Psychiatric exam: Normal Affect, Normal Mood - Skin Skin Exam: Normal Color Assessment and Plan - Assessment and Plan (Free Text) Assessment: 67 YO female 1 day s/p left fifth digit and partial metatarsal amputation (05/14) . Plan: Patient seen and evaluated Plan discussed in detail with attending, Dr. Cheung Chart, labs, and vitals reviewed; Afebrile; WBC 8.9 Continue IV abx per ID Packing advanced from the surgical site Post-op foot x-ray; 5th digit transmetatarsal amputation Intra-op pathology and wound culture results pending Foot dressed with telfa, gauze, kerlix, and ROD Podiatry will continue to follow while patient in house.
[2018-05-15] MEDS: Insulin Detemir 100 Units/ml Inj SC SCH (21:30)
[2018-05-15] MEDS: Benzocaine/Menthol (Cepacol) Lozenge PO PRN (21:32)
[2018-05-16] MEDS: Piperacillin/Tazobact 3.375 GM in Sodium Chloride 0.9% 100 ML IVPB SCH ×3 (00:06→17:01)
[2018-05-16] MEDS: Levothyroxine 25 MCG TAB PO SCH (05:46)
[2018-05-16] MEDS: Benzocaine/Menthol (Cepacol) Lozenge PO PRN (05:51)
[2018-05-16] MEDS: Insulin Regular 100 units/ml SC SCH ×4 (08:13→21:20)
--- NOTE | 2018-05-16 11:58 | CP.PCM.PN ---
Subjective - Date & Time of Evaluation Date of Evaluation: 05/16/18 Time of Evaluation: 08:00 - Subjective Subjective: s/p left 5th digit met head resection denies fever pain awake alert NAD Objective - Vital Signs/Intake and Output Vital Signs (last 24 hours): Temp Pulse Resp BP Pulse Ox 98.1 F 79 20 144/72 97 05/16/18 08:03 05/16/18 08:03 05/16/18 08:03 05/16/18 08:03 05/16/18 08:03 - Medications Medications: Current Medications Acetaminophen (Tylenol 325mg Tab) 650 mg PO Q4 PRN PRN Reason: Pain, Mild (1-3) Last Admin: 05/16/18 08:52 Dose: 650 mg Benzocaine/Menthol (Cepacol Sore Throat) 1 celso PO Q3 PRN PRN Reason: Sore Throat Last Admin: 05/16/18 05:51 Dose: 1 celso Clopidogrel Bisulfate (Plavix) 75 mg PO DAILY [facility] Last Admin: 05/16/18 08:14 Dose: 75 mg Heparin Sodium (Porcine) (Heparin) 5,000 units SC Q12 [facility] PRN Reason: Protocol Last Admin: 05/16/18 08:12 Dose: 5,000 units Piperacillin Sod/Tazobactam (Sod 3.375 gm/ Sodium Chloride) 100 mls @ 100 mls/ hr IVPB Q8 [facility] PRN Reason: Protocol Last Admin: 05/16/18 08:15 Dose: 100 mls/hr Vancomycin HCl 1 gm/ Sodium (Chloride) 250 mls @ 250 mls/hr IVPB Q24H [facility] PRN Reason: Protocol Last Admin: 05/16/18 08:15 Dose: 250 mls/hr Insulin Detemir (Levemir) 20 units SC HS [facility] Last Admin: 05/15/18 21:30 Dose: 20 units Insulin Human Regular (Humulin R) 0 units SC ACHS [facility] PRN Reason: Protocol Last Admin: 05/16/18 11:51 Dose: 12 unit Levothyroxine Sodium (Synthroid) 25 mcg PO DAILY@0630 [facility] Last Admin: 05/16/18 05:46 Dose: 25 mcg Lisinopril (Zestril) 10 mg PO DAILY [facility] Last Admin: 05/16/18 08:16 Dose: 10 mg Metformin HCl (Glucophage) 500 mg PO BIDWM [facility] Last Admin: 05/16/18 08:11 Dose: 500 mg Sitagliptin Phosphate (Januvia) 100 mg PO DAILY [facility] Last Admin: 05/16/18 08:14 Dose: 100 mg - Labs Labs: 05/14/18 06:42 05/14/18 06:42 PT 11.9 Seconds (9.8-13.1) 05/08/18 20:23 INR 1.1 (0.9-1.2) 05/08/18 20:23 APTT 31.4 Seconds (25.6-37.1) 05/12/18 05:40 - Constitutional Appears: Non-toxic, Chronically Ill - Head Exam Head Exam: NORMOCEPHALIC - Eye Exam Eye Exam: PERRL. absent: Scleral icterus - ENT Exam ENT Exam: Mucous Membranes Dry, Normal Oropharynx - Neck Exam Neck Exam: absent: Lymphadenopathy - Respiratory Exam Respiratory Exam: Decreased Breath Sounds - Cardiovascular Exam Cardiovascular Exam: REGULAR RHYTHM - GI/Abdominal Exam GI & Abdominal Exam: Distended, Soft - Rectal Exam Rectal Exam: Deferred - Exam Exam: NORMAL INSPECTION - Extremities Exam Extremities Exam: Pedal Edema. absent: Calf Tenderness, Tenderness Additional comments: Additional comments: Left lower extremity focused: Vascular: DP/PT pulses palpable. CFT<3 secs x4, TG warm to cool, minimal edema noted surround the surgery site. Derm: Steri-strips noted overlying the amputation site, packing noted towards the proximal aspect of the incision site, mild erythema anastacia incision site WNL given post op status, mild swelling, no malodor, no purulence, no drainage noted. Neuro: Protective sensation grossly intact Ortho: Mild pain on palpation to the site of amputation. - Back Exam Back Exam: absent: CVA tenderness (L), CVA tenderness (R) - Neurological Exam Neurological Exam: Alert, Awake, CN II-XII Intact, Oriented x3 Neuro motor strength exam: Left Upper Extremity: 4, Right Upper Extremity: 4, Left Lower Extremity: 4, Right Lower Extremity: 4 - Psychiatric Exam Psychiatric exam: Normal Mood - Skin Skin Exam: Dry Assessment and Plan (1) Diabetic foot infection Status: Acute (2) Osteomyelitis Status: Acute - Assessment and Plan (Free Text) Assessment: cont iv rx for 6 weeks
--- NOTE | 2018-05-16 12:12 | CP.PCM.PN ---
Subjective - Date & Time of Evaluation Date of Evaluation: 05/16/18 Time of Evaluation: 12:09 - Subjective Subjective: Podiatry pogress note for attending, Dr. Cheung 67 y/o female seen at bedside 2 days s/p amputation of left 5th digit and partial 5th metatarsal. Patient is seen resting comfortably in bed and not in any acute distress. Patient is AAOx3. Patient's dressing is dry, clean and intact. Patient denies any acute overnight events. Patient admits to mild throbbing pain in the area of the surgery. Denies any N/V/F/SOB/Chills. Objective - Vital Signs/Intake and Output Vital Signs (last 24 hours): Temp Pulse Resp BP Pulse Ox 98.1 F 79 20 144/72 97 05/16/18 08:03 05/16/18 08:03 05/16/18 08:03 05/16/18 08:03 05/16/18 08:03 - Medications Medications: Current Medications Acetaminophen (Tylenol 325mg Tab) 650 mg PO Q4 PRN PRN Reason: Pain, Mild (1-3) Last Admin: 05/16/18 08:52 Dose: 650 mg Benzocaine/Menthol (Cepacol Sore Throat) 1 celso PO Q3 PRN PRN Reason: Sore Throat Last Admin: 05/16/18 05:51 Dose: 1 celso Clopidogrel Bisulfate (Plavix) 75 mg PO DAILY [facility] Last Admin: 05/16/18 08:14 Dose: 75 mg Heparin Sodium (Porcine) (Heparin) 5,000 units SC Q12 [facility] PRN Reason: Protocol Last Admin: 05/16/18 08:12 Dose: 5,000 units Piperacillin Sod/Tazobactam (Sod 3.375 gm/ Sodium Chloride) 100 mls @ 100 mls/ hr IVPB Q8 [facility] PRN Reason: Protocol Last Admin: 05/16/18 08:15 Dose: 100 mls/hr Vancomycin HCl 1 gm/ Sodium (Chloride) 250 mls @ 250 mls/hr IVPB Q24H [facility] PRN Reason: Protocol Last Admin: 05/16/18 08:15 Dose: 250 mls/hr Insulin Detemir (Levemir) 20 units SC HS [facility] Last Admin: 05/15/18 21:30 Dose: 20 units Insulin Human Regular (Humulin R) 0 units SC ACHS [facility] PRN Reason: Protocol Last Admin: 05/16/18 11:51 Dose: 12 unit Levothyroxine Sodium (Synthroid) 25 mcg PO DAILY@0630 [facility] Last Admin: 05/16/18 05:46 Dose: 25 mcg Lisinopril (Zestril) 10 mg PO DAILY [facility] Last Admin: 05/16/18 08:16 Dose: 10 mg Metformin HCl (Glucophage) 500 mg PO BIDWM [facility] Last Admin: 05/16/18 08:11 Dose: 500 mg Sitagliptin Phosphate (Januvia) 100 mg PO DAILY [facility] Last Admin: 05/16/18 08:14 Dose: 100 mg - Labs Labs: 05/14/18 06:42 05/14/18 06:42 PT 11.9 Seconds (9.8-13.1) 05/08/18 20:23 INR 1.1 (0.9-1.2) 05/08/18 20:23 APTT 31.4 Seconds (25.6-37.1) 05/12/18 05:40 - Constitutional Appears: Well, Non-toxic, No Acute Distress - Head Exam Head Exam: ATRAUMATIC, NORMOCEPHALIC - Extremities Exam Additional comments: Left lower extremity focused: Vascular: DP/PT pulses palpable. CFT<3 secs x4, TG warm to cool, minimal edema noted surround the surgery site. Derm: Steri-strips noted overlying the amputation site, packing noted towards the proximal aspect of the incision site, mild erythema anastacia -incision site WNL given post op status, mild swelling, no malodor, no purulence, no drainage noted. Neuro: Protective sensation grossly intact Ortho: Mild pain on palpation to the site of amputation. - Neurological Exam Neurological Exam: Alert, Awake, Oriented x3 - Psychiatric Exam Psychiatric exam: Normal Affect, Normal Mood Assessment and Plan - Assessment and Plan (Free Text) Assessment: 67 y/o female 2 days s/p left fifth digit and partial metatarsal amputation (). Plan: Patient seen and evaluated Plan discussed in detail with attending, Dr. Cheung Chart, labs, and vitals reviewed; Afebrile Packing advanced from the surgical site Post-op foot x-ray: 5th digit transmetatarsal amputation Intra-op pathology and wound culture results pending Foot dressed with telfa, gauze, kerlix, and ROD Continue IV abx per ID Podiatry will continue to follow while patient in house.
--- NOTE | 2018-05-16 19:25 | PCM.OP ---
Operative Report - Operative Report Date of Surgery/Procedure: 05/14/18 Time of Surgery/Procedure: 11:30 Surgeon: Dr. Cheung [employer] Director: Dr. Ligia Cazares PGY-1 Anesthesia/Sedation: General LMA + local anesthesia Pre-Operative Diagnosis: left foot 5th digit diabetic ulcer with osteomyelitis Post-Operative Diagnosis: left foot 5th digit diabetic ulcer with osteomyelitis Indication for Surgery: The patient is a 67 year old female with the above diagnoses. The patient has exhausted all conservative treatment at this time and now requires surgical intervention. The patient signed the consent after careful explanation of risks, benefits, complications and alternatives for surgical procedure. No guarantees were given nor implied. NPO status was confirmed prior to taking patient to the OR. Operative Findings: see below operative report Procedure/Operation Description: The patient was brought in to the operating room and placed on the operating room table in a supine position. Timeout was performed for identification of the correct patient and procedure. After induction of general LMA anesthesia, the patient received a total of 12 cc of a 1:1 mix of 2% lidocaine plain and 0.25% Marcaine plain in a reverse Dobbs block fashion to the left foot. The left foot was then prepped and draped in normal sterile manner and the procedure began. No tourniquet was used during the procedure. . Attention was then drawn to the dorsal aspect of the left foot 5th digit and 5th metatarsal where a racket shape incision was made extending distally from the dorsal aspect of the 5th metatarsal head in a linear fashion, continuing circumferentially distally and plantarly around the 5th digit using a # 15 blade. The incision was then extended down through the subcutaneous layers down to the level of bone. Using a bone clamp to stabilize the toe, the 5th digit was then disarticulated from the foot at the level of the MPJ. All bone and soft tissue was sent for pathology at this time. A freer, sterile forceps and a sterile 15 blade was then used to free up the soft tissue overlying the 5th metatarsal head bone. A sagittal saw was then used to resect the 5th metatarsal head. The bone was then passed from the field and sent for pathology. We then copiously irrigated the surgical site with sterile saline and a bulb syringe. The proximal and distal aspects of the surgical site were then reapproximated with 3-0 prolene sutures. The central aspect of the surgical site at the level of the 4th interspace was then left open and packed with 1/4 plain packing and dressed with 4x4 gauze, ABD pads and kerlix dressing with a light ROD bandage. Estimated Blood Loss: 20 Blood Replaced: none Complications: None Specimen: left foot 5th metatarsal head bone, 5th digit bone Discharge & Condition: The patient tolerated the local anesthesia and procedure well and was escorted to the recovery room with neurovascular status intact to the left foot. Patient is to remain partial weight bearing at this time to the left heel with use of surgical shoe. Patient will remain in house and podiatry will continue to follow. Upon discharge, patient is to follow up with Dr. Cheung in [facility] podiatry clinic within one week of discharge.
[2018-05-16] MEDS: Insulin Detemir 100 Units/ml Inj SC SCH ×2 (21:18→23:00)
--- NOTE | 2018-05-16 22:17 | CP.PCM.PN ---
Subjective - Date & Time of Evaluation Date of Evaluation: 05/15/18 Time of Evaluation: 10:35 - Subjective Subjective: Patient continues to do well Has no chest pain or SOB Afberile. Still with elevated FBS. Objective - Vital Signs/Intake and Output Vital Signs (last 24 hours): Temp Pulse Resp BP Pulse Ox 97.4 F L 77 18 147/65 100 05/16/18 16:30 05/16/18 16:30 05/16/18 16:30 05/16/18 16:30 05/16/18 16:30 - Medications Medications: Current Medications Acetaminophen (Tylenol 325mg Tab) 650 mg PO Q4 PRN PRN Reason: Pain, Mild (1-3) Last Admin: 05/16/18 08:52 Dose: 650 mg Benzocaine/Menthol (Cepacol Sore Throat) 1 celso PO Q3 PRN PRN Reason: Sore Throat Last Admin: 05/16/18 05:51 Dose: 1 celso Clopidogrel Bisulfate (Plavix) 75 mg PO DAILY [facility] Last Admin: 05/16/18 08:14 Dose: 75 mg Heparin Sodium (Porcine) (Heparin) 5,000 units SC Q12 [facility] PRN Reason: Protocol Last Admin: 05/16/18 21:17 Dose: 5,000 units Piperacillin Sod/Tazobactam (Sod 3.375 gm/ Sodium Chloride) 100 mls @ 100 mls/ hr IVPB Q8 [facility] PRN Reason: Protocol Last Admin: 05/16/18 17:01 Dose: 100 mls/hr Vancomycin HCl 1 gm/ Sodium (Chloride) 250 mls @ 250 mls/hr IVPB Q24H [facility] PRN Reason: Protocol Last Admin: 05/16/18 08:15 Dose: 250 mls/hr Insulin Detemir (Levemir) 20 units SC HS [facility] Last Admin: 05/16/18 21:18 Dose: 20 units Insulin Human Regular (Humulin R) 0 units SC ACHS [facility] PRN Reason: Protocol Last Admin: 05/16/18 21:20 Dose: Not Given Levothyroxine Sodium (Synthroid) 25 mcg PO DAILY@0630 [facility] Last Admin: 05/16/18 05:46 Dose: 25 mcg Lisinopril (Zestril) 10 mg PO DAILY [facility] Last Admin: 05/16/18 08:16 Dose: 10 mg Metformin HCl (Glucophage) 500 mg PO BIDWM [facility] Last Admin: 05/16/18 17:01 Dose: 500 mg Sitagliptin Phosphate (Januvia) 100 mg PO DAILY [facility] Last Admin: 05/16/18 08:14 Dose: 100 mg - Labs Labs: 05/14/18 06:42 05/14/18 06:42 PT 11.9 Seconds (9.8-13.1) 05/08/18 20:23 INR 1.1 (0.9-1.2) 05/08/18 20:23 APTT 31.4 Seconds (25.6-37.1) 05/12/18 05:40 - Head Exam Head Exam: NORMAL INSPECTION - Eye Exam Eye Exam: Normal appearance - ENT Exam ENT Exam: Mucous Membranes Moist - Respiratory Exam Respiratory Exam: Clear to Ausculation Bilateral - Cardiovascular Exam Cardiovascular Exam: REGULAR RHYTHM - Neurological Exam Neurological Exam: Awake, Oriented x3 Assessment and Plan (1) Diabetic foot infection Status: Acute (2) Toe gangrene Status: Acute (3) Diabetes mellitus Status: Acute (4) Hypertension Status: Acute (5) PAD (peripheral artery disease) Status: Acute - Assessment and Plan (Free Text) Plan: Cont meds Cont tx Cont PT adjust insulin cont meds.
--- NOTE | 2018-05-16 22:21 | CP.PCM.PN ---
Subjective - Date & Time of Evaluation Date of Evaluation: 05/16/18 Time of Evaluation: 11:35 - Subjective Subjective: Patient continues to do well Still with elevated FBS Has no chest pain or SOB. Objective - Vital Signs/Intake and Output Vital Signs (last 24 hours): Temp Pulse Resp BP Pulse Ox 97.4 F L 77 18 147/65 100 05/16/18 16:30 05/16/18 16:30 05/16/18 16:30 05/16/18 16:30 05/16/18 16:30 - Medications Medications: Current Medications Acetaminophen (Tylenol 325mg Tab) 650 mg PO Q4 PRN PRN Reason: Pain, Mild (1-3) Last Admin: 05/16/18 08:52 Dose: 650 mg Benzocaine/Menthol (Cepacol Sore Throat) 1 celso PO Q3 PRN PRN Reason: Sore Throat Last Admin: 05/16/18 05:51 Dose: 1 celso Clopidogrel Bisulfate (Plavix) 75 mg PO DAILY [facility] Last Admin: 05/16/18 08:14 Dose: 75 mg Heparin Sodium (Porcine) (Heparin) 5,000 units SC Q12 [facility] PRN Reason: Protocol Last Admin: 05/16/18 21:17 Dose: 5,000 units Piperacillin Sod/Tazobactam (Sod 3.375 gm/ Sodium Chloride) 100 mls @ 100 mls/ hr IVPB Q8 [facility] PRN Reason: Protocol Last Admin: 05/16/18 17:01 Dose: 100 mls/hr Vancomycin HCl 1 gm/ Sodium (Chloride) 250 mls @ 250 mls/hr IVPB Q24H [facility] PRN Reason: Protocol Last Admin: 05/16/18 08:15 Dose: 250 mls/hr Insulin Human Regular (Humulin R) 0 units SC ACHS [facility] PRN Reason: Protocol Last Admin: 05/16/18 21:20 Dose: Not Given Levothyroxine Sodium (Synthroid) 25 mcg PO DAILY@0630 [facility] Last Admin: 05/16/18 05:46 Dose: 25 mcg Lisinopril (Zestril) 10 mg PO DAILY [facility] Last Admin: 05/16/18 08:16 Dose: 10 mg Sitagliptin Phosphate (Januvia) 100 mg PO DAILY [facility] Last Admin: 05/16/18 08:14 Dose: 100 mg - Labs Labs: 05/14/18 06:42 05/14/18 06:42 PT 11.9 Seconds (9.8-13.1) 05/08/18 20:23 INR 1.1 (0.9-1.2) 05/08/18 20:23 APTT 31.4 Seconds (25.6-37.1) 05/12/18 05:40 - Head Exam Head Exam: NORMAL INSPECTION - Eye Exam Eye Exam: Normal appearance - ENT Exam ENT Exam: Mucous Membranes Moist - Respiratory Exam Respiratory Exam: Clear to Ausculation Bilateral - Cardiovascular Exam Cardiovascular Exam: REGULAR RHYTHM - GI/Abdominal Exam GI & Abdominal Exam: Normal Bowel Sounds - Neurological Exam Neurological Exam: Awake, Oriented x3 - Psychiatric Exam Psychiatric exam: Normal Mood Assessment and Plan (1) Diabetic foot infection Status: Acute (2) Toe gangrene Status: Acute (3) Diabetes mellitus Status: Acute (4) Hypertension Status: Acute (5) PAD (peripheral artery disease) Status: Acute - Assessment and Plan (Free Text) Plan: Cont meds Cont tx Cont accucheck increase insulin
[2018-05-16] MEDS ORDERED: Insulin Detemir 100 Units/ml Inj SC ONE (22:41)
[2018-05-17] MEDS: Piperacillin/Tazobact 3.375 GM in Sodium Chloride 0.9% 100 ML IVPB SCH ×4 (00:09→17:16)
[2018-05-17] MEDS: Levothyroxine 25 MCG TAB PO SCH (06:12)
[2018-05-17 06:18] LABS: BASO # 0.1 K/uL (0.0-0.2); BASO % 0.9 % (0.0-2.0); EOS # 0.6 K/uL (0.0-0.7); HEMOGLOBIN 10.5 g/dL (12.0-16.0); LYMPH # 3.8 K/uL (1.0-4.3); LYMPH % 33.5 % (20.0-40.0); MEAN CELL VOLUME 90.3 fl (81.0-99.0); MEAN CORPUSCULAR HEMOGLOBIN 30.1 pg (27.0-31.0); MEAN CORPUSCULAR HGB CONC 33.3 g/dL (33.0-37.0); MEAN PLATELET VOLUME 8.1 fl (7.2-11.7); MONO # 1.2 K/uL (0.0-0.8); MONO % 10.5 % (0.0-10.0); NEUT # 5.7 K/uL (1.8-7.0); NEUT % 50.1 % (50.0-75.0); RBC 3.49 Mil/uL (3.80-5.20); RED CELL DISTRIBUTION WIDTH 13.4 % (11.5-14.5); WHITE BLOOD COUNT 11.4 K/uL (4.8-10.8)
[2018-05-17 06:33] LABS: ALB/GLOB RATIO 0.7 (1.0-2.1); ALBUMIN 3.8 g/dL (3.5-5.0); CALCIUM 9.4 mg/dL (8.4-10.2)
[2018-05-17] MEDS: Insulin Regular 100 units/ml SC SCH ×5 (08:29→21:18)
[2018-05-17] MEDS: Benzocaine/Menthol (Cepacol) Lozenge PO PRN (12:12)
--- NOTE | 2018-05-17 13:15 | CP.PCM.PN ---
Subjective - Date & Time of Evaluation Date of Evaluation: 05/17/18 Time of Evaluation: 13:14 - Subjective Subjective: Podiatry pogress note for attending, Dr. Cheung 67 y/o female seen at bedside 3 days s/p amputation of left 5th digit and partial 5th metatarsal. Patient is seen resting comfortably in bed and not in any acute distress. Patient is AAOx3. Patient's dressing is dry, clean and intact. Patient denies any acute overnight events. Patient denies any pain to the area. Denies any N/V/F/SOB/Chills. Objective - Vital Signs/Intake and Output Vital Signs (last 24 hours): Temp Pulse Resp BP Pulse Ox 98.4 F 72 18 137/82 98 05/17/18 08:16 05/17/18 08:29 05/17/18 08:16 05/17/18 08:29 05/17/18 08:16 - Medications Medications: Current Medications Acetaminophen (Tylenol 325mg Tab) 650 mg PO Q4 PRN PRN Reason: Pain, Mild (1-3) Last Admin: 05/16/18 08:52 Dose: 650 mg Benzocaine/Menthol (Cepacol Sore Throat) 1 celso PO Q3 PRN PRN Reason: Sore Throat Last Admin: 05/17/18 12:12 Dose: 1 celso Clopidogrel Bisulfate (Plavix) 75 mg PO DAILY [facility] Last Admin: 05/17/18 08:28 Dose: 75 mg Heparin Sodium (Porcine) (Heparin) 5,000 units SC Q12 [facility] PRN Reason: Protocol Last Admin: 05/17/18 08:29 Dose: 5,000 units Piperacillin Sod/Tazobactam (Sod 3.375 gm/ Sodium Chloride) 100 mls @ 100 mls/ hr IVPB Q8 [facility] PRN Reason: Protocol Last Admin: 05/17/18 08:28 Dose: 100 mls/hr Vancomycin HCl 1 gm/ Sodium (Chloride) 250 mls @ 250 mls/hr IVPB Q24H [facility] PRN Reason: Protocol Last Admin: 05/17/18 08:28 Dose: 250 mls/hr Insulin Detemir (Levemir) 25 units SC HS [facility] Last Admin: 05/16/18 23:00 Dose: Not Given Insulin Human Regular (Humulin R) 0 units SC ACHS [facility] PRN Reason: Protocol Last Admin: 05/17/18 12:08 Dose: 4 unit Levothyroxine Sodium (Synthroid) 25 mcg PO DAILY@0630 [facility] Last Admin: 05/17/18 06:12 Dose: 25 mcg Lisinopril (Zestril) 10 mg PO DAILY [facility] Last Admin: 05/17/18 08:29 Dose: 10 mg Metformin HCl (Glucophage) 500 mg PO TID [facility] Last Admin: 05/17/18 12:06 Dose: 500 mg Sitagliptin Phosphate (Januvia) 100 mg PO DAILY [facility] Last Admin: 05/17/18 08:29 Dose: 100 mg - Labs Labs: 05/17/18 04:00 05/17/18 05:45 PT 11.9 Seconds (9.8-13.1) 05/08/18 20:23 INR 1.1 (0.9-1.2) 05/08/18 20:23 APTT 31.4 Seconds (25.6-37.1) 05/12/18 05:40 - Constitutional Appears: Well, Non-toxic, No Acute Distress - Head Exam Head Exam: ATRAUMATIC, NORMOCEPHALIC - Extremities Exam Additional comments: Left lower extremity focused: Vascular: DP/PT pulses palpable. CFT<3 secs x4, TG warm to cool, minimal edema and erythema noted surrounding the surgery site. Derm: Steri-strips noted overlying the amputation site, packing noted towards the proximal aspect of the incision site, mild erythema anastacia -incision site WNL given post op status, mild swelling, no malodor, no purulence, no drainage noted. Neuro: Protective sensation grossly intact Ortho: Mild pain on palpation to the site of amputation. - Neurological Exam Neurological Exam: Alert, Awake, Oriented x3 - Psychiatric Exam Psychiatric exam: Normal Affect, Normal Mood - Skin Skin Exam: Normal Color Assessment and Plan - Assessment and Plan (Free Text) Assessment: 67 y/o female 3 days s/p left fifth digit and partial metatarsal amputation (). Plan: Patient seen and evaluated Plan discussed in detail with attending, Dr. Cheung Chart, labs, and vitals reviewed; Afebrile Packing removed from the surgical site Post-op foot x-ray: 5th digit transmetatarsal amputation Intra-op patholog results: Intra-op Wound culture: Coagulase negative staphylococcus Foot dressed with telfa, gauze, kerlix, and ROD Continue IV abx per ID Podiatry will continue to follow while patient in house. Patient stable from podiatry to be discharged to home
[2018-05-17] MEDS ORDERED: Lidocaine 1% Inj (20ml) ONE (13:52)
--- NOTE | 2018-05-17 14:07 | PCM.SURG1 ---
Surgeon's Initial Post Op Note - Surgeon's Notes Surgeon: Nahum Guzman MD Ice Delivery Driver: NONE Type of Anesthesia: Local Pre-Operative Diagnosis: IV abx required Operative Findings: US showed patent right basilic vein Post-Operative Diagnosis: IV antibiotics required Operation Performed: single lumen picc right basilic vein, 37 cm. Tip is in the SVC. Specimen/Specimens Removed: None Estimated Blood Loss: EBL {In ML}: 2 Blood Products Given: N/A Drains Used: No Drains Post-Op Condition: Fair Date of Surgery/Procedure: 05/17/18 Time of Surgery/Procedure: 14:00
--- NOTE | 2018-05-17 14:19 | VASCULAR ---
PROCEDURE: Date of procedure: 05/17/2018 Procedure: 1. Placement of a right arm PICC with ultrasound and fluoroscopic guidance, CPT 42882 2. PICC tip confirmation with spot radiograph and is in the superior vena cava Medications: 1 percent lidocaine Total Fluoro time: 4.3 seconds Radiation: 0.62 MGy EBL: 2 cc HISTORY: Infection requiring long-term IV antibiotics TECHNIQUE: Following informed consent and procedure time-out, the patient was placed supine on the interventional table and the right arm prepped and draped in the usual sterile fashion. Ultrasound showed a patent and compressible right basilic vein. After the skin was anesthetized with lidocaine, the basilic vein was accessed with micro micropuncture technique using ultrasound guidance. A guidewire was then advanced under fluoroscopic guidance into the superior vena cava. An image documenting ultrasound guidance for vascular access was permanently saved. The length of the single-lumen 4 [place] PICC was trimmed to 37 centimeters and advanced through a peel-away sheath. The PICC was position with tip of PICC confirm a spot radiograph the superior vena cava. The PICC was secured to the patient's skin. The PICC was flushed. A biopatch and sterile dressing was applied. IMPRESSION: Placement of a single-lumen 4 [place] PICC trimmed to 37 centimeters via right basilic vein. The tip of the PICC is confirmed with spot radiograph and is in the superior vena cava.
[2018-05-17 16:01] VITALS: O2SAT 98
[2018-05-17] MEDS: Insulin Detemir 100 Units/ml Inj SC SCH (21:40)
[2018-05-18] VITALS: TEMP 97.7
[2018-05-18] MEDS: Piperacillin/Tazobact 3.375 GM in Sodium Chloride 0.9% 100 ML IVPB SCH ×2 (00:51→08:27)
[2018-05-18] MEDS: Levothyroxine 25 MCG TAB PO SCH (05:30)
[2018-05-18 07:59] VITALS: BP 138/74; PULSE 73; RESP 20
[2018-05-18] MEDS: Insulin Regular 100 units/ml SC SCH ×2 (08:00→12:04)
--- NOTE | 2018-05-18 09:20 | CP.PCM.PCO ---
Assessment/Plan - Assessment/Plan Assessment (Free Text): Per Dr. Crespo, patient to complete 6 weeks total of IV antibiotics. Pt requires 5 more weeks of Vanco 1g daily and Invanz 1g IV daily. Rx given to CM, outpatient infusion arrangements made by continuous pillowcase cutter. Pt aware. Pt cleared for d/c home by podiatry and by Dr. Lama. Pt stable.
--- NOTE | 2018-05-18 09:25 | CP.PCM.PN ---
Subjective - Date & Time of Evaluation Date of Evaluation: 05/18/18 Time of Evaluation: 09:20 - Subjective Subjective: Podiatry pogress note for attending, Dr. Cheung 67 y/o female seen at bedside 4 days s/p amputation of left 5th digit and partial 5th metatarsal. Patient is AAOx3, NAD, and seen in bed resting comfortably. Patient's dressing is dry, clean and intact. Patient denies any acute overnight events. Patient denies any pain to the area. Denies any N/V/F/ SOB/Chills. She has no other pedal complaints. Objective - Vital Signs/Intake and Output Vital Signs (last 24 hours): Temp Pulse Resp BP Pulse Ox 97.7 F 73 20 138/74 98 05/18/18 07:58 05/18/18 08:28 05/18/18 07:58 05/18/18 08:28 05/18/18 07:58 - Medications Medications: Current Medications Acetaminophen (Tylenol 325mg Tab) 650 mg PO Q4 PRN PRN Reason: Pain, Mild (1-3) Last Admin: 05/18/18 01:12 Dose: 650 mg Benzocaine/Menthol (Cepacol Sore Throat) 1 celso PO Q3 PRN PRN Reason: Sore Throat Last Admin: 05/17/18 12:12 Dose: 1 celso Clopidogrel Bisulfate (Plavix) 75 mg PO DAILY [facility] Last Admin: 05/18/18 08:26 Dose: 75 mg Heparin Sodium (Porcine) (Heparin) 5,000 units SC Q12 [facility] PRN Reason: Protocol Last Admin: 05/18/18 08:25 Dose: 5,000 units Piperacillin Sod/Tazobactam (Sod 3.375 gm/ Sodium Chloride) 100 mls @ 100 mls/ hr IVPB Q8 [facility] PRN Reason: Protocol Last Admin: 05/18/18 08:27 Dose: 100 mls/hr Vancomycin HCl 1 gm/ Sodium (Chloride) 250 mls @ 250 mls/hr IVPB Q24H [facility] PRN Reason: Protocol Last Admin: 05/18/18 08:33 Dose: 250 mls/hr Insulin Detemir (Levemir) 25 units SC HS [facility] Last Admin: 05/17/18 21:40 Dose: 25 unit Insulin Human Regular (Humulin R) 0 units SC ACHS [facility] PRN Reason: Protocol Last Admin: 05/17/18 21:18 Dose: Not Given Levothyroxine Sodium (Synthroid) 25 mcg PO DAILY@0630 [facility] Last Admin: 05/18/18 05:30 Dose: 25 mcg Lisinopril (Zestril) 10 mg PO DAILY [facility] Last Admin: 05/18/18 08:28 Dose: 10 mg Metformin HCl (Glucophage) 500 mg PO TID [facility] Last Admin: 05/18/18 08:25 Dose: 500 mg Sitagliptin Phosphate (Januvia) 100 mg PO DAILY [facility] Last Admin: 05/18/18 08:26 Dose: 100 mg - Labs Labs: 05/17/18 04:00 05/17/18 05:45 PT 11.9 Seconds (9.8-13.1) 05/08/18 20:23 INR 1.1 (0.9-1.2) 05/08/18 20:23 APTT 31.4 Seconds (25.6-37.1) 05/12/18 05:40 - Constitutional Appears: Well, Non-toxic, No Acute Distress - Head Exam Head Exam: ATRAUMATIC, NORMOCEPHALIC - Extremities Exam Additional comments: Left lower extremity focused: Vascular: DP/PT pulses palpable. CFT<3 secs x4, TG warm to cool, minimal edema and erythema noted surrounding the surgery site. Derm: Steri-strips removed from site with mild maceration at the surgical incision site, sutures intact, no evidence of dehiscence, mild erythema anastacia - incision site WNL given post op status, mild swelling, no malodor, no purulence , no drainage noted, no clinical signs of infection Neuro: Protective sensation grossly intact Ortho: No pain on palpation to the site of amputation, ROM wnl at the ankle and first mpj - Neurological Exam Neurological Exam: Alert, Awake, Oriented x3 - Psychiatric Exam Psychiatric exam: Normal Affect, Normal Mood Assessment and Plan - Assessment and Plan (Free Text) Assessment: 67 y/o female 4 days s/p left fifth digit and partial metatarsal amputation () Plan: Patient seen and evaluated Plan discussed in detail with attending, Dr. Cheung Chart, labs, and vitals reviewed; Afebrile, WBC 11.4 Steri-strips removed from the surgical site Evidence of mild maceration with no dehiscence - betadine soaked adaptic, DSD dressing Post-op foot x-ray: 5th digit transmetatarsal amputation Pre-operative wound culture: Coagulase negative staphylococcus Continue IV abx per ID through PICC in house and after discharge, patient aware Podiatry will continue to follow while patient in house. Patient stable from podiatry to be discharged to home
--- NOTE | 2018-05-18 17:46 | CP.PCM.DIS ---
<Martina Ponce - Last Filed: 05/18/18 17:38> Provider - Provider Date of Admission: 05/08/18 21:15 Attending physician: Rodrigo Lama MD Consults: Dr. Long, Dr. Crespo, Dr. Cheung Time Spent in preparation of Discharge (in minutes): 30 Hospital Course - Lab Results Lab Results: Micro Results 05/08/18 19:35 Blood-Venous Blood Culture - Final NO GROWTH AFTER 5 DAYS 05/08/18 19:35 Blood-Venous Gram Stain - Final TEST NOT PERFORMED 05/08/18 20:23 Blood-Venous Blood Culture - Final NO GROWTH AFTER 5 DAYS 05/08/18 20:23 Blood-Venous Gram Stain - Final TEST NOT PERFORMED 05/09/18 19:28 Toe Gram Stain - Final 05/09/18 19:28 Toe Wound Culture - Final Coagulase Neg Staphylococcus Most Recent Lab Values WBC 11.4 K/uL (4.8-10.8) H 05/17/18 04:00 RBC 3.49 Mil/uL (3.80-5.20) L 05/17/18 04:00 Hgb 10.5 g/dL (12.0-16.0) L 05/17/18 04:00 Hct 31.6 % (34.0-47.0) L 05/17/18 04:00 MCV 90.3 fl (81.0-99.0) 05/17/18 04:00 MCH 30.1 pg (27.0-31.0) 05/17/18 04:00 MCHC 33.3 g/dL (33.0-37.0) 05/17/18 04:00 RDW 13.4 % (11.5-14.5) 05/17/18 04:00 Plt Count 252 K/uL (130-400) 05/17/18 04:00 MPV 8.1 fl (7.2-11.7) 05/17/18 04:00 Neut % (Auto) 50.1 % (50.0-75.0) 05/17/18 04:00 Lymph % (Auto) 33.5 % (20.0-40.0) 05/17/18 04:00 [place] % (Auto) 10.5 % (0.0-10.0) H 05/17/18 04:00 Eos % (Auto) 5.0 % (0.0-4.0) H 05/17/18 04:00 Baso % (Auto) 0.9 % (0.0-2.0) 05/17/18 04:00 Neut # (Auto) 5.7 K/uL (1.8-7.0) 05/17/18 04:00 Lymph # (Auto) 3.8 K/uL (1.0-4.3) 05/17/18 04:00 [place] # (Auto) 1.2 K/uL (0.0-0.8) H 05/17/18 04:00 Eos # (Auto) 0.6 K/uL (0.0-0.7) 05/17/18 04:00 Baso # (Auto) 0.1 K/uL (0.0-0.2) 05/17/18 04:00 ESR 100 mm/hr (0-30) H 05/08/18 20:23 PT 11.9 Seconds (9.8-13.1) 05/08/18 20:23 INR 1.1 (0.9-1.2) 05/08/18 20:23 APTT 31.4 Seconds (25.6-37.1) 05/12/18 05:40 Sodium 138 mmol/l (132-148) 05/17/18 05:45 Potassium 4.4 MMOL/L (3.6-5.0) 05/17/18 05:45 Chloride 101 mmol/L (98-107) 05/17/18 05:45 Carbon Dioxide 31 mmol/L (22-30) H 05/17/18 05:45 Anion Gap 10 (10-20) 05/17/18 05:45 BUN 15 mg/dl (7-17) 05/17/18 05:45 Creatinine 1.3 mg/dl (0.7-1.2) H 05/17/18 05:45 Est GFR ( Amer) 49 05/17/18 05:45 Est GFR (Non-Af Amer) 41 05/17/18 05:45 POC Glucose (mg/dL) 202 mg/dL (65-110) H 05/18/18 11:41 Random Glucose 119 mg/dL (65-105) H 05/17/18 05:45 Hemoglobin A1c 9.6 % (4.2-6.5) H 05/10/18 11:34 Calcium 9.4 mg/dL (8.4-10.2) 05/17/18 05:45 Total Bilirubin 0.9 mg/dl (0.2-1.3) 05/17/18 05:45 AST 47 U/L (14-36) H 05/17/18 05:45 ALT 39 U/L (9-52) 05/17/18 05:45 Alkaline Phosphatase 73 U/L (38-126) 05/17/18 05:45 C-Reactive Protein 58.80 mg/L (0.0-9.9) H 05/08/18 20:23 Total Protein 9.0 G/DL (6.3-8.2) H 05/17/18 05:45 Albumin 3.8 g/dL (3.5-5.0) 05/17/18 05:45 Globulin 5.2 gm/dL (2.2-3.9) H 05/17/18 05:45 Albumin/Globulin Ratio 0.7 (1.0-2.1) L 05/17/18 05:45 Vancomycin Trough 5.4 ug/mL (5.0-10.0) 05/13/18 06:10 Blood Type O POSITIVE 05/08/18 20:23 Antibody Screen Negative 05/08/18 20:23 BBK History Checked No verified bt 05/08/18 20:23 - Hospital Course Hospital Course: 67 yr old F was admitted for worsening right 5th digit ulcer of foot, now POD# 4 s/p left 5th digit transmetatarsal amputation. Patient tolerated surgery well , remained stable, blood sugar with better control s/p adjustment of medication. Per ID patient instructed to complete 6 weeks of IV antibiotics as outpatient as arranged at [facility], right basilic vein PICC was placed. Patient was discharged stable with instructions to follow up with podiatry within 1 week, Dr. Lama within 1 week, and ID -go for IV antibiotics as scheduled. Take medications as prescribed. - Date & Time of H&P Date of H&P: 05/09/18 Time of H&P: 11:54 Discharge Exam - Head Exam Head Exam: ATRAUMATIC, NORMOCEPHALIC - Eye Exam Eye Exam: EOMI - ENT Exam ENT Exam: Mucous Membranes Moist - Respiratory Exam Respiratory Exam: NORMAL BREATHING PATTERN - GI/Abdominal Exam GI & Abdominal Exam: Normal Bowel Sounds, Soft - Extremities Exam Additional comments: right foot dressing clean/dry/intact - Neurological Exam Neurological exam: Alert, CN II-XII Intact (grossly intact), Oriented x3 - Psychiatric Exam Psychiatric exam: Normal Affect, Normal Mood - Skin Skin Exam: Dry, Warm Discharge Plan - Discharge Medications Prescriptions: Ertapenem Sodium [Invanz] 1 gm IV DAILY #35 vial.port metFORMIN [glucOPHAGE] 500 mg PO TID #60 tab Vancomycin 1 GM [Vancomycin 1GM in Normal Saline Addvantage] 1 gm IVPB DAILY # 35 bag - Follow Up Plan Condition: FAIR Disposition: HOME/ ROUTINE Instructions: Osteomyelitis (DC), Peripherally-Inserted Central Catheter (DC), Wound Infection Additional Instructions: hacer paul con may primario dentro 1 semana regresar de lunes a viernes al piso 7 para antibiotico, y regresar sabado y vanessa a china de emergencia I was present during evaluation and discussed with patient and Dr Ponce re discharge plans. Rodrigo Lama M.D. Referrals: Gian Cheung MD [Staff Provider] - Rodrigo Lama MD [Staff Provider] - Stevie Crespo MD [Staff Provider] - <Rodrigo Lama - Last Filed: 05/19/18 07:38> Provider - Provider Date of Admission: 05/08/18 21:15 Attending physician: Rodrigo Lama MD Diagnosis - Discharge Diagnosis (1) Diabetic foot infection Status: Acute (2) Toe gangrene Status: Acute (3) Diabetes mellitus Status: Acute (4) Hypertension Status: Acute (5) PAD (peripheral artery disease) Status: Acute Hospital Course - Lab Results Lab Results: Micro Results 05/08/18 19:35 Blood-Venous Blood Culture - Final NO GROWTH AFTER 5 DAYS 05/08/18 19:35 Blood-Venous Gram Stain - Final TEST NOT PERFORMED 05/08/18 20:23 Blood-Venous Blood Culture - Final NO GROWTH AFTER 5 DAYS 05/08/18 20:23 Blood-Venous Gram Stain - Final TEST NOT PERFORMED 05/09/18 19:28 Toe Gram Stain - Final 05/09/18 19:28 Toe Wound Culture - Final Coagulase Neg Staphylococcus Most Recent Lab Values WBC 11.4 K/uL (4.8-10.8) H 05/17/18 04:00 RBC 3.49 Mil/uL (3.80-5.20) L 05/17/18 04:00 Hgb 10.5 g/dL (12.0-16.0) L 05/17/18 04:00 Hct 31.6 % (34.0-47.0) L 05/17/18 04:00 MCV 90.3 fl (81.0-99.0) 05/17/18 04:00 MCH 30.1 pg (27.0-31.0) 05/17/18 04:00 MCHC 33.3 g/dL (33.0-37.0) 05/17/18 04:00 RDW 13.4 % (11.5-14.5) 05/17/18 04:00 Plt Count 252 K/uL (130-400) 05/17/18 04:00 MPV 8.1 fl (7.2-11.7) 05/17/18 04:00 Neut % (Auto) 50.1 % (50.0-75.0) 05/17/18 04:00 Lymph % (Auto) 33.5 % (20.0-40.0) 05/17/18 04:00 [place] % (Auto) 10.5 % (0.0-10.0) H 05/17/18 04:00 Eos % (Auto) 5.0 % (0.0-4.0) H 05/17/18 04:00 Baso % (Auto) 0.9 % (0.0-2.0) 05/17/18 04:00 Neut # (Auto) 5.7 K/uL (1.8-7.0) 05/17/18 04:00 Lymph # (Auto) 3.8 K/uL (1.0-4.3) 05/17/18 04:00 [place] # (Auto) 1.2 K/uL (0.0-0.8) H 05/17/18 04:00 Eos # (Auto) 0.6 K/uL (0.0-0.7) 05/17/18 04:00 Baso # (Auto) 0.1 K/uL (0.0-0.2) 05/17/18 04:00 ESR 100 mm/hr (0-30) H 05/08/18 20:23 PT 11.9 Seconds (9.8-13.1) 05/08/18 20:23 INR 1.1 (0.9-1.2) 05/08/18 20:23 APTT 31.4 Seconds (25.6-37.1) 05/12/18 05:40 Sodium 138 mmol/l (132-148) 05/17/18 05:45 Potassium 4.4 MMOL/L (3.6-5.0) 05/17/18 05:45 Chloride 101 mmol/L (98-107) 05/17/18 05:45 Carbon Dioxide 31 mmol/L (22-30) H 05/17/18 05:45 Anion Gap 10 (10-20) 05/17/18 05:45 BUN 15 mg/dl (7-17) 05/17/18 05:45 Creatinine 1.3 mg/dl (0.7-1.2) H 05/17/18 05:45 Est GFR ( Amer) 49 05/17/18 05:45 Est GFR (Non-Af Amer) 41 05/17/18 05:45 POC Glucose (mg/dL) 202 mg/dL (65-110) H 05/18/18 11:41 Random Glucose 119 mg/dL (65-105) H 05/17/18 05:45 Hemoglobin A1c 9.6 % (4.2-6.5) H 05/10/18 11:34 Calcium 9.4 mg/dL (8.4-10.2) 05/17/18 05:45 Total Bilirubin 0.9 mg/dl (0.2-1.3) 05/17/18 05:45 AST 47 U/L (14-36) H 05/17/18 05:45 ALT 39 U/L (9-52) 05/17/18 05:45 Alkaline Phosphatase 73 U/L (38-126) 05/17/18 05:45 C-Reactive Protein 58.80 mg/L (0.0-9.9) H 05/08/18 20:23 Total Protein 9.0 G/DL (6.3-8.2) H 05/17/18 05:45 Albumin 3.8 g/dL (3.5-5.0) 05/17/18 05:45 Globulin 5.2 gm/dL (2.2-3.9) H 05/17/18 05:45 Albumin/Globulin Ratio 0.7 (1.0-2.1) L 05/17/18 05:45 Vancomycin Trough 5.4 ug/mL (5.0-10.0) 05/13/18 06:10 Blood Type O POSITIVE 05/08/18 20:23 Antibody Screen Negative 05/08/18 20:23 BBK History Checked No verified bt 05/08/18 20:23
--- NOTE | 2018-05-19 07:36 | CP.PCM.PN ---
Subjective - Date & Time of Evaluation Date of Evaluation: 05/17/18 Time of Evaluation: 11:00 - Subjective Subjective: Patient remains stable Has no fever Has no chest pain or SOB Accuchecks are still elevated. Currently on metformin and januvia. Objective - Vital Signs/Intake and Output Vital Signs (last 24 hours): Temp Pulse Resp BP Pulse Ox 97.7 F 73 20 138/74 98 05/18/18 07:58 05/18/18 08:28 05/18/18 07:58 05/18/18 08:28 05/18/18 07:58 - Labs Labs: 05/17/18 04:00 05/17/18 05:45 PT 11.9 Seconds (9.8-13.1) 05/08/18 20:23 INR 1.1 (0.9-1.2) 05/08/18 20:23 APTT 31.4 Seconds (25.6-37.1) 05/12/18 05:40 - Head Exam Head Exam: NORMAL INSPECTION - Eye Exam Eye Exam: Normal appearance - ENT Exam ENT Exam: Mucous Membranes Moist - Respiratory Exam Respiratory Exam: Clear to Ausculation Bilateral - Cardiovascular Exam Cardiovascular Exam: REGULAR RHYTHM - GI/Abdominal Exam GI & Abdominal Exam: Normal Bowel Sounds - Neurological Exam Neurological Exam: Awake, Oriented x3 - Psychiatric Exam Psychiatric exam: Normal Mood Assessment and Plan (1) Diabetic foot infection Status: Acute (2) Toe gangrene Status: Acute (3) Diabetes mellitus Status: Acute (4) Hypertension Status: Acute (5) PAD (peripheral artery disease) Status: Acute - Assessment and Plan (Free Text) Plan: Cont meds Con ttx Cont PT pain meds/ iv antibiotics arrange for PICC arrange for IV antibiotics outpatient monitor labs Discharge plans
== END 2018-05-18 15:45 | disposition home or self-care (01) | DRG 253 ==
LOC: H.ER 19:12 → H.ERHOLD 21:15 → H.MEDSURG1 05-09 00:16
PROVIDERS: ADMIT Family Medicine; ATTEND Family Medicine
PROC: 047L3EZ Dilation of Left Femoral Artery with Two Intraluminal Devices, Percutaneous Approach (ICD-10-PCS; 2018-05-12)
PROC: 047D3EZ Dilation of Left Common Iliac Artery with Two Intraluminal Devices, Percutaneous Approach (ICD-10-PCS; 2018-05-12)
PROC: 047C3Z1 Dilation of Right Common Iliac Artery using Drug-Coated Balloon, Percutaneous Approach (ICD-10-PCS; 2018-05-12)
PROC: 0Y6Y0Z0 Detachment at Left 5th Toe, Complete, Open Approach (ICD-10-PCS; principal; 2018-05-14 11:00)
PROC: 02HV33Z Insertion of Infusion Device into Superior Vena Cava, Percutaneous Approach (ICD-10-PCS; 2018-05-17)
PROC: B548ZZA Ultrasonography of Superior Vena Cava, Guidance (ICD-10-PCS; 2018-05-17)
PROC: 3E04329 Introduction of Other Anti-infective into Central Vein, Percutaneous Approach (ICD-10-PCS; 2018-05-17)
DX: E11.52 Type 2 diabetes mellitus with diabetic peripheral angiopathy with gangrene (principal); M86.172 Other acute osteomyelitis, left ankle and foot; E11.628 Type 2 diabetes mellitus with other skin complications; E11.621 Type 2 diabetes mellitus with foot ulcer; L97.529 Non-pressure chronic ulcer of other part of left foot with unspecified severity; L03.032 Cellulitis of left toe; B95.7 Other staphylococcus as the cause of diseases classified elsewhere; E11.69 Type 2 diabetes mellitus with other specified complication; E11.65 Type 2 diabetes mellitus with hyperglycemia; I10 Essential (primary) hypertension; E03.9 Hypothyroidism, unspecified; E78.5 Hyperlipidemia, unspecified; E78.00 Pure hypercholesterolemia, unspecified; Z79.4 Long term (current) use of insulin; Z79.84 Long term (current) use of oral hypoglycemic drugs; Z89.411 Acquired absence of right great toe; Z79.02 Long term (current) use of antithrombotics/antiplatelets; Z79.82 Long term (current) use of aspirin; Z88.1 Allergy status to other antibiotic agents

== ENCOUNTER 2018-05-31 14:27 | Emergency (ER) | payer MEDICARE ==
[2018-05-31 14:27] VITALS: BMI 32.9
[2018-05-31] MEDS ORDERED: Sodium Chloride 0.9% 1,000 ML IV STA (14:59)
[2018-05-31] MEDS ORDERED: Albuterol 0.083% Inhal Sol (2.5 mg/3 mL) UD INH STA (14:59)
[2018-05-31] MEDS ORDERED: Sod Polystyrene Sulf 15 gm/60 ml Susp PO STA (14:59)
[2018-05-31] MEDS ORDERED: Insulin Regular 100 units/ml IV STA (14:59)
--- NOTE | 2018-05-31 15:03 | ED PDOC ---
HPI: General Adult Time Seen by Provider: 05/31/18 14:54 Chief Complaint (Nursing): Abnormal Labs Chief Complaint (Provider): High potassium History Per: Patient History/Exam Limitations: no limitations Onset/Duration Of Symptoms: Days (today) Additional Complaint(s): Pt. has osteomyelitis and was getting infusion IV antibiotics vanco and invanz. Was getting the antibiotics outpt. and her potassium was 6.5 on routine check up so sent to the ER. Pt. denies any complaints and is getting her antibiotics. No numbness, tingles, weakness, headaches, dizziness, abd pain, nausea, vomit, chest pain, palpitations, or any symptoms. Past Medical History Reviewed: Nursing Documentation, Vital Signs Vital Signs: Last Vital Signs Temp 97.3 F L 05/31/18 14:31 Pulse 90 05/31/18 14:31 Resp 18 05/31/18 14:31 BP 143/70 05/31/18 14:31 Pulse Ox 100 05/31/18 16:26 - Medical History PMH: Diabetes, HTN, Hypercholesterolemia, Hyperthyroidism, Hypothyroidism Denies: Chronic Kidney Disease Other PMH: osteomyelitis - Family History Family History: States: Unknown Family Hx - Home Medications Home Medications: Ambulatory Orders Medication Instructions Recorded Glimepiride 4 mg PO BID 08/10/14 Lisinopril 10 mg PO DAILY 08/10/14 Dulaglutide [Trulicity] 1.5 mg SQ Q7D 11/08/17 Levothyroxine [Synthroid] 25 mcg PO DAILY 11/08/17 SITagliptin [Januvia] 100 mg PO DAILY 11/08/17 Insulin Lispro Mix 75/25 [HumaLog 40 units SC BID 11/09/17 MIX 75/25] Aspirin [Ecotrin] 81 mg PO DAILY #30 tabec 11/19/17 Clopidogrel [Plavix] 75 mg PO DAILY #30 tab 11/19/17 Insulin Glargine, Recombina 44 unit SC HS 05/08/18 [Lantus] Ertapenem Sodium [Invanz] 1 gm IV DAILY #35 vial.port 05/18/18 Vancomycin 1 GM [Vancomycin 1GM in 1 gm IVPB DAILY #35 bag 05/18/18 Normal Saline Addvantage] metFORMIN [glucOPHAGE] 500 mg PO TID #60 tab 05/18/18 - Allergies Allergies/Adverse Reactions: Allergies Allergy/AdvReac Type Severity Reaction Status Date / Time ciprofloxacin [From Cipro] Allergy RASH Verified 05/31/18 14:31 ciprofloxacin HCl Allergy RASH Verified 05/31/18 14:31 [From Cipro] clindamycin Allergy RASH Verified 05/31/18 14:31 Review of Systems ROS Statement: Except As Marked, All Systems Reviewed And Found Negative Physical Exam - Reviewed Nursing Documentation Reviewed: Yes Vital Signs Reviewed: Yes - Physical Exam Appears: Positive for: Non-toxic, No Acute Distress Head Exam: Positive for: ATRAUMATIC, NORMAL INSPECTION, NORMOCEPHALIC Skin: Positive for: Normal Color, Warm, DRY Eye Exam: Positive for: EOMI, Normal appearance, PERRL ENT: Positive for: Normal ENT Inspection Neck: Positive for: Normal, Painless ROM Cardiovascular/Chest: Positive for: Regular Rate, Rhythm Respiratory: Positive for: CNT, Normal Breath Sounds Gastrointestinal/Abdominal: Positive for: Normal Exam, Soft. Negative for: Tenderness Back: Positive for: Normal Inspection. Negative for: L CVA Tenderness, R CVA Tenderness Extremity: Positive for: Normal ROM, Tenderness (foot ). Negative for: Pedal Edema Neurologic/Psych: Positive for: Alert, Oriented - ECG ECG: Positive for: Interpreted By Me, Viewed By Me ECG Rhythm: Positive for: Normal QRS, Normal ST Segment, Sinus Rhythm O2 Sat by Pulse Oximetry: 100 Pulse Ox Interpretation: Normal - Progress ED Course And Treament: 1505: Pt. getting her antibiotics. Will give IV fluids 1L. Tx for high potassium. Then recheck level. Asymptomatic at this time. Sugar elevated and likely partial cause of elevated potassium. 1623: Will repeat CMP as pt. got her tx and fluids. 1655: Stable. AAOx3. Pain free. Tolerated po. Antibiotics finished. Labs improved. [facility] pcp. Disposition - Clinical Impression Clinical Impression: Hyperkalemia - Patient ED Disposition Is Patient to be Admitted: Transfer of Care Counseled Patient/Family Regarding: Studies Performed, Diagnosis - Disposition Disposition Time: 17:15 Condition: STABLE Patient Signed Over To: Baltazar Paez III
[2018-05-31] MEDS ORDERED: Sod Polystyrene Sulf 15 gm/60 ml Susp ONE (15:11)
[2018-05-31] MEDS ORDERED: Insulin Regular 100 units/ml ONE (15:12)
[2018-05-31] MEDS ORDERED: Albuterol-Ipratrop 3 mg / 0.5 (3 ml) UD ONE (15:13)
[2018-05-31 17:20] LABS: ALB/GLOB RATIO 0.9 (1.0-2.1); ALBUMIN 3.6 g/dL (3.5-5.0); CALCIUM 9.1 mg/dL (8.4-10.2)
[2018-05-31] MEDS ORDERED: Insulin Regular 100 units/ml IVP ONE (17:42)
--- NOTE | 2018-05-31 18:01 | ED PDOC ---
- Laboratory Results Result Diagrams: 05/31/18 16:40 - ECG O2 Sat by Pulse Oximetry: 100 (RA) Pulse Ox Interpretation: Normal Medical Decision Making Medical Decision Making: Time: 1720 Patient signed out to me by Dr. Holloway pending repeat potassium. repeat K+ 5.1 prior to treatment initiation w insulin/glucose and kayexelate. Rec followup PMD Sugars improved in ED also home meds reviewed, include lisinopril 10mg which told to hold until sees PMD given hyperkalemia Scribe Attestation: Documented by Mary Ann Brice, acting as a scribe for Baltazar Paez DO. Provider Scribe Attestation: All medical record entries made by the Scribe were at my direction and personally dictated by me. I have reviewed the chart and agree that the record accurately reflects my personal performance of the history, physical exam, medical decision making, and the department course for this patient. I have also personally directed, reviewed, and agree with the discharge instructions and disposition. Disposition Counseled Patient/Family Regarding: Studies Performed, Diagnosis, Need For Followup - Clinical Impression Clinical Impression: Hyperkalemia - POA Present On Arrival: Poor Glycemic Control - Disposition Referrals: Lizzette Potter MD [Medical Doctor] - Jeri Byrne MD [Medical Doctor] - Disposition Time: 18:50 Condition: STABLE Additional Instructions: STOP YOUR LISINOPRIL UNTIL YOU SEE YOUR DOCTOR, THIS MEDICATION MAY HAVE CAUSED YOUR POTASSIUM TO ELEVATE. DRINK PLENTY OF FLUIDS. RETURN TO ER FOR ANY CONCERN. FOLLOWUP WITH INFUSION CENTER FOR CONTINUING ANTIBIOTICS. Detenga may lisinopril hasta que devin a may mdico, ya que rusty medicamento puede balbri causado que may potasio se eleve. Minerva muchos lquidos. Vuelva a er para cualquier preocupacin. Seguimiento con centro de infusin para continuar con los antibiticos. Instructions: Hyperkalemia (DC) Forms: [facility] (Niuean) Print Language: SETSWA[place]
[2018-05-31 18:29] VITALS: RESP 19
[2018-05-31 18:59] VITALS: BP 126/78; PULSE 75; TEMP 98.6; O2SAT 98
--- NOTE | 2018-06-03 16:42 | CARD ---
APPROVED REPORT Date of service: 05/31/2018 EKG Measurement Heart [id number] <Conclusion> Normal sinus rhythm Normal ECG
== END 2018-05-31 19:21 | disposition home or self-care (01) ==
LOC: H.ER 14:27
DX: E87.5 Hyperkalemia (principal); E03.9 Hypothyroidism, unspecified; E11.9 Type 2 diabetes mellitus without complications; E78.00 Pure hypercholesterolemia, unspecified; I10 Essential (primary) hypertension; Z79.4 Long term (current) use of insulin; Z79.82 Long term (current) use of aspirin; E05.90 Thyrotoxicosis, unspecified without thyrotoxic crisis or storm
CPT/HCPCS: 80053; 82948; 93005; 94640; 96374; 99281; J1335; J7030

== ENCOUNTER 2019-03-05 11:48 | Emergency (ER) | payer MEDICARE ==
[2019-03-05 11:55] VITALS: BMI 36.3
[2019-03-05 11:56] VITALS: RESP 17; O2SAT 98
[2019-03-05 13:18] LABS: BASO % 0.5 % (0.0-2.0); EOS # 0.1 K/uL (0.0-0.7); EOS % 1.7 % (0.0-4.0); LYMPH # 2.2 K/uL (1.0-4.3); LYMPH % 27.8 % (20.0-40.0); MEAN CELL VOLUME 90.5 fl (81.0-99.0); MEAN CORPUSCULAR HEMOGLOBIN 30.6 pg (27.0-31.0); MEAN CORPUSCULAR HGB CONC 33.9 g/dL (33.0-37.0); MEAN PLATELET VOLUME 9.8 fl (7.2-11.7); MONO # 0.7 K/uL (0.0-0.8); MONO % 8.7 % (0.0-10.0); NEUT # 4.9 K/uL (1.8-7.0); NEUT % 61.3 % (50.0-75.0); RBC 3.92 Mil/uL (3.80-5.20); RED CELL DISTRIBUTION WIDTH 13.1 % (11.5-14.5); WHITE BLOOD COUNT 7.9 K/uL (4.8-10.8)
[2019-03-05 13:32] LABS: CALCIUM 10.1 mg/dL (8.4-10.2)
--- NOTE | 2019-03-05 13:45 | RAD ---
Date of service: 03/05/2019 PROCEDURE: Left Foot Radiographs. HISTORY: redness and swelling to 3rd toe COMPARISON: Left foot radiographs dated 05/14/2018. TECHNIQUE: 3 views obtained. FINDINGS: BONES: No acute fracture or periosteal reaction. 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 JOINTS: Normal. SOFT TISSUES: Normal. OTHER FINDINGS: None. IMPRESSION: Prior 5th transmetatarsal and 2nd trans phalangeal amputation. No acute fracture or periosteal reaction.
--- NOTE | 2019-03-05 14:21 | CP.PCM.CON ---
History of Present Illness - History of Present Illness History of Present Illness: Podiatry Consult note: Dr. Cheung 68 year old female with medical history of diabetes, presents to the emergency department for an evaluation of left, 4th toe swelling with increased redness. 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 She denies fever, chills, pain to affected foot, or further complaints. PCP: Dr. Rodrigo Lama 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, left fifth ray amputation Allergies: cipro and clinda -rash Meds: In chart Past Patient History - Infectious Disease Hx of Infectious Diseases: None - Past Medical History & Family History Past Medical History?: Yes - Past Social History Smoking Status: Never Smoked - CARDIAC Hx Cardiac Disorders: Yes Hx Hypercholesterolemia: Yes Hx Hypertension: Yes - PULMONARY Hx Respiratory Disorders: No - NEUROLOGICAL Hx Neurological Disorder: No - HEENT Hx HEENT Problems: No - RENAL Hx Chronic Kidney Disease: No - ENDOCRINE/METABOLIC Hx Endocrine Disorders: Yes Hx Hypothyroidism: Yes - HEMATOLOGICAL/ONCOLOGICAL Hx Blood Disorders: No - INTEGUMENTARY Hx Dermatological Problems: No - MUSCULOSKELETAL/RHEUMATOLOGICAL Hx Musculoskeletal Disorders: No Hx Falls: Yes - GASTROINTESTINAL Hx Gastrointestinal Disorders: No - GENITOURINARY/GYNECOLOGICAL Hx Genitourinary Disorders: No - PSYCHIATRIC Hx Psychophysiologic Disorder: No Hx Substance Use: No - SURGICAL HISTORY Hx Surgeries: Yes Other/Comment: 3 right foot surgeries- toe amputation - ANESTHESIA Hx Anesthesia: Yes Hx Anesthesia Reactions: No Hx Malignant Hyperthermia: No Meds Home Medications: Home Medication List Medication Instructions Recorded Confirmed Type Sulfamethoxazole/Trimethoprim 1 tab PO BID #20 tab 03/05/19 Rx [Bactrim DS 800 mg-160 mg] Allergies/Adverse Reactions: Allergies Allergy/AdvReac Type Severity Reaction Status Date / Time ciprofloxacin [From Cipro] Allergy RASH Verified 05/31/18 14:31 ciprofloxacin HCl Allergy RASH Verified 05/31/18 14:31 [From Cipro] clindamycin Allergy RASH Verified 05/31/18 14:31 Physical Exam - Constitutional Appears: Well, Non-toxic, No Acute Distress - Head Exam Head Exam: ATRAUMATIC, NORMOCEPHALIC - Eye Exam Eye Exam: Normal appearance - ENT Exam ENT Exam: Mucous Membranes Moist - Neck Exam Neck exam: Positive for: Normal Inspection - Respiratory Exam Respiratory Exam: NORMAL BREATHING PATTERN - Cardiovascular Exam Cardiovascular Exam: REGULAR RHYTHM, +S1 - Extremities Exam Additional comments: Left LE focused exam: VASC: DP pulses palpable 1/4. PT pulses weakly palpable 1/4. Cap refill time: approx. 3 seconds to all digits. Temperature gradient warm to cool from proximal to distal b/l. Non-pitting edema noted to the lateral aspect of the left foot DERM: Hyperkeratotic tissue at the tip of the fourth toe, macerated tissue noted on the medial aspect of the fourth toe, erythema on the digit which extends to the dorsal aspect of the fourth toe, dusky appearance with island of hyper pigmented skin changes noted on the 4th digit, no malodor, no purulence, no probe to bone, no fluctuance, no abscess noted clinically NEURO: Gross sensation absent b/l ORTHO: Left 5th digit and Right 1st ray partial amputation. Right 2nd digit rigid hammertoe contracture. - Neurological Exam Neurological exam: Alert, Oriented x3 Results - Vital Signs Recent Vital Signs: Last Vital Signs Temp 99.1 F 03/05/19 11:55 Pulse 106 H 03/05/19 11:55 Resp 17 03/05/19 11:55 BP 121/56 L 03/05/19 11:55 Pulse Ox 98 03/05/19 11:55 - Labs Result Diagrams: 03/05/19 13:12 03/05/19 13:12 Labs: Laboratory Results - last 24 hr 03/05/19 03/05/19 13:12 13:12 WBC 7.9 RBC 3.92 Hgb 12.0 Hct 35.5 MCV 90.5 MCH 30.6 MCHC 33.9 RDW 13.1 Plt Count 202 MPV 9.8 Neut % (Auto) 61.3 Lymph % (Auto) 27.8 [place] % (Auto) 8.7 Eos % (Auto) 1.7 Baso % (Auto) 0.5 Neut # (Auto) 4.9 Lymph # (Auto) 2.2 [place] # (Auto) 0.7 Eos # (Auto) 0.1 Baso # (Auto) 0.0 Sodium 134 Potassium 4.8 Chloride 95 L Carbon Dioxide 28 Anion Gap 16 BUN 36 H Creatinine 2.0 H Est GFR ( Amer) 30 Est GFR (Non-Af Amer) 25 Random Glucose 265 H Calcium 10.1 Assessment & Plan - Assessment and Plan (Free Text) Assessment: 68 yo female with pmhx of diabetes seen in the ED for left fourth digit cellulitis Plan: Patient seen and evaluated at bedside Discussed plan with attending Dr. Cheung Labs, vitals and charts reviewed - afebrile, WBC @ 7.9, X-rays of the left foot ordered/reviewed - no cortical erosions noted at the fourth digit Site debrided with # 15 blade, 1 cc of purulent drainage noted Wound cultures taken and ordered Wound cleaned with saline and dressing applied using betadine, DSD Wound cultures: pending Patient and the demonstrated verbal understanding of the plan - in agreement with the plan Thank you for the podiatry consult and allowing to take part in patient care Patient to follow up in podiatry clinic
--- NOTE | 2019-03-05 14:27 | ED PDOC ---
Lower Extremity Pain/Injury Time Seen by Provider: 03/05/19 12:02 Chief Complaint (Nursing): Abnormal Skin Integrity Chief Complaint (Provider): Abnormal Skin Integrity History Per: Patient History/Exam Limitations: no limitations Current Symptoms Are (Timing): Still Present Additional Complaint(s): 68 year old female with medical history of diabetes, presents to the emergency department for an evaluation of left, 3rd toe swelling with decreased sensation. 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 She denies fever, chills, pain to affected foot, or further complaints. PCP: Dr. Rodrigo Lama Past Medical History Reviewed: Historical Data, Nursing Documentation, Vital Signs Vital Signs: Last Vital Signs Temp 99.1 F 03/05/19 11:55 Pulse 106 H 03/05/19 11:55 Resp 17 03/05/19 11:55 BP 121/56 L 03/05/19 11:55 Pulse Ox 98 03/05/19 11:55 - Medical History PMH: Diabetes, HTN, Hypercholesterolemia, Hyperthyroidism, Hypothyroidism Denies: Chronic Kidney Disease - Family History Family History: States: Unknown Family Hx - Home Medications Home Medications: Ambulatory Orders Medication Instructions Recorded Glimepiride 4 mg PO BID 08/10/14 Lisinopril 10 mg PO DAILY 08/10/14 Dulaglutide [Trulicity] 1.5 mg SQ Q7D 11/08/17 Levothyroxine [Synthroid] 25 mcg PO DAILY 11/08/17 SITagliptin [Januvia] 100 mg PO DAILY 11/08/17 Insulin Lispro Mix 75/25 [HumaLog 40 units SC BID 11/09/17 MIX 75/25] Aspirin [Ecotrin] 81 mg PO DAILY #30 tabec 11/19/17 Clopidogrel [Plavix] 75 mg PO DAILY #30 tab 11/19/17 Insulin Glargine, Recombina 44 unit SC HS 05/08/18 [Lantus] Ertapenem Sodium [Invanz] 1 gm IV DAILY #35 vial.port 05/18/18 Vancomycin 1 GM [Vancomycin 1GM in 1 gm IVPB DAILY #35 bag 05/18/18 Normal Saline Addvantage] metFORMIN [glucOPHAGE] 500 mg PO TID #60 tab 05/18/18 Sulfamethoxazole/Trimethoprim 1 tab PO BID #20 tab 03/05/19 [Bactrim DS 800 mg-160 mg] - Allergies Allergies/Adverse Reactions: Allergies Allergy/AdvReac Type Severity Reaction Status Date / Time ciprofloxacin [From Cipro] Allergy RASH Verified 05/31/18 14:31 ciprofloxacin HCl Allergy RASH Verified 05/31/18 14:31 [From Cipro] clindamycin Allergy RASH Verified 05/31/18 14:31 Review of Systems ROS Statement: Except As Marked, All Systems Reviewed And Found Negative Musculoskeletal: Positive for: Other (left, 3rd toe with swelling and decreasing sensation). Negative for: Foot Pain (left-sided) Physical Exam - Reviewed Nursing Documentation Reviewed: Yes Vital Signs Reviewed: Yes - Physical Exam Extremity: Positive for: Swelling (3rd toe with erythema extending to dorsal surface of left foot), Other (well-healed 5th toe amputation scar) Neurological/Psych: Positive for: Awake, Alert, Normal Tone - Laboratory Results Result Diagrams: 03/05/19 13:12 03/05/19 13:12 - ECG O2 Sat by Pulse Oximetry: 98 (RA) Pulse Ox Interpretation: Normal Medical Decision Making Medical Decision Making: Time: 1250 Initial Plan: work-up for osteomyelitis vs. cellulitis * Labs * Podiatry consult * XR foot (left) Accession No. : [id number] Patient Name / ID : ENOC MENDOZA / [id number] Exam Date : 03/05/2019 13:15:30 ( Approved ) Study Comment : Sex / Age : F / 68Y Creator : Marcello Huston MD Dictator : Marcello Huston MD Compound Mixer : Title Clerk : Marcello Huston MD Approver2 : Report Date : 03/05/2019 13:42:12 My Comment : Date of service: 03/05/2019 PROCEDURE: Left Foot Radiographs. HISTORY: redness and swelling to 3rd toe COMPARISON: Left foot radiographs dated 05/14/2018. TECHNIQUE: 3 views obtained. FINDINGS: BONES: No acute fracture or periosteal reaction. 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 JOINTS: Normal. SOFT TISSUES: Normal. OTHER FINDINGS: None. IMPRESSION: Prior 5th transmetatarsal and 2nd trans phalangeal amputation. No acute fracture or periosteal reaction. Pt seen and evaluated by podiatry. Podiatry resident debrided the wound and cultures were sent. Pt given Rx for Bactrim and will follow up with the podiatry clinic on Thursday. Return parameters discussed. Scribe Attestation: Documented by Lizzette Nava, acting as a scribe for Amina Alfaro MD. Provider Scribe Attestation: All medical record entries made by the Scribe were at my direction and personally dictated by me. I have reviewed the chart and agree that the record accurately reflects my personal performance of the history, physical exam, me dical decision making, and the department course for this patient. I have also personally directed, reviewed, and agree with the discharge instructions and disposition. Disposition - Clinical Impression Clinical Impression: Cellulitis and abscess of foot - Disposition Disposition: Routine/Home Disposition Time: 14:45 Condition: IMPROVED Additional Instructions: Keep toe clean and dry. Follow up with podiatry clinic as scheduled. Return to the emergency department if infection worsens. Take antibiotics as prescribed twice per day. Prescriptions: Sulfamethoxazole/Trimethoprim [Bactrim DS 800 mg-160 mg] 1 tab PO BID #20 tab Instructions: Cellulitis (Skin Infection), Adult (DC) Forms: [employer] ([place]) Print Language: [place]
[2019-03-05 15:15] VITALS: BP 128/58; PULSE 92; TEMP 98.1
== END 2019-03-05 15:06 | disposition home or self-care (01) ==
LOC: H.ER 11:48
DX: L02.619 Cutaneous abscess of unspecified foot (principal); L03.119 Cellulitis of unspecified part of limb; E11.9 Type 2 diabetes mellitus without complications; I10 Essential (primary) hypertension; Z79.4 Long term (current) use of insulin; Z79.82 Long term (current) use of aspirin; Z88.1 Allergy status to other antibiotic agents; Z89.429 Acquired absence of other toe(s), unspecified side; E05.90 Thyrotoxicosis, unspecified without thyrotoxic crisis or storm